=== PATIENT | female | born 1980 | race Caucasian/White ===

== ENCOUNTER 2017-11-19 09:32 | Emergency (ER) | payer OTHER ==
[2017-11-19] MEDS ORDERED: SODIUM CHLORIDE 0.9% 1,000 ML IV STA (09:43)
[2017-11-19] MEDS ORDERED: SODIUM CHLORIDE 0.9% 500 ML IV STA (09:43)
[2017-11-19 10:45] LABS: Basophils % (A) 1 %; Eosinophils # (A) 0.1 k/uL (0-0.7); Eosinophils % (A) 2 %; HCT 31.8 % (34.0-46.0); Hypochromasia Marked; Lymphocytes # (A) 1.2 k/uL (1.0-4.8); Lymphocytes % (A) 24 %; MCH 23.4 pg (25.0-35.0); MCHC 31.5 g/dL (31.0-37.0); MCV 74.3 fL (80.0-100.0); Mean Platelet Volume 8.2; Microcytosis Slight; Monocytes # (A) 0.2 k/uL (0-1.0); Monocytes % (A) 4 %; Neutrophils # (A) 3.4 k/uL (1.3-7.7); Neutrophils % (A) 68 %; Platelet Count 334 k/uL (150-450); RBC 4.28 m/uL (3.80-5.40); RDW 14.9 % (11.5-15.5); WBC 5.1 k/uL (3.8-10.6)
--- NOTE | 2017-11-19 10:51 | ED ---
General Adult HPI - General Chief complaint: Chest Pain Stated complaint: CHEST PAIN, PALPATATIONS, L SHOULDER PAIN Time Seen by Provider: 11/19/17 09:42 Source: patient, RN notes reviewed, old records reviewed Mode of arrival: ambulatory Limitations: no limitations - History of Present Illness Initial comments: This is a 37-year-old female to the ER for evaluation of chest pain. Patient since with chest pain today. Patient has no history of heart disease normal cholesterol and high blood pressure or diabetes. Nonsmoker. No travel history. Patient has left shoulder pain pain down left back, sharp pain. Pain happened while driving earlier today, no modifying factors currently. Pain is mildly improved. Patient denies recent fevers cough or congestion patient does have asthma diabetes with extensive surgical history - Related Data Home Medications Medication Instructions Recorded Confirmed Multivitamin [Children's 2 tab PO DAILY 07/11/15 11/19/17 Multivitamins] Levothyroxine Sodium [Synthroid] 25 mcg PO DAILY 07/03/16 11/19/17 Loratadine [Claritin] 10 mg PO DAILY 11/19/17 11/19/17 Allergies Allergy/AdvReac Type Severity Reaction Status Date / Time adhesive Allergy Rash/Hives Verified 11/19/17 10:26 milk Allergy RETAINS Verified 11/19/17 10:26 FLUID Tetanus Vaccines and Toxoid Allergy Swelling Verified 11/19/17 10:26 [Tetanus Vaccines & Toxoid] skin ink Allergy Rash/Hives Uncoded 11/19/17 09:39 yellow squash Allergy Anaphylaxis Uncoded 11/19/17 09:39 dust AdvReac Mild Itching Uncoded 11/19/17 09:39 CIGARETTE SMOKE AdvReac Cough,SHORTNESS Uncoded 11/19/17 09:39 OF BREATH dust mites AdvReac Rash/Hives Uncoded 11/19/17 09:39 Review of Systems ROS Statement: Those systems with pertinent positive or pertinent negative responses have been documented in the HPI. ROS Other: All systems not noted in ROS Statement are negative. Past Medical History Past Medical History: Asthma, Diabetes Mellitus, Skin Disorder, Thyroid Disorder Additional Past Medical History / Comment(s): migraines, constipation, hashimotos, eczema, no current rx for diabetes- diet control, anemia History of Any Multi-Drug Resistant Organisms: None Reported Date of last positivie culture/infection: JUNE 2013 MDRO Source:: WOUND ON LEFT UPPER ABDOMEN Past Surgical History: Appendectomy, Bariatric Surgery, Section, Orthopedic Surgery, Tubal Ligation Additional Past Surgical History / Comment(s): LENA-EN-Y, left knee arthroscopy , I&D left upper abdomen; Panniculectomy Jul 2016 Past Anesthesia/Blood Transfusion Reactions: Family History of Problems w/ Anesthesia, Motion Sickness, Postoperative Nausea & Vomiting (PONV) Additional Past Anesthesia/Blood Transfusion Reaction / Comment(s): mother-" hard time waking up and trouble breathing" Past Psychological History: No Psychological Hx Reported Smoking Status: Never smoker Past Alcohol Use History: None Reported Past Drug Use History: None Reported - Past Family History Mother Family Medical History: No Reported History General Exam Limitations: no limitations General appearance: alert, in no apparent distress Head exam: Present: atraumatic, normocephalic, normal inspection Eye exam: Present: normal appearance, PERRL, EOMI. Absent: scleral icterus, conjunctival injection, periorbital swelling ENT exam: Present: normal exam, mucous membranes moist Neck exam: Present: normal inspection. Absent: tenderness, meningismus, lymphadenopathy Respiratory exam: Present: normal lung sounds bilaterally. Absent: respiratory distress, wheezes, rales, rhonchi, stridor Cardiovascular Exam: Present: regular rate, normal rhythm, normal heart sounds. Absent: systolic murmur, diastolic murmur, rubs, gallop, clicks GI/Abdominal exam: Present: soft, normal bowel sounds. Absent: distended, tenderness, guarding, rebound, rigid Extremities exam: Present: normal inspection, full ROM, normal capillary refill. Absent: tenderness, pedal edema, joint swelling, calf tenderness Back exam: Present: normal inspection Neurological exam: Present: alert, oriented X3, CN II-XII intact Psychiatric exam: Present: normal affect, normal mood Skin exam: Present: warm, dry, intact, normal color. Absent: rash Course Vital Signs 11/19/17 11/19/17 09:37 10:44 Temperature 98 F Pulse Rate 109 H 89 Respiratory 20 20 Rate Blood Pressure 130/77 121/70 O2 Sat by Pulse 98 98 Oximetry - Reevaluation(s) Reevaluation #1: 11/19/17 11:53 Pain is reduced with Toradol, was made worse with palpation of left shoulder Reevaluation #2: 11/19/17 11:53 Patient is in no distress, denies shortness of breath or pain EKG Findings - EKG Comments: EKG Findings:: EKG shows normal sinus rhythm rate of 95, rate of 95, [place] 1:30, QRS 68, QTc 439 Medical Decision Making - Medical Decision Making 37 female to ER chest pain left shoulder pain, pain is atypical, patient has no risk factors, patient has no recent travel history or sick contacts. - Lab Data Result diagrams: 11/19/17 10:00 11/19/17 10:00 Lab Results 11/19/17 11/19/17 11/19/17 Range/Units 10:00 10:00 10:00 WBC 5.1 (3.8-10.6) k/uL RBC 4.28 (3.80-5.40) m/uL Hgb 10.0 L (11.4-16.0) gm/dL Hct 31.8 L (34.0-46.0) % MCV 74.3 L (80.0-100.0) fL MCH 23.4 L (25.0-35.0) pg MCHC 31.5 (31.0-37.0) g/dL RDW 14.9 (11.5-15.5) % Plt Count 334 (150-450) k/uL Neutrophils % 68 % Lymphocytes % 24 % Monocytes % 4 % Eosinophils % 2 % Basophils % 1 % Neutrophils # 3.4 (1.3-7.7) k/uL Lymphocytes # 1.2 (1.0-4.8) k/uL Monocytes # 0.2 (0-1.0) k/uL Eosinophils # 0.1 (0-0.7) k/uL Basophils # 0.0 (0-0.2) k/uL Hypochromasia Marked Microcytosis Slight PT (9.0-12.0) sec INR (<1.2) APTT (22.0-30.0) sec D-Dimer (<0.60) mg/L FEU Sodium 145 (137-145) mmol/L Potassium 4.4 (3.5-5.1) mmol/L Chloride 109 H (98-107) mmol/L Carbon Dioxide 25 (22-30) mmol/L Anion Gap 11 mmol/L BUN 12 (7-17) mg/dL Creatinine 0.77 (0.52-1.04) mg/dL Est GFR (MDRD) Af Amer >60 (>60 ml/min/1.73 sqM) Est GFR (MDRD) Non-Af >60 (>60 ml/min/1.73 sqM) Glucose 91 (74-99) mg/dL Calcium 9.5 (8.4-10.2) mg/dL Magnesium 2.0 (1.6-2.3) mg/dL Total Bilirubin 0.4 (0.2-1.3) mg/dL AST 19 (14-36) U/L ALT 22 (9-52) U/L Alkaline Phosphatase 54 (38-126) U/L Total Creatine Kinase 33 (30-135) U/L CK-MB (CK-2) <0.2 (0.0-2.4) ng/mL CK-MB (CK-2) Rel Index Troponin I <0.012 (0.000-0.034) ng/mL Total Protein 7.1 (6.3-8.2) g/dL Albumin 4.4 (3.5-5.0) g/dL Lipase 99 (23-300) U/L 11/19/17 Range/Units 10:00 WBC (3.8-10.6) k/uL RBC (3.80-5.40) m/uL Hgb (11.4-16.0) gm/dL Hct (34.0-46.0) % MCV (80.0-100.0) fL MCH (25.0-35.0) pg MCHC (31.0-37.0) g/dL RDW (11.5-15.5) % Plt Count (150-450) k/uL Neutrophils % % Lymphocytes % % Monocytes % % Eosinophils % % Basophils % % Neutrophils # (1.3-7.7) k/uL Lymphocytes # (1.0-4.8) k/uL Monocytes # (0-1.0) k/uL Eosinophils # (0-0.7) k/uL Basophils # (0-0.2) k/uL Hypochromasia Microcytosis PT 10.2 (9.0-12.0) sec INR 1.0 (<1.2) APTT 21.1 L (22.0-30.0) sec D-Dimer 0.22 (<0.60) mg/L FEU Sodium (137-145) mmol/L Potassium (3.5-5.1) mmol/L Chloride (98-107) mmol/L Carbon Dioxide (22-30) mmol/L Anion Gap mmol/L BUN (7-17) mg/dL Creatinine (0.52-1.04) mg/dL Est GFR (MDRD) Af Amer (>60 ml/min/1.73 sqM) Est GFR (MDRD) Non-Af (>60 ml/min/1.73 sqM) Glucose (74-99) mg/dL Calcium (8.4-10.2) mg/dL Magnesium (1.6-2.3) mg/dL Total Bilirubin (0.2-1.3) mg/dL AST (14-36) U/L ALT (9-52) U/L Alkaline Phosphatase (38-126) U/L Total Creatine Kinase (30-135) U/L CK-MB (CK-2) (0.0-2.4) ng/mL CK-MB (CK-2) Rel Index Troponin I (0.000-0.034) ng/mL Total Protein (6.3-8.2) g/dL Albumin (3.5-5.0) g/dL Lipase (23-300) U/L - Radiology Data Radiology results: report reviewed (Chest x-rays negative for acute disease), image reviewed Disposition Clinical Impression: Chest pain, Atypical chest pain Disposition: HOME SELF-CARE Condition: Good Instructions: Chest Pain (ED) Referrals: Cammy Lobato DO [Primary Care Provider] - 1-2 days
--- NOTE | 2017-11-19 10:58 | XR ---
EXAMINATION TYPE: XR chest 2V DATE OF EXAM: 11/19/2017 COMPARISON: NONE TECHNIQUE: PA and lateral views submitted. HISTORY: Chest pain FINDINGS: The lungs are clear and there is no pneumothorax, pleural effusion, or focal pneumonia. No overt fa ilure. IMPRESSION: 1. No acute process.
[2017-11-19 11:02] LABS: D-Dimer 0.22 mg/L FEU (<0.60); Prothrombin Time 10.2 sec (9.0-12.0)
[2017-11-19 11:09] LABS: Partial Thromboplastin Time 21.1 sec (22.0-30.0)
[2017-11-19 11:17] LABS: Creatine Kinase 33 U/L (30-135)
[2017-11-19 11:19] LABS: ALT 22 U/L (9-52); AST 19 U/L (14-36); Albumin 4.4 g/dL (3.5-5.0); Alkaline Phosphatase 54 U/L (38-126); Anion Gap 11 mmol/L; Blood Urea Nitrogen 12 mg/dL (7-17); Calcium 9.5 mg/dL (8.4-10.2); Carbon Dioxide 25 mmol/L (22-30); Chloride 109 mmol/L (98-107); Glucose 91 mg/dL (74-99); Lipase 99 U/L (23-300); Potassium 4.4 mmol/L (3.5-5.1); Sodium 145 mmol/L (137-145); Total Bilirubin 0.4 mg/dL (0.2-1.3); Total Protein 7.1 g/dL (6.3-8.2)
[2017-11-19 11:28] LABS: Creatine Kinase MB <0.2 ng/mL (0.0-2.4); Troponin I <0.012 ng/mL (0.000-0.034)
[2017-11-19] MEDS ORDERED: KETOROLAC 30 MG/ML 1 ML VIAL IVP STA (11:45)
[2017-11-19 12:12] VITALS: BP 129/79; PULSE 83; RESP 19
[2017-11-19 12:27] VITALS: TEMP 98.3
== END 2017-11-19 12:25 | disposition home or self-care (01) ==
LOC: EC 09:32
DX: R07.89 Other chest pain (principal); M25.512 Pain in left shoulder; E07.9 Disorder of thyroid, unspecified; Z86.2 Personal history of diseases of the blood and blood-forming organs and certain disorders involving the immune mechanism; Z91.011 Allergy to milk products; Z88.7 Allergy status to serum and vaccine; Z91.048 Other nonmedicinal substance allergy status; Z91.09 Other allergy status, other than to drugs and biological substances; Z79.899 Other long term (current) drug therapy
CPT/HCPCS: 36415; 93005; 85379; 80053; 82550; 82553; 83690; 83735; 84484; 85025; 85610; 85730; 71046; 99285; 96374; 96361 ×2; J1885

== ENCOUNTER 2017-11-25 08:11 | Emergency (ER) | payer OTHER ==
[2017-11-25] MEDS ORDERED: ONDANSETRON 4 MG/2 ML VIAL IVP STA (08:44)
[2017-11-25] MEDS ORDERED: SODIUM CHLORIDE 0.9% 1,000 ML IV STA (08:44)
--- NOTE | 2017-11-25 08:51 | ED ---
General Adult HPI - General Chief complaint: Syncope Stated complaint: SYNCOPE, NAUSEA Time Seen by Provider: 11/25/17 08:31 Source: patient, RN notes reviewed Mode of arrival: wheelchair Limitations: no limitations - History of Present Illness Initial comments: Patient 37-year-old female who presents emergency room today with a chief complaint feeling dizzy lightheaded and having a syncopal episode. Patient does admit that she took Zoloft for the first time yesterday in the afternoon. She states she woke up 4:00 in the morning feeling dizzy lightheaded and nauseous. States she was trying to make her way to the bathroom and had a syncopal episode of on the bathroom floor. She states that approximate hour later she was trying to make her way back to bed and fell again hitting her face into the wall. She has mid to pain in a headache left side and also some pain to the left side of her neck. Patient is currently in a cervical collar. Patient also admits some pain to the left shoulder. Patient does admit that the symptoms dizziness and nausea have somewhat improved. Patient denies any other complaints. Patient denies any recent fever, chills, shortness of breath, chest pain, back pain, dysuria or hematuria, constipation or diarrhea, headaches or visual changes, or any other complaints. - Related Data Home Medications Medication Instructions Recorded Confirmed Levothyroxine Sodium [Synthroid] 25 mcg PO DAILY 07/03/16 11/25/17 Sertraline [Zoloft] 25 mg PO ONCE 11/25/17 11/25/17 Allergies Allergy/AdvReac Type Severity Reaction Status Date / Time adhesive Allergy Rash/Hives Verified 11/25/17 08:39 milk Allergy RETAINS Verified 11/25/17 08:39 FLUID Tetanus Vaccines and Toxoid Allergy Swelling Verified 11/25/17 08:39 [Tetanus Vaccines & Toxoid] sertraline [From Zoloft] AdvReac DIZZY/Nausea Verified 11/25/17 08:39 & Vomiting skin ink Allergy Rash/Hives Uncoded 11/25/17 08:23 yellow squash Allergy Anaphylaxis Uncoded 11/25/17 08:23 dust AdvReac Mild Itching Uncoded 11/25/17 08:23 CIGARETTE SMOKE AdvReac Cough,SHORTNESS Uncoded 11/25/17 08:23 OF BREATH dust mites AdvReac Rash/Hives Uncoded 11/25/17 08:23 Review of Systems ROS Statement: Those systems with pertinent positive or pertinent negative responses have been documented in the HPI. ROS Other: All systems not noted in ROS Statement are negative. Past Medical History Past Medical History: Asthma, Diabetes Mellitus, Skin Disorder, Thyroid Disorder Additional Past Medical History / Comment(s): migraines, constipation, hashimotos, eczema, no current rx for diabetes- diet control, anemia History of Any Multi-Drug Resistant Organisms: None Reported Date of last positivie culture/infection: JUNE 2013 MDRO Source:: WOUND ON LEFT UPPER ABDOMEN Past Surgical History: Appendectomy, Bariatric Surgery, Section, Orthopedic Surgery, Tubal Ligation Additional Past Surgical History / Comment(s): LENA-EN-Y, left knee arthroscopy , I&D left upper abdomen; Panniculectomy Jul 2016 Past Anesthesia/Blood Transfusion Reactions: Family History of Problems w/ Anesthesia, Motion Sickness, Postoperative Nausea & Vomiting (PONV) Additional Past Anesthesia/Blood Transfusion Reaction / Comment(s): mother-" hard time waking up and trouble breathing" Past Psychological History: No Psychological Hx Reported Smoking Status: Never smoker Past Alcohol Use History: None Reported Past Drug Use History: None Reported - Past Family History Mother Family Medical History: No Reported History General Exam - General Exam Comments Initial Comments: General: The patient is awake and alert, in no distress, and does not appear acutely ill. Patient is in cervical collar. Eye: Pupils are equal, round and reactive to light, extra-ocular movements are intact. No nystagmus. There is normal conjunctiva bilaterally. No signs of icterus. Ears, nose, mouth and throat: There are moist mucous membranes and no oral lesions. Neck: The neck is supple, there is no tenderness or JVD. Cardiovascular: There is a regular rate and rhythm. No murmur, rub or gallop is appreciated. Respiratory: Lungs are clear to auscultation, respirations are non-labored, breath sounds are equal. No wheezes, stridor, rales, or rhonchi. Gastrointestinal: Soft, non-distended, non-tender abdomen without masses or organomegaly noted. There is no rebound or guarding present. No CVA tenderness. Bowel sounds are unremarkable. Musculoskeletal: Normal ROM. Normal appearance of the left shoulder no obvious deformities to the shoulder or neck or spine. Patient does have tenderness midline cervical at C3-C4. Does have tenderness over the shoulder both anteriorly and posteriorly. Strength 5/5. Sensation intact. Pulses equal bilaterally 2+. Neurological: A&O x 3. CN II-XII intact, There are no obvious motor or sensory deficits. Coordination appears grossly intact. Speech is normal. Skin: Skin is warm and dry and no rashes or lesions are noted. Psychiatric: Cooperative, appropriate mood & affect, normal judgment. Limitations: no limitations Course Vital Signs 11/25/17 11/25/17 08:16 10:15 Temperature 98.6 F Pulse Rate 100 82 Respiratory 18 18 Rate Blood Pressure 124/73 111/60 O2 Sat by Pulse 100 100 Oximetry Medical Decision Making - Medical Decision Making Case discussed in detail with attending physician Patient reexamined at this time shows no signs of distress resting comfortably. Patient feeling well at this time. No complaints currently. Patient's CT negative. X-rays negative. Labs unremarkable. Patient's symptoms could be consistent with possible side effect from Zoloft. Advised to discontinue his medication initially took 1 dose yesterday and follow-up the family doctor. Advised return if any symptoms increase or worsen. - Lab Data Result diagrams: 11/25/17 09:06 11/25/17 09:06 Lab Results 11/25/17 11/25/17 11/25/17 Range/Units 09:06 09:06 09:19 WBC 3.9 (3.8-10.6) k/uL RBC 4.25 (3.80-5.40) m/uL Hgb 9.8 L (11.4-16.0) gm/dL Hct 30.7 L (34.0-46.0) % MCV 72.3 L (80.0-100.0) fL MCH 23.1 L (25.0-35.0) pg MCHC 31.9 (31.0-37.0) g/dL RDW 14.5 (11.5-15.5) % Plt Count 272 (150-450) k/uL Neutrophils % 70 % Lymphocytes % 22 % Monocytes % 6 % Eosinophils % 1 % Basophils % 0 % Neutrophils # 2.7 (1.3-7.7) k/uL Lymphocytes # 0.9 L (1.0-4.8) k/uL Monocytes # 0.2 (0-1.0) k/uL Eosinophils # 0.0 (0-0.7) k/uL Basophils # 0.0 (0-0.2) k/uL Hypochromasia Marked Microcytosis Slight Sodium 145 (137-145) mmol/L Potassium 4.5 (3.5-5.1) mmol/L Chloride 105 (98-107) mmol/L Carbon Dioxide 29 (22-30) mmol/L Anion Gap 11 mmol/L BUN 14 (7-17) mg/dL Creatinine 0.70 (0.52-1.04) mg/dL Est GFR (MDRD) Af Amer >60 (>60 ml/min/1.73 sqM) Est GFR (MDRD) Non-Af >60 (>60 ml/min/1.73 sqM) Glucose 101 H (74-99) mg/dL Calcium 9.4 (8.4-10.2) mg/dL Total Bilirubin 0.2 (0.2-1.3) mg/dL AST 20 (14-36) U/L ALT 25 (9-52) U/L Alkaline Phosphatase 70 (38-126) U/L Total Protein 7.1 (6.3-8.2) g/dL Albumin 4.4 (3.5-5.0) g/dL Urine Color Urine Appearance (Clear) Urine pH (5.0-8.0) Ur Specific [place] (1.001-1.035) Urine Protein (Negative) Urine Glucose (UA) (Negative) Urine Ketones (Negative) Urine Blood (Negative) Urine Nitrite (Negative) Urine Bilirubin (Negative) Urine Urobilinogen (<2.0) mg/dL Ur Leukocyte Esterase (Negative) Urine HCG, Qual Not Detected (Not Detectd) 11/25/17 Range/Units 09:19 WBC (3.8-10.6) k/uL RBC (3.80-5.40) m/uL Hgb (11.4-16.0) gm/dL Hct (34.0-46.0) % MCV (80.0-100.0) fL MCH (25.0-35.0) pg MCHC (31.0-37.0) g/dL RDW (11.5-15.5) % Plt Count (150-450) k/uL Neutrophils % % Lymphocytes % % Monocytes % % Eosinophils % % Basophils % % Neutrophils # (1.3-7.7) k/uL Lymphocytes # (1.0-4.8) k/uL Monocytes # (0-1.0) k/uL Eosinophils # (0-0.7) k/uL Basophils # (0-0.2) k/uL Hypochromasia Microcytosis Sodium (137-145) mmol/L Potassium (3.5-5.1) mmol/L Chloride (98-107) mmol/L Carbon Dioxide (22-30) mmol/L Anion Gap mmol/L BUN (7-17) mg/dL Creatinine (0.52-1.04) mg/dL Est GFR (MDRD) Af Amer (>60 ml/min/1.73 sqM) Est GFR (MDRD) Non-Af (>60 ml/min/1.73 sqM) Glucose (74-99) mg/dL Calcium (8.4-10.2) mg/dL Total Bilirubin (0.2-1.3) mg/dL AST (14-36) U/L ALT (9-52) U/L Alkaline Phosphatase (38-126) U/L Total Protein (6.3-8.2) g/dL Albumin (3.5-5.0) g/dL Urine Color Light Yellow Urine Appearance Cloudy H (Clear) Urine pH 6.0 (5.0-8.0) Ur Specific [place] 1.010 (1.001-1.035) Urine Protein 2+ (Negative) Urine Glucose (UA) Negative (Negative) Urine Ketones Negative (Negative) Urine Blood Negative (Negative) Urine Nitrite Negative (Negative) Urine Bilirubin Negative (Negative) Urine Urobilinogen <2.0 (<2.0) mg/dL Ur Leukocyte Esterase Small (Negative) Urine HCG, Qual (Not Detectd) Disposition Clinical Impression: Adverse drug reaction, Lightheaded, Nausea Disposition: HOME SELF-CARE Condition: Good Instructions: Acute Nausea and Vomiting (ED) Additional Instructions: Please discontinue medication as discussed follow family doctor over the next 2 days. Please return to emergency room if any symptoms increase or worsen or for any other concerns. Referrals: Cammy Lobato DO [Primary Care Provider] - 1-2 days Time of Disposition: 11:17
[2017-11-25 09:26] LABS: Basophils % (A) 0 %; Eosinophils % (A) 1 %; HCT 30.7 % (34.0-46.0); HGB 9.8 gm/dL (11.4-16.0); Hypochromasia Marked; Lymphocytes # (A) 0.9 k/uL (1.0-4.8); Lymphocytes % (A) 22 %; MCH 23.1 pg (25.0-35.0); MCHC 31.9 g/dL (31.0-37.0); MCV 72.3 fL (80.0-100.0); Mean Platelet Volume 7.7; Microcytosis Slight; Monocytes # (A) 0.2 k/uL (0-1.0); Monocytes % (A) 6 %; Neutrophils # (A) 2.7 k/uL (1.3-7.7); Neutrophils % (A) 70 %; Platelet Count 272 k/uL (150-450); RBC 4.25 m/uL (3.80-5.40); RDW 14.5 % (11.5-15.5); WBC 3.9 k/uL (3.8-10.6)
[2017-11-25 09:36] LABS: ALT 25 U/L (9-52); AST 20 U/L (14-36); Albumin 4.4 g/dL (3.5-5.0); Alkaline Phosphatase 70 U/L (38-126); Anion Gap 11 mmol/L; Blood Urea Nitrogen 14 mg/dL (7-17); Calcium 9.4 mg/dL (8.4-10.2); Carbon Dioxide 29 mmol/L (22-30); Chloride 105 mmol/L (98-107); Glucose 101 mg/dL (74-99); Potassium 4.5 mmol/L (3.5-5.1); Sodium 145 mmol/L (137-145); Total Bilirubin 0.2 mg/dL (0.2-1.3); Total Protein 7.1 g/dL (6.3-8.2)
[2017-11-25 09:49] LABS: Appearance,Urine Cloudy (Clear); Protein,Urine 2+ (Negative)
[2017-11-25 09:50] LABS: Glucose,Urine (UA) Negative (Negative)
[2017-11-25 09:51] LABS: Bilirubin,Urine Negative (Negative); Blood,Urine Negative (Negative); Ketones,Urine Negative (Negative)
[2017-11-25 09:52] LABS: Color,Urine Light Yellow; Leukocyte Esterase,Urine Small (Negative); Nitrite,Urine Negative (Negative); Urobilinogen,Urine <2.0 mg/dL (<2.0)
--- NOTE | 2017-11-25 10:15 | CT ---
EXAMINATION TYPE: CT brain scout [place] DATE OF EXAM: 11/25/2017 COMPARISON: NONE HISTORY: Patient complains of left side head, neck, and shoulder pain post syncopeal fall last night. CT DLP: 1063.[address] Brain: Unenhanced CT of the brain was performed. The ventricles, basal cisterns and sulci overlying the cerebral convexities demonstrate a normal appe arance. There is no evidence for intracranial hemorrhage or sulcal effacement. No mass effects are seen. If symptoms persist consider MRI. Osseous calvarium is intact. Opacification left maxillary sinus. IMPRESSION: No acute intracranial process. Opacification left maxillary sinus. CT Cervical Spine: Unenhanced CT of the cervical spine was performed with bone and soft tissue window settings submitted . Coronal and sagittal reconstruction is obtained. There is normal alignment and prevertebral soft tissues. I do not see evidence for fracture or sublu xation. No significant degenerative changes are present. The lung apices are clear. IMPRESSION: No evidence for acute fracture or subluxation of the cervical spine.
--- NOTE | 2017-11-25 10:42 | XR ---
EXAMINATION TYPE: XR chest 2V DATE OF EXAM: 11/25/2017 COMPARISON: NONE HISTORY: Chest pain TECHNIQUE: Frontal and lateral views of the chest are obtained. FINDINGS: There is no focal air space opacity. No evidence for pneumothorax. No pleural effusion. The cardiac silhouette size is within normal limits. The osseous structures are grossly intact. IMPRESSION: 1. No acute cardiopulmonary process.
--- NOTE | 2017-11-25 10:45 | XR ---
Left shoulder HISTORY: Syncope, trauma and pain 3 views of the left shoulder correlated to prior exam 07/15/2016 Bone mineralization, joint spaces and alignment are maintained. Left lung apex as visualized is kiel l. IMPRESSION: No acute fracture or dislocation.
[2017-11-25 11:35] VITALS: BP 109/58; PULSE 79; RESP 19; TEMP 98.3
== END 2017-11-25 11:36 | disposition home or self-care (01) ==
LOC: EC 08:11
DX: R42 Dizziness and giddiness (principal); R11.0 Nausea; T43.225A Adverse effect of selective serotonin reuptake inhibitors, initial encounter; M54.2 Cervicalgia; M25.512 Pain in left shoulder; R51 Headache; E07.9 Disorder of thyroid, unspecified; Z86.2 Personal history of diseases of the blood and blood-forming organs and certain disorders involving the immune mechanism; Z91.048 Other nonmedicinal substance allergy status; Z88.7 Allergy status to serum and vaccine; Z91.011 Allergy to milk products; Z88.8 Allergy status to other drugs, medicaments and biological substances; Z91.09 Other allergy status, other than to drugs and biological substances; Z79.899 Other long term (current) drug therapy; W01.198A Fall on same level from slipping, tripping and stumbling with subsequent striking against other object, initial encounter
CPT/HCPCS: 36415; 93005; 80053; 85025; 81003; 81025; 73030; 71046; 72125; 70450; 99284; 96374; 96361; J2405

== ENCOUNTER 2017-12-24 10:01 | Emergency (ER) | payer OTHER ==
[2017-12-24 10:39] VITALS: RESP 18
[2017-12-24] MEDS ORDERED: SODIUM CHLORIDE 0.9% 1,000 ML IV STA (11:19)
--- NOTE | 2017-12-24 11:23 | ED ---
General Adult HPI - General Chief complaint: Recheck/Abnormal Lab/Rx Stated complaint: poss alcohol ricardo juarez Time Seen by Provider: 12/24/17 11:06 Source: patient, RN notes reviewed Mode of arrival: ambulatory Limitations: no limitations - History of Present Illness Initial comments: 37-year-old female presents to the emergency department with a chief complaint of concern for alcohol poisoning. She states that she drank alcohol last night and she states she woke up this morning and she is feeling very off. She states when she is about to fall asleep she feels that she has to gasp for air. She states that she hasn't had any nausea vomiting. She just feels very tired and very sick she was concerned about falling asleep because of this gasping episode. She states there is been no high fevers. Patient has had no other symptoms. They were concerned due to the continued feeling fatigued so she thought that she should be seen.Patient denies any recent fever, chills, shortness of breath, chest pain, back pain, abdominal pain, nausea vomiting, numbness or tingling, dysuria or hematuria, constipation or diarrhea, headaches or visual changes, or any other current symptoms. - Related Data Home Medications Medication Instructions Recorded Confirmed Levothyroxine Sodium [Synthroid] 25 mcg PO DAILY 07/03/16 12/24/17 Sertraline [Zoloft] 12.5 mg PO HS 11/25/17 12/24/17 Alive Chewable Multivitamin 1 tab PO DAILY 12/24/17 12/24/17 Allergies Allergy/AdvReac Type Severity Reaction Status Date / Time adhesive Allergy Rash/Hives Verified 12/24/17 10:54 milk Allergy RETAINS Verified 12/24/17 10:54 FLUID Tetanus Vaccines and Toxoid Allergy Swelling Verified 12/24/17 10:54 [Tetanus Vaccines & Toxoid] sertraline [From Zoloft] AdvReac DIZZY/Nausea Verified 12/24/17 10:54 & Vomiting skin ink Allergy Rash/Hives Uncoded 12/24/17 10:39 yellow squash Allergy Anaphylaxis Uncoded 12/24/17 10:39 dust AdvReac Mild Itching Uncoded 12/24/17 10:39 CIGARETTE SMOKE AdvReac Cough,SHORTNESS Uncoded 12/24/17 10:39 OF BREATH dust mites AdvReac Rash/Hives Uncoded 12/24/17 10:39 Review of Systems ROS Statement: Those systems with pertinent positive or pertinent negative responses have been documented in the HPI. ROS Other: All systems not noted in ROS Statement are negative. Past Medical History Past Medical History: Asthma, Diabetes Mellitus, Skin Disorder, Thyroid Disorder Additional Past Medical History / Comment(s): migraines, constipation, hashimotos, eczema, no current rx for diabetes- diet control, anemia History of Any Multi-Drug Resistant Organisms: None Reported Date of last positivie culture/infection: JUNE 2013 MDRO Source:: WOUND ON LEFT UPPER ABDOMEN Past Surgical History: Appendectomy, Bariatric Surgery, Section, Orthopedic Surgery, Tubal Ligation Additional Past Surgical History / Comment(s): LENA-EN-Y, left knee arthroscopy , I&D left upper abdomen; Panniculectomy Jul 2016 Past Anesthesia/Blood Transfusion Reactions: Family History of Problems w/ Anesthesia, Motion Sickness, Postoperative Nausea & Vomiting (PONV) Additional Past Anesthesia/Blood Transfusion Reaction / Comment(s): mother-" hard time waking up and trouble breathing" Past Psychological History: No Psychological Hx Reported Smoking Status: Never smoker Past Alcohol Use History: None Reported Past Drug Use History: None Reported - Past Family History Mother Family Medical History: No Reported History General Exam Limitations: no limitations General appearance: alert, in no apparent distress Eye exam: Present: normal appearance, PERRL, EOMI. Absent: scleral icterus, conjunctival injection, periorbital swelling ENT exam: Present: normal exam, mucous membranes moist Neck exam: Present: normal inspection. Absent: tenderness, meningismus, lymphadenopathy Respiratory exam: Present: normal lung sounds bilaterally. Absent: respiratory distress, wheezes, rales, rhonchi, stridor Cardiovascular Exam: Present: regular rate, normal rhythm, normal heart sounds. Absent: systolic murmur, diastolic murmur, rubs, gallop, clicks GI/Abdominal exam: Present: soft, normal bowel sounds. Absent: distended, tenderness, guarding, rebound, rigid Neurological exam: Present: alert, oriented X3 Psychiatric exam: Present: normal affect, normal mood Skin exam: Present: warm, dry, intact, normal color. Absent: rash Course Vital Signs 12/24/17 12/24/17 12/24/17 10:36 11:44 12:55 Temperature 99.1 F Pulse Rate 107 H 86 Respiratory 18 18 18 Rate Blood Pressure 124/76 108/61 O2 Sat by Pulse 100 100 Oximetry Medical Decision Making - Medical Decision Making 37-year-old female presents to the emergency Department chief complaint of recent alcohol use and feeling fatigued today. At this time patient is found to have a hemoglobin of 8. She does chronically suffer from anemia and states she cannot and taking her iron pills. We discussed her fatigued. Could be from this. Her stool occult is negative. At this time we discussed continued follow-up with her doctor for her anemia. We discussed the importance of her iron. We did discuss return parameters and all her questions. She stated that she understood and she is agreement this plan. All questions have been answered. She will be discharged. - Lab Data Result diagrams: 12/24/17 11:30 12/24/17 11:30 Lab Results 12/24/17 12/24/17 12/24/17 Range/Units 11:30 11:30 11:43 WBC 5.0 (3.8-10.6) k/uL RBC 3.64 L (3.80-5.40) m/uL Hgb 8.0 L D (11.4-16.0) gm/dL Hct 27.0 L (34.0-46.0) % MCV 74.1 L (80.0-100.0) fL MCH 22.0 L (25.0-35.0) pg MCHC 29.6 L (31.0-37.0) g/dL RDW 14.6 (11.5-15.5) % Plt Count 280 (150-450) k/uL Neutrophils % 69 % Lymphocytes % 22 % Monocytes % 6 % Eosinophils % 2 % Basophils % 0 % Neutrophils # 3.5 (1.3-7.7) k/uL Lymphocytes # 1.1 (1.0-4.8) k/uL Monocytes # 0.3 (0-1.0) k/uL Eosinophils # 0.1 (0-0.7) k/uL Basophils # 0.0 (0-0.2) k/uL Hypochromasia Marked Microcytosis Slight Sodium 145 (137-145) mmol/L Potassium 4.2 (3.5-5.1) mmol/L Chloride 110 H (98-107) mmol/L Carbon Dioxide 27 (22-30) mmol/L Anion Gap 8 mmol/L BUN 13 (7-17) mg/dL Creatinine 0.63 (0.52-1.04) mg/dL Est GFR (MDRD) Af Amer >60 (>60 ml/min/1.73 sqM) Est GFR (MDRD) Non-Af >60 (>60 ml/min/1.73 sqM) Glucose 88 (74-99) mg/dL Calcium 8.8 (8.4-10.2) mg/dL Phosphorus 3.3 (2.5-4.5) mg/dL Magnesium 1.9 (1.6-2.3) mg/dL Total Bilirubin 0.3 (0.2-1.3) mg/dL AST 22 (14-36) U/L ALT 22 (9-52) U/L Alkaline Phosphatase 78 (38-126) U/L Total Protein 6.5 (6.3-8.2) g/dL Albumin 3.9 (3.5-5.0) g/dL Amylase 49 (30-110) U/L Lipase 121 (23-300) U/L Urine Color Yellow Urine Appearance Cloudy H (Clear) Urine pH 6.0 (5.0-8.0) Ur Specific [place] 1.019 (1.001-1.035) Urine Protein Trace H (Negative) Urine Glucose (UA) Negative (Negative) Urine Ketones Negative (Negative) Urine Blood Negative (Negative) Urine Nitrite Negative (Negative) Urine Bilirubin Negative (Negative) Urine Urobilinogen 2.0 (<2.0) mg/dL Ur Leukocyte Esterase Trace H (Negative) Urine RBC <1 (0-5) /hpf Urine WBC 5 (0-5) /hpf Ur Squamous Epith Cells 1 (0-4) /hpf Urine Bacteria Occasional H (None) /hpf Urine Mucus Occasional H (None) /hpf Urine HCG, Qual (Not Detectd) Stool Occult Blood (Negative) Urine Opiates Screen Detected H (NotDetected) Ur Oxycodone Screen Not Detected (NotDetected) Urine Methadone Screen Not Detected (NotDetected) Ur Propoxyphene Screen Not Detected (NotDetected) Ur Barbiturates Screen Not Detected (NotDetected) U Tricyclic Antidepress Not Detected (NotDetected) Ur Phencyclidine Scrn Not Detected (NotDetected) Ur Amphetamines Screen Not Detected (NotDetected) U Methamphetamines Scrn Not Detected (NotDetected) U Benzodiazepines Scrn Not Detected (NotDetected) Urine Cocaine Screen Not Detected (NotDetected) U Marijuana (THC) Screen Not Detected (NotDetected) Serum Alcohol <10 mg/dL 12/24/17 12/24/17 Range/Units 11:43 13:24 WBC (3.8-10.6) k/uL RBC (3.80-5.40) m/uL Hgb (11.4-16.0) gm/dL Hct (34.0-46.0) % MCV (80.0-100.0) fL MCH (25.0-35.0) pg MCHC (31.0-37.0) g/dL RDW (11.5-15.5) % Plt Count (150-450) k/uL Neutrophils % % Lymphocytes % % Monocytes % % Eosinophils % % Basophils % % Neutrophils # (1.3-7.7) k/uL Lymphocytes # (1.0-4.8) k/uL Monocytes # (0-1.0) k/uL Eosinophils # (0-0.7) k/uL Basophils # (0-0.2) k/uL Hypochromasia Microcytosis Sodium (137-145) mmol/L Potassium (3.5-5.1) mmol/L Chloride (98-107) mmol/L Carbon Dioxide (22-30) mmol/L Anion Gap mmol/L BUN (7-17) mg/dL Creatinine (0.52-1.04) mg/dL Est GFR (MDRD) Af Amer (>60 ml/min/1.73 sqM) Est GFR (MDRD) Non-Af (>60 ml/min/1.73 sqM) Glucose (74-99) mg/dL Calcium (8.4-10.2) mg/dL Phosphorus (2.5-4.5) mg/dL Magnesium (1.6-2.3) mg/dL Total Bilirubin (0.2-1.3) mg/dL AST (14-36) U/L ALT (9-52) U/L Alkaline Phosphatase (38-126) U/L Total Protein (6.3-8.2) g/dL Albumin (3.5-5.0) g/dL Amylase (30-110) U/L Lipase (23-300) U/L Urine Color Urine Appearance (Clear) Urine pH (5.0-8.0) Ur Specific [place] (1.001-1.035) Urine Protein (Negative) Urine Glucose (UA) (Negative) Urine Ketones (Negative) Urine Blood (Negative) Urine Nitrite (Negative) Urine Bilirubin (Negative) Urine Urobilinogen (<2.0) mg/dL Ur Leukocyte Esterase (Negative) Urine RBC (0-5) /hpf Urine WBC (0-5) /hpf Ur Squamous Epith Cells (0-4) /hpf Urine Bacteria (None) /hpf Urine Mucus (None) /hpf Urine HCG, Qual Not Detected (Not Detectd) Stool Occult Blood Negative (Negative) Urine Opiates Screen (NotDetected) Ur Oxycodone Screen (NotDetected) Urine Methadone Screen (NotDetected) Ur Propoxyphene Screen (NotDetected) Ur Barbiturates Screen (NotDetected) U Tricyclic Antidepress (NotDetected) Ur Phencyclidine Scrn (NotDetected) Ur Amphetamines Screen (NotDetected) U Methamphetamines Scrn (NotDetected) U Benzodiazepines Scrn (NotDetected) Urine Cocaine Screen (NotDetected) U Marijuana (THC) Screen (NotDetected) Serum Alcohol mg/dL Disposition Clinical Impression: Alcohol use, Chronic anemia, Fatigue Disposition: HOME SELF-CARE Condition: Stable Instructions: Iron Rich Diet (ED), Anemia (ED) Additional Instructions: Please use medication as discussed. Please follow up with family doctor if symptoms have not improved over the next two days. Please return to the emergency room if your symptoms increase or worsen or for any other concerns. Referrals: Cammy Lobato DO [Primary Care Provider] - 1-2 days Time of Disposition: 13:44
[2017-12-24 12:30] LABS: Basophils % (A) 0 %; Eosinophils # (A) 0.1 k/uL (0-0.7); Eosinophils % (A) 2 %; Hypochromasia Marked; Lymphocytes # (A) 1.1 k/uL (1.0-4.8); Lymphocytes % (A) 22 %; MCHC 29.6 g/dL (31.0-37.0); MCV 74.1 fL (80.0-100.0); Mean Platelet Volume 6.6; Microcytosis Slight; Monocytes # (A) 0.3 k/uL (0-1.0); Monocytes % (A) 6 %; Neutrophils # (A) 3.5 k/uL (1.3-7.7); Neutrophils % (A) 69 %; Platelet Count 280 k/uL (150-450); RBC 3.64 m/uL (3.80-5.40); RDW 14.6 % (11.5-15.5)
[2017-12-24 12:31] LABS: ALT 22 U/L (9-52); AST 22 U/L (14-36); Albumin 3.9 g/dL (3.5-5.0); Alcohol <10 mg/dL; Alkaline Phosphatase 78 U/L (38-126); Amylase 49 U/L (30-110); Anion Gap 8 mmol/L; Blood Urea Nitrogen 13 mg/dL (7-17); Calcium 8.8 mg/dL (8.4-10.2); Carbon Dioxide 27 mmol/L (22-30); Chloride 110 mmol/L (98-107); Glucose 88 mg/dL (74-99); Lipase 121 U/L (23-300); Magnesium 1.9 mg/dL (1.6-2.3); Phosphorus 3.3 mg/dL (2.5-4.5); Potassium 4.2 mmol/L (3.5-5.1); Sodium 145 mmol/L (137-145); Total Bilirubin 0.3 mg/dL (0.2-1.3); Total Protein 6.5 g/dL (6.3-8.2)
[2017-12-24 12:32] LABS: Appearance,Urine Cloudy (Clear); Bacteria,Urine Occasional /hpf; Bilirubin,Urine Negative (Negative); Blood,Urine Negative (Negative); Cocaine Screen,Urine Not Detected (NotDetected); Color,Urine Yellow; Glucose,Urine (UA) Negative (Negative); Ketones,Urine Negative (Negative); Leukocyte Esterase,Urine Trace (Negative); Mucus,Urine Occasional /hpf; Nitrite,Urine Negative (Negative); Phencyclidine Screen,Urine Not Detected (NotDetected); Protein,Urine Trace (Negative); RBC,Urine <1 /hpf (0-5); Specific Gravity,Urine 1.019 (1.001-1.035); Squamous Epithelial Cell,Urine 1 /hpf (0-4); Urn Cannabinoid Scrn Not Detected (NotDetected); WBC,Urine 5 /hpf (0-5)
[2017-12-24 12:33] LABS: Amphetamine Screen,Urine Not Detected (NotDetected); Barbiturate Screen,Urine Not Detected (NotDetected); Benzodiazepines Screen,Urine Not Detected (NotDetected); Methadone Screen, Urine Not Detected (NotDetected); Opiate Screen,Urine Detected (NotDetected); Oxycodone Screen, Urine Not Detected (NotDetected); Tricyclic Antidepressant,Urine Not Detected (NotDetected)
[2017-12-24 14:29] VITALS: BP 110/87; PULSE 87; TEMP 97.4
== END 2017-12-24 14:28 | disposition home or self-care (01) ==
LOC: EC 10:01
DX: D64.9 Anemia, unspecified (principal); Z72.89 Other problems related to lifestyle; R06.89 Other abnormalities of breathing; E06.3 Autoimmune thyroiditis; Z79.899 Other long term (current) drug therapy; Z88.7 Allergy status to serum and vaccine; Z88.8 Allergy status to other drugs, medicaments and biological substances; Z91.011 Allergy to milk products; Z91.018 Allergy to other foods; Z91.09 Other allergy status, other than to drugs and biological substances
CPT/HCPCS: 36415; 80053; 80306; 80320; 81001; 81025; 82150; 82272; 83690; 83735; 84100; 85025; 96360; 96361; 99284

== ENCOUNTER → 2018-01-14 | Outpatient (CLI) | payer OTHER ==
[2018-01-14 17:19] LABS: Basophils % (A) 1 %; Eosinophils # (A) 0.2 k/uL (0-0.7); Eosinophils % (A) 4 %; HCT 29.4 % (34.0-46.0); HGB 8.5 gm/dL (11.4-16.0); Hypochromasia Marked; Lymphocytes # (A) 1.7 k/uL (1.0-4.8); Lymphocytes % (A) 31 %; MCH 20.8 pg (25.0-35.0); MCHC 29.1 g/dL (31.0-37.0); MCV 71.6 fL (80.0-100.0); Mean Platelet Volume 7.1; Microcytosis Slight; Monocytes # (A) 0.4 k/uL (0-1.0); Monocytes % (A) 6 %; Neutrophils # (A) 3.2 k/uL (1.3-7.7); Neutrophils % (A) 57 %; Platelet Count 380 k/uL (150-450); RBC 4.11 m/uL (3.80-5.40); RDW 14.6 % (11.5-15.5); WBC 5.6 k/uL (3.8-10.6)
[2018-01-15 02:02] LABS: Iron Saturation 2.89 (12.00-45.00)
== END | disposition home or self-care (01) ==
LOC: LABWHC1 16:34
PROVIDERS: ATTEND Family Medicine
DX: D50.9 Iron deficiency anemia, unspecified (principal)
CPT/HCPCS: 36415; 82728; 83540; 83550; 85025

== ENCOUNTER 2018-01-28 17:52 | Emergency (ER) | payer OTHER ==
[2018-01-28 18:07] VITALS: RESP 16; TEMP 98.1
[2018-01-28 18:23] LABS: Amorphous Sediment,Urine Rare /hpf; Appearance,Urine Cloudy (Clear); Bacteria,Urine Occasional /hpf; Bilirubin,Urine Negative (Negative); Blood,Urine Small (Negative); Color,Urine Yellow; Glucose,Urine (UA) Negative (Negative); Ketones,Urine Negative (Negative); Leukocyte Esterase,Urine Large (Negative); Mucus,Urine Rare /hpf; Nitrite,Urine Negative (Negative); PH, Urine 6.5 (5.0-8.0); Protein,Urine Negative (Negative); RBC,Urine 2 /hpf (0-5); Specific Gravity,Urine 1.016 (1.001-1.035); Squamous Epithelial Cell,Urine 13 /hpf (0-4); Urobilinogen,Urine <2.0 mg/dL (<2.0); WBC,Urine 93 /hpf (0-5)
[2018-01-28 19:04] LABS: Basophils % (A) 1 %; Eosinophils # (A) 0.1 k/uL (0-0.7); Eosinophils % (A) 2 %; Hypochromasia Marked; Lymphocytes # (A) 1.3 k/uL (1.0-4.8); Lymphocytes % (A) 25 %; MCH 21.2 pg (25.0-35.0); MCHC 30.1 g/dL (31.0-37.0); MCV 70.2 fL (80.0-100.0); Mean Platelet Volume 6.6; Microcytosis Moderate; Monocytes # (A) 0.3 k/uL (0-1.0); Monocytes % (A) 5 %; Neutrophils # (A) 3.5 k/uL (1.3-7.7); Neutrophils % (A) 66 %; Platelet Count 339 k/uL (150-450); RBC 4.27 m/uL (3.80-5.40); RDW 14.1 % (11.5-15.5); WBC 5.3 k/uL (3.8-10.6)
[2018-01-28 19:11] LABS: ALT 22 U/L (9-52); AST 21 U/L (14-36); Albumin 4.4 g/dL (3.5-5.0); Alkaline Phosphatase 79 U/L (38-126); Anion Gap 14 mmol/L; Blood Urea Nitrogen 18 mg/dL (7-17); Calcium 9.4 mg/dL (8.4-10.2); Carbon Dioxide 27 mmol/L (22-30); Chloride 104 mmol/L (98-107); Glucose 67 mg/dL (74-99); Potassium 4.4 mmol/L (3.5-5.1); Sodium 145 mmol/L (137-145); Total Bilirubin 0.2 mg/dL (0.2-1.3); Total Protein 7.4 g/dL (6.3-8.2)
--- NOTE | 2018-01-28 19:26 | ED ---
General Adult HPI - General Chief complaint: Recheck/Abnormal Lab/Rx Stated complaint: LOW IRON Time Seen by Provider: 01/28/18 18:34 Source: patient, RN notes reviewed Mode of arrival: wheelchair Limitations: no limitations - History of Present Illness Initial comments: This is a 37-year-old female who presents to the emergency department with a chief complaint of low iron. Patient states that she has had low iron for a long period of time and has a family history of it. She states that approximately one month ago she began having worsening of her symptoms such as increased fatigue, shakiness, headaches and dizziness. She was seen by her primary care provider and had labs drawn on January 16. She states that her hemoglobin was low and she had an iron count of 5 at the time. She states that she does take daily [id number] iron supplements as well as eats plenty fluid that is high in iron. She states her last menstrual period ended yesterday. She states that she was referred to a doctor to receive iron transfusions but was unable to get in to see them until February 17. Patient presents to the emergency department with request for an iron transfusion. Denies fevers or chills, shortness breath or chest pain, abdominal pain, nausea or vomiting, diarrhea or constipation. Patient also complains of dysuria and increased frequency of urination. She is concerned that she may have a urinary tract infection. - Related Data Home Medications Medication Instructions Recorded Confirmed Levothyroxine Sodium [Synthroid] 25 mcg PO DAILY 07/03/16 01/28/18 Alive Chewable Multivitamin 1 tab PO DAILY 12/24/17 01/28/18 Ferrous Sulfate [Feosol] 325 mg PO DAILY 01/28/18 01/28/18 Previous Rx's Medication Instructions Recorded Sulfamethox-Tmp 800-160Mg [Bactrim 1 tab PO Q12HR #20 tab 01/28/18 DS 800-160 mg] Allergies Allergy/AdvReac Type Severity Reaction Status Date / Time adhesive Allergy Rash/Hives Verified 01/28/18 18:50 milk Allergy RETAINS Verified 01/28/18 18:50 FLUID Tetanus Vaccines and Toxoid Allergy Swelling Verified 01/28/18 18:50 [Tetanus Vaccines & Toxoid] sertraline [From Zoloft] AdvReac DIZZY/Nausea Verified 01/28/18 18:50 & Vomiting skin ink Allergy Rash/Hives Uncoded 01/28/18 18:07 yellow squash Allergy Anaphylaxis Uncoded 01/28/18 18:07 dust AdvReac Mild Itching Uncoded 01/28/18 18:07 CIGARETTE SMOKE AdvReac Cough,SHORTNESS Uncoded 01/28/18 18:07 OF BREATH dust mites AdvReac Rash/Hives Uncoded 01/28/18 18:07 Review of Systems ROS Statement: Those systems with pertinent positive or pertinent negative responses have been documented in the HPI. ROS Other: All systems not noted in ROS Statement are negative. Past Medical History Past Medical History: Asthma, Diabetes Mellitus, Skin Disorder, Thyroid Disorder Additional Past Medical History / Comment(s): migraines, constipation, hashimotos, eczema, no current rx for diabetes- diet control, anemia History of Any Multi-Drug Resistant Organisms: None Reported Date of last positivie culture/infection: JUNE 2013 MDRO Source:: WOUND ON LEFT UPPER ABDOMEN Past Surgical History: Appendectomy, Bariatric Surgery, Section, Orthopedic Surgery, Tubal Ligation Additional Past Surgical History / Comment(s): LENA-EN-Y, left knee arthroscopy , I&D left upper abdomen; Panniculectomy Jul 2016 Past Anesthesia/Blood Transfusion Reactions: Family History of Problems w/ Anesthesia, Motion Sickness, Postoperative Nausea & Vomiting (PONV) Additional Past Anesthesia/Blood Transfusion Reaction / Comment(s): mother-" hard time waking up and trouble breathing" Past Psychological History: No Psychological Hx Reported Smoking Status: Never smoker Past Alcohol Use History: None Reported Past Drug Use History: None Reported - Past Family History Mother Family Medical History: No Reported History General Exam - General Exam Comments Initial Comments: General: Awake and alert, well-developed; in no apparent distress. HEENT: Head atraumatic, normocephalic. Pupils are equal, round and reactive to light. Extraocular movements intact. Oropharynx moist without erythema or exudate. Neck: Supple. Normal ROM. Cardiovascular: Regular rate and rhythm. No murmurs, rubs or gallops. Chest symmetrical. Respiratory: Lungs clear to auscultation bilaterally. No wheezes, rales or rhonchi. Normal respiratory effort with no use of accessory muscles. Abdomen: Soft, non-tender, non-distended. No rigidity, rebound or guarding. Normal bowel sounds in all 4 quadrants. Musculoskeletal: Normal ROM, no tenderness bilateral upper and lower extremities. Ambulating normally. Skin: [place], warm and dry without rashes or lesions. Neurological: Alert and oriented x3. CN II-XII grossly intact. Speech is fluent and answers are appropriate. No focal neuro deficits. Psychiatric: Normal mood and affect. No overt signs of depression or anxiety noted. Limitations: no limitations Course Vital Signs 01/28/18 18:03 Temperature 98.1 F Pulse Rate 111 H Respiratory 16 Rate Blood Pressure 115/69 O2 Sat by Pulse 100 Oximetry Medical Decision Making - Medical Decision Making This is a 37-year-old female who presents to the emergency department with request for an iron transfusion. Patient states that labs drawn on January 16 revealed iron of 5. She does state she was referred to a doctor to receive an iron transfusion and has an appointment scheduled for February 17. CBC revealed a hemoglobin of 9.0, which is up from previous hemoglobin of 8.5. On review of patient's past labs, patient does appear to have chronic anemia. She does admit to having heavy periods and states that she was recommended to have a D&C or hysterectomy because of this. This case was discussed with attending physician, Dr. Andrews. Patient is recommended to follow-up with her primary care provider and with Dr. Underwood for iron transfusion as scheduled. UA did reveal evidence for urinary tract infection with positive leukocyte esterase, white blood cells and bacteria. Patient will be treated with Bactrim. Vital signs are stable and she is in no acute distress. Patient will be discharged home at this time. She is in agreement with plan and voices understanding. All questions were answered. - Lab Data Result diagrams: 01/28/18 18:54 01/28/18 18:54 Lab Results 01/28/18 01/28/18 01/28/18 Range/Units 18:09 18:09 18:54 WBC 5.3 (3.8-10.6) k/uL RBC 4.27 (3.80-5.40) m/uL Hgb 9.0 L (11.4-16.0) gm/dL Hct 30.0 L (34.0-46.0) % MCV 70.2 L (80.0-100.0) fL MCH 21.2 L (25.0-35.0) pg MCHC 30.1 L (31.0-37.0) g/dL RDW 14.1 (11.5-15.5) % Plt Count 339 (150-450) k/uL Neutrophils % 66 % Lymphocytes % 25 % Monocytes % 5 % Eosinophils % 2 % Basophils % 1 % Neutrophils # 3.5 (1.3-7.7) k/uL Lymphocytes # 1.3 (1.0-4.8) k/uL Monocytes # 0.3 (0-1.0) k/uL Eosinophils # 0.1 (0-0.7) k/uL Basophils # 0.0 (0-0.2) k/uL Hypochromasia Marked Microcytosis Moderate Sodium (137-145) mmol/L Potassium (3.5-5.1) mmol/L Chloride (98-107) mmol/L Carbon Dioxide (22-30) mmol/L Anion Gap mmol/L BUN (7-17) mg/dL Creatinine (0.52-1.04) mg/dL Est GFR (CKD-EPI)AfAm (>60 ml/min/1.73 sqM) Est GFR (CKD-EPI)NonAf (>60 ml/min/1.73 sqM) Glucose (74-99) mg/dL Calcium (8.4-10.2) mg/dL Total Bilirubin (0.2-1.3) mg/dL AST (14-36) U/L ALT (9-52) U/L Alkaline Phosphatase (38-126) U/L Total Protein (6.3-8.2) g/dL Albumin (3.5-5.0) g/dL Urine Color Yellow Urine Appearance Cloudy H (Clear) Urine pH 6.5 (5.0-8.0) Ur Specific [place] 1.016 (1.001-1.035) Urine Protein Negative (Negative) Urine Glucose (UA) Negative (Negative) Urine Ketones Negative (Negative) Urine Blood Small H (Negative) Urine Nitrite Negative (Negative) Urine Bilirubin Negative (Negative) Urine Urobilinogen <2.0 (<2.0) mg/dL Ur Leukocyte Esterase Large H (Negative) Urine RBC 2 (0-5) /hpf Urine WBC 93 H (0-5) /hpf Ur Squamous Epith Cells 13 H (0-4) /hpf Amorphous Sediment Rare H (None) /hpf Urine Bacteria Occasional H (None) /hpf Urine Mucus Rare H (None) /hpf Urine HCG, Qual Not Detected (Not Detectd) 01/28/18 Range/Units 18:54 WBC (3.8-10.6) k/uL RBC (3.80-5.40) m/uL Hgb (11.4-16.0) gm/dL Hct (34.0-46.0) % MCV (80.0-100.0) fL MCH (25.0-35.0) pg MCHC (31.0-37.0) g/dL RDW (11.5-15.5) % Plt Count (150-450) k/uL Neutrophils % % Lymphocytes % % Monocytes % % Eosinophils % % Basophils % % Neutrophils # (1.3-7.7) k/uL Lymphocytes # (1.0-4.8) k/uL Monocytes # (0-1.0) k/uL Eosinophils # (0-0.7) k/uL Basophils # (0-0.2) k/uL Hypochromasia Microcytosis Sodium 145 (137-145) mmol/L Potassium 4.4 (3.5-5.1) mmol/L Chloride 104 (98-107) mmol/L Carbon Dioxide 27 (22-30) mmol/L Anion Gap 14 mmol/L BUN 18 H (7-17) mg/dL Creatinine 0.83 (0.52-1.04) mg/dL Est GFR (CKD-EPI)AfAm >90 (>60 ml/min/1.73 sqM) Est GFR (CKD-EPI)NonAf >90 (>60 ml/min/1.73 sqM) Glucose 67 L (74-99) mg/dL Calcium 9.4 (8.4-10.2) mg/dL Total Bilirubin 0.2 (0.2-1.3) mg/dL AST 21 (14-36) U/L ALT 22 (9-52) U/L Alkaline Phosphatase 79 (38-126) U/L Total Protein 7.4 (6.3-8.2) g/dL Albumin 4.4 (3.5-5.0) g/dL Urine Color Urine Appearance (Clear) Urine pH (5.0-8.0) Ur Specific [place] (1.001-1.035) Urine Protein (Negative) Urine Glucose (UA) (Negative) Urine Ketones (Negative) Urine Blood (Negative) Urine Nitrite (Negative) Urine Bilirubin (Negative) Urine Urobilinogen (<2.0) mg/dL Ur Leukocyte Esterase (Negative) Urine RBC (0-5) /hpf Urine WBC (0-5) /hpf Ur Squamous Epith Cells (0-4) /hpf Amorphous Sediment (None) /hpf Urine Bacteria (None) /hpf Urine Mucus (None) /hpf Urine HCG, Qual (Not Detectd) Disposition Clinical Impression: Chronic anemia, Urinary tract infection Disposition: HOME SELF-CARE Condition: Good Instructions: Iron Rich Diet (ED), Iron Deficiency Anemia (ED), Urinary Tract Infection in Women (ED) Additional Instructions: Please take medications as prescribed. Please follow up for your iron transfusion as previously scheduled. Please follow up with primary care provider within 1-2 days. Return to emergency department if symptoms should worsen or any concerns arise. Prescriptions: Sulfamethox-Tmp 800-160Mg [Bactrim DS 800-160 mg] 1 tab PO Q12HR #20 tab Referrals: Cammy Lobato DO [Primary Care Provider] - 1-2 days Time of Disposition: 19:30
[2018-01-28 19:48] VITALS: BP 121/72; PULSE 98
== END 2018-01-28 19:49 | disposition home or self-care (01) ==
LOC: EC 17:52
DX: D64.9 Anemia, unspecified (principal); N39.0 Urinary tract infection, site not specified; E07.9 Disorder of thyroid, unspecified; Z79.899 Other long term (current) drug therapy; Z88.7 Allergy status to serum and vaccine; Z88.8 Allergy status to other drugs, medicaments and biological substances; Z91.011 Allergy to milk products; Z91.048 Other nonmedicinal substance allergy status; Z91.09 Other allergy status, other than to drugs and biological substances
CPT/HCPCS: 36415; 80053; 81001; 81025; 85025; 87077; 87086; 87186; 99283

== ENCOUNTER 2018-02-25 15:59 | Emergency (ER) | payer OTHER ==
[2018-02-25 16:04] VITALS: BP 121/62; PULSE 85; RESP 18; TEMP 99.5
--- NOTE | 2018-02-25 16:39 | XR ---
History pain. Big toe Comparison none. Technique 3 views. FINDINGS: I see no fracture nor dislocation. Joint spaces are fairly normal. CONCLUSION: No fracture.
--- NOTE | 2018-02-25 16:48 | ED ---
General Adult HPI - General Chief complaint: Skin/Abscess/Foreign Body Stated complaint: rt foot injury Time Seen by Provider: 02/25/18 16:05 Source: patient, RN notes reviewed, old records reviewed Mode of arrival: ambulatory Limitations: no limitations - History of Present Illness Initial comments: 37-year-old female presents emergency Department chief complaint of right toe injury. She reports this happened on December 19. She reports that since that she is having some pain to the toe. She reports that if yesterday that he started to swell and pressure. She pushed down on her nail and pus came out. He reports that her toenail was lifted up above the surrounding skin. She cut the nail back. She reports that she has diminished sensation over the toe. She initially thought that her toe was broken last week. She did not seek treatment. Patient states that she is no history of diabetes. She had a history of MRSA many years ago on her abdomen. Patient denies any recent fever , chills, shortness of breath, chest pain, back pain, abdominal pain, nausea vomiting, numbness or tingling, dysuria or hematuria, constipation or diarrhea, headaches or visual changes, or any other current symptoms - Related Data Home Medications Medication Instructions Recorded Confirmed Levothyroxine Sodium [Synthroid] 25 mcg PO DAILY 07/03/16 02/25/18 Alive Chewable Multivitamin 2 tab PO DAILY 12/24/17 02/25/18 Ferrous Sulfate [Feosol] 325 mg PO DAILY 01/28/18 02/25/18 Previous Rx's Medication Instructions Recorded Sulfamethox-Tmp 800-160Mg [Bactrim 1 tab PO DAILY #20 tab 02/25/18 DS 800-160 mg] Allergies Allergy/AdvReac Type Severity Reaction Status Date / Time adhesive Allergy Rash/Hives Verified 02/25/18 16:27 milk Allergy RETAINS Verified 02/25/18 16:27 FLUID Tetanus Vaccines and Toxoid Allergy Swelling Verified 02/25/18 16:27 [Tetanus Vaccines & Toxoid] cigarette smoke AdvReac Cough, Verified 02/25/18 16:27 Shortness of Breath sertraline [From Zoloft] AdvReac DIZZY/Nausea Verified 02/25/18 16:27 & Vomiting skin ink Allergy Rash/Hives Uncoded 02/25/18 09:02 yellow squash Allergy Anaphylaxis Uncoded 02/25/18 09:02 dust AdvReac Mild Itching Uncoded 02/25/18 09:02 dust mites AdvReac Rash/Hives Uncoded 02/25/18 09:02 Review of Systems ROS Statement: Those systems with pertinent positive or pertinent negative responses have been documented in the HPI. ROS Other: All systems not noted in ROS Statement are negative. Past Medical History Past Medical History: Asthma, Blood Disorder, Skin Disorder, Thyroid Disorder Additional Past Medical History / Comment(s): migraines, constipation, hashimotos, eczema, no current rx for diabetes- diet control, anemia History of Any Multi-Drug Resistant Organisms: None Reported Date of last positivie culture/infection: JUNE 2013 MDRO Source:: WOUND ON LEFT UPPER ABDOMEN Past Surgical History: Appendectomy, Bariatric Surgery, Section, Orthopedic Surgery, Tubal Ligation Additional Past Surgical History / Comment(s): LENA-EN-Y, left knee arthroscopy , I&D left upper abdomen; Panniculectomy Jul 2016 Past Anesthesia/Blood Transfusion Reactions: Family History of Problems w/ Anesthesia, Motion Sickness, Postoperative Nausea & Vomiting (PONV) Additional Past Anesthesia/Blood Transfusion Reaction / Comment(s): mother-" hard time waking up and trouble breathing" Past Psychological History: No Psychological Hx Reported Smoking Status: Never smoker Past Alcohol Use History: None Reported Past Drug Use History: None Reported - Past Family History Mother Family Medical History: No Reported History General Exam - General Exam Comments Initial Comments: 37-year-old female. Alert. No distress. Limitations: no limitations General appearance: alert, in no apparent distress Head exam: Present: atraumatic, normocephalic, normal inspection Eye exam: Present: normal appearance, PERRL, EOMI. Absent: scleral icterus, conjunctival injection, periorbital swelling ENT exam: Present: normal exam, mucous membranes moist Neck exam: Present: normal inspection. Absent: tenderness, meningismus, lymphadenopathy Respiratory exam: Present: normal lung sounds bilaterally. Absent: respiratory distress, wheezes, rales, rhonchi, stridor Cardiovascular Exam: Present: regular rate, normal rhythm, normal heart sounds. Absent: systolic murmur, diastolic murmur, rubs, gallop, clicks Right Lower Leg exam: Present: normal inspection, full ROM Ankle exam: Present: normal inspection, full ROM Foot/Toe exam: Absent: normal inspection (Patient has erythematous red toe. The toenail has been pulled back. There isbetween the nailbed and the short toenail. No extending erythema up the toe.), full ROM (Patient is unable to flex the distal joint of the great toe.), tenderness, swelling, abrasion, laceration Neurovascular tendon exam: Present: no vascular compromise Gait: observed and normal Back exam: Present: normal inspection Neurological exam: Present: alert, oriented X3, CN II-XII intact Psychiatric exam: Present: normal affect, normal mood Skin exam: Present: warm, dry, intact, normal color. Absent: rash Course Vital Signs 02/25/18 16:02 Temperature 99.5 F Pulse Rate 85 Respiratory 18 Rate Blood Pressure 121/62 O2 Sat by Pulse 98 Oximetry Medical Decision Making - Medical Decision Making 37-year-old female presents emergency Department with right toe infection after she hit it at approximately 10 days ago. Patient reports that she started have pus and drainage yesterday. She trimmed the toenail back. There is a gap between the nailbed and the skin underneath the nail. Patient cannot flex or extend the toe at the distal joint. Patient from likely a tear or injury to the extensor tendon where it attaches to the distal nail. Discussed putting the patient on antibiotics to cover for a toenail infection. We'll have her follow-up with podiatry and orthopedic. - Radiology Data Radiology results: report reviewed Interpreted by me: Toe x-rays reviewed and show no evidence of any fracture. Disposition Clinical Impression: Nail avulsion, toe, Extensor tendon disruption Disposition: HOME SELF-CARE Condition: Good Instructions: Nail Avulsion (ED) Additional Instructions: Patient advised to do frequent soaks of the toe. Follow up with orthopedic and podiatry. Take antibiotics as prescribed. Return to emergency department if any alarming signs or symptoms occur. Prescriptions: Sulfamethox-Tmp 800-160Mg [Bactrim DS 800-160 mg] 1 tab PO DAILY #20 tab Is patient prescribed a controlled substance at d/c from ED?: No If prescribed controlled substance>3 days was MAPS reviewed?: No When asked, does pt state using other controlled substances?: No Referrals: Cammy Lobato DO [Primary Care Provider] - 1-2 days Time of Disposition: 16:47
--- NOTE | 2018-02-25 17:00 | ED ---
Disposition Clinical Impression: Nail avulsion, toe, Extensor tendon disruption Disposition: HOME SELF-CARE Condition: Good Instructions: Nail Avulsion (ED) Additional Instructions: Patient advised to do frequent soaks of the toe. Follow up with orthopedic and podiatry. Take antibiotics as prescribed. Return to emergency department if any alarming signs or symptoms occur. Prescriptions: Sulfamethox-Tmp 800-160Mg [Bactrim DS 800-160 mg] 1 tab PO DAILY #20 tab Is patient prescribed a controlled substance at d/c from ED?: No If prescribed controlled substance>3 days was MAPS reviewed?: No When asked, does pt state using other controlled substances?: No Referrals: Cammy Lobato DO [Primary Care Provider] - 1-2 days Goldy Dominguez DPM [STAFF PHYSICIAN] - 1-2 days Baljeet Betts MD [Medical Doctor] - 1-2 days
== END 2018-02-25 17:15 | disposition home or self-care (01) ==
LOC: EC 15:59
DX: S91.201A Unspecified open wound of right great toe with damage to nail, initial encounter (principal); E07.9 Disorder of thyroid, unspecified; D64.9 Anemia, unspecified; Z86.14 Personal history of Methicillin resistant Staphylococcus aureus infection; Z79.899 Other long term (current) drug therapy; Z91.048 Other nonmedicinal substance allergy status; Z91.011 Allergy to milk products; Z88.7 Allergy status to serum and vaccine; Z88.8 Allergy status to other drugs, medicaments and biological substances; W22.8XXA Striking against or struck by other objects, initial encounter
CPT/HCPCS: 99284

== ENCOUNTER → 2018-03-09 | Outpatient (CLI) | payer OTHER ==
[2018-03-09 16:09] VITALS: BP 120/73; PULSE 78; TEMP 97.8; BMI 32.3
--- NOTE | 2018-03-09 16:47 | P.PN ---
Subjective Progress Note Date: 03/09/18 DATE OF SERVICE: 03/09/2018 CHIEF COMPLAINT: Status post gastric bypass. HISTORY OF PRESENT ILLNESS: Yolanda Ravi is a 36-year-old female who is status post Harshad-en-Y gastric bypass March 11, 2015. At that time she had weighed 316 pounds. Her ideal body weight for a 5-foot 4 frame is 144 pounds. Today she comes in weighing 187 pounds. She has lost a total of 129 pounds. Her body mass index has been reduced from 54.8 down of 31.4. Total BMI point reduction is 23.4. Her percent excess weight loss is 75%. She has lost another 8 pounds in 2 to 3 months. Now she presents for further evaluation and management. Separately, despite over a year and a half of a local wound care as well as nystatin powder, she still has recurrent panniculitis and complains of chronic skin infections. She was last seen 09/03/2016 when she weighed 177 pounds. Today she comes in 192 pounds. She reports her lowest weight was 168 pounds. She is very concerned for her weight gain secondary to severe iron deficiency anemia. She is eating 4 protein shakes a day. Her fatigue has improved after her infusion. She denies any dumping syndrome despite having a Red Bull. She has gone through a divorce. PAST MEDICAL HISTORY: 1. Obstructive sleep apnea, now resolved. 2. Diabetes type 2, insulin-dependent, now resolved. 3. Morbid obesity, now improved. 4. Dyslipidemia and hyperlipidemia, now improved. 5. Osteoarthritis of the bilateral hips, now improved. 6. Hypertensive heart disease, now improved. 7. Panniculitis. PAST SURGICAL HISTORY: 1. x4. 2. Repair of left knee for torn meniscus. 3. Appendectomy 2001. 4. Status post Harshad-en-Y gastric bypass. MEDICATIONS: 1. Thiamine. 2. Children's vitamin. 3. Vitamin D. 4. Vitamin A. 5. Nystatin powder. 6. Calcium citrate. ALLERGIES: 1. ADHESIVE TAPE. 2. MILK. 3. TETANUS. 4. CIGARETTE SMOKE. 5. SKIN INK. 6. YELLOW SQUASH. 7. DUST. 8. DUST MITES. SOCIAL HISTORY: Denies any active tobacco use. FAMILY HISTORY: Pertinent for diabetes including morbid obesity. REVIEW OF SYSTEMS: CONSTITUTIONAL: Total present weight loss of 129 pounds. Henderson body weight of 144 pounds. Body mass index reduced from 54.8 down to 31.4. Total BMI point reduction of 23.4. Percent excess weight loss of 75%. ENDOCRINE: No reports of dumping syndrome; however, now has hypoglycemia. Complete resolution of insulin-dependent type 2 diabetes. No reports of thyroid disorder. RESPIRATORY: Resolution of obstructive sleep apnea. She is no longer on her CPAP machine. MUSCULOSKELETAL: Resolved lower back pain including bilateral hip and knee pain. CARDIOVASCULAR: She is off all antihypertensive medications. She is also off all medications relating to cholesterol. GASTROINTESTINAL: No reports of dumping syndrome or blood in stools or dysphagia. HEMATOLOGIC: No reports of DVTs of the extremities. HEENT: Denies any troubles with vision or hearing. NEURO: Denies any stroke or seizure disorders. PSYCH: Denies depression or suicidal ideation. PHYSICAL EXAM: VITAL SIGNS: 99.2, 81, 16, 126/83; 5 feet 4-3/4 inches, weight of 187 pounds. Body mass index 31.4. ABDOMEN: No palpable incisional hernias. Hyperemia along the pannus consistent with panniculitis. Weight of pannus between 5 to 10 pounds. Pannus extends over pubis by 6+ cm. GENERAL: Well-developed female in no acute distress. MUSCULOSKELETAL: No clubbing, cyanosis or edema. CHEST: Nonlabored respirations. Equal bilateral excursions. CARDIOVASCULAR: Regular rate and rhythm. HEENT: No scleral icterus. Extraocular muscles grossly intact. Moist buccal mucosa. NECK: Supple without lymphadenopathy. NEURO: No focal or lateralizing signs. PSYCH: Appropriate affect. Alert and oriented to person, place and time. LABS: Hemoglobin was low at 10.4. Phosphorus elevated 4.6. Total iron-binding capacity was 504. Percent iron saturation was low at 12.8. LDL was elevated at 114. Hemoglobin A1c was corrected and decreased from 7.3 down to 5.5. Glucose was 93. The rest of bariatric metabolic panel was within normal limits. ASSESSMENT: 1. Morbid obesity due to excess calories. 2. Body mass index reduced from 56.1 down to 31.4. 3. Status post Harshad-en-Y gastric bypass. 4. Hypoglycemia. 5. History of vitamin A deficiency. 6. History of vitamin D deficiency. 7. Morbid obesity due to exogenous caloric intake. 8. Body mass index reduced from lifetime of 56.1 down to 34.8. 9. Resolution of diabetes, type 2, insulin-dependent. 10. Obstructive sleep apnea, resolved. 11. Hyperlipidemia, resolved. 12. Thiamine deficiency. 13. Hypertensive heart disease, resolved. 14. Dietary counseling. 15. Panniculitis of the abdomen. 16. Iron deficiency anemia secondary to inadequate oral intake. 17. Iatrogenic malnutrition. 18. Status post massive weight loss of 129 pounds. 19. Iron deficiency anemia, symptomatic. PLAN: 1. Get bariatric labs today. 2. Recommend 2 week protien diet. 3. Recommend diet journal. 4. Mental release and relaxation was reviewed. 5. Follow up in 1 month. 6. Recommend carbohydrate restriction of 50 grams. Objective - Vital Signs Vital signs: Vital Signs Temp 97.8 F 03/09/18 16:06 Pulse 78 03/09/18 16:06 Resp BP 120/73 03/09/18 16:06 Pulse Ox Intake & Output 03/08/18 03/09/18 03/09/18 18:59 06:59 18:59 Weight 87.317 kg
[2018-03-09 17:43] LABS: Anisocytosis Moderate; HGB 10.3 gm/dL (11.4-16.0); Hypochromasia Marked; MCH 23.8 pg (25.0-35.0); MCHC 31.2 g/dL (31.0-37.0); Mean Platelet Volume 7.7; Microcytosis Moderate; Platelet Count 250 k/uL (150-450); Poikilocytosis Slight; RBC 4.33 m/uL (3.80-5.40); RDW 20.9 % (11.5-15.5); WBC 4.6 k/uL (3.8-10.6)
[2018-03-09 17:46] LABS: MCV 76.3 fL (80.0-100.0)
[2018-03-09 17:59] LABS: Prothrombin Time 9.7 sec (9.0-12.0)
[2018-03-09 18:01] LABS: ALT 20 U/L (9-52); AST 21 U/L (14-36); Albumin 4.6 g/dL (3.5-5.0); Alkaline Phosphatase 63 U/L (38-126); Anion Gap 14 mmol/L; Blood Urea Nitrogen 20 mg/dL (7-17); Calcium 9.5 mg/dL (8.4-10.2); Carbon Dioxide 26 mmol/L (22-30); Chloride 104 mmol/L (98-107); Cholesterol 236 mg/dL (<200); Glucose 89 mg/dL (74-99); HDL Cholesterol 70 mg/dL (40-60); LDL Cholesterol,Calculated 138 mg/dL (0-99); Magnesium 2.3 mg/dL (1.6-2.3); Phosphorus 3.2 mg/dL (2.5-4.5); Potassium 4.4 mmol/L (3.5-5.1); Sodium 144 mmol/L (137-145); Total Bilirubin 0.3 mg/dL (0.2-1.3); Total Protein 7.3 g/dL (6.3-8.2); Triglycerides 141 mg/dL (<150)
[2018-03-09 18:16] LABS: Partial Thromboplastin Time 21.8 sec (22.0-30.0)
[2018-03-10 01:25] LABS: Iron Saturation 7.68 (12.00-45.00); Vitamin D 25 Hydroxy 12.6 ng/mL (30.0-100.0)
[2018-03-10 01:34] LABS: Parathyroid Hormone Intact 63.9 pg/mL (14.0-72.0)
[2018-03-10 03:11] LABS: Hemoglobin A1C 4.2 % (4.0-6.0)
== END | disposition home or self-care (01) ==
LOC: BARWHC3 14:52
PROVIDERS: ATTEND Surgery Plastic and Reconstructive Surgery
DX: Z09 Encounter for follow-up examination after completed treatment for conditions other than malignant neoplasm (principal); E21.1 Secondary hyperparathyroidism, not elsewhere classified; E89.1 Postprocedural hypoinsulinemia; D50.8 Other iron deficiency anemias; K90.89 Other intestinal malabsorption; E55.9 Vitamin D deficiency, unspecified; K74.1 Hepatic sclerosis; N19 Unspecified kidney failure; K50.90 Crohn's disease, unspecified, without complications; E16.2 Hypoglycemia, unspecified; Z86.39 Personal history of other endocrine, nutritional and metabolic disease; E51.9 Thiamine deficiency, unspecified; M79.3 Panniculitis, unspecified; D50.9 Iron deficiency anemia, unspecified; E46 Unspecified protein-calorie malnutrition; Z98.84 Bariatric surgery status; Z68.31 Body mass index [BMI] 31.0-31.9, adult; Z91.09 Other allergy status, other than to drugs and biological substances; Z91.011 Allergy to milk products; Z88.7 Allergy status to serum and vaccine; Z79.899 Other long term (current) drug therapy
CPT/HCPCS: 84255; 84134; 84425; 80061; 80053; 82607; 82728; 82525; 82746; 83540; 83550; 83735; 84100; 84443; 84590; 84630; 85027; 85610; 85730; 82306; 83970; 83036; 36415; G0463; 99211

== ENCOUNTER 2018-09-05 08:52 | Emergency (ER) | payer OTHER ==
[2018-09-05 08:59] VITALS: BP 140/84; PULSE 90; RESP 16; TEMP 98.2
--- NOTE | 2018-09-05 09:15 | ED ---
Abdominal Pain HPI - General Chief Complaint: Abdominal Pain Stated Complaint: Poss hernia Time Seen by Provider: 09/05/18 09:03 Source: patient, RN notes reviewed, old records reviewed Mode of arrival: ambulatory Limitations: no limitations - History of Present Illness Initial Comments: 38 female presenting for evaluation of left upper quadrant abdominal pain patient's symptoms have been present for approximately one week. Initial pain began while moving heavy boxes. She states she had a pulling sharp pain in her left upper abdomen which has been present for the past one week. Patient does have remote history of gastric bypass. Patient was evaluated by her physician at work and was instructed to present to the emergency department for evaluation. Patient reports pain is worse with movement, worse with coughing, worse with laughing. - Related Data Home Medications Medication Instructions Recorded Confirmed Levothyroxine Sodium [Synthroid] 25 mcg PO DAILY 07/03/16 02/25/18 Alive Chewable Multivitamin 2 tab PO DAILY 12/24/17 02/25/18 Ferrous Sulfate [Feosol] 325 mg PO DAILY 01/28/18 02/25/18 Iron 18 mg PO DAILY 03/09/18 03/09/18 Allergies Allergy/AdvReac Type Severity Reaction Status Date / Time adhesive Allergy Rash/Hives Verified 09/05/18 08:59 milk Allergy RETAINS Verified 09/05/18 08:59 FLUID Tetanus Vaccines and Toxoid Allergy Swelling Verified 09/05/18 08:59 [Tetanus Vaccines & Toxoid] cigarette smoke AdvReac Cough, Verified 09/05/18 08:59 Shortness of Breath sertraline [From Zoloft] AdvReac DIZZY/Nausea Verified 09/05/18 08:59 & Vomiting skin ink Allergy Rash/Hives Uncoded 09/05/18 08:59 yellow squash Allergy Anaphylaxis Uncoded 09/05/18 08:59 dust AdvReac Mild Itching Uncoded 09/05/18 08:59 dust mites AdvReac Rash/Hives Uncoded 09/05/18 08:59 Review of Systems ROS Statement: Those systems with pertinent positive or pertinent negative responses have been documented in the HPI. ROS Other: All systems not noted in ROS Statement are negative. Past Medical History Past Medical History: Asthma, Blood Disorder, Skin Disorder, Thyroid Disorder Additional Past Medical History / Comment(s): migraines, constipation, hashimotos, eczema, no current rx for diabetes- diet control, anemia History of Any Multi-Drug Resistant Organisms: None Reported Date of last positivie culture/infection: JUNE 2013 MDRO Source:: WOUND ON LEFT UPPER ABDOMEN Past Surgical History: Appendectomy, Bariatric Surgery, Section, Orthopedic Surgery, Tubal Ligation Additional Past Surgical History / Comment(s): LENA-EN-Y, left knee arthroscopy , I&D left upper abdomen; Panniculectomy Jul 2016 Past Anesthesia/Blood Transfusion Reactions: Family History of Problems w/ Anesthesia, Motion Sickness, Postoperative Nausea & Vomiting (PONV) Additional Past Anesthesia/Blood Transfusion Reaction / Comment(s): mother-" hard time waking up and trouble breathing" Past Psychological History: No Psychological Hx Reported Smoking Status: Never smoker Past Alcohol Use History: None Reported Past Drug Use History: None Reported - Past Family History Mother Family Medical History: No Reported History General Exam Limitations: no limitations General appearance: alert, in no apparent distress Head exam: Present: atraumatic, normocephalic Eye exam: Present: normal appearance, PERRL, EOMI Neck exam: Present: normal inspection. Absent: tenderness, meningismus Respiratory exam: Present: normal lung sounds bilaterally. Absent: respiratory distress, wheezes Cardiovascular Exam: Present: regular rate, normal rhythm GI/Abdominal exam: Present: soft, tenderness (Mild left upper quadrant tenderness), other (Pain worse with abdominal flexion). Absent: distended, hernia Extremities exam: Present: normal inspection, normal capillary refill. Absent: pedal edema Course Vital Signs 09/05/18 08:55 Temperature 98.2 F Pulse Rate 90 Respiratory 16 Rate Blood Pressure 140/84 O2 Sat by Pulse 99 Oximetry Medical Decision Making - Medical Decision Making 32 sexual female presenting with abdominal pain after moving heavy boxes. History consistent with abdominal wall strain. No hernia present on exam. Remainder of abdomen is soft nontender. Patient is afebrile, well-appearing. She will monitor symptoms, continue symptomatic treatment. Follow up with her primary care physician as well as her bariatric surgeon who she sees on a regular basis. Disposition Clinical Impression: Abdominal wall strain Disposition: HOME SELF-CARE Condition: Good Instructions: Abdominal Pain (ED), Muscle Strain (ED) Is patient prescribed a controlled substance at d/c from ED?: No Referrals: Cammy Lobato DO [Primary Care Provider] - 1-2 days Fani Austin, MD [STAFF PHYSICIAN] - 1-2 days Time of Disposition: 09:14
== END 2018-09-05 10:07 ==
LOC: EC 08:52
DX: S39.011A Strain of muscle, fascia and tendon of abdomen, initial encounter (principal); E11.9 Type 2 diabetes mellitus without complications; Z79.899 Other long term (current) drug therapy; Z91.011 Allergy to milk products; Z88.7 Allergy status to serum and vaccine; Z91.09 Other allergy status, other than to drugs and biological substances; Z88.8 Allergy status to other drugs, medicaments and biological substances; Z91.018 Allergy to other foods; Z98.84 Bariatric surgery status; Z98.51 Tubal ligation status; X50.1XXA Overexertion from prolonged static or awkward postures, initial encounter; Y92.69 Other specified industrial and construction area as the place of occurrence of the external cause; Y99.0 Civilian activity done for income or pay
CPT/HCPCS: 99284

== ENCOUNTER → 2018-09-05 | Outpatient (CLI) | payer OTHER ==
--- NOTE | 2018-09-05 13:17 | US ---
EXAMINATION TYPE: US abdomen complete DATE OF EXAM: 09/05/2018 COMPARISON: CT 03/24/2015 CLINICAL HISTORY: R10.9 Abdominal pain. EXAM MEASUREMENTS: Liver Length: 18.5 cm Gallbladder Wall: 0.1 cm CBD: 0.4 cm Spleen: 11.0 cm Right Kidney: 10.1 x 4.2 x 5.3 cm Left Kidney: 10.3 x 5.2 x 4.1 cm Pancreas: Obscured by bowel gas Liver: Measuring upper limits of normal, heterogeneous Gallbladder: Measuring upper limits of normal, no stones or sludge visualized. Wall is measuring wnl Evidence for sonographic Springer's sign: No CBD: wnl Spleen: wnl Right Kidney: No hydronephrosis or masses seen Left Kidney: No hydronephrosis or masses seen Upper IVC: wnl Abd Aorta: Proximal portion obscured by bowel gas The liver is heterogeneous. The intrahepatic portion of the IVC and proximal abdominal aorta are wit hin normal limits. There is no evidence of cholelithiasis. Common bile duct is unremarkable. The v isualized portions of the pancreas are homogenous. The spleen is unremarkable. Kidneys are symmetri c and free of hydronephrosis. No renal lesions are seen. IMPRESSION: 1. Fatty hepatic infiltration noted.
== END | disposition home or self-care (01) ==
LOC: RADUSWWP 12:20
PROVIDERS: ATTEND Emergency Medicine
DX: K76.0 Fatty (change of) liver, not elsewhere classified (principal)
CPT/HCPCS: 76700

== ENCOUNTER 2018-11-04 22:41 | Inpatient (IN) | payer OTHER ==
[2018-11-04] MEDS ORDERED: ONDANSETRON 4 MG/2 ML VIAL IVP STA (23:41)
[2018-11-04] MEDS ORDERED: SODIUM CHLORIDE 0.9% 1,000 ML IV STA (23:41)
[2018-11-04] MEDS ORDERED: ACETAMINOPHEN IV (For NPO) 1,000 MG in EMPTY BAG 1 BAG IVPB STA (23:41)
[2018-11-05 00:01] LABS: Anisocytosis Slight; Basophils % (A) 1 %; Eosinophils # (A) 0.1 k/uL (0-0.7); Eosinophils % (A) 2 %; HCT 31.6 % (34.0-46.0); HGB 9.7 gm/dL (11.4-16.0); Hypochromasia Marked; Lymphocytes # (A) 0.9 k/uL (1.0-4.8); Lymphocytes % (A) 20 %; MCH 24.9 pg (25.0-35.0); MCHC 30.5 g/dL (31.0-37.0); MCV 81.5 fL (80.0-100.0); Mean Platelet Volume 7.3; Microcytosis Slight; Monocytes # (A) 0.2 k/uL (0-1.0); Monocytes % (A) 4 %; Neutrophils # (A) 3.2 k/uL (1.3-7.7); Neutrophils % (A) 71 %; Platelet Count 225 k/uL (150-450); RBC 3.88 m/uL (3.80-5.40); RDW 17.5 % (11.5-15.5); WBC 4.5 k/uL (3.8-10.6)
[2018-11-05 00:04] LABS: Appearance,Urine Cloudy (Clear); Bacteria,Urine Rare /hpf; Bilirubin,Urine 1+ (Negative); Blood,Urine Negative (Negative); Color,Urine Dark Yellow; Glucose,Urine (UA) Negative (Negative); Ketones,Urine Negative (Negative); Leukocyte Esterase,Urine Large (Negative); Mucus,Urine Few /hpf; Nitrite,Urine Negative (Negative); Protein,Urine Trace (Negative); RBC,Urine 2 /hpf (0-5); Specific Gravity,Urine 1.023 (1.001-1.035); Squamous Epithelial Cell,Urine 3 /hpf (0-4); WBC,Urine 62 /hpf (0-5)
[2018-11-05 00:13] LABS: ALT 494 U/L (9-52); Albumin 3.3 g/dL (3.5-5.0); Alkaline Phosphatase 433 U/L (38-126); Amylase 60 U/L (30-110); Anion Gap 5 mmol/L; Blood Urea Nitrogen 11 mg/dL (7-17); Calcium 8.5 mg/dL (8.4-10.2); Carbon Dioxide 24 mmol/L (22-30); Chloride 110 mmol/L (98-107); Glucose 111 mg/dL (74-99); Lipase 199 U/L (23-300); Potassium 4.5 mmol/L (3.5-5.1); Sodium 139 mmol/L (137-145); Total Bilirubin 1.6 mg/dL (0.2-1.3); Total Protein 6.1 g/dL (6.3-8.2)
[2018-11-05 00:23] LABS: AST 732 U/L (14-36)
--- NOTE | 2018-11-05 00:37 | XR ---
EXAMINATION TYPE: XR KUB DATE OF EXAM: 11/05/2018 COMPARISON: NONE HISTORY: Abdominal pain TECHNIQUE: 2 views FINDINGS: There is no sign of intestinal obstruction or pneumoperitoneum. Fecal pattern is normal. Th ere are clips over the left upper quadrant. Lung bases are clear. There are no pathologic calcificati ons over the kidneys. IMPRESSION: Nonacute abdomen.
--- NOTE | 2018-11-05 01:26 | US ---
EXAMINATION TYPE: US abdomen limited DATE OF EXAM: 11/05/2018 COMPARISON: US 2018 CLINICAL HISTORY: Pain. Abdomen pain, bloating, and N/V x 1 week, gets worse after eating EXAM MEASUREMENTS: Liver Length: 19.5 cm Gallbladder Wall: 0.6 cm CBD: 0.4 cm Right Kidney: 10.9 x 4.5 x 4.8 cm Pancreas: obscured by overlying midline bowel gas Liver: enlarged, heterogeneous Gallbladder: mildly hydropic, thickened wall, 1.7cm hyperechoic area along posterior fundal wall Evidence for sonographic Springer's sign: yes CBD: wnl Right Kidney: wnl IMPRESSION: No dilated ducts. Mild gallbladder wall thickening and edema suggestive of gallbladder dy sfunction. acalculous cholecystitis is possible.
[2018-11-05] MEDS ORDERED: PIPERACILLIN-TAZOBACTAM 3.375 GM in SODIUM CHLORIDE 0.9% 100 ML IVPB SCH (02:30)
[2018-11-05] MEDS ORDERED: NALOXONE 0.4 MG/ML 1 ML VIAL IV PRN (02:45)
[2018-11-05 02:49] LABS: Hepatitis A AB IgM Index 0.02; Hepatitis A Antibody IgM NEGATIVE
--- NOTE | 2018-11-05 02:52 | ED ---
Abdominal Pain HPI - General Source: patient Mode of arrival: ambulatory Limitations: no limitations <Heather Cheng - Last Filed: 11/05/18 02:47> <Edwige Singer - Last Filed: 11/08/18 08:57> - General Chief Complaint: Abdominal Pain Stated Complaint: Blood in stool, Abd pain Time Seen by Provider: 11/04/18 23:18 - History of Present Illness Initial Comments: 38-year-old female patient presents to the emergency department today for evaluation of upper abdominal pain and bloating. Patient states that for the last couple of days she has been having increased pain to her upper abdomen after eating. Patient states it feels like an intense pressure type pain like her abdomen is going to explode. Patient states she has become nauseated with this plan has vomited. She does have history of room and Y gastric bypass surgery with Dr. Austin. States that she has also had an appendectomy. Patient denies any fevers or chills with this. Denies any radiation of the pain to her back. States that she has also noticed some red streaking in her stool and is concerned maybe blood. She denies any dizziness or weakness. Patient denies any recent rash, shortness breath, chest pain, diarrhea, constipation, back pain, numbness, tingling, dizziness, weakness, hematuria, dysuria, urinary urgency, urinary frequency, headache, visual changes, or any other complaints. (Heather Cheng) - Related Data Home Medications Medication Instructions Recorded Confirmed Levothyroxine Sodium [Synthroid] 25 mcg PO DAILY 07/03/16 11/04/18 Sertraline HCl [Zoloft] 25 mg PO DAILY 11/04/18 11/04/18 Allergies Allergy/AdvReac Type Severity Reaction Status Date / Time adhesive Allergy Rash/Hives Verified 11/04/18 23:17 Tetanus Vaccines and Toxoid Allergy Swelling Verified 11/04/18 23:17 [Tetanus Vaccines & Toxoid] cigarette smoke AdvReac Cough, Verified 11/04/18 23:17 Shortness of Breath morphine AdvReac Nausea Verified 11/06/18 20:05 sertraline [From Zoloft] AdvReac DIZZY/Nausea Verified 11/04/18 23:17 & Vomiting skin ink Allergy Rash/Hives Uncoded 11/04/18 23:07 yellow squash Allergy Anaphylaxis Uncoded 11/04/18 23:07 dust AdvReac Mild Itching Uncoded 11/04/18 23:07 dust mites AdvReac Rash/Hives Uncoded 11/04/18 23:07 Review of Systems ROS Other: All systems not noted in ROS Statement are negative. <Heather Cheng - Last Filed: 11/05/18 02:47> ROS Other: All systems not noted in ROS Statement are negative. <Edwige Singer - Last Filed: 11/08/18 08:57> ROS Statement: Those systems with pertinent positive or pertinent negative responses have been documented in the HPI. Past Medical History Past Medical History: Asthma, Blood Disorder, Skin Disorder, Thyroid Disorder Additional Past Medical History / Comment(s): migraines, constipation, hashimotos, eczema, no current rx for diabetes- diet control, anemia History of Any Multi-Drug Resistant Organisms: None Reported Date of last positivie culture/infection: JUNE 2013 MDRO Source:: WOUND ON LEFT UPPER ABDOMEN Past Surgical History: Appendectomy, Bariatric Surgery, Section, Orthopedic Surgery, Tubal Ligation Additional Past Surgical History / Comment(s): LENA-EN-Y, left knee arthroscopy , I&D left upper abdomen; Panniculectomy Jul 2016 Past Anesthesia/Blood Transfusion Reactions: Family History of Problems w/ Anesthesia, Motion Sickness, Postoperative Nausea & Vomiting (PONV) Additional Past Anesthesia/Blood Transfusion Reaction / Comment(s): mother-" hard time waking up and trouble breathing" Past Psychological History: No Psychological Hx Reported Smoking Status: Never smoker Past Alcohol Use History: None Reported Past Drug Use History: None Reported - Past Family History Mother Family Medical History: No Reported History <Heather Cheng - Last Filed: 11/05/18 02:47> General Exam Limitations: no limitations General appearance: alert, in no apparent distress, other (Physical well- developed, well-nourished adult female patient in no acute distress. Vital signs upon presentation are temperature 98.9F, pulse 94, respirations 20, blood pressure 119/74, pulse ox 100% on room air.) Eye exam: Present: normal appearance, PERRL, EOMI. Absent: scleral icterus, conjunctival injection, periorbital swelling ENT exam: Present: normal exam, normal oropharynx, mucous membranes moist Respiratory exam: Present: normal lung sounds bilaterally. Absent: respiratory distress, wheezes, rales, rhonchi, stridor Cardiovascular Exam: Present: regular rate, normal rhythm, normal heart sounds. Absent: systolic murmur, diastolic murmur, rubs, gallop, clicks GI/Abdominal exam: Present: soft, tenderness (Midepigastric and right upper quadrant tenderness), normal bowel sounds. Absent: distended, guarding, rebound , rigid Neurological exam: Present: alert, oriented X3, CN II-XII intact Psychiatric exam: Present: normal affect, normal mood Skin exam: Present: warm, dry, intact, normal color. Absent: rash <Heather Cheng - Last Filed: 11/05/18 02:47> Vital Signs 11/04/18 11/05/18 11/05/18 23:04 01:53 04:24 Temperature 98.9 F 98.2 F Pulse Rate 94 79 73 Respiratory 20 19 19 Rate Blood Pressure 119/74 114/74 123/77 O2 Sat by Pulse 100 100 100 Oximetry Medical Decision Making - Lab Data Result diagrams: 11/04/18 23:45 11/04/18 23:45 - Radiology Data Radiology results: report reviewed <Heather Cheng - Last Filed: 11/05/18 02:47> - Lab Data Result diagrams: 11/07/18 07:18 11/08/18 08:25 <Edwige Singer - Last Filed: 11/08/18 08:57> - Medical Decision Making 38 year-old female patient presents to the emergency department today for complaints of upper abdominal pain and nausea especially after eating. Physical examination reveals midepigastric and right upper quadrant abdominal tenderness. Labs reviewed and did reveal elevated liver enzymes and alk phos. Patient's bilirubin 1.6. White blood cell count was within normal range. Ultrasound shows evidence of gallbladder wall thickening and edema which could be possibly gallbladder dysfunction however acalculus cholecystitis cannot be ruled out. Did discuss findings and results with the patient. Did discuss the case with Dr. Castrejon the surgeon on-call who will admit. Patient will remain nothing by mouth for possible cholecystectomy tomorrow. We will start Zosyn. (Heather Cheng) I personally saw and examined the patient. I reviewed and agree with the mid- level provider findings including all diagnostic interpretations and treatment plans as written unless otherwise stated. Admission orders were placed. (Edwige Singer) - Lab Data Lab Results 11/04/18 11/04/18 11/04/18 Range/Units 23:45 23:45 23:45 WBC 4.5 (3.8-10.6) k/uL RBC 3.88 (3.80-5.40) m/uL Hgb 9.7 L (11.4-16.0) gm/dL Hct 31.6 L (34.0-46.0) % MCV 81.5 (80.0-100.0) fL MCH 24.9 L (25.0-35.0) pg MCHC 30.5 L (31.0-37.0) g/dL RDW 17.5 H (11.5-15.5) % Plt Count 225 (150-450) k/uL Neutrophils % 71 % Lymphocytes % 20 % Monocytes % 4 % Eosinophils % 2 % Basophils % 1 % Neutrophils # 3.2 (1.3-7.7) k/uL Lymphocytes # 0.9 L (1.0-4.8) k/uL Monocytes # 0.2 (0-1.0) k/uL Eosinophils # 0.1 (0-0.7) k/uL Basophils # 0.0 (0-0.2) k/uL Hypochromasia Marked Anisocytosis Slight Microcytosis Slight Sodium 139 (137-145) mmol/L Potassium 4.5 (3.5-5.1) mmol/L Chloride 110 H (98-107) mmol/L Carbon Dioxide 24 (22-30) mmol/L Anion Gap 5 mmol/L BUN 11 (7-17) mg/dL Creatinine 0.70 (0.52-1.04) mg/dL Est GFR (CKD-EPI)AfAm >90 (>60 ml/min/1.73 sqM) Est GFR (CKD-EPI)NonAf >90 (>60 ml/min/1.73 sqM) Glucose 111 H (74-99) mg/dL Calcium 8.5 (8.4-10.2) mg/dL Total Bilirubin 1.6 H (0.2-1.3) mg/dL AST 732 H (14-36) U/L ALT 494 H (9-52) U/L Alkaline Phosphatase 433 H (38-126) U/L Total Protein 6.1 L (6.3-8.2) g/dL Albumin 3.3 L (3.5-5.0) g/dL Amylase 60 (30-110) U/L Lipase 199 (23-300) U/L Urine Color Urine Appearance (Clear) Urine pH (5.0-8.0) Ur Specific [place] (1.001-1.035) Urine Protein (Negative) Urine Glucose (UA) (Negative) Urine Ketones (Negative) Urine Blood (Negative) Urine Nitrite (Negative) Urine Bilirubin (Negative) Urine Urobilinogen (<2.0) mg/dL Ur Leukocyte Esterase (Negative) Urine RBC (0-5) /hpf Urine WBC (0-5) /hpf Ur Squamous Epith Cells (0-4) /hpf Urine Bacteria (None) /hpf Urine Mucus (None) /hpf Stool Occult Blood Negative (Negative) Hepatitis A IgM Ab Hep Bs Antigen (Non-Reactive) Hep B Core IgM Ab (Non-Reactive) Hep C IgG Ab (Non-Reactive) 11/04/18 11/04/18 11/05/18 Range/Units 23:45 23:45 02:03 WBC (3.8-10.6) k/uL RBC (3.80-5.40) m/uL Hgb (11.4-16.0) gm/dL Hct (34.0-46.0) % MCV (80.0-100.0) fL MCH (25.0-35.0) pg MCHC (31.0-37.0) g/dL RDW (11.5-15.5) % Plt Count (150-450) k/uL Neutrophils % % Lymphocytes % % Monocytes % % Eosinophils % % Basophils % % Neutrophils # (1.3-7.7) k/uL Lymphocytes # (1.0-4.8) k/uL Monocytes # (0-1.0) k/uL Eosinophils # (0-0.7) k/uL Basophils # (0-0.2) k/uL Hypochromasia Anisocytosis Microcytosis Sodium (137-145) mmol/L Potassium (3.5-5.1) mmol/L Chloride (98-107) mmol/L Carbon Dioxide (22-30) mmol/L Anion Gap mmol/L BUN (7-17) mg/dL Creatinine (0.52-1.04) mg/dL Est GFR (CKD-EPI)AfAm (>60 ml/min/1.73 sqM) Est GFR (CKD-EPI)NonAf (>60 ml/min/1.73 sqM) Glucose (74-99) mg/dL Calcium (8.4-10.2) mg/dL Total Bilirubin (0.2-1.3) mg/dL AST (14-36) U/L ALT (9-52) U/L Alkaline Phosphatase (38-126) U/L Total Protein (6.3-8.2) g/dL Albumin (3.5-5.0) g/dL Amylase (30-110) U/L Lipase (23-300) U/L Urine Color Dark Yellow Urine Appearance Cloudy H (Clear) Urine pH 6.0 (5.0-8.0) Ur Specific [place] 1.023 (1.001-1.035) Urine Protein Trace H (Negative) Urine Glucose (UA) Negative (Negative) Urine Ketones Negative (Negative) Urine Blood Negative (Negative) Urine Nitrite Negative (Negative) Urine Bilirubin 1+ H (Negative) Urine Urobilinogen 4.0 (<2.0) mg/dL Ur Leukocyte Esterase Large H (Negative) Urine RBC 2 (0-5) /hpf Urine WBC 62 H (0-5) /hpf Ur Squamous Epith Cells 3 (0-4) /hpf Urine Bacteria Rare H (None) /hpf Urine Mucus Few H (None) /hpf Stool Occult Blood (Negative) Hepatitis A IgM Ab NEGATIVE Hep Bs Antigen Non-Reactive (Non-Reactive) Hep B Core IgM Ab Non-Reactive (Non-Reactive) Hep C IgG Ab Non-Reactive (Non-Reactive) - Radiology Data Two-view x-ray of the abdomen is obtained. Report was reviewed in its entirety. Impression by Dr. Olson shows nonacute abdomen Ultrasound of the right upper quadrant abdomen was obtained. Report was reviewed in its entirety. Impression by Dr. Olson shows no dilated ducts. Mild gallbladder wall thickening and edema suggestive call bladder dysfunction. Acalculus cholecystitis is possible. (Heather Cheng) Disposition Decision to Admit Reason: Admit from EC Decision Date: 11/05/18 Decision Time: 02:52 <Heather Cheng - Last Filed: 11/05/18 02:47> <Edwige Singer - Last Filed: 11/08/18 08:57> Clinical Impression: Cholecystitis, Transaminitis Disposition: ADMITTED IP TO THIS [facility] Condition: Serious
[2018-11-05] MEDS: SODIUM CHLORIDE 0.9% 1,000 ML IV SCH ×3 (02:53→20:53)
[2018-11-05 05:18] VITALS: BMI 34.4
[2018-11-05] MEDS: ACETAMINOPHEN TAB 325 MG TAB PO PRN ×3 (07:43→23:48)
[2018-11-05] MEDS: PIPERACILLIN-TAZOBACTAM 3.375 GM in SODIUM CHLORIDE 0.9% 100 ML IVPB SCH ×2 (10:38→17:37)
--- NOTE | 2018-11-05 12:38 | P.GSHP ---
History of Present Illness H&P Date: 11/05/18 Chief Complaint: Right upper quadrant pain This is a 38 she'll female who was admitted through the hospital complaints of right quadrant pain. Patient states he had pain in her quadrant pain for the last 2 weeks. She is workup found evidence cholecystitis. Past Medical History Past Medical History: Asthma, Blood Disorder, Skin Disorder, Thyroid Disorder Additional Past Medical History / Comment(s): migraines, constipation, hashimotos, eczema, no current rx for diabetes- diet control, anemia History of Any Multi-Drug Resistant Organisms: None Reported Date of last positivie culture/infection: JUNE 2013 MDRO Source:: WOUND ON LEFT UPPER ABDOMEN Past Surgical History: Appendectomy, Bariatric Surgery, Section, Orthopedic Surgery, Tubal Ligation Additional Past Surgical History / Comment(s): LENA-EN-Y, left knee arthroscopy , I&D left upper abdomen; Panniculectomy Jul 2016 Past Anesthesia/Blood Transfusion Reactions: Family History of Problems w/ Anesthesia, Motion Sickness, Postoperative Nausea & Vomiting (PONV) Additional Past Anesthesia/Blood Transfusion Reaction / Comment(s): mother-" hard time waking up and trouble breathing" Past Psychological History: No Psychological Hx Reported Smoking Status: Current every day smoker Past Alcohol Use History: None Reported Past Drug Use History: None Reported - Past Family History Mother Family Medical History: No Reported History Medications and Allergies Home Medications Medication Instructions Recorded Confirmed Type Levothyroxine Sodium [Synthroid] 25 mcg PO DAILY 07/03/16 11/04/18 History Sertraline HCl [Zoloft] 25 mg PO DAILY 11/04/18 11/04/18 History Allergies Allergy/AdvReac Type Severity Reaction Status Date / Time adhesive Allergy Rash/Hives Verified 11/04/18 23:17 milk Allergy RETAINS Verified 11/04/18 23:17 FLUID Tetanus Vaccines and Toxoid Allergy Swelling Verified 11/04/18 23:17 [Tetanus Vaccines & Toxoid] cigarette smoke AdvReac Cough, Verified 11/04/18 23:17 Shortness of Breath sertraline [From Zoloft] AdvReac DIZZY/Nausea Verified 11/04/18 23:17 & Vomiting skin ink Allergy Rash/Hives Uncoded 11/04/18 23:07 yellow squash Allergy Anaphylaxis Uncoded 11/04/18 23:07 dust AdvReac Mild Itching Uncoded 11/04/18 23:07 dust mites AdvReac Rash/Hives Uncoded 11/04/18 23:07 Surgical - Exam Vital Signs Temp Pulse Resp BP Pulse Ox 98.9 F 94 20 119/74 100 11/04/18 23:04 11/04/18 23:04 11/04/18 23:04 11/04/18 23:04 11/04/18 23:04 - General well developed, no distress - Eyes PERRL - ENT normal pinna - Neck no masses - Respiratory normal expansion - Cardiovascular Rhythm: regular - Abdomen Abdomen: soft, non tender Results - Labs 11/04/18 23:45 11/04/18 23:45 Abnormal Lab Results - Last 24 Hours (Table) 11/04/18 11/04/18 11/04/18 Range/Units 23:45 23:45 23:45 Hgb 9.7 L (11.4-16.0) gm/dL Hct 31.6 L (34.0-46.0) % MCH 24.9 L (25.0-35.0) pg MCHC 30.5 L (31.0-37.0) g/dL RDW 17.5 H (11.5-15.5) % Lymphocytes # 0.9 L (1.0-4.8) k/uL Chloride 110 H (98-107) mmol/L Glucose 111 H (74-99) mg/dL Total Bilirubin 1.6 H (0.2-1.3) mg/dL AST 732 H (14-36) U/L ALT 494 H (9-52) U/L Alkaline Phosphatase 433 H (38-126) U/L Total Protein 6.1 L (6.3-8.2) g/dL Albumin 3.3 L (3.5-5.0) g/dL Urine Appearance Cloudy H (Clear) Urine Protein Trace H (Negative) Urine Bilirubin 1+ H (Negative) Ur Leukocyte Esterase Large H (Negative) Urine WBC 62 H (0-5) /hpf Urine Bacteria Rare H (None) /hpf Urine Mucus Few H (None) /hpf Diabetes panel 11/04/18 Range/Units 23:45 Sodium 139 (137-145) mmol/L Potassium 4.5 (3.5-5.1) mmol/L Chloride 110 H (98-107) mmol/L Carbon Dioxide 24 (22-30) mmol/L BUN 11 (7-17) mg/dL Creatinine 0.70 (0.52-1.04) mg/dL Glucose 111 H (74-99) mg/dL Calcium 8.5 (8.4-10.2) mg/dL AST 732 H (14-36) U/L ALT 494 H (9-52) U/L Alkaline Phosphatase 433 H (38-126) U/L Total Protein 6.1 L (6.3-8.2) g/dL Albumin 3.3 L (3.5-5.0) g/dL Calcium panel 11/04/18 Range/Units 23:45 Calcium 8.5 (8.4-10.2) mg/dL Albumin 3.3 L (3.5-5.0) g/dL Pituitary panel 11/04/18 Range/Units 23:45 Sodium 139 (137-145) mmol/L Potassium 4.5 (3.5-5.1) mmol/L Chloride 110 H (98-107) mmol/L Carbon Dioxide 24 (22-30) mmol/L BUN 11 (7-17) mg/dL Creatinine 0.70 (0.52-1.04) mg/dL Glucose 111 H (74-99) mg/dL Calcium 8.5 (8.4-10.2) mg/dL Adrenal panel 11/04/18 Range/Units 23:45 Sodium 139 (137-145) mmol/L Potassium 4.5 (3.5-5.1) mmol/L Chloride 110 H (98-107) mmol/L Carbon Dioxide 24 (22-30) mmol/L BUN 11 (7-17) mg/dL Creatinine 0.70 (0.52-1.04) mg/dL Glucose 111 H (74-99) mg/dL Calcium 8.5 (8.4-10.2) mg/dL Total Bilirubin 1.6 H (0.2-1.3) mg/dL AST 732 H (14-36) U/L ALT 494 H (9-52) U/L Alkaline Phosphatase 433 H (38-126) U/L Total Protein 6.1 L (6.3-8.2) g/dL Albumin 3.3 L (3.5-5.0) g/dL Assessment and Plan Assessment: Thickened gallbladder wall with edema. Cholecystitis Patient will have her liver function tests test repeated. Once her transaminases improved we will schedule her for laparoscopic cholecystectomy.
[2018-11-05] MEDS: SERTRALINE 25 MG TAB PO SCH (13:16)
[2018-11-05] MEDS: LEVOTHYROXINE 25 MCG TAB PO SCH (13:16)
[2018-11-05 13:37] LABS: ALT 429 U/L (9-52); AST 662 U/L (14-36); Albumin 3.1 g/dL (3.5-5.0); Alkaline Phosphatase 383 U/L (38-126); Anion Gap 8 mmol/L; Blood Urea Nitrogen 11 mg/dL (7-17); Calcium 7.8 mg/dL (8.4-10.2); Carbon Dioxide 21 mmol/L (22-30); Chloride 111 mmol/L (98-107); Glucose 224 mg/dL (74-99); Potassium 3.9 mmol/L (3.5-5.1); Sodium 140 mmol/L (137-145); Total Bilirubin 2.7 mg/dL (0.2-1.3); Total Protein 5.7 g/dL (6.3-8.2)
[2018-11-05 14:18] LABS: Hepatitis B Core IgM Non-Reactive (Non-Reactive)
[2018-11-05] MEDS ORDERED: TEMAZEPAM 15 MG CAP PO PRN (14:22)
[2018-11-05] MEDS ORDERED: ALPRAZolam 0.25 MG TAB PO PRN (14:22)
[2018-11-05] MEDS: NICOTINE 14MG/24HR PATCH TRANSDERM SCH (15:00)
[2018-11-05] MEDS: HEPARIN SODIUM,PORCINE 5,000 UNIT/ML 1 ML VIAL SQ SCH ×2 (15:01→20:11)
[2018-11-05 16:33] LABS: Glucose,Whole Blood 131 mg/dL (75-99)
--- NOTE | 2018-11-05 21:30 | CONS ---
CONSULTATION DATE OF SERVICE: 11/05/2018 REASON FOR CONSULTATION: Advice regarding hypothyroidism and multiple medical issues requested by Dr. Castrejon. HISTORY OF PRESENT ILLNESS: This 38-year-old woman with a past medical history of multiple medical problems including asthma, history of hypothyroidism, migraine, constipation, being followed by Dr. Franklin in the outpatient setting is complaining of right upper quadrant abdominal pain. The patient came to [facility] and LFTs elevated. Abdominal ultrasound showed evidence of mild gallbladder wall thickness suggestive of gallbladder dysfunction and possible acalculous cholecystitis, but however the total bilirubin is 1.6 and AST was 732 and ALT was 494 and alkaline phosphatase 433. The patient admitted for further evaluation and treatment. There is no history of fever, rigors or chills. No history of headache, loss of consciousness, seizures at this time. PAST MEDICAL HISTORY: History of asthma, history of hypothyroidism, history of migraines, constipation, history of diabetes, diet controlled, appendectomy, bariatric surgery. MEDICATIONS: Prior to admission include: 1. Zoloft 25 mg. 2. Synthroid 25 mcg. ALLERGIES: ADHESIVES, MILK, TETANUS VACCINATION, ZOLOFT, SKIN, INK, YELLOW SQUASH, DUST AND DUST MITES. FAMILY HISTORY: No history of any heart disease or strokes in the family. SOCIAL HISTORY: History of current smoking. Social alcohol intake. REVIEW OF SYSTEMS: ENT: No diminished vision. No diminished hearing. CARDIOVASCULAR: No angina or palpitations. RESPIRATION: No cough or hemoptysis. GI: As mentioned earlier. no dysuria. CENTRAL NERVOUS SYSTEM: No numbness or weakness. ALLERGY/IMMUNOLOGY: No asthma or hayfever. MUSCULOSKELETAL as mentioned earlier. HEMATOLOGY/ONCOLOGY: No history of anemia. ENDOCRINE: Hypothyroidism. CONSTITUTIONAL: As mentioned earlier. Dermatology: Negative. Rheumatology: Negative. Psychiatry: As mentioned earlier. PHYSICAL EXAMINATION: GENERAL: The patient is alert, oriented x3. VITAL SIGNS: Pulse 103, blood pressure 119/74, respiration 16, temperature 97.6 , pulse ox 100 percent on room air. HEENT: Conjunctivae normal. Oral mucosa moist. NECK: No jugular venous distention. No carotid bruit. No lymph node enlargement. CARDIOVASCULAR: S1, S2 muffled. RESPIRATORY: Breath sounds diminished in the bases. No rhonchi. No crackles. ABDOMEN: Soft. Mild diffuse tenderness in the right upper quadrant. No guarding. No rigidity. No mass palpable. LEGS: No edema. No swelling. CENTRAL NERVOUS SYSTEM: Higher functions as mentioned. Moves all 4 limbs. No focal motor or sensory deficits. Lymphatics: No lymph nodes palpable in the neck, axillae or groin. SKIN: No ulcer, no rash. No bleeding. LAB STUDIES: WBC 4.2, hemoglobin is 9.7, sodium 130, potassium 4.5. Bilirubin is 1.6, AST 732, ALT is 494, alkaline phosphatase 433. ASSESSMENT: 1. Right upper quadrant abdominal pain possible acute cholecystitis. 2. Elevated bilirubin, AST, ALT, alkaline phosphatase, possibly choledocholithiasis. 3. Possibly urinary tract infection. 4. Asthma. 5. History of hypothyroidism. 6. History of migraines. 7. History of constipation. 8. History of Aury's. 9. History of diet controlled diabetes mellitus. 10.History of bariatric surgery. 11.History of Harshad-en-Y. 12.History of nicotine dependence. RECOMMENDATIONS AND DISCUSSION: In this 38-year-old woman who presented with multiple complex medical issues, we will monitor the patient closely, continue the current medications, management and symptomatic treatment. At this time, I recommend repeat labs. Broad-spectrum IV antibiotics initiated. Closely follow with surgery. DVT prophylaxis. We will follow the patient closely. The patient may be asked to follow with Dr. Franklin closely after discharge. Thank you, Dr. Castrejon, for letting us participate in the care of this patient. MMODL / IJN: [id number] / MTDD
[2018-11-06] MEDS: PIPERACILLIN-TAZOBACTAM 3.375 GM in SODIUM CHLORIDE 0.9% 100 ML IVPB SCH ×3 (02:30→18:03)
[2018-11-06] MEDS: LEVOTHYROXINE 25 MCG TAB PO SCH (05:23)
[2018-11-06] MEDS: ACETAMINOPHEN TAB 325 MG TAB PO PRN ×3 (05:26→20:03)
[2018-11-06 07:33] LABS: Anisocytosis Slight; Basophils % (A) 1 %; Eosinophils # (A) 0.1 k/uL (0-0.7); Eosinophils % (A) 2 %; HCT 28.3 % (34.0-46.0); HGB 8.5 gm/dL (11.4-16.0); Hypochromasia Marked; Lymphocytes # (A) 0.9 k/uL (1.0-4.8); Lymphocytes % (A) 32 %; MCH 24.7 pg (25.0-35.0); MCV 82.4 fL (80.0-100.0); Mean Platelet Volume 8.8; Monocytes # (A) 0.1 k/uL (0-1.0); Monocytes % (A) 4 %; Neutrophils # (A) 1.7 k/uL (1.3-7.7); Neutrophils % (A) 59 %; Platelet Count 172 k/uL (150-450); RBC 3.43 m/uL (3.80-5.40); RDW 17.8 % (11.5-15.5); WBC 2.9 k/uL (3.8-10.6)
[2018-11-06 07:56] LABS: ALT 380 U/L (9-52); AST 533 U/L (14-36); Albumin 2.9 g/dL (3.5-5.0); Alkaline Phosphatase 368 U/L (38-126); Anion Gap 7 mmol/L; Blood Urea Nitrogen 8 mg/dL (7-17); Calcium 7.7 mg/dL (8.4-10.2); Carbon Dioxide 21 mmol/L (22-30); Chloride 111 mmol/L (98-107); Glucose 96 mg/dL (74-99); Potassium 3.8 mmol/L (3.5-5.1); Sodium 139 mmol/L (137-145); Total Bilirubin 2.6 mg/dL (0.2-1.3); Total Protein 5.2 g/dL (6.3-8.2)
[2018-11-06] MEDS: HEPARIN SODIUM,PORCINE 5,000 UNIT/ML 1 ML VIAL SQ SCH ×2 (08:20→20:05)
[2018-11-06] MEDS: SERTRALINE 25 MG TAB PO SCH (08:20)
[2018-11-06] MEDS: PANTOPRAZOLE 40 MG/10 ML VIAL IVP SCH (08:21)
[2018-11-06] MEDS: SODIUM CHLORIDE 0.9% 1,000 ML IV SCH ×2 (10:24→23:22)
--- NOTE | 2018-11-06 12:35 | P.PN ---
Subjective Progress Note Date: 11/06/18 Principal diagnosis: Cholecystitis The patient's right quadrant pain is slightly improved. Her liver flush test of slightly improved as well. Objective - Vital Signs Vital signs: Vital Signs Temp 98.2 F 11/06/18 11:51 Pulse 78 11/06/18 11:51 Resp 17 11/06/18 11:51 BP 124/68 11/06/18 11:51 Pulse Ox 98 11/06/18 11:51 Intake & Output 11/05/18 11/06/18 11/06/18 18:59 06:59 18:59 Intake Total 700 Balance 700 Intake: IV 700 Piperacillin-Tazobactam 3 100 .375 gm In Sodium Chloride 0.9% 100 ml @ 25 mls/hr IVPB Q8H KYRA Rx#: [id number] Sodium Chloride 0.9% 1, 600 000 ml @ 75 mls/hr IV . [id number] KYRA Rx#:[id number] Other: Voiding Method Toilet Toilet Toilet # Voids 3 2 # Bowel Movements 1 - Constitutional General appearance: Present: average body habitus, no acute distress - Gastrointestinal Gastrointestinal Comment(s): Abdomen soft. There is some minimal right upper quadrant tenderness. There is no rebound or guarding. - Labs CBC & Chem 7: 11/06/18 07:15 11/06/18 07:15 Labs: Abnormal Lab Results - Last 24 Hours (Table) 11/05/18 11/05/18 11/06/18 Range/Units 13:14 16:32 07:15 WBC 2.9 L (3.8-10.6) k/uL RBC 3.43 L (3.80-5.40) m/uL Hgb 8.5 L (11.4-16.0) gm/dL Hct 28.3 L (34.0-46.0) % MCH 24.7 L (25.0-35.0) pg MCHC 30.0 L (31.0-37.0) g/dL RDW 17.8 H (11.5-15.5) % Lymphocytes # 0.9 L (1.0-4.8) k/uL Chloride 111 H (98-107) mmol/L Carbon Dioxide 21 L (22-30) mmol/L Glucose 224 H (74-99) mg/dL POC Glucose (mg/dL) 131 H (75-99) mg/dL Calcium 7.8 L (8.4-10.2) mg/dL Total Bilirubin 2.7 H (0.2-1.3) mg/dL AST 662 H (14-36) U/L ALT 429 H (9-52) U/L Alkaline Phosphatase 383 H (38-126) U/L Total Protein 5.7 L (6.3-8.2) g/dL Albumin 3.1 L (3.5-5.0) g/dL 11/06/18 Range/Units 07:15 WBC (3.8-10.6) k/uL RBC (3.80-5.40) m/uL Hgb (11.4-16.0) gm/dL Hct (34.0-46.0) % MCH (25.0-35.0) pg MCHC (31.0-37.0) g/dL RDW (11.5-15.5) % Lymphocytes # (1.0-4.8) k/uL Chloride 111 H (98-107) mmol/L Carbon Dioxide 21 L (22-30) mmol/L Glucose (74-99) mg/dL POC Glucose (mg/dL) (75-99) mg/dL Calcium 7.7 L (8.4-10.2) mg/dL Total Bilirubin 2.6 H (0.2-1.3) mg/dL AST 533 H (14-36) U/L ALT 380 H (9-52) U/L Alkaline Phosphatase 368 H (38-126) U/L Total Protein 5.2 L (6.3-8.2) g/dL Albumin 2.9 L (3.5-5.0) g/dL Assessment and Plan Assessment: Cholecystitis. Patient's liver for intensive slightly improved. She'll be scheduled for laparoscopic cholecystectomy in a.m. Patient is aware of the risk of possible retained common bile duct stone which would then require further testing. We'll tentatively schedule her for tomorrow if her labs continue to improve.
[2018-11-06] MEDS: NICOTINE 14MG/24HR PATCH TRANSDERM SCH (15:12)
--- NOTE | 2018-11-06 22:19 | PN ---
PROGRESS NOTE DATE OF SERVICE: 11/06/2018 This 38-year-old woman who was admitted with features of abdominal pain with cholecystitis, also had elevated LFTs. LFTs is being trended at this time. Total bilirubin is still elevated at 2.6 and AST/ALT are showing diminishing trends. Alkaline phosphatase also elevated. Dr. Castrejon is planning surgery at this time. No chest pain. No palpitations. No fever. EXAM: Alert and oriented x3. The pulse is 87, blood pressure 116/62, respiration 18, temperature 97.1, pulse ox 98% on room air. HEENT: Conjunctivae normal. NECK: No jugular venous distention. CARDIOVASCULAR: S1, S2. RESPIRATORY: Breath sounds diminished in the bases. Scattered rhonchi and crackles. ABDOMEN is soft, nontender. LEGS are no edema, no swelling. NERVOUS SYSTEM: No focal deficits. LAB STUDIES: At this time shows labs are reviewed as mentioned earlier. Labs are bilirubin is 2.6 and AST 533 and ALT is 380 and alkaline phosphatase is 368 and albumin is 2.9. ASSESSMENT: 1. Right upper quadrant abdominal pain with possible acute cholecystitis. 2. Elevated bilirubin, AST/ALT possibly choledocholithiasis. 3. Possible urinary tract infection. 4. Asthma. 5. History of hypothyroidism. 6. History of migraine. 7. History of constipation. 8. History of Aury's. 9. Diet controlled diabetes mellitus. 10.History of Bariatric surgery. 11.History of Harshad-En-Y. 12.History of nicotine dependence. RECOMMENDATIONS AND DISCUSSION: Recommend to continue current medications, management. Continue monitoring, symptomatic treatment. Prognosis guarded. We will follow the patient closely. Dr. Castrejon will repeat enzymes tomorrow and closely monitor. Guarded prognosis. Further recommendations to follow. MMODL / IJN: [id number] /
[2018-11-07] MEDS: PIPERACILLIN-TAZOBACTAM 3.375 GM in SODIUM CHLORIDE 0.9% 100 ML IVPB SCH ×3 (02:13→21:52)
[2018-11-07] MEDS: ACETAMINOPHEN TAB 325 MG TAB PO PRN (02:13)
[2018-11-07] MEDS: LEVOTHYROXINE 25 MCG TAB PO SCH (06:15)
--- NOTE | 2018-11-07 07:34 | P.PN ---
Subjective Progress Note Date: 11/07/18 CHIEF COMPLAINT: Cholecystitis with history of gastric bypass HISTORY OF PRESENT ILLNESS: The patient is a 38 year old female who presented with elevated liver enzymes including cholecystitis and has a history of gastric bypass. Since admission, liver enzymes slowly improving. No reports of fevers or chills PHYSICAL EXAM: VITAL SIGNS: Reviewed GENERAL: Well-developed in no acute distress. HEENT: No sclera icterus. Extraocular movements grossly intact. Moist buccal mucosa. Head is atraumatic, normocephalic. Hears conversational speech. No nasal drainage. NECK: Supple without lymphadenopathy. CHEST: Non-labored respirations and equal bilateral excursions. CARDIOVASCULAR: Regular rate with regular rhythm. ABDOMEN: Soft, mild tenderness right upper quadrant MUSCULOSKELETAL: No clubbing, cyanosis or edema. NEUROLOGIC: No focal or lateralizing signs. Cranial nerves II through XII grossly intact. PSYCH: Alert and oriented to person, place and time. SKIN: Well perfused. Good skin turgor. LABS: Reviewed ASSESSMENT: 1. Cholecystitis PLAN: 1. Previous studies reviewed demonstrating hydrops of the gallbladder. 2. Pending chemistries this morning, patient tentatively scheduled for robotic cholecystectomy. 3. She is aware that any persistent elevation of liver enzymes would warrant MRCP and possible transfer for ERCP should stones be identified in the common bile duct Objective - Vital Signs Vital signs: Vital Signs Temp 98.2 F 11/07/18 05:00 Pulse 68 11/07/18 05:00 Resp 16 11/07/18 05:00 BP 110/76 11/07/18 05:00 Pulse Ox 100 11/07/18 05:00 Intake & Output 11/06/18 11/07/18 11/07/18 18:59 06:59 18:59 Intake Total 1200 Balance 1200 Intake: IV 750 Piperacillin-Tazobactam 3 100 .375 gm In Sodium Chloride 0.9% 100 ml @ 25 mls/hr IVPB Q8H [facility] Rx#: [id number] Sodium Chloride 0.9% 1, 650 000 ml @ 75 mls/hr IV . [id number] [facility] Rx#:[id number] Oral 450 Other: Voiding Method Toilet Toilet # Voids 3 1 - Labs CBC & Chem 7: 11/06/18 07:15 11/06/18 07:15 Labs: Abnormal Lab Results - Last 24 Hours (Table) 11/06/18 11/06/18 Range/Units 07:15 07:15 WBC 2.9 L (3.8-10.6) k/uL RBC 3.43 L (3.80-5.40) m/uL Hgb 8.5 L (11.4-16.0) gm/dL Hct 28.3 L (34.0-46.0) % MCH 24.7 L (25.0-35.0) pg MCHC 30.0 L (31.0-37.0) g/dL RDW 17.8 H (11.5-15.5) % Lymphocytes # 0.9 L (1.0-4.8) k/uL Chloride 111 H (98-107) mmol/L Carbon Dioxide 21 L (22-30) mmol/L Calcium 7.7 L (8.4-10.2) mg/dL Total Bilirubin 2.6 H (0.2-1.3) mg/dL AST 533 H (14-36) U/L ALT 380 H (9-52) U/L Alkaline Phosphatase 368 H (38-126) U/L Total Protein 5.2 L (6.3-8.2) g/dL Albumin 2.9 L (3.5-5.0) g/dL - Imaging and Cardiology US - abdomen: report reviewed, image reviewed (Both studies including from September 2018 also reviewed at that time demonstrating no gallstones, hydrops of the gallbladder is present on the current study) Assessment and Plan (1) Gastric bypass status for obesity Current Visit: Yes Status: Acute Code(s): Z98.84 - BARIATRIC SURGERY STATUS SNOMED Code(s): 516669402 (2) Cholecystitis Current Visit: Yes Status: Acute Code(s): K81.9 - CHOLECYSTITIS, UNSPECIFIED SNOMED Code(s): 01744016 (3) Transaminitis Current Visit: Yes Status: Acute Code(s): R74.0 - NONSPEC ELEV OF LEVELS OF TRANSAMNS & LACTIC ACID DEHYDRGNSE SNOMED Code(s): 703836775
[2018-11-07] MEDS: HEPARIN SODIUM,PORCINE 5,000 UNIT/ML 1 ML VIAL SQ SCH ×2 (07:56→22:00)
[2018-11-07] MEDS: PANTOPRAZOLE 40 MG/10 ML VIAL IVP SCH (08:01)
[2018-11-07 08:05] LABS: Anisocytosis Slight; Basophils % (A) 0 %; Eosinophils % (A) 1 %; HCT 26.9 % (34.0-46.0); HGB 8.1 gm/dL (11.4-16.0); Hypochromasia Marked; Lymphocytes % (A) 34 %; MCH 24.9 pg (25.0-35.0); MCV 83.1 fL (80.0-100.0); Mean Platelet Volume 7.1; Monocytes # (A) 0.2 k/uL (0-1.0); Monocytes % (A) 5 %; Neutrophils # (A) 1.6 k/uL (1.3-7.7); Neutrophils % (A) 55 %; Platelet Count 168 k/uL (150-450); RBC 3.24 m/uL (3.80-5.40); RDW 17.9 % (11.5-15.5); WBC 2.9 k/uL (3.8-10.6)
[2018-11-07 08:18] LABS: ALT 339 U/L (9-52); AST 528 U/L (14-36); Albumin 2.8 g/dL (3.5-5.0); Alkaline Phosphatase 317 U/L (38-126); Anion Gap 6 mmol/L; Blood Urea Nitrogen 7 mg/dL (7-17); Carbon Dioxide 22 mmol/L (22-30); Chloride 113 mmol/L (98-107); Glucose 94 mg/dL (74-99); Potassium 4.2 mmol/L (3.5-5.1); Sodium 141 mmol/L (137-145); Total Bilirubin 2.6 mg/dL (0.2-1.3); Total Protein 5.3 g/dL (6.3-8.2)
[2018-11-07] MEDS: ONDANSETRON 4 MG/2 ML VIAL IVP PRN ×2 (09:17→14:34)
[2018-11-07] MEDS: MORPHINE SULFATE 4 MG/ML SYRINGE IV PRN ×3 (09:17→19:10)
[2018-11-07] MEDS: SERTRALINE 25 MG TAB PO SCH (11:33)
[2018-11-07] MEDS: SODIUM CHLORIDE 0.9% 1,000 ML IV SCH ×2 (12:26→21:55)
[2018-11-07] MEDS: NICOTINE 14MG/24HR PATCH TRANSDERM SCH (13:40)
[2018-11-07] MEDS ORDERED: IV FLUID CONTINUATION 900 ML IV ONE (14:33)
[2018-11-07] MEDS ORDERED: DEXAMETHASONE SOD PHOS (MDV) 100 MG/10 ML VIAL IV ONE (15:01)
[2018-11-07] MEDS ORDERED: MIDAZOLAM 2 MG/2 ML VIAL IV ONE (15:01)
[2018-11-07] MEDS ORDERED: SCOPOLAMINE 1.5MG/72HR PATCH TRANSDERM ONE (15:02)
[2018-11-07] MEDS ORDERED: LIDOCAINE 1% 20 ML VIAL (10MG/ML) FOR IV START INTRADERMA ONE (15:03)
[2018-11-07] MEDS ORDERED: LACTATED RINGERS 1,000 ML IV ONE ×2 (16:10→18:17)
[2018-11-07] MEDS ORDERED: INDOCYANINE GREEN 25 MG VIAL IV STA (16:11)
[2018-11-07] MEDS ORDERED: ceFAZolin IN SWFI 2 GM/20 ML SYRINGE IVP ONE (16:11)
[2018-11-07] MEDS ORDERED: fentaNYL (PF) 50 MCG/ML 2 ML AMP ONE (16:30)
[2018-11-07] MEDS ORDERED: MIDAZOLAM 2 MG/2 ML VIAL ONE (16:30)
[2018-11-07] MEDS ORDERED: LIDOCAINE 1% INJ 10MG/ML (20 ML MDV) ONE (16:30)
[2018-11-07] MEDS ORDERED: PROPOFOL 10 MG/ML 20 ML VIAL IV ONE (16:30)
[2018-11-07] MEDS ORDERED: SUCCINYLCHOLINE CHLORIDE 100 MG/5 ML SYR IV ONE (16:30)
[2018-11-07] MEDS ORDERED: ROCURONIUM BROMIDE 10 MG/ML 10 ML VIAL IV ONE (16:30)
[2018-11-07] MEDS ORDERED: INDOCYANINE GREEN 25 MG VIAL IV ONE (16:30)
[2018-11-07] MEDS ORDERED: GLYCOPYRROLATE 0.2 MG/ML 2 ML VIAL ONE (16:30)
[2018-11-07] MEDS ORDERED: NEOSTIGMINE 1 MG/ML 10 ML VIAL ONE (16:30)
--- NOTE | 2018-11-07 18:41 | P.OP ---
Date of Procedure: 11/07/18 Preoperative Diagnosis: Cholecystitis, transaminitis, morbid obesity due to excess calories, BMI 34.4 Postoperative Diagnosis: Same, cirrhosis of the liver micronodular, abdominal ascites, confirmed EtOH abuse Procedure(s) Performed: Robotic cholecystectomy with firefly Anesthesia: AYDIN, local Surgeon: Fani Austin Estimated Blood Loss (ml): 75 Pathology: other (Gallbladder) Condition: stable Disposition: floor Operative Findings: 1. Micronodular severe liver disease 2. Acute cholecystitis with adhesion of gallbladder infundibulum to annamaria hepatis 3. Firefly used to identify cystic duct prior to division 4. Moderate intra-abdominal ascites over 200 mL drained from the abdomen with specimen sent 5. Family confirms heavy alcohol abuse consistent with intraoperative findings 6. Contaminated case with irrigation over 500 mL normal saline
--- NOTE | 2018-11-07 19:55 | PN ---
PROGRESS NOTE DATE OF SERVICE: 11/07/2018 This 38-year-old woman was admitted with cholecystitis with history of gastric bypass is being closely monitored. Dr. Austin has seen the patient. The patient underwent a robotic cholecystectomy with firefly. No chest pain. No palpitations. No fever. disease was noted. PHYSICAL EXAM: Alert and oriented times three. VITAL SIGNS: Pulse 104, blood pressure 111/43, respiration 16, temperature 98 degrees. Pulse ox 100% on room air. HEENT: Conjunctivae normal. Oral mucosa moist. NECK is no jugular venous distention. No carotid bruit. No lymph node enlargement. CARDIOVASCULAR: S1, S2. RESPIRATIONS: Breath sounds diminished in the bases. A few scattered rhonchi. No crackles. ABDOMEN: Soft, nontender. LEGS are no edema. No swelling. CENTRAL NERVOUS SYSTEM: No focal deficits. LABS: WBC 2.9, hemoglobin is 8.1, platelets 168 and bilirubin is 8. Total bilirubin is 2.6 and AST is 528, ALT is 319. ASSESSMENT: 1. Right upper quadrant abdominal pain with possible acute cholecystitis status post cholecystectomy robotic assisted. 2. Elevated bilirubin, AST, ALT, possibly choledocholithiasis. 3. liver disease with moderate intraabdominal ascites. 4. Possible urinary tract infection. 5. Asthma. 6. History hypothyroidism. 7. History of migraines. 8. History of constipation. 9. History of Aury's. 10.Diet-controlled diabetes type 2. 11.History of bariatric surgery. 13.History of nicotine dependence. RECOMMENDATIONS AND DISCUSSION: Recommend to continue current medications, management and symptomatic treatment. Continue with current medications. Continue with broad-spectrum IV antibiotics. Otherwise, Gastroenterology consultation has been sought. We will closely monitor. Further recommendations to follow. MMODL / IJN: [id number] / MTDD
--- NOTE | 2018-11-07 21:15 | P.CONS ---
History of Present Illness - Reason for Consult Consult date: 11/07/18 Cholecystitis rule out choledocholithiasis Requesting physician: Fani Austin - Chief Complaint Abdominal pain - History of Present Illness 38-year-old female with a medical history significant for migraines, asthma, Aury's thyroiditis, eczema, morbid obesity with prior surgical intervention with Lena-en-Y gastric bypass, and alcohol abuse who presents to the hospital with complaints of abdominal pain. The patient reports symptoms occurring over the past few days prior to presentation predominantly of upper abdominal pain. This pain was described as intense and progressive with associated bloating, nausea and vomiting. On presentation the patient was found to have elevation in her liver enzymes with a total bilirubin 1.6, alkaline phosphatase 433, AST 732, and ALT 494. These liver enzymes remained elevated with a repeat lab draw showing a total bilirubin 2.6, blood phosphatase 317, AST 528, and ALT 339. Acute viral hepatitis panel was negative. Ultrasound showed no dilated bile ducts with gallbladder wall thickening. The patient was taken for laparoscopic cholecystectomy today which was also significant for ascites and a nodular appearing liver consistent with alcohol use. Review of Systems REVIEW OF SYSTEMS: CARDIO: Denies any chest pain or palpitations. PULMONARY: Denies any shortness of breath or wheezing. GENITOURINARY: No dysuria or hematuria. MUSCULOSKELETAL: No weakness reported. SKIN: Denies any new rashes or lesions, jaundice or pallor. PSYCHIATRIC: Denies any depression or anxiety. NEUROLOGY: Denies headache, denies any new focal deficits. EARS: No tinnitus, discharge or new hearing loss. NOSE: No discharge or congestion. EYES: No pain in eyes or change in vision. CONSTITUTIONAL: No recent weight loss. No fever, chills, night sweats. Past Medical History Past Medical History: Asthma, Blood Disorder, Skin Disorder, Thyroid Disorder Additional Past Medical History / Comment(s): migraines, constipation, hashimotos, eczema, no current rx for diabetes- diet control, anemia History of Any Multi-Drug Resistant Organisms: None Reported Year Discovered:: JUNE 2013 MDRO Source:: WOUND ON LEFT UPPER ABDOMEN Past Surgical History: Appendectomy, Bariatric Surgery, Section, Orthopedic Surgery, Tubal Ligation Additional Past Surgical History / Comment(s): LENA-EN-Y, left knee arthroscopy , I&D left upper abdomen; Panniculectomy Jul 2016 Past Anesthesia/Blood Transfusion Reactions: Family History of Problems w/ Anesthesia, Motion Sickness, Postoperative Nausea & Vomiting (PONV) Additional Past Anesthesia/Blood Transfusion Reaction / Comm: mother-"hard time waking up and trouble breathing" Past Psychological History: No Psychological Hx Reported Smoking Status: Current every day smoker Past Alcohol Use History: None Reported Past Drug Use History: None Reported Additional History: Family history: Reviewed with the patient and noncontributory to current medical presentation. - Past Family History Mother Family Medical History: No Reported History Medications and Allergies Home Medications Medication Instructions Recorded Confirmed Type Levothyroxine Sodium [Synthroid] 25 mcg PO DAILY 07/03/16 11/04/18 History Sertraline HCl [Zoloft] 25 mg PO DAILY 11/04/18 11/04/18 History Allergies Allergy/AdvReac Type Severity Reaction Status Date / Time adhesive Allergy Rash/Hives Verified 11/04/18 23:17 Tetanus Vaccines and Toxoid Allergy Swelling Verified 11/04/18 23:17 [Tetanus Vaccines & Toxoid] cigarette smoke AdvReac Cough, Verified 11/04/18 23:17 Shortness of Breath morphine AdvReac Nausea Verified 11/06/18 20:05 sertraline [From Zoloft] AdvReac DIZZY/Nausea Verified 11/04/18 23:17 & Vomiting skin ink Allergy Rash/Hives Uncoded 11/04/18 23:07 yellow squash Allergy Anaphylaxis Uncoded 11/04/18 23:07 dust AdvReac Mild Itching Uncoded 11/04/18 23:07 dust mites AdvReac Rash/Hives Uncoded 11/04/18 23:07 Physical Exam Vitals: Vital Signs Temp Pulse Pulse Pulse Resp BP BP 11/07/18 20:00 97.6 F 95 17 114/67 11/07/18 19:20 85 16 122/56 11/07/18 19:05 91 16 105/52 11/07/18 18:50 104 H 16 111/43 11/07/18 18:34 98 F 117 H 18 113/55 11/07/18 14:34 98 F 64 123/63 11/07/18 12:37 97.9 F 75 18 121/59 11/07/18 05:00 98.2 F 68 16 110/76 Pulse Ox 11/07/18 20:00 100 11/07/18 19:20 100 11/07/18 19:05 100 11/07/18 18:50 100 11/07/18 18:34 100 11/07/18 14:34 99 11/07/18 12:37 95 11/07/18 05:00 100 Intake and Output 11/07/18 11/07/18 11/07/18 06:59 14:59 22:59 Intake Total 445 639 5974 Output Total 75 Balance 595 877 8544 Intake: IV 650 729 1282 Piperacillin-Tazobactam 3 100 100 .375 gm In Sodium Chloride 0.9% 100 ml @ 25 mls/hr IVPB Q8H [facility] Rx#: [id number] Sodium Chloride 0.9% 1, 650 600 000 ml @ 75 mls/hr IV . [id number] [facility] Rx#:[id number] Output: Estimated Blood Loss 75 Other: Voiding Method Toilet Toilet # Voids 1 4 On physical examination, patient appears comfortable in no apparent distress. HEAD: Normocephalic, atraumatic. EYES: No scleral icterus. No conjunctival injection. MOUTH: No lesions, tongue midline. NECK: Trachea midline, no gross abnormalities. CHEST: Clear to auscultation with no wheezing or rhonchi appreciated. HEART: Regular rate and rhythm. ABDOMEN: Soft, obese, tender to palpation right greater than left. Bowel sounds are positive. No organomegaly. No guarding or rigidity. EXTREMITIES: No pedal edema. SKIN: No rashes, no jaundice. NEUROLOGIC: Alert and oriented x3. No focal deficits. Results CBC & Chem 7: 11/07/18 07:18 11/07/18 07:18 Labs: Abnormal Lab Results - Last 24 Hours (Table) 11/07/18 11/07/18 Range/Units 07:18 07:18 WBC 2.9 L (3.8-10.6) k/uL RBC 3.24 L (3.80-5.40) m/uL Hgb 8.1 L (11.4-16.0) gm/dL Hct 26.9 L (34.0-46.0) % MCH 24.9 L (25.0-35.0) pg MCHC 30.0 L (31.0-37.0) g/dL RDW 17.9 H (11.5-15.5) % Chloride 113 H (98-107) mmol/L Calcium 8.0 L (8.4-10.2) mg/dL Total Bilirubin 2.6 H (0.2-1.3) mg/dL AST 528 H (14-36) U/L ALT 339 H (9-52) U/L Alkaline Phosphatase 317 H (38-126) U/L Total Protein 5.3 L (6.3-8.2) g/dL Albumin 2.8 L (3.5-5.0) g/dL Microbiology - Last 24 Hours (Table) 11/06/18 07:15 Blood Culture - Preliminary Blood No Growth after 24 hours US - abdomen: report reviewed (Ultrasound showed no dilated bile ducts with gallbladder wall thickening.) Assessment and Plan (1) Transaminitis Narrative/Plan: Patient presenting with complaints of abdominal pain and findings suggestive of cholecystitis on ultrasound imaging. Patient had associated elevation in liver enzymes in both a cholestatic and hepatocellular pattern. Unclear if the etiology is secondary to a gallstone which has passed, choledocholithiasis although no dilated ducts were seen on ultrasound, other etiology. Acute viral hepatitis panel has been negative. Patient taken for cholecystectomy with nodular appearing liver noted. Current Visit: Yes Status: Acute Code(s): R74.0 - NONSPEC ELEV OF LEVELS OF TRANSAMNS & LACTIC ACID DEHYDRGNSE SNOMED Code(s): 872127993 (2) Cholecystitis Current Visit: Yes Status: Acute Code(s): K81.9 - CHOLECYSTITIS, UNSPECIFIED SNOMED Code(s): 64581665 (3) Gastric bypass status for obesity Current Visit: Yes Status: Acute Code(s): Z98.84 - BARIATRIC SURGERY STATUS SNOMED Code(s): 804361875 Plan: Supportive care Appreciate surgical recommendations Acute viral panel reviewed and negative Continue to monitor liver enzymes If patient continues to remain symptomatic and concern for choledocholithiasis remains, patient would benefit from transfer to tertiary referral center for attempted ERCP given complicated nature of the patient's anatomy status post Lena-en-Y Recommend abstinence from alcohol With pathology from surgery Thank you for allowing us to the care of this patient we will follow
[2018-11-08] MEDS: HYDROcodone/APAP 5-325MG 1 EACH TAB PO PRN ×4 (00:25→17:33)
[2018-11-08] MEDS: PIPERACILLIN-TAZOBACTAM 3.375 GM in SODIUM CHLORIDE 0.9% 100 ML IVPB SCH ×3 (03:52→17:33)
[2018-11-08] MEDS: SERTRALINE 25 MG TAB PO SCH (07:41)
[2018-11-08] MEDS: HEPARIN SODIUM,PORCINE 5,000 UNIT/ML 1 ML VIAL SQ SCH ×2 (07:41→21:25)
[2018-11-08] MEDS: LEVOTHYROXINE 25 MCG TAB PO SCH (07:41)
[2018-11-08] MEDS: PANTOPRAZOLE 40 MG/10 ML VIAL IVP SCH (07:42)
[2018-11-08 08:52] LABS: ALT 301 U/L (9-52); AST 412 U/L (14-36); Albumin 2.9 g/dL (3.5-5.0); Alkaline Phosphatase 310 U/L (38-126); Anion Gap 6 mmol/L; Blood Urea Nitrogen 9 mg/dL (7-17); Calcium 8.3 mg/dL (8.4-10.2); Carbon Dioxide 22 mmol/L (22-30); Chloride 110 mmol/L (98-107); Glucose 147 mg/dL (74-99); Potassium 4.4 mmol/L (3.5-5.1); Sodium 138 mmol/L (137-145); Total Bilirubin 1.8 mg/dL (0.2-1.3); Total Protein 5.4 g/dL (6.3-8.2)
[2018-11-08 09:10] LABS: Anisocytosis Slight; Basophils % (A) 0 %; Eosinophils # (A) 0.1 k/uL (0-0.7); Eosinophils % (A) 1 %; HCT 28.4 % (34.0-46.0); HGB 8.5 gm/dL (11.4-16.0); Hypochromasia Marked; Lymphocytes # (A) 0.9 k/uL (1.0-4.8); Lymphocytes % (A) 16 %; MCH 24.9 pg (25.0-35.0); MCV 83.1 fL (80.0-100.0); Mean Platelet Volume 8.4; Microcytosis Slight; Monocytes # (A) 0.2 k/uL (0-1.0); Monocytes % (A) 4 %; Neutrophils # (A) 4.2 k/uL (1.3-7.7); Neutrophils % (A) 78 %; Platelet Count 173 k/uL (150-450); RBC 3.41 m/uL (3.80-5.40); RDW 18.4 % (11.5-15.5); WBC 5.4 k/uL (3.8-10.6)
--- NOTE | 2018-11-08 09:22 | P.PN ---
Progress Note - Text Progress Note Date: 11/08/18 Patient seen and evaluated and is tolerating diet. Chemistries are improved since surgery. She has been seen by GI. ETOH abstinence described. Recommend final recommendation from GI with discharge today on low fat diet and alcohol abstinence. Repeat labs in 1 week. Follow up with GI as outpatient
[2018-11-08 11:35] LABS: Target Cells Present
[2018-11-08] MEDS: SODIUM CHLORIDE 0.9% 1,000 ML IV SCH (11:48)
--- NOTE | 2018-11-08 12:15 | P.PN ---
Subjective Progress Note Date: 11/08/18 Principal diagnosis: abdominal pain elevated liver enzymes S/P lap marlena. Transaminases slightly improved but total bilirubin decreased to 1.8. AST 412. ALT 301. AP 210. Afebrile. Reports incisional tenderness. Objective - Vital Signs Vital signs: Vital Signs Temp 97.7 F 11/08/18 05:06 Pulse 74 11/08/18 05:06 Resp 17 11/08/18 05:06 BP 120/74 11/08/18 05:06 Pulse Ox 99 11/08/18 05:06 Intake & Output 11/07/18 11/08/18 11/08/18 18:59 06:59 18:59 Intake Total 3100 250 Output Total 75 Balance 3025 250 Intake: IV 3100 250 Piperacillin-Tazobactam 3 100 .375 gm In Sodium Chloride 0.9% 100 ml @ 25 mls/hr IVPB Q8H [facility] Rx#: [id number] Sodium Chloride 0.9% 1, 600 150 000 ml @ 75 mls/hr IV . [id number] [facility] Rx#:[id number] Output: Estimated Blood Loss 75 Other: Voiding Method Toilet Toilet Toilet # Voids 4 3 - Constitutional General appearance: Present: no acute distress - EENT Eyes: Present: normal appearance Ears: bilateral: normal - Neck Neck: Present: normal ROM - Respiratory Respiratory: bilateral: CTA - Cardiovascular Rhythm: regular Heart sounds: normal: S1, S2 - Gastrointestinal Gastrointestinal Comment(s): incisions clean no drainage. General gastrointestinal: Present: soft - Neurologic Neurologic: Present: CNII-XII intact - Psychiatric Psychiatric: Present: A&O x's 3 - Labs CBC & Chem 7: 11/08/18 08:25 11/08/18 08:25 Labs: Abnormal Lab Results - Last 24 Hours (Table) 11/08/18 11/08/18 Range/Units 08:25 08:25 RBC 3.41 L (3.80-5.40) m/uL Hgb 8.5 L (11.4-16.0) gm/dL Hct 28.4 L (34.0-46.0) % MCH 24.9 L (25.0-35.0) pg MCHC 30.0 L (31.0-37.0) g/dL RDW 18.4 H (11.5-15.5) % Lymphocytes # 0.9 L (1.0-4.8) k/uL Chloride 110 H (98-107) mmol/L Glucose 147 H (74-99) mg/dL Calcium 8.3 L (8.4-10.2) mg/dL Total Bilirubin 1.8 H (0.2-1.3) mg/dL AST 412 H (14-36) U/L ALT 301 H (9-52) U/L Alkaline Phosphatase 310 H (38-126) U/L Total Protein 5.4 L (6.3-8.2) g/dL Albumin 2.9 L (3.5-5.0) g/dL Microbiology - Last 24 Hours (Table) 11/06/18 07:15 Blood Culture - Preliminary Blood No Growth after 48 hours Assessment and Plan (1) Elevated liver enzymes Narrative/Plan: S/P lap cholecytectomy for cholecystitis with intraoperative findings of micronodular cirrhoisis. LFTs slowly improving. Underlying choledocholithiasis cannot be entirely excluded. Current Visit: Yes Status: Acute Code(s): R74.8 - ABNORMAL LEVELS OF OTHER SERUM ENZYMES SNOMED Code(s): 501507203 (2) History of Harshad-en-Y gastric bypass Current Visit: Yes Status: Acute Code(s): Z98.84 - BARIATRIC SURGERY STATUS SNOMED Code(s): 048468287 (3) Micronodular cirrhosis of liver Current Visit: Yes Status: Acute Code(s): K74.69 - OTHER CIRRHOSIS OF LIVER SNOMED Code(s): 31159394 (4) ETOH abuse Current Visit: Yes Status: Acute Code(s): F10.10 - ALCOHOL ABUSE, UNCOMPLICATED SNOMED Code(s): 64519587 Plan: 1. ETOH abstinence strongly advised. 2. Observe for another night would like to see more of an improvement in LFTs before discharge. If LFTs increase will need tertiary evaluation for ERCP. 3. CMP in am. Will continue to follow. RTO 2-3 week; CMP 1 week. Assessment and plan of care discussed with Dr. Talavera
--- NOTE | 2018-11-08 12:21 | P.DS ---
Providers Date of admission: 11/05/18 02:52 Expected date of discharge: 11/08/18 Attending physician: Fani Austin Consults: 11/05/18 12:39 Consult Physician Routine Consulting Provider: Daisha Parker Consult Reason/Comments: Medical management Do you want consulting provider notified?: Yes 11/07/18 10:28 Consult Physician Routine Consulting Provider: Josue Bailey Consult Reason/Comments: Choledocholithiasis Do you want consulting provider notified?: Yes Primary care physician: Cammy Lobato - Discharge Diagnosis(es) (1) Alcohol abuse Current Visit: Yes Status: Acute (2) Liver cirrhosis Current Visit: Yes Status: Acute (3) Cholecystitis Current Visit: Yes Status: Acute (4) Gastric bypass status for obesity Current Visit: Yes Status: Acute (5) Transaminitis Current Visit: Yes Status: Acute (6) Abdominal pain Current Visit: No Status: Acute (7) Morbid obesity Current Visit: No Status: Acute Hospital Course: 40-year-old female who was admitted to the hospital with complaints of right quadrant pain. The patient was found to have cholecystitis as well as elevated LFTs. She was evaluated by GI during hospitalization as well. Patient underwent robotic cholecystectomy by Dr. Austin on 11/07/2018. LFTs are trending downward. Pain has been tolerable. She is ambulating. Tolerating oral diet. She is stable and without complications postoperatively. She was deemed stable for discharge home today. She is to remain on low fat diet. Alcohol abstinence encouraged. Discharge diagnosis: 1. Cholecystitis, status post robotic cholecystectomy 2. Transaminitis 3. Abdominal ascites 4. Liver cirrhosis 5. EtOH abuse 6. Previous history of Harshad-en-Y gastric bypass Nurse practitioner note has been reviewed by physician. Signing provider agrees with the documented findings, assessment, and plan of care. Patient Condition at Discharge: Stable Plan - Discharge Summary Discharge Rx Participant: Yes New Discharge Prescriptions: New HYDROcodone/APAP 5-325MG [[place] 5-325] 1 each PO Q4HR PRN #18 tab PRN Reason: Mild Pain Continue Levothyroxine Sodium [Synthroid] 25 mcg PO DAILY Sertraline HCl [Zoloft] 25 mg PO DAILY Discharge Medication List Levothyroxine Sodium [Synthroid] 25 mcg PO DAILY 07/03/16 [History] Sertraline HCl [Zoloft] 25 mg PO DAILY 11/04/18 [History] HYDROcodone/APAP 5-325MG [[place] 5-325] 1 each PO Q4HR PRN #18 tab 11/08/18 [Rx] Follow up Appointment(s)/Referral(s): Fani Austin MD [STAFF PHYSICIAN] - 11/15/18 Cammy Lobato DO [Primary Care Provider] - 1-2 days Patient Instructions/Handouts: Cholecystitis (GEN), Cirrhosis (DC), Low Fat Diet (DC), Laparoscopic Cholecystectomy (DC), At-Risk Alcohol Use (DC), Ascites (DC) Activity/Diet/Wound Care/Special Instructions: No lifting over 4 pounds in 2 weeks. May shower. No bathtub soaks. Avoid alcohol Discharge Disposition: HOME SELF-CARE
[2018-11-08] MEDS: NICOTINE 14MG/24HR PATCH TRANSDERM SCH (13:00)
[2018-11-08] MEDS: MORPHINE SULFATE 4 MG/ML SYRINGE IV PRN (21:25)
[2018-11-08] MEDS ORDERED: diphenhydrAMINE 50 MG/ML 1 ML VIAL IVP ONE (23:30)
[2018-11-09] MEDS: SODIUM CHLORIDE 0.9% 1,000 ML IV SCH ×2 (04:59→13:35)
[2018-11-09] MEDS: HYDROcodone/APAP 5-325MG 1 EACH TAB PO PRN ×2 (05:16→10:12)
[2018-11-09 05:19] VITALS: RESP 16; TEMP 97.5
[2018-11-09] MEDS: PIPERACILLIN-TAZOBACTAM 3.375 GM in SODIUM CHLORIDE 0.9% 100 ML IVPB SCH ×2 (05:25→10:15)
[2018-11-09] MEDS ORDERED: diphenhydrAMINE 50 MG/ML 1 ML VIAL IVP STA (05:56)
[2018-11-09 06:31] VITALS: BP 106/61
[2018-11-09] MEDS: LEVOTHYROXINE 25 MCG TAB PO SCH (06:31)
[2018-11-09 06:32] VITALS: PULSE 69
[2018-11-09] MEDS: MORPHINE SULFATE 4 MG/ML SYRINGE IV PRN (06:36)
[2018-11-09 07:10] LABS: Anisocytosis Slight; Basophils % (A) 0 %; Eosinophils # (A) 0.1 k/uL (0-0.7); Eosinophils % (A) 1 %; HCT 27.2 % (34.0-46.0); Hypochromasia Marked; Lymphocytes # (A) 1.2 k/uL (1.0-4.8); Lymphocytes % (A) 27 %; MCH 24.6 pg (25.0-35.0); MCHC 29.4 g/dL (31.0-37.0); MCV 83.5 fL (80.0-100.0); Mean Platelet Volume 8.4; Microcytosis Slight; Monocytes # (A) 0.2 k/uL (0-1.0); Monocytes % (A) 5 %; Neutrophils # (A) 2.9 k/uL (1.3-7.7); Neutrophils % (A) 65 %; Platelet Count 178 k/uL (150-450); RBC 3.25 m/uL (3.80-5.40); RDW 18.8 % (11.5-15.5); WBC 4.4 k/uL (3.8-10.6)
[2018-11-09 07:28] LABS: ALT 248 U/L (9-52); AST 317 U/L (14-36); Albumin 2.7 g/dL (3.5-5.0); Alkaline Phosphatase 286 U/L (38-126); Anion Gap 5 mmol/L; Blood Urea Nitrogen 10 mg/dL (7-17); Carbon Dioxide 24 mmol/L (22-30); Chloride 110 mmol/L (98-107); Glucose 106 mg/dL (74-99); Potassium 4.1 mmol/L (3.5-5.1); Sodium 139 mmol/L (137-145); Total Bilirubin 1.7 mg/dL (0.2-1.3); Total Protein 5.1 g/dL (6.3-8.2)
[2018-11-09] MEDS ORDERED: PANTOPRAZOLE 40 MG TABLET PO SCH (07:30)
[2018-11-09] MEDS: SERTRALINE 25 MG TAB PO SCH (08:13)
[2018-11-09] MEDS: HEPARIN SODIUM,PORCINE 5,000 UNIT/ML 1 ML VIAL SQ SCH (08:14)
--- NOTE | 2018-11-09 11:14 | P.PN ---
Subjective Progress Note Date: 11/09/18 Principal diagnosis: abdominal pain elevated liver enzymes S/P lap marlena. Transaminases improved total bilirubin decreased to 1.7. Afebrile. Denies abdominal pain. Objective - Vital Signs Vital signs: Vital Signs Temp 97.5 F L 11/09/18 05:00 Pulse 69 11/09/18 06:31 Resp 16 11/09/18 05:00 BP 106/61 11/09/18 06:31 Pulse Ox 99 11/09/18 05:00 Intake & Output 11/08/18 11/09/18 11/09/18 18:59 06:59 18:59 Intake Total 1680 Balance 1680 Intake: IV 750 Piperacillin-Tazobactam 3 100 .375 gm In Sodium Chloride 0.9% 100 ml @ 25 mls/hr IVPB Q8H [facility] Rx#: [id number] Sodium Chloride 0.9% 1, 650 000 ml @ 75 mls/hr IV . [id number] [facility] Rx#:[id number] Oral 930 Other: Voiding Method Toilet Toilet Toilet # Voids 3 2 - Constitutional General appearance: Present: average body habitus - EENT Eyes: Present: normal appearance ENT: Present: normal oropharynx Ears: bilateral: normal - Neck Neck: Present: normal ROM - Respiratory Respiratory: bilateral: CTA - Cardiovascular Rhythm: regular Heart sounds: normal: S1, S2 - Gastrointestinal Gastrointestinal Comment(s): steristrips clean without drainage. Minimal incisional tenderness. General gastrointestinal: Present: soft - Neurologic Neurologic: Present: CNII-XII intact - Psychiatric Psychiatric: Present: A&O x's 3 - Labs CBC & Chem 7: 11/09/18 06:49 11/09/18 06:49 Labs: Abnormal Lab Results - Last 24 Hours (Table) 11/08/18 11/09/18 11/09/18 Range/Units 08:25 06:49 06:49 RBC 3.41 L 3.25 L (3.80-5.40) m/uL Hgb 8.5 L 8.0 L (11.4-16.0) gm/dL Hct 28.4 L 27.2 L (34.0-46.0) % MCH 24.9 L 24.6 L (25.0-35.0) pg MCHC 30.0 L 29.4 L (31.0-37.0) g/dL RDW 18.4 H 18.8 H (11.5-15.5) % Lymphocytes # 0.9 L (1.0-4.8) k/uL Chloride 110 H (98-107) mmol/L Glucose 106 H (74-99) mg/dL Calcium 8.0 L (8.4-10.2) mg/dL Total Bilirubin 1.7 H (0.2-1.3) mg/dL AST 317 H (14-36) U/L ALT 248 H (9-52) U/L Alkaline Phosphatase 286 H (38-126) U/L Total Protein 5.1 L (6.3-8.2) g/dL Albumin 2.7 L (3.5-5.0) g/dL Microbiology - Last 24 Hours (Table) 11/06/18 07:15 Blood Culture - Preliminary Blood No Growth after 72 hours Assessment and Plan (1) Elevated liver enzymes Narrative/Plan: S/P lap cholecytectomy for cholecystitis with intraoperative findings of micronodular cirrhoisis. LFTs slowly improving. Underlying choledocholithiasis cannot be entirely excluded. Current Visit: Yes Status: Acute Code(s): R74.8 - ABNORMAL LEVELS OF OTHER SERUM ENZYMES SNOMED Code(s): 588062980 (2) History of Harshad-en-Y gastric bypass Current Visit: Yes Status: Acute Code(s): Z98.84 - BARIATRIC SURGERY STATUS SNOMED Code(s): 889398297 (3) Micronodular cirrhosis of liver Current Visit: Yes Status: Acute Code(s): K74.69 - OTHER CIRRHOSIS OF LIVER SNOMED Code(s): 82705732 (4) ETOH abuse Current Visit: Yes Status: Acute Code(s): F10.10 - ALCOHOL ABUSE, UNCOMPLICATED SNOMED Code(s): 67294732 Plan: 1. Agreeable for DC.. 3. CMP in 1 week. RTO 2-3 weeks. Assessment and plan of care discussed with Dr. Talavera
[2018-11-09] MEDS ORDERED: SODIUM CHLORIDE 0.9% 1,000 ML IV ONE (13:12)
[2018-11-09] MEDS ORDERED: DEXAMETHASONE SOD PHOSPHATE 10 MG/ML 1 ML VIAL IV STA (13:13)
[2018-11-09] MEDS ORDERED: KETOROLAC 30 MG/ML 1 ML VIAL IVP STA (13:15)
[2018-11-09] MEDS ORDERED: PANTOPRAZOLE 40 MG/10 ML VIAL IVP ONE (13:17)
[2018-11-09] MEDS: ONDANSETRON 4 MG/2 ML VIAL IVP PRN (13:26)
--- NOTE | 2018-11-09 14:00 | P.PN ---
Progress Note - Text Progress Note Date: 11/09/18 Discharge held yesterday as GI service wanted to repeat labs this morning. LFTs remain elevated but continue to trend downward. AST 317. ALT 248. Patient examined at the bedside. Patient believes the [place] is causing her to itch. Patient will be prescribed Tramadol at discharge per Dr. Austin. Patient will meet with bariatric dietitian today for diet education prior to discharge. She is stable for discharge home this afternoon. Please see discharge summary dictated yesterday 11-08-18.
[2018-11-09] MEDS: NICOTINE 14MG/24HR PATCH TRANSDERM SCH (15:02)
== END 2018-11-09 17:00 | disposition home or self-care (01) | DRG 418 ==
LOC: EC 22:41 → 3NMEDONC 11-05 02:52
PROVIDERS: ADMIT Surgery Plastic and Reconstructive Surgery; ATTEND Surgery Plastic and Reconstructive Surgery
PROC: 8E0W4CZ Robotic Assisted Procedure of Trunk Region, Percutaneous Endoscopic Approach (ICD-10-PCS; 2018-11-07)
PROC: 0FT44ZZ Resection of Gallbladder, Percutaneous Endoscopic Approach (ICD-10-PCS; principal; 2018-11-07 07:30)
DX: K81.0 Acute cholecystitis (principal); R18.8 Other ascites; N39.0 Urinary tract infection, site not specified; K82.8 Other specified diseases of gallbladder; E06.3 Autoimmune thyroiditis; E11.9 Type 2 diabetes mellitus without complications; E66.01 Morbid (severe) obesity due to excess calories; F10.10 Alcohol abuse, uncomplicated; F17.210 Nicotine dependence, cigarettes, uncomplicated; J45.909 Unspecified asthma, uncomplicated; K74.69 Other cirrhosis of liver; Z68.34 Body mass index [BMI] 34.0-34.9, adult; Z79.890 Hormone replacement therapy; Z79.899 Other long term (current) drug therapy; Z98.84 Bariatric surgery status; Z88.5 Allergy status to narcotic agent; Z88.7 Allergy status to serum and vaccine
CPT/HCPCS: 36415; 74018; 76705; 80053; 80074; 81001; 81025; 82150; 82272; 83690; 85025; 87040; 88108; 88304; 88305; 96365; 96366; 96375; 99285

== ENCOUNTER 2018-12-23 18:40 | Emergency (ER) | payer OTHER ==
[2018-12-23] MEDS ORDERED: MORPHINE SULFATE 4 MG/ML SYRINGE IV STA (20:40)
--- NOTE | 2018-12-23 20:44 | ED ---
Abdominal Pain HPI - General Chief Complaint: Abdominal Pain Stated Complaint: Abd pain, throat issue Time Seen by Provider: 12/23/18 20:21 Source: patient Mode of arrival: ambulatory Limitations: no limitations - History of Present Illness Initial Comments: is a 38-year-old female presenting for sore throat and abdominal pain. The patient states that this morning, she started having a sore throat but denies any fever or chills. She states that she was gargling with salt water and that didn't help. She also states that about 5 weeks ago, she had her gallbladder removed and has been complaining about significant weight gain in that she has gained 32 pounds in the last 10 days of fluid. She was febrile water pills and that is helped. She also admits to some bruising diffusely and abdominal discomfort that is diffuse. However, it is worse in the right upper quadrant and wraps around her sides. The pain is been constant as well but not associated with any nausea/vomiting/diarrhea. She also admits to some vaginal itching and dysuria. - Related Data Home Medications Medication Instructions Recorded Confirmed Levothyroxine Sodium [Synthroid] 25 mcg PO DAILY 07/03/16 12/23/18 Sertraline HCl [Zoloft] 25 mg PO DAILY 11/04/18 12/23/18 Furosemide [Lasix] 20 mg PO DAILY 12/23/18 12/23/18 Multivitamin [Multivitamins Adult 1 tab PO DAILY 12/23/18 12/23/18 Gummies] Omeprazole 40 mg PO DAILY PRN 12/23/18 12/23/18 Previous Rx's Medication Instructions Recorded Fluconazole [Diflucan] 150 mg PO ONCE #2 tab 12/24/18 Sulfamethox-Tmp 800-160Mg [Bactrim 1 tab PO Q12HR 3 Days #6 tab 12/24/18 DS 800-160 mg] Allergies Allergy/AdvReac Type Severity Reaction Status Date / Time adhesive Allergy Rash/Hives Verified 12/23/18 20:18 morphine Allergy Rash/Hives Verified 12/23/18 22:02 Tetanus Vaccines and Toxoid Allergy Swelling Verified 12/23/18 20:18 [Tetanus Vaccines & Toxoid] cigarette smoke AdvReac Cough, Verified 12/23/18 20:18 Shortness of Breath sertraline [From Zoloft] AdvReac DIZZY/Nausea Verified 12/23/18 20:18 & Vomiting skin ink Allergy Rash/Hives Uncoded 12/23/18 18:47 yellow squash Allergy Anaphylaxis Uncoded 12/23/18 18:47 dust AdvReac Mild Itching Uncoded 12/23/18 18:47 dust mites AdvReac Rash/Hives Uncoded 12/23/18 18:47 Review of Systems ROS Statement: Those systems with pertinent positive or pertinent negative responses have been documented in the HPI. Constitutional: Negative for chills, fatigue and fever. HENT: Negative for congestion. Respiratory: Negative for chest tightness, shortness of breath and wheezing. Negative for cough Cardiovascular: Negative for chest pain and palpitations. Positive for lower show any swelling Gastrointestinal: Positive for abdominal pain. Positive for abdominal distention, negative for diarrhea, nausea and vomiting. Genitourinary: Negative for dysuria. Positive for vaginal itching Musculoskeletal: Negative for back pain, neck pain and neck stiffness. Skin: Negative for color change. Positive for bruising Neurological: Negative for dizziness, speech difficulty, weakness and light- headedness. Psychiatric/Behavioral: Negative for agitation and confusion. Negative for anxiety ROS Other: All systems not noted in ROS Statement are negative. Past Medical History Past Medical History: Asthma, Diabetes Mellitus, Skin Disorder, Thyroid Disorder Additional Past Medical History / Comment(s): migraines, constipation, hashimotos, eczema, no current rx for diabetes- diet control, anemia, elevated liver enzymes & retaining fluid since recent surgery-has gained 40 lbs. of fluid recently per pt. History of Any Multi-Drug Resistant Organisms: None Reported Date of last positivie culture/infection: JUNE 2013 MDRO Source:: WOUND ON LEFT UPPER ABDOMEN Past Surgical History: Appendectomy, Bariatric Surgery, Section, Cholecystectomy, Orthopedic Surgery, Tubal Ligation Additional Past Surgical History / Comment(s): LENA-EN-Y, left knee arthroscopy , I&D left upper abdomen; Panniculectomy Jul 2016, robotic lap. marlena 11-07-18 Past Anesthesia/Blood Transfusion Reactions: Family History of Problems w/ Anesthesia, Motion Sickness, Postoperative Nausea & Vomiting (PONV) Additional Past Anesthesia/Blood Transfusion Reaction / Comment(s): mother-" hard time waking up and trouble breathing" Past Psychological History: No Psychological Hx Reported Smoking Status: Current every day smoker Past Alcohol Use History: None Reported Past Drug Use History: None Reported - Past Family History Mother Family Medical History: No Reported History General Exam - General Exam Comments Initial Comments: Constitutional: Pt appears well-developed and well-nourished. No distress. Head: Normocephalic and atraumatic. Eyes: EOM are normal. Neck: Normal range of motion. Neck supple. Cardiovascular: Tachycardia present, regular rhythm, S1 normal, S2 normal and normal heart sounds. Exam reveals no gallop and no friction rub. No murmur heard. Pulmonary/Chest: Effort normal and breath sounds normal. No tachypnea and no bradypnea. No respiratory distress. No wheezes or rales noted. Abdominal: Soft. Bowel sounds are normal. Pt exhibits no shifting dullness, no distension, no pulsatile liver, no fluid wave, no abdominal bruit and no ascites. There is no rigidity, no rebound, no guarding, no tenderness at McBurney's point and negative Springer's sign. There is no tenderness. Musculoskeletal: Normal range of motion. Neurological: Pt is alert and oriented to person, place, and time. No cranial nerve deficit. Skin: Skin is warm and dry. No rash noted. Pt is not diaphoretic. No erythema. No pallor. Ecchymosis on the medial aspect of the left calf Psychiatric: Pt has a normal mood and affect. Pt behavior is normal. Thought content normal. Limitations: no limitations Course Vital Signs 12/23/18 12/23/18 12/24/18 18:44 22:54 00:00 Temperature 98.4 F 98.7 F Pulse Rate 115 H 93 96 Respiratory 20 16 18 Rate Blood Pressure 146/81 130/83 140/85 O2 Sat by Pulse 100 100 100 Oximetry Medical Decision Making - Medical Decision Making Laboratory studies showed that hemoglobin, WBCs were at baseline. INR was also noted to be 1.3 and there was no significant electrolyte derangements. There was evidence of transaminitis with AST measuring 573, ALT 368 alk phos 502 but this appears to be actually improved from the patient's baseline. Urinalysis was also positive for urinary tract infection. CT of abdomen was performed and showed small anterior pericardial effusion measuring up to 7 mm as well as splenomegaly. There is right renal scarring as well as perinephric edema pain been secondary to urinary tract infection. Nonetheless, this appears to be chronic and because the patient does already have an appointment with GI schedule, and a soft that she could be safely discharged and treated as outpatient basis. Patient was agreeable plan and noted to be resting in bed comfortably and very jovial talking on her phone at the time of disposition. Explained all labs and diagnostic test results and that we will discharge the patient home and patient is to follow up with PCP in 1-2 days and return to the ED if symptoms worsen. Pt is agreeable to plan. - Lab Data Result diagrams: 12/23/18 22:00 12/23/18 22:00 Lab Results 12/23/18 12/23/18 12/23/18 Range/Units 22:00 22:00 22:00 WBC 5.0 (3.8-10.6) k/uL RBC 3.66 L (3.80-5.40) m/uL Hgb 8.7 L (11.4-16.0) gm/dL Hct 29.0 L (34.0-46.0) % MCV 79.2 L (80.0-100.0) fL MCH 23.7 L (25.0-35.0) pg MCHC 29.9 L (31.0-37.0) g/dL RDW 20.0 H (11.5-15.5) % Plt Count 141 L (150-450) k/uL Neutrophils % 65 % Lymphocytes % 21 % Monocytes % 8 % Eosinophils % 4 % Basophils % 1 % Neutrophils # 3.3 (1.3-7.7) k/uL Lymphocytes # 1.0 (1.0-4.8) k/uL Monocytes # 0.4 (0-1.0) k/uL Eosinophils # 0.2 (0-0.7) k/uL Basophils # 0.0 (0-0.2) k/uL Hypochromasia Marked Anisocytosis Moderate Microcytosis Slight PT 13.3 H (9.0-12.0) sec INR 1.3 H (<1.2) APTT 24.7 (22.0-30.0) sec Sodium 140 (137-145) mmol/L Potassium 3.4 L (3.5-5.1) mmol/L Chloride 112 H (98-107) mmol/L Carbon Dioxide 22 (22-30) mmol/L Anion Gap 6 mmol/L BUN 10 (7-17) mg/dL Creatinine 0.70 (0.52-1.04) mg/dL Est GFR (CKD-EPI)AfAm >90 (>60 ml/min/1.73 sqM) Est GFR (CKD-EPI)NonAf >90 (>60 ml/min/1.73 sqM) Glucose 118 H (74-99) mg/dL Calcium 8.4 (8.4-10.2) mg/dL Total Bilirubin 4.6 H (0.2-1.3) mg/dL AST 573 H (14-36) U/L ALT 368 H (9-52) U/L Alkaline Phosphatase 502 H (38-126) U/L NT-Pro-B Natriuret Pep pg/mL Total Protein 6.2 L (6.3-8.2) g/dL Albumin 3.2 L (3.5-5.0) g/dL Lipase 179 (23-300) U/L Urine Color Urine Appearance (Clear) Urine pH (5.0-8.0) Ur Specific [place] (1.001-1.035) Urine Protein (Negative) Urine Glucose (UA) (Negative) Urine Ketones (Negative) Urine Blood (Negative) Urine Nitrite (Negative) Urine Bilirubin (Negative) Urine Urobilinogen (<2.0) mg/dL Ur Leukocyte Esterase (Negative) Urine RBC (0-5) /hpf Urine WBC (0-5) /hpf Ur Squamous Epith Cells (0-4) /hpf Urine Bacteria (None) /hpf Urine Mucus (None) /hpf Urine HCG, Qual (Not Detectd) Group A Strep Rapid (Negative) 12/23/18 12/23/18 12/23/18 Range/Units 22:00 22:50 22:50 WBC (3.8-10.6) k/uL RBC (3.80-5.40) m/uL Hgb (11.4-16.0) gm/dL Hct (34.0-46.0) % MCV (80.0-100.0) fL MCH (25.0-35.0) pg MCHC (31.0-37.0) g/dL RDW (11.5-15.5) % Plt Count (150-450) k/uL Neutrophils % % Lymphocytes % % Monocytes % % Eosinophils % % Basophils % % Neutrophils # (1.3-7.7) k/uL Lymphocytes # (1.0-4.8) k/uL Monocytes # (0-1.0) k/uL Eosinophils # (0-0.7) k/uL Basophils # (0-0.2) k/uL Hypochromasia Anisocytosis Microcytosis PT (9.0-12.0) sec INR (<1.2) APTT (22.0-30.0) sec Sodium (137-145) mmol/L Potassium (3.5-5.1) mmol/L Chloride (98-107) mmol/L Carbon Dioxide (22-30) mmol/L Anion Gap mmol/L BUN (7-17) mg/dL Creatinine (0.52-1.04) mg/dL Est GFR (CKD-EPI)AfAm (>60 ml/min/1.73 sqM) Est GFR (CKD-EPI)NonAf (>60 ml/min/1.73 sqM) Glucose (74-99) mg/dL Calcium (8.4-10.2) mg/dL Total Bilirubin (0.2-1.3) mg/dL AST (14-36) U/L ALT (9-52) U/L Alkaline Phosphatase (38-126) U/L NT-Pro-B Natriuret Pep 33 pg/mL Total Protein (6.3-8.2) g/dL Albumin (3.5-5.0) g/dL Lipase (23-300) U/L Urine Color Urine Appearance (Clear) Urine pH (5.0-8.0) Ur Specific [place] (1.001-1.035) Urine Protein (Negative) Urine Glucose (UA) (Negative) Urine Ketones (Negative) Urine Blood (Negative) Urine Nitrite (Negative) Urine Bilirubin (Negative) Urine Urobilinogen (<2.0) mg/dL Ur Leukocyte Esterase (Negative) Urine RBC (0-5) /hpf Urine WBC (0-5) /hpf Ur Squamous Epith Cells (0-4) /hpf Urine Bacteria (None) /hpf Urine Mucus (None) /hpf Urine HCG, Qual Not Detected (Not Detectd) Group A Strep Rapid Negative (Negative) 12/23/18 Range/Units 22:50 WBC (3.8-10.6) k/uL RBC (3.80-5.40) m/uL Hgb (11.4-16.0) gm/dL Hct (34.0-46.0) % MCV (80.0-100.0) fL MCH (25.0-35.0) pg MCHC (31.0-37.0) g/dL RDW (11.5-15.5) % Plt Count (150-450) k/uL Neutrophils % % Lymphocytes % % Monocytes % % Eosinophils % % Basophils % % Neutrophils # (1.3-7.7) k/uL Lymphocytes # (1.0-4.8) k/uL Monocytes # (0-1.0) k/uL Eosinophils # (0-0.7) k/uL Basophils # (0-0.2) k/uL Hypochromasia Anisocytosis Microcytosis PT (9.0-12.0) sec INR (<1.2) APTT (22.0-30.0) sec Sodium (137-145) mmol/L Potassium (3.5-5.1) mmol/L Chloride (98-107) mmol/L Carbon Dioxide (22-30) mmol/L Anion Gap mmol/L BUN (7-17) mg/dL Creatinine (0.52-1.04) mg/dL Est GFR (CKD-EPI)AfAm (>60 ml/min/1.73 sqM) Est GFR (CKD-EPI)NonAf (>60 ml/min/1.73 sqM) Glucose (74-99) mg/dL Calcium (8.4-10.2) mg/dL Total Bilirubin (0.2-1.3) mg/dL AST (14-36) U/L ALT (9-52) U/L Alkaline Phosphatase (38-126) U/L NT-Pro-B Natriuret Pep pg/mL Total Protein (6.3-8.2) g/dL Albumin (3.5-5.0) g/dL Lipase (23-300) U/L Urine Color [place] Urine Appearance Cloudy H (Clear) Urine pH 6.0 (5.0-8.0) Ur Specific [place] 1.024 (1.001-1.035) Urine Protein 1+ H (Negative) Urine Glucose (UA) Negative (Negative) Urine Ketones Negative (Negative) Urine Blood Negative (Negative) Urine Nitrite Positive H (Negative) Urine Bilirubin 1+ H (Negative) Urine Urobilinogen >12.0 (<2.0) mg/dL Ur Leukocyte Esterase Large H (Negative) Urine RBC 8 H (0-5) /hpf Urine WBC 17 H (0-5) /hpf Ur Squamous Epith Cells 30 H (0-4) /hpf Urine Bacteria Many H (None) /hpf Urine Mucus Many H (None) /hpf Urine HCG, Qual (Not Detectd) Group A Strep Rapid (Negative) 12/23/18 22:52 EKG shows normal sinus rhythm with rate of 95 bpm, PA interval 106, QRS 80, QTC 480. There are no significant ST depressions or elevations. Disposition Clinical Impression: Ascites, Transaminitis, Urinary tract infection, Vaginal candidiasis, Splenomegaly, Pericardial effusion Disposition: HOME SELF-CARE Condition: Good Instructions (If sedation given, give patient instructions): Urinary Tract Infection in Women (ED), Ascites (ED) Prescriptions: Fluconazole [Diflucan] 150 mg PO ONCE #2 tab Sulfamethox-Tmp 800-160Mg [Bactrim DS 800-160 mg] 1 tab PO Q12HR 3 Days #6 tab Is patient prescribed a controlled substance at d/c from ED?: No Referrals: Cammy Lobato DO [Primary Care Provider] - 1-2 days Valdez Talavera MD [STAFF PHYSICIAN] - 1-2 days Time of Disposition: 00:54
[2018-12-23] MEDS ORDERED: HYDROmorphone 0.5 MG/0.5 ML SYRINGE IVP STA (22:09)
[2018-12-23 22:17] LABS: Anisocytosis Moderate; Basophils % (A) 1 %; Eosinophils # (A) 0.2 k/uL (0-0.7); Eosinophils % (A) 4 %; HGB 8.7 gm/dL (11.4-16.0); Hypochromasia Marked; Lymphocytes % (A) 21 %; MCH 23.7 pg (25.0-35.0); MCHC 29.9 g/dL (31.0-37.0); MCV 79.2 fL (80.0-100.0); Microcytosis Slight; Monocytes # (A) 0.4 k/uL (0-1.0); Monocytes % (A) 8 %; Neutrophils # (A) 3.3 k/uL (1.3-7.7); Neutrophils % (A) 65 %; Platelet Count 141 k/uL (150-450); RBC 3.66 m/uL (3.80-5.40)
[2018-12-23 22:26] LABS: Anion Gap 6 mmol/L; Blood Urea Nitrogen 10 mg/dL (7-17); Carbon Dioxide 22 mmol/L (22-30); Chloride 112 mmol/L (98-107); Glucose 118 mg/dL (74-99); Potassium 3.4 mmol/L (3.5-5.1); Sodium 140 mmol/L (137-145)
[2018-12-23 22:27] LABS: ALT 368 U/L (9-52); AST 573 U/L (14-36); Albumin 3.2 g/dL (3.5-5.0); Alkaline Phosphatase 502 U/L (38-126); Calcium 8.4 mg/dL (8.4-10.2); INR 1.3 (<1.2); Lipase 179 U/L (23-300); Partial Thromboplastin Time 24.7 sec (22.0-30.0); Prothrombin Time 13.3 sec (9.0-12.0); Total Bilirubin 4.6 mg/dL (0.2-1.3); Total Protein 6.2 g/dL (6.3-8.2)
[2018-12-23 23:18] LABS: Appearance,Urine Cloudy (Clear); Bacteria,Urine Many /hpf; Bilirubin,Urine 1+ (Negative); Blood,Urine Negative (Negative); Color,Urine Orange; Glucose,Urine (UA) Negative (Negative); Ketones,Urine Negative (Negative); Leukocyte Esterase,Urine Large (Negative); Mucus,Urine Many /hpf; Nitrite,Urine Positive (Negative); Protein,Urine 1+ (Negative); RBC,Urine 8 /hpf (0-5); Specific Gravity,Urine 1.024 (1.001-1.035); Squamous Epithelial Cell,Urine 30 /hpf (0-4); Urobilinogen,Urine >12.0 mg/dL (<2.0); WBC,Urine 17 /hpf (0-5)
--- NOTE | 2018-12-24 00:11 | CT ---
History: ITS.REASON CT Reason: Pain Exam: CT ABDOMEN + PELVIS With Contrast Technique more: CTDI is 17.3 mGy and DLP is 1579.2 mGy-cm. Technique more: This CT exam was performed using one or more of the following dose reduction techniques: automated exposure control, adjustment of the mA and/or kV according to patient size, and/or use of iterative reconstruction technique. Comparison: 03/24/2015 FINDINGS: Left base atelectasis. There is now a small anterior pericardial effusion measuring up to 7 mm axial 14. The liver is now small and cirrhotic with a heterogeneous appearance and difficult to exclude underlying lesions. There is now splenomegaly 15 cm. Moderate to large amount of abdominal pelvic free fluid now seen. Anasarca. Status post cholecystectomy and gastric bypass surgery again noted. No bowel dilation or free air. Right renal scarring again noted. Symmetric nephrograms without hydronephrosis. There is now a right perinephric edema extending along the retroperitoneum. The other solid organs and abdominal aorta appear within limits. Ovaries and uterus appear within limits. The bladder is mostly collapsed. IMPRESSION: Left base atelectasis. There is now a small anterior pericardial effusion measuring up to 7 mm axial 14. The liver is now small and cirrhotic with a heterogeneous appearance and difficult to exclude underlying lesions. There is now splenomegaly 15 cm. Correlate with history. Moderate to large amount of abdominal pelvic free fluid now seen. Anasarca. Status post cholecystectomy and gastric bypass surgery again noted. No bowel dilation or free air. Right renal scarring again noted. Symmetric nephrograms without hydronephrosis. There is now a right perinephric edema extending along the retroperitoneum.
[2018-12-24 01:17] VITALS: BP 129/76; PULSE 85; RESP 16; TEMP 98.5
[2018-12-24] MEDS: HYDROmorphone 0.5 MG/0.5 ML SYRINGE IVP STA ×2 (01:29→02:20)
== END 2018-12-24 02:26 | disposition home or self-care (01) ==
LOC: EC 18:40
DX: N39.0 Urinary tract infection, site not specified (principal); B37.3 Candidiasis of vulva and vagina; I31.3 Pericardial effusion (noninflammatory); R18.8 Other ascites; R74.0 Nonspecific elevation of levels of transaminase and lactic acid dehydrogenase [LDH]; R16.1 Splenomegaly, not elsewhere classified; E11.9 Type 2 diabetes mellitus without complications; E06.3 Autoimmune thyroiditis; F17.200 Nicotine dependence, unspecified, uncomplicated; Z79.890 Hormone replacement therapy; Z79.899 Other long term (current) drug therapy; Z91.048 Other nonmedicinal substance allergy status; Z88.5 Allergy status to narcotic agent; Z88.7 Allergy status to serum and vaccine; Z91.09 Other allergy status, other than to drugs and biological substances; Z91.018 Allergy to other foods; Z90.49 Acquired absence of other specified parts of digestive tract; Z98.84 Bariatric surgery status
CPT/HCPCS: 36415; 93005; 83880; 80053; 83690; 85025; 85610; 85730; 81001; 81025; 87086; 87081; 87430; 74177; 99284; 96374; J1170; Q9967; 87077; 87186

== ENCOUNTER 2019-01-05 01:31 | Inpatient (IN) | payer OTHER ==
[2019-01-05 02:12] LABS: Glucose,Whole Blood 208 mg/dL (75-99)
[2019-01-05 02:24] LABS: Anisocytosis Moderate; Basophils % (A) 0 %; Eosinophils # (A) 0.1 k/uL (0-0.7); Eosinophils % (A) 1 %; HCT 28.5 % (34.0-46.0); HGB 8.3 gm/dL (11.4-16.0); Hypochromasia Marked; Lymphocytes # (A) 2.2 k/uL (1.0-4.8); Lymphocytes % (A) 23 %; MCH 22.5 pg (25.0-35.0); MCHC 29.3 g/dL (31.0-37.0); MCV 76.8 fL (80.0-100.0); Mean Platelet Volume 7.2; Microcytosis Moderate; Monocytes # (A) 0.5 k/uL (0-1.0); Monocytes % (A) 5 %; Neutrophils # (A) 6.5 k/uL (1.3-7.7); Neutrophils % (A) 68 %; Platelet Count 202 k/uL (150-450); RBC 3.71 m/uL (3.80-5.40); RDW 23.1 % (11.5-15.5); WBC 9.5 k/uL (3.8-10.6)
[2019-01-05 02:33] LABS: INR 2.4 (<1.2); Partial Thromboplastin Time 30.6 sec (22.0-30.0); Prothrombin Time 23.1 sec (9.0-12.0)
[2019-01-05 02:35] LABS: ALT 374 U/L (9-52); AST 644 U/L (14-36); Albumin 3.1 g/dL (3.5-5.0); Alkaline Phosphatase 514 U/L (38-126); Anion Gap 12 mmol/L; Blood Urea Nitrogen 10 mg/dL (7-17); Calcium 8.8 mg/dL (8.4-10.2); Carbon Dioxide 20 mmol/L (22-30); Chloride 104 mmol/L (98-107); Glucose 193 mg/dL (74-99); Magnesium 1.8 mg/dL (1.6-2.3); Potassium 4.3 mmol/L (3.5-5.1); Sodium 136 mmol/L (137-145); Total Protein 6.3 g/dL (6.3-8.2)
[2019-01-05 02:46] LABS: Total Bilirubin 16.3 mg/dL (0.2-1.3)
--- NOTE | 2019-01-05 02:46 | ED ---
General Adult HPI - General Source: patient, RN notes reviewed, old records reviewed Mode of arrival: ambulatory Limitations: no limitations <Doron Lucio - Last Filed: 01/05/19 02:45> <Fran Mccain - Last Filed: 01/05/19 06:17> - General Chief complaint: Altered Mental Status Stated complaint: Memory Issues Time Seen by Provider: 01/05/19 01:46 - History of Present Illness Initial comments: 38 old female patient past medical history of alcohol liver cirrhosis, asthma, type 2 diabetes presents to ED if primary complaint of jaundice and altered mental status. Patient reports that for approximately 3 days she has been experiencing, had altered mental status. Patient additionally reports that since November she has had progressive jaundice as well as abdominal ascites. Patient current denies any pain. No chest pain, shortness breath, abdominal pain. Patient denies all other complaints. Systemic: Pt denies fatigue, myalgia, fever/chills, rash. Pt denies weakness, night sweats, weight loss. Neuro: Pt denies headache, visual disturbances, syncope or pre-syncope. HEENT: Pt denies ocular discharge or irritation, otalgia, rhinorrhea, pharyngitis or notable lymphadenopathy. Cardiopulmonary: Pt denies chest pain, SOB, heart palpitations, dyspnea on exertion. Abdominal/GI: Pt denies abdominal pain, n/v/d. : Pt denies dysuria, burning w/ urination, frequency/urgency. Denies new onset urinary or bowel incontinence. MSK: Pt denies myalgia, loss of strength or function in extremities. Neuro: Pt denies new onset weakness, paresthesias. (Doron Lucio) - Related Data Home Medications Medication Instructions Recorded Confirmed Levothyroxine Sodium [Synthroid] 25 mcg PO DAILY 07/03/16 12/23/18 Sertraline HCl [Zoloft] 25 mg PO DAILY 11/04/18 12/23/18 Furosemide [Lasix] 20 mg PO DAILY 12/23/18 12/23/18 Multivitamin [Multivitamins Adult 1 tab PO DAILY 12/23/18 12/23/18 Gummies] Omeprazole 40 mg PO DAILY PRN 12/23/18 12/23/18 Previous Rx's Medication Instructions Recorded Fluconazole [Diflucan] 150 mg PO ONCE #2 tab 12/24/18 Sulfamethox-Tmp 800-160Mg [Bactrim 1 tab PO Q12HR 3 Days #6 tab 12/24/18 DS 800-160 mg] Allergies Allergy/AdvReac Type Severity Reaction Status Date / Time adhesive Allergy Rash/Hives Verified 12/23/18 20:18 morphine Allergy Rash/Hives Verified 12/23/18 22:02 Tetanus Vaccines and Toxoid Allergy Swelling Verified 12/23/18 20:18 [Tetanus Vaccines & Toxoid] cigarette smoke AdvReac Cough, Verified 12/23/18 20:18 Shortness of Breath sertraline [From Zoloft] AdvReac DIZZY/Nausea Verified 12/23/18 20:18 & Vomiting skin ink Allergy Rash/Hives Uncoded 12/23/18 18:47 yellow squash Allergy Anaphylaxis Uncoded 12/23/18 18:47 dust AdvReac Mild Itching Uncoded 12/23/18 18:47 dust mites AdvReac Rash/Hives Uncoded 12/23/18 18:47 Review of Systems ROS Other: All systems not noted in ROS Statement are negative. <Doron Lucio - Last Filed: 01/05/19 02:45> ROS Other: All systems not noted in ROS Statement are negative. <Fran Mccain - Last Filed: 01/05/19 06:17> ROS Statement: Those systems with pertinent positive or pertinent negative responses have been documented in the HPI. Past Medical History Past Medical History: Asthma, Diabetes Mellitus, Skin Disorder, Thyroid Disorder Additional Past Medical History / Comment(s): migraines, constipation, hashimotos, eczema, no current rx for diabetes- diet control, anemia, elevated liver enzymes & retaining fluid since recent surgery-has gained 40 lbs. of fluid recently per pt. History of Any Multi-Drug Resistant Organisms: None Reported Date of last positivie culture/infection: JUNE 2013 MDRO Source:: WOUND ON LEFT UPPER ABDOMEN Past Surgical History: Appendectomy, Bariatric Surgery, Section, Cholecystectomy, Orthopedic Surgery, Tubal Ligation Additional Past Surgical History / Comment(s): LENA-EN-Y, left knee arthroscopy, I&D left upper abdomen; Panniculectomy Jul 2016, robotic lap. marlena 11-07-18 Past Anesthesia/Blood Transfusion Reactions: Family History of Problems w/ Anesthesia, Motion Sickness, Postoperative Nausea & Vomiting (PONV) Additional Past Anesthesia/Blood Transfusion Reaction / Comment(s): mother-"hard time waking up and trouble breathing" Past Psychological History: No Psychological Hx Reported Smoking Status: Current every day smoker Past Alcohol Use History: None Reported Past Drug Use History: None Reported - Past Family History Mother Family Medical History: No Reported History <Doron Lucio - Last Filed: 01/05/19 02:45> General Exam Limitations: no limitations <Doron Lucio - Last Filed: 01/05/19 02:45> - General Exam Comments Initial Comments: Constitutional: NAD, AOX3, Pt has pleasant affect. HEENT: NC/AT, trachea midline, neck supple, no lymphadenopathy. Posterior pharynx non erythematous, without exudates. External ears appear normal, without discharge. Mucous membranes moist. Eyes PERRLA, EOM intact. There is no scleral icterus. No pallor noted. Cardiopulmonary: RRR, no murmurs, rubs or gallops, no JVD noted. Lungs CTAB in anterior and posterior guillen. No peripheral edema. Abdominal exam: Abdomen distended, shifting dullness positive, consistent with ascites. Abdomen non-tender to palpation in all 4 quadrants. Bowel sounds active in LLQ. No ecchymosis Neuro: CN II-XII intact. No nuchal rigidity. MSK: No posterior calf tenderness bilaterally, homans sign negative bilaterally. Posterior tibialis and radial pulse +2 bilaterally. Sensation intact in upper and lower extremities. Full active ROM in upper and lower extremities, 5/5 stregnth. (Doron Lucio) Course Vital Signs 01/05/19 01/05/19 01:33 02:20 Temperature 97.8 F Pulse Rate 120 H 117 H Respiratory 16 17 Rate Blood Pressure 124/73 117/72 O2 Sat by Pulse 100 100 Oximetry Medical Decision Making - Lab Data Result diagrams: 01/05/19 02:00 <Doron Lucio - Last Filed: 01/05/19 02:45> - Lab Data Result diagrams: 01/05/19 02:00 01/05/19 02:00 <Fran Mccain - Last Filed: 01/05/19 06:17> - Lab Data Lab Results 01/05/19 01/05/19 01/05/19 Range/Units 02:00 02:00 02:00 WBC 9.5 (3.8-10.6) k/uL RBC 3.71 L (3.80-5.40) m/uL Hgb 8.3 L (11.4-16.0) gm/dL Hct 28.5 L (34.0-46.0) % MCV 76.8 L (80.0-100.0) fL MCH 22.5 L (25.0-35.0) pg MCHC 29.3 L (31.0-37.0) g/dL RDW 23.1 H (11.5-15.5) % Plt Count 202 (150-450) k/uL Neutrophils % 68 % Lymphocytes % 23 % Monocytes % 5 % Eosinophils % 1 % Basophils % 0 % Neutrophils # 6.5 (1.3-7.7) k/uL Lymphocytes # 2.2 (1.0-4.8) k/uL Monocytes # 0.5 (0-1.0) k/uL Eosinophils # 0.1 (0-0.7) k/uL Basophils # 0.0 (0-0.2) k/uL Hypochromasia Marked Anisocytosis Moderate Microcytosis Moderate PT (9.0-12.0) sec INR (<1.2) APTT (22.0-30.0) sec Sodium 136 L (137-145) mmol/L Potassium 4.3 (3.5-5.1) mmol/L Chloride 104 (98-107) mmol/L Carbon Dioxide 20 L (22-30) mmol/L Anion Gap 12 mmol/L BUN 10 (7-17) mg/dL Creatinine 0.87 (0.52-1.04) mg/dL Est GFR (CKD-EPI)AfAm >90 (>60 ml/min/1.73 sqM) Est GFR (CKD-EPI)NonAf 86 (>60 ml/min/1.73 sqM) Glucose 193 H (74-99) mg/dL POC Glucose (mg/dL) (75-99) mg/dL POC Glu Staff Midwife/Apprenticeship Director ID Calcium 8.8 (8.4-10.2) mg/dL Magnesium 1.8 (1.6-2.3) mg/dL Total Bilirubin 16.3 H* (0.2-1.3) mg/dL AST 644 H (14-36) U/L ALT 374 H (9-52) U/L Alkaline Phosphatase 514 H (38-126) U/L Ammonia 63 H (<30) umol/L Troponin I (0.000-0.034) ng/mL Total Protein 6.3 (6.3-8.2) g/dL Albumin 3.1 L (3.5-5.0) g/dL 01/05/19 01/05/19 01/05/19 Range/Units 02:00 02:00 02:10 WBC (3.8-10.6) k/uL RBC (3.80-5.40) m/uL Hgb (11.4-16.0) gm/dL Hct (34.0-46.0) % MCV (80.0-100.0) fL MCH (25.0-35.0) pg MCHC (31.0-37.0) g/dL RDW (11.5-15.5) % Plt Count (150-450) k/uL Neutrophils % % Lymphocytes % % Monocytes % % Eosinophils % % Basophils % % Neutrophils # (1.3-7.7) k/uL Lymphocytes # (1.0-4.8) k/uL Monocytes # (0-1.0) k/uL Eosinophils # (0-0.7) k/uL Basophils # (0-0.2) k/uL Hypochromasia Anisocytosis Microcytosis PT 23.1 H (9.0-12.0) sec INR 2.4 H (<1.2) APTT 30.6 H (22.0-30.0) sec Sodium (137-145) mmol/L Potassium (3.5-5.1) mmol/L Chloride (98-107) mmol/L Carbon Dioxide (22-30) mmol/L Anion Gap mmol/L BUN (7-17) mg/dL Creatinine (0.52-1.04) mg/dL Est GFR (CKD-EPI)AfAm (>60 ml/min/1.73 sqM) Est GFR (CKD-EPI)NonAf (>60 ml/min/1.73 sqM) Glucose (74-99) mg/dL POC Glucose (mg/dL) 208 H (75-99) mg/dL POC Glu Staff Midwife/Apprenticeship Director ID Isabella Heath Calcium (8.4-10.2) mg/dL Magnesium (1.6-2.3) mg/dL Total Bilirubin (0.2-1.3) mg/dL AST (14-36) U/L ALT (9-52) U/L Alkaline Phosphatase (38-126) U/L Ammonia (<30) umol/L Troponin I <0.012 (0.000-0.034) ng/mL Total Protein (6.3-8.2) g/dL Albumin (3.5-5.0) g/dL Disposition <Doron Lucio - Last Filed: 01/05/19 02:45> <Fran Mccain - Last Filed: 01/05/19 06:17> Clinical Impression: Liver cirrhosis, Transaminitis, Jaundice, Hepatic encephalopathy Disposition: ADMITTED IP TO THIS HOSP Condition: Fair Referrals: Cammy Lobato DO [Primary Care Provider] - 1-2 days
[2019-01-05] MEDS ORDERED: LACTULOSE 20 GM/30 ML CUP PO ONE (03:00)
--- NOTE | 2019-01-05 06:07 | CT ---
EXAM: CT Head Without Intravenous Contrast CLINICAL HISTORY: ITS.REASON CT Reason: altered mental status TECHNIQUE: Axial computed tomography images of the head/brain without intravenous contrast. DLP is 1083 mGy-cm. This CT exam was performed using one or more of the following dose reduction techniques: automated exposure control, adjustment of the mA and/or kV according to patient size, and/or use of iterative reconstruction technique. COMPARISON: 11/25/17 FINDINGS: Brain: No hemorrhage. No mass effect. Barber white junction preserved. Ventricles: Age appropriate Sinuses: Similar opacification of the imaged left maxillary sinus possibly mucosal retention cyst. Mastoid air cells: Well aerated as visualized. IMPRESSION: No acute intracranial findings
--- NOTE | 2019-01-05 06:07 | XR ---
EXAM: XR Chest, 2 Views CLINICAL HISTORY: ITS.REASON XR Reason: altered mental status TECHNIQUE: Frontal and lateral views of the chest. COMPARISON: 11/25/17 FINDINGS: Cardiomediastinal silhouette unremarkable. Poor inspiratory depth. No consolidation, edema or other acute cardiopulmonary process. IMPRESSION: No acute cardiopulmonary findings.
[2019-01-05] MEDS ORDERED: NALOXONE 0.4 MG/ML 1 ML VIAL IV PRN (06:13)
[2019-01-05 06:58] LABS: Appearance,Urine Cloudy (Clear); Bacteria,Urine Moderate /hpf; Bilirubin,Urine 2+ (Negative); Blood,Urine Negative (Negative); Color,Urine Brown; Glucose,Urine (UA) Negative (Negative); Hyaline Casts,Urine 3 /lpf (0-2); Ketones,Urine Trace (Negative); Leukocyte Esterase,Urine Small (Negative); Mucus,Urine Few /hpf; Nitrite,Urine Positive (Negative); PH, Urine 5.5 (5.0-8.0); Protein,Urine 1+ (Negative); RBC,Urine 1 /hpf (0-5); Specific Gravity,Urine 1.024 (1.001-1.035); Squamous Epithelial Cell,Urine 11 /hpf (0-4); WBC,Urine 1 /hpf (0-5)
[2019-01-05] MEDS: LEVOTHYROXINE 25 MCG TAB PO SCH (09:06)
[2019-01-05] MEDS: FAMOTIDINE 20 MG TAB PO SCH ×2 (09:06→21:50)
[2019-01-05] MEDS ORDERED: PANTOPRAZOLE 40 MG TABLET PO PRN (09:29)
--- NOTE | 2019-01-05 09:32 | P.CONS ---
History of Present Illness - Reason for Consult Consult date: 01/05/19 Liver failure Requesting physician: Daisha Parker - Chief Complaint Altered mental status jaundice - History of Present Illness 38-year-old female with a history of EtOH abuse, cirrhosis, portal hypertension, ascites previous diagnostic paracentesis November 2018 negative cytology, iron deficiency anemia, morbid obesity, laparoscopic cholecystectomy November 2018 for chronic acalculous cholecystitis, diabetes, Harshad-en-Y gastric bypass presents with worsening jaundice and mental status changes. Patient has been receiving prolonged doses of Bactrim for at least 2-3 weeks duration for UTI in the outpatient setting. Denies fever chills hematemesis hematochezia melena. Denies active ETOH consumption. Denies taking excessive tylenol or ASA products. Admission white count 9.5. Hemoglobin 8.3. Platelet 202. INR 2.4. Total bilirubin 16.3. AST 644. ALT 374. AP 514. Ammonia 63. BUN 10. Creatinine 0.8. Urinalysis positive nitrite small leukocyte esterase and moderate bacteria. Intermittent bilateral lower abdominal pain discomfort. CT brain reported no ac [place] intracranial findings. INR on 12/23/2018 was 1.3. Total bilirubin 4.6. AST 573. ALT 360. AP 502. Hepatitis screen November 2018 negative. She was evaluated in the GI office 6 weeks ago was advised to have additional serology completed to exclude underlying chronic liver disease not sure if that was completed. CT abdomen to 20 12/21/2018 left base atelectasis small cirrhotic heterogeneous appearing liver. No free air. Right perinephric edema extending along the retroperitoneum. Review of Systems Constitutional: Denies fever, chills, sweats, weight gain, or loss. Mental status changes. HEENT: Negative for migraines, blurred vision or loss, earaches, drainage, tinnitus, oral mucosal lesions, dysphagia, or odynophagia. CARDIAC: Negative for chest pain, arrhythmias, or palpitation. RESPIRATORY: Negative for shortness of breath, hemoptysis, cough, or sputum production. GI: See HPI for pertinent findings. : Negative for hematuria, urgency, frequency, polyuria, or dysuria. GYNc: Denies possibility of . Negative vaginal discharge. MUSCULOSKELETAL: Negative for muscle aches, swelling, arthritis, and arthralgias. NEUROLOGIC: Negative for stroke or TIA. ENDOCRINE: Negative for thyroid problems. SKIN: Negative for rash or itching. PSYCHIATRIC: Negative history for depression and anxiety Past Medical History Past Medical History: Asthma, Diabetes Mellitus, Skin Disorder, Thyroid Disorder Additional Past Medical History / Comment(s): migraines, constipation, hashimotos, eczema, no current rx for diabetes- diet control, anemia, elevated liver enzymes & retaining fluid since recent surgery-has gained 40 lbs. of fluid recently per pt. History of Any Multi-Drug Resistant Organisms: None Reported Year Discovered:: JUNE 2013 MDRO Source:: WOUND ON LEFT UPPER ABDOMEN Past Surgical History: Appendectomy, Bariatric Surgery, Section, Chol ecystectomy, Orthopedic Surgery, Tubal Ligation Additional Past Surgical History / Comment(s): HARSHAD-EN-Y, left knee arthroscopy, I&D left upper abdomen; Panniculectomy Jul 2016, robotic lap. marlena 11-07-18 Past Anesthesia/Blood Transfusion Reactions: Family History of Problems w/ Anesthesia, Motion Sickness, Postoperative Nausea & Vomiting (PONV) Additional Past Anesthesia/Blood Transfusion Reaction / Comm: mother-"hard time waking up and trouble breathing" Past Psychological History: No Psychological Hx Reported Smoking Status: Current every day smoker Past Alcohol Use History: None Reported Past Drug Use History: None Reported - Past Family History Mother Family Medical History: No Reported History Medications and Allergies Home Medications Medication Instructions Recorded Confirmed Type Levothyroxine Sodium [Synthroid] 25 mcg PO DAILY 07/03/16 01/05/19 History Sertraline HCl [Zoloft] 25 mg PO DAILY 11/04/18 01/05/19 History Furosemide [Lasix] 20 mg PO DAILY 12/23/18 01/05/19 History Multivitamin [Multivitamins Adult 1 tab PO DAILY 12/23/18 01/05/19 History Gummies] Omeprazole 40 mg PO DAILY PRN 12/23/18 01/05/19 History Allergies Allergy/AdvReac Type Severity Reaction Status Date / Time adhesive Allergy Rash/Hives Verified 01/05/19 08:08 morphine Allergy Rash/Hives Verified 01/05/19 08:08 sulfamethoxazole Allergy Unknown Verified 01/05/19 09:12 [From Bactrim] Tetanus Vaccines and Toxoid Allergy Swelling Verified 01/05/19 08:08 [Tetanus Vaccines & Toxoid] trimethoprim [From Bactrim] Allergy Unknown Verified 01/05/19 09:12 cigarette smoke AdvReac Cough, Verified 01/05/19 08:08 Shortness of Breath sertraline [From Zoloft] AdvReac DIZZY/Nausea Verified 01/05/19 08:08 & Vomiting skin ink Allergy Rash/Hives Uncoded 12/23/18 18:47 yellow squash Allergy Anaphylaxis Uncoded 12/23/18 18:47 dust AdvReac Mild Itching Uncoded 12/23/18 18:47 dust mites AdvReac Rash/Hives Uncoded 12/23/18 18:47 Physical Exam Vitals: Vital Signs Temp Pulse Resp BP Pulse Ox 01/05/19 07:30 98.0 F 114 H 18 128/74 98 01/05/19 02:20 117 H 17 117/72 100 01/05/19 01:33 97.8 F 120 H 16 124/73 100 Intake and Output 01/04/19 01/05/19 01/05/19 22:59 06:59 14:59 Other: Weight 112.037 kg General appearance: The patient is alert, oriented 2 slightly forgetful on dates and times, in no acute distress. Visibly jaundice. HET: Head is normocephalic and atraumatic. Pupils are equal and reactive. Oropharynx is clear without lesions. Sclerae icterus. Neck: Supple without lymphadenopathy. Trachea midline. Heart: S1 S2. Regular rate and rhythm. Lungs: No crackles or wheezes are heard. Abdomen: Soft, very mild tenderness bilateral lower abdomen, nondistended with bowel sounds. No appreciable ascites. No peritoneal signs. No palpable organomegaly or masses. Extremities: +2 bilateral lower extremity edema. Radial and pedal pulses are 2/4 bilaterally. Neurological: No focal deficits. Strength and sensation are grossly intact. Results CBC & Chem 7: 01/05/19 02:00 01/05/19 02:00 Labs: Abnormal Lab Results - Last 24 Hours (Table) 01/05/19 01/05/19 01/05/19 Range/Units 02:00 02:00 02:00 RBC 3.71 L (3.80-5.40) m/uL Hgb 8.3 L (11.4-16.0) gm/dL Hct 28.5 L (34.0-46.0) % MCV 76.8 L (80.0-100.0) fL MCH 22.5 L (25.0-35.0) pg MCHC 29.3 L (31.0-37.0) g/dL RDW 23.1 H (11.5-15.5) % PT (9.0-12.0) sec INR (<1.2) APTT (22.0-30.0) sec Sodium 136 L (137-145) mmol/L Carbon Dioxide 20 L (22-30) mmol/L Glucose 193 H (74-99) mg/dL POC Glucose (mg/dL) (75-99) mg/dL Total Bilirubin 16.3 H* (0.2-1.3) mg/dL AST 644 H (14-36) U/L ALT 374 H (9-52) U/L Alkaline Phosphatase 514 H (38-126) U/L Ammonia 63 H (<30) umol/L Albumin 3.1 L (3.5-5.0) g/dL Urine Appearance (Clear) Urine Protein (Negative) Urine Ketones (Negative) Urine Nitrite (Negative) Urine Bilirubin (Negative) Ur Leukocyte Esterase (Negative) Ur Squamous Epith Cells (0-4) /hpf Urine Bacteria (None) /hpf Hyaline Casts (0-2) /lpf Urine Mucus (None) /hpf 01/05/19 01/05/19 01/05/19 Range/Units 02:00 02:10 04:35 RBC (3.80-5.40) m/uL Hgb (11.4-16.0) gm/dL Hct (34.0-46.0) % MCV (80.0-100.0) fL MCH (25.0-35.0) pg MCHC (31.0-37.0) g/dL RDW (11.5-15.5) % PT 23.1 H (9.0-12.0) sec INR 2.4 H (<1.2) APTT 30.6 H (22.0-30.0) sec Sodium (137-145) mmol/L Carbon Dioxide (22-30) mmol/L Glucose (74-99) mg/dL POC Glucose (mg/dL) 208 H (75-99) mg/dL Total Bilirubin (0.2-1.3) mg/dL AST (14-36) U/L ALT (9-52) U/L Alkaline Phosphatase (38-126) U/L Ammonia (<30) umol/L Albumin (3.5-5.0) g/dL Urine Appearance Cloudy H (Clear) Urine Protein 1+ H (Negative) Urine Ketones Trace H (Negative) Urine Nitrite Positive H (Negative) Urine Bilirubin 2+ H (Negative) Ur Leukocyte Esterase Small H (Negative) Ur Squamous Epith Cells 11 H (0-4) /hpf Urine Bacteria Moderate H (None) /hpf Hyaline Casts 3 H (0-2) /lpf Urine Mucus Few H (None) /hpf CT scan - abdomen: report reviewed (12/23/[address] Talavera) CT Scan - head: report reviewed (Dr. Talavera) Assessment and Plan Assessment: Impression: 1. Acute liver failure hepatic encephalopathy with underlying cirrhosis possibly alcohol related however underlying chronic liver disease cannot be excluded. Worsening liver enzymes over the last month suspect drug-induced liver injury secondary to prolonged usage of Bactrim at least 2-3 weeks duration for reported UTI. 2. UTI. Urinalysis positive nitrate leukocyte esterase and bacteria. 3. History of EtOH abuse patient reports no active EtOH consumption. 4. History of Harshad-en-Y gastric bypass. 5. History of cholecystectomy November 2018. 6. Coagulopathy acute on chronic. 7. Chronic iron deficiency anemia. 8. Morbid obesity BMI 41. 9. Diabetes mellitus. Plan: 1. Low-salt diet. Check acetaminophen salicylate level. Avoid hepatotoxic medications. Lactulose 20 g 3 times a day titrated 3-4 bowel movements daily. Will obtain PT/INR CMP at noon. Daily CBC CMP ammonia and PT/INR. If LFTs PT/INR worsens consideration for transfer to tertiary care center for further e valuation and management. 2. Full serologic workup for chronic liver disease requested. Thank you for this kind referral and the opportunity to participate in the care of your patient. This consultation was discussed with Dr. Talavera. The impression and plan of care have been directed as dictated.
--- NOTE | 2019-01-05 09:35 | P.HPIM ---
History of Present Illness This is a pleasant 38 years old female with past medical history of alcoholic liver disease, recurrent UTI, diabetes mellitus, asthma, hypothyroidism, history of migraine, constipation, eczema. Presents because of confusion and a little discoloration philosophy disease. Patient Dr. Yesica Hutchison the patient"mom, he don't make sense", for example when asking her about her own stuff. Patient is having a little discoloration in her eyes and skin. She was taking Bactrim for the last 20 days days for her UTI, she stopped taking last few days., Patient drinks socially and the last time was in , last binge drinking was in December of this year.: Patient towards and diet well. She has regular bowel movements., She denies abdominal pain or tenderness. She is alert oriented to time partially, and to person and place. However despite her confusion she makes sense for most of our conversation. Patient is a bit tachycardic 114-120, rest of vitals are stable. CBC is unremarkable. Hemoglobin 8.3. INR is elevated to 2.4, old INR 1.3 in 12/23/2018. Sodium 136. Creatinine 0.8. Total bilirubin is 16.3, was 4.6 in 12/23/2018. Elevated liver enzymes. UA suggestive of infection. We'll send urine culture Review of Systems CONSTITUTIONAL: No fever, no malaise, no fatigue. HEENT: No recent visual problems or hearing problems. Denied any sore throat. CARDIOVASCULAR: No orthopnea, PND, no palpitations, no syncope. PULMONARY: No shortness of breath, no cough, no hemoptysis. GASTROINTESTINAL: No diarrhea, no nausea, no vomiting, no abdominal pain. Normoactive bowel sounds. NEUROLOGICAL: No headaches, no weakness, no numbness. HEMATOLOGICAL: Denies any bleeding or petechiae. GENITOURINARY: Denies any burning micturition, frequency, or urgency. MUSCULOSKELETAL/RHEUMATOLOGICAL: Denies any joint pain, swelling, or any muscle pain. ENDOCRINE: Denies any polyuria or polydipsia. Past Medical History Past Medical History: Asthma, Diabetes Mellitus, Skin Disorder, Thyroid Disorder Additional Past Medical History / Comment(s): migraines, constipation, hashimotos, eczema, no current rx for diabetes- diet control, anemia, elevated liver enzymes & retaining fluid since recent surgery-has gained 40 lbs. of fluid recently per pt. History of Any Multi-Drug Resistant Organisms: None Reported Date of last positivie culture/infection: JUNE 2013 MDRO Source:: WOUND ON LEFT UPPER ABDOMEN Past Surgical History: Appendectomy, Bariatric Surgery, Section, Cholecystectomy, Orthopedic Surgery, Tubal Ligation Additional Past Surgical History / Comment(s): LENA-EN-Y, left knee arthroscopy, I&D left upper abdomen; Panniculectomy Jul 2016, robotic lap. marlena 11-07-18 Past Anesthesia/Blood Transfusion Reactions: Family History of Problems w/ Anesthesia, Motion Sickness, Postoperative Nausea & Vomiting (PONV) Additional Past Anesthesia/Blood Transfusion Reaction / Comment(s): mother-"hard time waking up and trouble breathing" Past Psychological History: No Psychological Hx Reported Smoking Status: Current every day smoker Past Alcohol Use History: None Reported Past Drug Use History: None Reported - Past Family History Mother Family Medical History: No Reported History Medications and Allergies Home Medications Medication Instructions Recorded Confirmed Type Levothyroxine Sodium [Synthroid] 25 mcg PO DAILY 07/03/16 01/05/19 History Sertraline HCl [Zoloft] 25 mg PO DAILY 11/04/18 01/05/19 History Furosemide [Lasix] 20 mg PO DAILY 12/23/18 01/05/19 History Multivitamin [Multivitamins Adult 1 tab PO DAILY 12/23/18 01/05/19 History Gummies] Omeprazole 40 mg PO DAILY PRN 12/23/18 01/05/19 History Allergies Allergy/AdvReac Type Severity Reaction Status Date / Time adhesive Allergy Rash/Hives Verified 01/05/19 08:08 morphine Allergy Rash/Hives Verified 01/05/19 08:08 sulfamethoxazole Allergy Unknown Verified 01/05/19 09:12 [From Bactrim] Tetanus Vaccines and Toxoid Allergy Swelling Verified 01/05/19 08:08 [Tetanus Vaccines & Toxoid] trimethoprim [From Bactrim] Allergy Unknown Verified 01/05/19 09:12 cigarette smoke AdvReac Cough, Verified 01/05/19 08:08 Shortness of Breath sertraline [From Zoloft] AdvReac DIZZY/Nausea Verified 01/05/19 08:08 & Vomiting skin ink Allergy Rash/Hives Uncoded 12/23/18 18:47 yellow squash Allergy Anaphylaxis Uncoded 12/23/18 18:47 dust AdvReac Mild Itching Uncoded 12/23/18 18:47 dust mites AdvReac Rash/Hives Uncoded 12/23/18 18:47 Physical Exam Vitals: Vital Signs Temp Pulse Resp BP Pulse Ox 01/05/19 07:30 98.0 F 114 H 18 128/74 98 01/05/19 02:20 117 H 17 117/72 100 01/05/19 01:33 97.8 F 120 H 16 124/73 100 Intake and Output 01/04/19 01/05/19 01/05/19 22:59 06:59 14:59 Other: Weight 112.037 kg -GENERAL: The patient is alert and oriented x2-3, not in any acute distress. Well developed, well nourished. -HEENT: Pupils are round and equally reacting to light. EOMI. positive scleral icterus. No conjunctival pallor. Normocephalic, atraumatic. No pharyngeal erythema. No thyromegaly. CARDIOVASCULAR: S1 and S2 present. No murmurs, rubs, or gallops. PULMONARY: Chest is clear to auscultation, no wheezing or crackles. ABDOMEN: Soft, nontender, nondistended, normoactive bowel sounds. No palpable organomegaly. MUSCULOSKELETAL: No joint swelling or deformity. -EXTREMITIES: No cyanosis, clubbing, bilateral leg edema. NEUROLOGICAL: Gross neurological examination did not reveal any focal deficits. SKIN: No rashes. Results CBC & Chem 7: 01/05/19 02:00 01/05/19 02:00 Labs: Abnormal Lab Results - Last 24 Hours (Table) 01/05/19 01/05/19 01/05/19 Range/Units 02:00 02:00 02:00 RBC 3.71 L (3.80-5.40) m/uL Hgb 8.3 L (11.4-16.0) gm/dL Hct 28.5 L (34.0-46.0) % MCV 76.8 L (80.0-100.0) fL MCH 22.5 L (25.0-35.0) pg MCHC 29.3 L (31.0-37.0) g/dL RDW 23.1 H (11.5-15.5) % PT (9.0-12.0) sec INR (<1.2) APTT (22.0-30.0) sec Sodium 136 L (137-145) mmol/L Carbon Dioxide 20 L (22-30) mmol/L Glucose 193 H (74-99) mg/dL POC Glucose (mg/dL) (75-99) mg/dL Total Bilirubin 16.3 H* (0.2-1.3) mg/dL AST 644 H (14-36) U/L ALT 374 H (9-52) U/L Alkaline Phosphatase 514 H (38-126) U/L Ammonia 63 H (<30) umol/L Albumin 3.1 L (3.5-5.0) g/dL Urine Appearance (Clear) Urine Protein (Negative) Urine Ketones (Negative) Urine Nitrite (Negative) Urine Bilirubin (Negative) Ur Leukocyte Esterase (Negative) Ur Squamous Epith Cells (0-4) /hpf Urine Bacteria (None) /hpf Hyaline Casts (0-2) /lpf Urine Mucus (None) /hpf 01/05/19 01/05/19 01/05/19 Range/Units 02:00 02:10 04:35 RBC (3.80-5.40) m/uL Hgb (11.4-16.0) gm/dL Hct (34.0-46.0) % MCV (80.0-100.0) fL MCH (25.0-35.0) pg MCHC (31.0-37.0) g/dL RDW (11.5-15.5) % PT 23.1 H (9.0-12.0) sec INR 2.4 H (<1.2) APTT 30.6 H (22.0-30.0) sec Sodium (137-145) mmol/L Carbon Dioxide (22-30) mmol/L Glucose (74-99) mg/dL POC Glucose (mg/dL) 208 H (75-99) mg/dL Total Bilirubin (0.2-1.3) mg/dL AST (14-36) U/L ALT (9-52) U/L Alkaline Phosphatase (38-126) U/L Ammonia (<30) umol/L Albumin (3.5-5.0) g/dL Urine Appearance Cloudy H (Clear) Urine Protein 1+ H (Negative) Urine Ketones Trace H (Negative) Urine Nitrite Positive H (Negative) Urine Bilirubin 2+ H (Negative) Ur Leukocyte Esterase Small H (Negative) Ur Squamous Epith Cells 11 H (0-4) /hpf Urine Bacteria Moderate H (None) /hpf Hyaline Casts 3 H (0-2) /lpf Urine Mucus Few H (None) /hpf Assessment and Plan Assessment: Hepatic encephalopathy Elevated liver enzymes with jaundice secondary to above Coagulopathy with high INR, secondary to above History of alcoholic liver disease History of migraine Diabetes mellitus Hypothyroidism History of asthma Plan: This is a pleasant 38 years old female who presents with hepatic encephalopathy, mostly drug-induced secondary to Bactrim.. Monitor liver function tests and INR. GI consult is appreciated. Labs and medication were reviewed.. Continue same treatment. Continue with symptomatic treatment. Resume home medication. Monitor lytes and vitals. DVT and GI prophylaxis. Further recommendations of the clinical course of the patient DVT prophylaxis: Supratherapeutic GI Prophylaxis: Pepcid PT/OT: Hold now Prognosis is guarded
[2019-01-05 09:52] VITALS: BMI 41.1
[2019-01-05] MEDS: FUROSEMIDE 20 MG TAB PO SCH (10:23)
[2019-01-05] MEDS: LACTULOSE 20 GM/30 ML CUP PO SCH ×3 (10:24→21:51)
[2019-01-05 11:59] LABS: Acetaminophen <10.0 ug/mL; Salicylate <1.0 mg/dL
[2019-01-05 14:02] LABS: HCG,Qualitative Serum Not Detected
[2019-01-05 14:07] LABS: ALT 318 U/L (9-52); AST 548 U/L (14-36); Albumin 2.6 g/dL (3.5-5.0); Alkaline Phosphatase 386 U/L (38-126); Anion Gap 8 mmol/L; Blood Urea Nitrogen 9 mg/dL (7-17); Calcium 8.3 mg/dL (8.4-10.2); Carbon Dioxide 23 mmol/L (22-30); Chloride 106 mmol/L (98-107); Glucose 151 mg/dL (74-99); Sodium 137 mmol/L (137-145); Total Bilirubin 14.3 mg/dL (0.2-1.3); Total Protein 5.4 g/dL (6.3-8.2)
[2019-01-05 15:04] LABS: INR 2.3 (<1.2); Prothrombin Time 22.6 sec (9.0-12.0)
[2019-01-05 15:56] LABS: Amphetamine Screen,Urine Not Detected (NotDetected); Cocaine Screen,Urine Not Detected (NotDetected); Opiate Screen,Urine Not Detected (NotDetected); Phencyclidine Screen,Urine Not Detected (NotDetected); Urn Cannabinoid Scrn Not Detected (NotDetected)
[2019-01-05 15:57] LABS: Barbiturate Screen,Urine Not Detected (NotDetected); Benzodiazepines Screen,Urine Not Detected (NotDetected); Methadone Screen, Urine Not Detected (NotDetected); Oxycodone Screen, Urine Not Detected (NotDetected); Tricyclic Antidepressant,Urine Not Detected (NotDetected)
--- NOTE | 2019-01-05 16:46 | ED ---
Medical Decision Making - Medical Decision Making 38 old female patient past medical history of alcohol liver cirrhosis, asthma, type 2 diabetes presents to ED if primary complaint of jaundice and altered mental status. Patient reports that for approximately 3 days she has been experiencing, had altered mental status. Patient additionally reports that since November she has had progressive jaundice as well as abdominal ascites. Patient current denies any pain. No chest pain, shortness breath, abdominal pain. Patient denies all other complaints. Patient vital signs displayed mild tachycardia, afebrile, respiratory rate, blood pressure within normal limits. Physical exam displayed jaundice, cranial nerves II through XII intact, neurologic exam within normal limits. Laboratory investigations were conducted.CBC revealed Mild anemia of 8.3. CMP revealed mild hyponatremia, mild hyperglycemia, bilirubin of 16.3, AST, ALT, alk phos elevated. Ammonia elevated at 63. Troponin negative. Albumin 3.1. Coagulation studies guillen supratherapeutic INR of 2.4. UA contaminated will be cultured. Tox screen was negative. Chest x-ray and CT brain without contrast and is acute pathology. Patient was administered by mouth lactulose. Patient was signed out to attending physician Dr. Mendez for admission. - Lab Data Result diagrams: 01/05/19 02:00 01/05/19 13:40 Lab Results 01/05/19 01/05/19 01/05/19 Range/Units 02:00 02:00 02:00 WBC 9.5 (3.8-10.6) k/uL RBC 3.71 L (3.80-5.40) m/uL Hgb 8.3 L (11.4-16.0) gm/dL Hct 28.5 L (34.0-46.0) % MCV 76.8 L (80.0-100.0) fL MCH 22.5 L (25.0-35.0) pg MCHC 29.3 L (31.0-37.0) g/dL RDW 23.1 H (11.5-15.5) % Plt Count 202 (150-450) k/uL Neutrophils % 68 % Lymphocytes % 23 % Monocytes % 5 % Eosinophils % 1 % Basophils % 0 % Neutrophils # 6.5 (1.3-7.7) k/uL Lymphocytes # 2.2 (1.0-4.8) k/uL Monocytes # 0.5 (0-1.0) k/uL Eosinophils # 0.1 (0-0.7) k/uL Basophils # 0.0 (0-0.2) k/uL Hypochromasia Marked Anisocytosis Moderate Microcytosis Moderate PT (9.0-12.0) sec INR (<1.2) APTT (22.0-30.0) sec Sodium 136 L (137-145) mmol/L Potassium 4.3 (3.5-5.1) mmol/L Chloride 104 (98-107) mmol/L Carbon Dioxide 20 L (22-30) mmol/L Anion Gap 12 mmol/L BUN 10 (7-17) mg/dL Creatinine 0.87 (0.52-1.04) mg/dL Est GFR (CKD-EPI)AfAm >90 (>60 ml/min/1.73 sqM) Est GFR (CKD-EPI)NonAf 86 (>60 ml/min/1.73 sqM) Glucose 193 H (74-99) mg/dL POC Glucose (mg/dL) (75-99) mg/dL POC Glu Can Piler ID Calcium 8.8 (8.4-10.2) mg/dL Magnesium 1.8 (1.6-2.3) mg/dL Total Bilirubin 16.3 H* (0.2-1.3) mg/dL AST 644 H (14-36) U/L ALT 374 H (9-52) U/L Alkaline Phosphatase 514 H (38-126) U/L Ammonia 63 H (<30) umol/L Troponin I (0.000-0.034) ng/mL Total Protein 6.3 (6.3-8.2) g/dL Albumin 3.1 L (3.5-5.0) g/dL Urine Color Urine Appearance (Clear) Urine pH (5.0-8.0) Ur Specific [place] (1.001-1.035) Urine Protein (Negative) Urine Glucose (UA) (Negative) Urine Ketones (Negative) Urine Blood (Negative) Urine Nitrite (Negative) Urine Bilirubin (Negative) Urine Urobilinogen (<2.0) mg/dL Ur Leukocyte Esterase (Negative) Urine RBC (0-5) /hpf Urine WBC (0-5) /hpf Ur Squamous Epith Cells (0-4) /hpf Urine Bacteria (None) /hpf Hyaline Casts (0-2) /lpf Urine Mucus (None) /hpf Salicylates mg/dL Acetaminophen ug/mL 01/05/19 01/05/19 01/05/19 Range/Units 02:00 02:00 02:00 WBC (3.8-10.6) k/uL RBC (3.80-5.40) m/uL Hgb (11.4-16.0) gm/dL Hct (34.0-46.0) % MCV (80.0-100.0) fL MCH (25.0-35.0) pg MCHC (31.0-37.0) g/dL RDW (11.5-15.5) % Plt Count (150-450) k/uL Neutrophils % % Lymphocytes % % Monocytes % % Eosinophils % % Basophils % % Neutrophils # (1.3-7.7) k/uL Lymphocytes # (1.0-4.8) k/uL Monocytes # (0-1.0) k/uL Eosinophils # (0-0.7) k/uL Basophils # (0-0.2) k/uL Hypochromasia Anisocytosis Microcytosis PT 23.1 H (9.0-12.0) sec INR 2.4 H (<1.2) APTT 30.6 H (22.0-30.0) sec Sodium (137-145) mmol/L Potassium (3.5-5.1) mmol/L Chloride (98-107) mmol/L Carbon Dioxide (22-30) mmol/L Anion Gap mmol/L BUN (7-17) mg/dL Creatinine (0.52-1.04) mg/dL Est GFR (CKD-EPI)AfAm (>60 ml/min/1.73 sqM) Est GFR (CKD-EPI)NonAf (>60 ml/min/1.73 sqM) Glucose (74-99) mg/dL POC Glucose (mg/dL) (75-99) mg/dL POC Glu Can Piler ID Calcium (8.4-10.2) mg/dL Magnesium (1.6-2.3) mg/dL Total Bilirubin (0.2-1.3) mg/dL AST (14-36) U/L ALT (9-52) U/L Alkaline Phosphatase (38-126) U/L Ammonia (<30) umol/L Troponin I <0.012 (0.000-0.034) ng/mL Total Protein (6.3-8.2) g/dL Albumin (3.5-5.0) g/dL Urine Color Urine Appearance (Clear) Urine pH (5.0-8.0) Ur Specific [place] (1.001-1.035) Urine Protein (Negative) Urine Glucose (UA) (Negative) Urine Ketones (Negative) Urine Blood (Negative) Urine Nitrite (Negative) Urine Bilirubin (Negative) Urine Urobilinogen (<2.0) mg/dL Ur Leukocyte Esterase (Negative) Urine RBC (0-5) /hpf Urine WBC (0-5) /hpf Ur Squamous Epith Cells (0-4) /hpf Urine Bacteria (None) /hpf Hyaline Casts (0-2) /lpf Urine Mucus (None) /hpf Salicylates <1.0 mg/dL Acetaminophen <10.0 ug/mL 01/05/19 01/05/19 Range/Units 02:10 04:35 WBC (3.8-10.6) k/uL RBC (3.80-5.40) m/uL Hgb (11.4-16.0) gm/dL Hct (34.0-46.0) % MCV (80.0-100.0) fL MCH (25.0-35.0) pg MCHC (31.0-37.0) g/dL RDW (11.5-15.5) % Plt Count (150-450) k/uL Neutrophils % % Lymphocytes % % Monocytes % % Eosinophils % % Basophils % % Neutrophils # (1.3-7.7) k/uL Lymphocytes # (1.0-4.8) k/uL Monocytes # (0-1.0) k/uL Eosinophils # (0-0.7) k/uL Basophils # (0-0.2) k/uL Hypochromasia Anisocytosis Microcytosis PT (9.0-12.0) sec INR (<1.2) APTT (22.0-30.0) sec Sodium (137-145) mmol/L Potassium (3.5-5.1) mmol/L Chloride (98-107) mmol/L Carbon Dioxide (22-30) mmol/L Anion Gap mmol/L BUN (7-17) mg/dL Creatinine (0.52-1.04) mg/dL Est GFR (CKD-EPI)AfAm (>60 ml/min/1.73 sqM) Est GFR (CKD-EPI)NonAf (>60 ml/min/1.73 sqM) Glucose (74-99) mg/dL POC Glucose (mg/dL) 208 H (75-99) mg/dL POC Glu Can Piler ID Isabella Heath Calcium (8.4-10.2) mg/dL Magnesium (1.6-2.3) mg/dL Total Bilirubin (0.2-1.3) mg/dL AST (14-36) U/L ALT (9-52) U/L Alkaline Phosphatase (38-126) U/L Ammonia (<30) umol/L Troponin I (0.000-0.034) ng/mL Total Protein (6.3-8.2) g/dL Albumin (3.5-5.0) g/dL Urine Color Brown Urine Appearance Cloudy H (Clear) Urine pH 5.5 (5.0-8.0) Ur Specific [place] 1.024 (1.001-1.035) Urine Protein 1+ H (Negative) Urine Glucose (UA) Negative (Negative) Urine Ketones Trace H (Negative) Urine Blood Negative (Negative) Urine Nitrite Positive H (Negative) Urine Bilirubin 2+ H (Negative) Urine Urobilinogen 4.0 (<2.0) mg/dL Ur Leukocyte Esterase Small H (Negative) Urine RBC 1 (0-5) /hpf Urine WBC 1 (0-5) /hpf Ur Squamous Epith Cells 11 H (0-4) /hpf Urine Bacteria Moderate H (None) /hpf Hyaline Casts 3 H (0-2) /lpf Urine Mucus Few H (None) /hpf Salicylates mg/dL Acetaminophen ug/mL Disposition Clinical Impression: Liver cirrhosis, Transaminitis, Jaundice, Hepatic encephalopathy Disposition: ADMITTED IP TO THIS HOSP Condition: Fair Is patient prescribed a controlled substance at d/c from ED?: No
[2019-01-05 20:23] LABS: Iron Saturation 4.34 (12.00-45.00); Protein, Total 4.8 g/dL (6.2-8.2)
[2019-01-05] MEDS: traMADol 50 MG TAB PO PRN (21:51)
[2019-01-06] MEDS: LEVOTHYROXINE 25 MCG TAB PO SCH (05:55)
[2019-01-06] MEDS: traMADol 50 MG TAB PO PRN (05:55)
[2019-01-06 07:44] LABS: Glucose,Whole Blood 143 mg/dL (75-99)
[2019-01-06] MEDS: SERTRALINE 25 MG TAB PO SCH (07:45)
[2019-01-06] MEDS: LACTULOSE 20 GM/30 ML CUP PO SCH ×3 (07:45→22:16)
[2019-01-06] MEDS: FAMOTIDINE 20 MG TAB PO SCH ×2 (07:45→22:16)
[2019-01-06] MEDS: FUROSEMIDE 20 MG TAB PO SCH (07:45)
[2019-01-06 07:52] LABS: ALT 332 U/L (9-52); AST 590 U/L (14-36); Albumin 2.8 g/dL (3.5-5.0); Alkaline Phosphatase 442 U/L (38-126); Anion Gap 8 mmol/L; Blood Urea Nitrogen 8 mg/dL (7-17); Calcium 8.4 mg/dL (8.4-10.2); Carbon Dioxide 25 mmol/L (22-30); Chloride 105 mmol/L (98-107); Glucose 109 mg/dL (74-99); Potassium 3.9 mmol/L (3.5-5.1); Sodium 138 mmol/L (137-145); Total Protein 5.8 g/dL (6.3-8.2)
[2019-01-06 07:57] LABS: INR 2.1 (<1.2); Prothrombin Time 20.9 sec (9.0-12.0)
[2019-01-06] MEDS: ONDANSETRON 4 MG/2 ML VIAL IVP PRN ×2 (09:19→17:23)
[2019-01-06 11:35] LABS: Glucose,Whole Blood 154 mg/dL (75-99)
--- NOTE | 2019-01-06 11:35 | P.PN ---
Subjective Progress Note Date: 01/06/19 Principal diagnosis: Liver failure INR improved 2.1. LFTs improved from admission total bilirubin 15. AST 590. ALT 332. AP 442. Afebrile. Passing BMs. Reports chest pain midsternal without radiation. Objective - Vital Signs Vital signs: Vital Signs Temp 98 F 01/06/19 05:59 Pulse 94 01/06/19 08:00 Resp 16 01/06/19 08:00 BP 120/76 01/06/19 05:59 Pulse Ox 100 01/06/19 05:59 Intake & Output 01/05/19 01/06/19 01/06/19 18:59 06:59 18:59 Intake Total 1300 Balance 1300 Weight 112.037 kg Intake: Oral 1300 Other: # Voids 1 2 2 # Bowel Movements 2 - Exam General appearance: The patient is alert, oriented, in no acute distress. Jaundice. HET: Head is normocephalic and atraumatic. Pupils are equal and reactive. Sclerae icterus. Oropharynx is clear without lesions. Neck: Supple without lymphadenopathy. Trachea midline. Heart: S1 S2. Regular rate and rhythm.Reports chest pain midsternal. Lungs: No crackles or wheezes are heard. Abdomen: Soft, nontender, nondistended with bowel sounds. No peritoneal signs. No palpable organomegaly or masses. Extremities: Normal skin color and turgor. No cyanosis, rash, ulceration, clubbing, or edema. Radial and pedal pulses are 2/4 bilaterally. Neurological: No focal deficits. Strength and sensation are grossly intact. - Labs CBC & Chem 7: 01/05/19 02:00 01/06/19 07:15 Labs: Abnormal Lab Results - Last 24 Hours (Table) 01/05/19 01/05/19 01/05/19 Range/Units 13:40 13:40 13:40 PT (9.0-12.0) sec INR (<1.2) Glucose 151 H (74-99) mg/dL POC Glucose (mg/dL) (75-99) mg/dL Calcium 8.3 L (8.4-10.2) mg/dL Iron 15 L (50-170) ug/dL Iron Saturation 4.34 L (12.00-45.00) Total Bilirubin 14.3 H (0.2-1.3) mg/dL AST 548 H (14-36) U/L ALT 318 H (9-52) U/L Alkaline Phosphatase 386 H (38-126) U/L Ammonia 63 H (<30) umol/L Total Protein 5.4 L (6.3-8.2) g/dL Total Protein (PEP) 4.8 L (6.2-8.2) g/dL Albumin 2.6 L (3.5-5.0) g/dL 01/05/19 01/06/19 01/06/19 Range/Units 14:46 07:15 07:15 PT 22.6 H 20.9 H (9.0-12.0) sec INR 2.3 H 2.1 H (<1.2) Glucose 109 H (74-99) mg/dL POC Glucose (mg/dL) (75-99) mg/dL Calcium (8.4-10.2) mg/dL Iron (50-170) ug/dL Iron Saturation (12.00-45.00) Total Bilirubin 15.0 H (0.2-1.3) mg/dL AST 590 H (14-36) U/L ALT 332 H (9-52) U/L Alkaline Phosphatase 442 H (38-126) U/L Ammonia (<30) umol/L Total Protein 5.8 L (6.3-8.2) g/dL Total Protein (PEP) (6.2-8.2) g/dL Albumin 2.8 L (3.5-5.0) g/dL 01/06/19 Range/Units 07:42 PT (9.0-12.0) sec INR (<1.2) Glucose (74-99) mg/dL POC Glucose (mg/dL) 143 H (75-99) mg/dL Calcium (8.4-10.2) mg/dL Iron (50-170) ug/dL Iron Saturation (12.00-45.00) Total Bilirubin (0.2-1.3) mg/dL AST (14-36) U/L ALT (9-52) U/L Alkaline Phosphatase (38-126) U/L Ammonia (<30) umol/L Total Protein (6.3-8.2) g/dL Total Protein (PEP) (6.2-8.2) g/dL Albumin (3.5-5.0) g/dL Microbiology - Last 24 Hours (Table) 01/05/19 02:00 Blood Culture - Preliminary Blood No Growth after 24 hours 01/05/19 15:30 Urine Culture - Preliminary Urine,Voided Assessment and Plan Assessment: Impression: 1. Acute liver failure hepatic encephalopathy with underlying cirrhosis possibly alcohol related however underlying chronic liver disease cannot be excluded. Worsening liver enzymes over the last month suspect drug-induced liver injury secondary to prolonged usage of Bactrim at least 2-3 weeks duration for reported UTI. Liver enzymes slowly improving INR stable. 2. UTI. Urinalysis positive nitrate leukocyte esterase and bacteria. 3. History of EtOH abuse patient reports no active EtOH consumption. 4. History of Harshad-en-Y gastric bypass. 5. History of cholecystectomy November 2018. 6. Coagulopathy acute on chronic. 7. Chronic iron deficiency anemia. 8. Morbid obesity BMI 41. 9. Diabetes mellitus. 10. Chest pain. Plan: 1. Troponin/CK. EKG. RENA Gutierrez instructed to notify attending of CP now. Low- salt diet. Aetaminophen salicylate level unremarkable. Avoid hepatotoxic medications. Lactulose 20 g 3 times a day titrated 3-4 bowel movements daily. Daily CBC CMP ammonia and PT/INR. If LFTs PT/INR worsens consideration for transfer to tertiary care center for further evaluation and management. 2. Full serologic workup for chronic liver disease requested an processing. Assessment and plan a care discussed with Dr. Talavera
[2019-01-06 12:32] LABS: Creatine Kinase MB 0.5 ng/mL (0.0-2.4); Troponin I <0.012 ng/mL (0.000-0.034)
[2019-01-06 14:26] LABS: Liver/Kidney Microsome Antibod 1.6 UNITS (<=20)
--- NOTE | 2019-01-06 15:57 | P.PN ---
Subjective Progress Note Date: 01/06/19 Principal diagnosis: Acute asthmatic failure/encephalopathy/alcoholic cirrhosis 38-year-old female with a history of EtOH abuse, cirrhosis, portal hypertension, ascites previous diagnostic paracentesis November 2018 negative cytology, iron deficiency anemia, morbid obesity, laparoscopic cholecystectomy November 2018 for chronic acalculous cholecystitis, diabetes, Harshad-en-Y gastric bypass presents with worsening jaundice and mental status changes. Patient has been receiving prolonged doses of Bactrim for at least 2-3 weeks duration for UTI in the outpatient setting. Denies fever chills hematemesis hematochezia melena. Denies active ETOH consumption. Denies taking excessive tylenol or ASA products. 01/06/2019; Patient is seen and evaluated in the room with family members at bedside; patient is very confused this morning; did complain of some chest pain earlier today which was investigated by an EKG and cardiac enzymes which are unremarkable Patient's vital signs remained stable with a temperature of 97.1 pulse 94 respirations 16 and blood pressure 11/20/2011 at 85; SpO2 97 200% on room air Lab work is reviewed and is significant for an INR of 2.1, total bilirubin of 15 AST 590 ALT 332; slightly worse from yesterday GI is following and recommending complete serologic workup for chronic liver disease Objective - Vital Signs Vital signs: Vital Signs Temp 98 F 01/06/19 05:59 Pulse 94 01/06/19 08:00 Resp 16 01/06/19 08:00 BP 120/76 01/06/19 05:59 Pulse Ox 100 01/06/19 05:59 Intake & Output 01/05/19 01/06/19 01/06/19 18:59 06:59 18:59 Intake Total 1300 Balance 1300 Weight 112.037 kg Intake: Oral 1300 Other: # Voids 1 2 2 # Bowel Movements 2 - Exam General appearance: The patient is alert, oriented 2 slightly forgetful on dates and times, in no acute distress. Visibly jaundice. HET: Head is normocephalic and atraumatic. Pupils are equal and reactive. Oropharynx is clear without lesions. Sclerae icterus. Neck: Supple without lymphadenopathy. Trachea midline. Heart: S1 S2. Regular rate and rhythm. Lungs: No crackles or wheezes are heard. Abdomen: Soft, very mild tenderness bilateral lower abdomen, nondistended with bowel sounds. No appreciable ascites. No peritoneal signs. No palpable organomegaly or masses. Extremities: +2 bilateral lower extremity edema. Radial and pedal pulses are 2/4 bilaterally. Neurological: No focal deficits. Strength and sensation are grossly intact. - Labs CBC & Chem 7: 01/05/19 02:00 01/06/19 07:15 Labs: Abnormal Lab Results - Last 24 Hours (Table) 01/05/19 01/05/19 01/05/19 Range/Units 13:40 13:40 13:40 PT (9.0-12.0) sec INR (<1.2) Glucose 151 H (74-99) mg/dL POC Glucose (mg/dL) (75-99) mg/dL Calcium 8.3 L (8.4-10.2) mg/dL Iron 15 L (50-170) ug/dL Iron Saturation 4.34 L (12.00-45.00) Total Bilirubin 14.3 H (0.2-1.3) mg/dL AST 548 H (14-36) U/L ALT 318 H (9-52) U/L Alkaline Phosphatase 386 H (38-126) U/L Ammonia 63 H (<30) umol/L Total Protein 5.4 L (6.3-8.2) g/dL Total Protein (PEP) 4.8 L (6.2-8.2) g/dL Albumin 2.6 L (3.5-5.0) g/dL 01/05/19 01/06/19 01/06/19 Range/Units 14:46 07:15 07:15 PT 22.6 H 20.9 H (9.0-12.0) sec INR 2.3 H 2.1 H (<1.2) Glucose 109 H (74-99) mg/dL POC Glucose (mg/dL) (75-99) mg/dL Calcium (8.4-10.2) mg/dL Iron (50-170) ug/dL Iron Saturation (12.00-45.00) Total Bilirubin 15.0 H (0.2-1.3) mg/dL AST 590 H (14-36) U/L ALT 332 H (9-52) U/L Alkaline Phosphatase 442 H (38-126) U/L Ammonia (<30) umol/L Total Protein 5.8 L (6.3-8.2) g/dL Total Protein (PEP) (6.2-8.2) g/dL Albumin 2.8 L (3.5-5.0) g/dL 01/06/19 Range/Units 07:42 PT (9.0-12.0) sec INR (<1.2) Glucose (74-99) mg/dL POC Glucose (mg/dL) 143 H (75-99) mg/dL Calcium (8.4-10.2) mg/dL Iron (50-170) ug/dL Iron Saturation (12.00-45.00) Total Bilirubin (0.2-1.3) mg/dL AST (14-36) U/L ALT (9-52) U/L Alkaline Phosphatase (38-126) U/L Ammonia (<30) umol/L Total Protein (6.3-8.2) g/dL Total Protein (PEP) (6.2-8.2) g/dL Albumin (3.5-5.0) g/dL Microbiology - Last 24 Hours (Table) 01/05/19 02:00 Blood Culture - Preliminary Blood No Growth after 24 hours 01/05/19 15:30 Urine Culture - Preliminary Urine,Voided Assessment and Plan Assessment: 1. Acute liver failure hepatic encephalopathy with underlying cirrhosis possibly alcohol related however underlying chronic liver disease cannot be excluded. Worsening liver enzymes over the last month suspect drug-induced liver injury secondary to prolonged usage of Bactrim at least 2-3 weeks duration for reported UTI. 2. UTI. Urinalysis positive nitrate leukocyte esterase and bacteria. 3. History of EtOH abuse patient reports no active EtOH consumption. 4. History of Harshad-en-Y gastric bypass. 5. History of cholecystectomy November 2018. 6. Coagulopathy acute on chronic. 7. Chronic iron deficiency anemia. 8. Morbid obesity BMI 41. 9. Diabetes mellitus. Plan: 1. Low-salt diet. Check acetaminophen salicylate level. Avoid hepatotoxic medications. Lactulose 20 g 3 times a day titrated 3-4 bowel movements daily. Will obtain PT/INR CMP at noon. Daily CBC CMP ammonia and PT/INR. If LFTs PT/INR worsens consideration for transfer to tertiary care center for further evaluation and management. 2. Full serologic workup for chronic liver disease requested.
[2019-01-06] MEDS ORDERED: LACTULOSE 20 GM/30 ML CUP PO ONE (16:29)
[2019-01-06] MEDS: PHYTONADIONE ORAL 5 MG/5 ML ORAL.SYRG PO SCH (17:16)
[2019-01-06 17:21] LABS: Glucose,Whole Blood 181 mg/dL (75-99)
[2019-01-06] MEDS: INSULIN ASPART (NovoLOG) 100 UNIT/ML VIAL SQ SCH ×2 (17:21→22:14)
[2019-01-06 19:50] LABS: Glucose,Whole Blood 100 mg/dL (75-99)
[2019-01-07] MEDS: LEVOTHYROXINE 25 MCG TAB PO SCH (06:23)
[2019-01-07 06:58] LABS: Glucose,Whole Blood 123 mg/dL (75-99)
[2019-01-07] MEDS: INSULIN ASPART (NovoLOG) 100 UNIT/ML VIAL SQ SCH ×4 (07:26→20:22)
[2019-01-07] MEDS: FUROSEMIDE 20 MG TAB PO SCH (09:06)
[2019-01-07] MEDS: LACTULOSE 20 GM/30 ML CUP PO SCH ×3 (09:06→21:08)
[2019-01-07] MEDS: FAMOTIDINE 20 MG TAB PO SCH ×2 (09:06→20:22)
[2019-01-07] MEDS: SERTRALINE 25 MG TAB PO SCH (09:06)
[2019-01-07 09:33] LABS: ALT 311 U/L (9-52); AST 585 U/L (14-36); Albumin 2.6 g/dL (3.5-5.0); Alkaline Phosphatase 369 U/L (38-126); Anion Gap 7 mmol/L; Blood Urea Nitrogen 7 mg/dL (7-17); Calcium 8.3 mg/dL (8.4-10.2); Carbon Dioxide 24 mmol/L (22-30); Chloride 107 mmol/L (98-107); Glucose 161 mg/dL (74-99); Potassium 3.8 mmol/L (3.5-5.1); Sodium 138 mmol/L (137-145); Total Bilirubin 14.8 mg/dL (0.2-1.3); Total Protein 5.5 g/dL (6.3-8.2)
[2019-01-07 09:46] LABS: INR 2.1 (<1.2); Prothrombin Time 20.4 sec (9.0-12.0)
[2019-01-07] MEDS: ONDANSETRON 4 MG/2 ML VIAL IVP PRN (10:04)
[2019-01-07 10:50] LABS: Anisocytosis Moderate; Basophils % (A) 1 %; Eosinophils # (A) 0.1 k/uL (0-0.7); Eosinophils % (A) 3 %; HCT 27.5 % (34.0-46.0); Hypochromasia Marked; Lymphocytes # (A) 1.2 k/uL (1.0-4.8); Lymphocytes % (A) 27 %; MCH 23.5 pg (25.0-35.0); MCHC 29.1 g/dL (31.0-37.0); MCV 80.8 fL (80.0-100.0); Microcytosis Moderate; Monocytes # (A) 0.3 k/uL (0-1.0); Monocytes % (A) 6 %; Neutrophils # (A) 2.7 k/uL (1.3-7.7); Neutrophils % (A) 61 %; Platelet Count 129 k/uL (150-450); RDW 23.4 % (11.5-15.5); WBC 4.5 k/uL (3.8-10.6)
[2019-01-07 11:20] LABS: Glucose,Whole Blood 151 mg/dL (75-99)
[2019-01-07 11:42] LABS: Polychromasia Present; Target Cells Present
[2019-01-07 11:43] LABS: Poikilocytosis (M) Present
--- NOTE | 2019-01-07 12:13 | CT ---
EXAMINATION TYPE: CT abdomen w con DATE OF EXAM: 01/07/2019 HISTORY: LUQ pain, nausea, vomiting, jaundice. CT DLP: 1655.2mGycm Automated Exposure Control for Dose Reduction was Utilized. CONTRAST: CT scan of the abdomen and pelvis is performed with IV Contrast, patient injected with 100 mL of Isov ue 300. COMPARISON: 12/23/2018 FINDINGS: LUNG BASES: There is slight left hemidiaphragm elevation. LIVER/GB: There is a cirrhotic morphology of the liver with diffuse hepatic heterogeneity concerning for underlying hepatocellular neoplasm. There is enlargement of the main portal vein, few splenic franny ices, and few varices within the gastric hepatic ligament. The hepatic veins are poorly delineated gi woody the phase of contrast and invasion of the hepatic veins remains a possibility. The intrahepatic a nd suprahepatic inferior vena cava is diminutive in caliber. Moderate to large degree of abdominal as cites and diffuse mesenteric edema as well as anasarca is noted. Gallbladder is contracted or surgica lly absent. PANCREAS: No significant abnormality is seen. SPLEEN: Splenomegaly persists. ADRENALS: No significant abnormality is seen. KIDNEYS: Kidneys enhance and excrete symmetrically. BOWEL: Partial gastrectomy has been performed. Diffuse rugal fold prominence may relate to gastritis or be reactive from the adjacent ascites and possible hypoproteinemia. Congestive colopathy is seen w ith hyperemia of the right hemicolon from the adjacent hepatocellular disease. UTERUS/ADNEXA: No gross abnormality seen. LYMPH NODES: Prominent lymph nodes are seen within the gastrohepatic ligament such as on image 26 lacie suring 1.0 cm in short axis and portacaval lymph node measures 1.4 cm in short axis on image 29. OSSEOUS STRUCTURES: No significant abnormality is seen. IMPRESSION: 1. Cirrhotic morphology of the liver with diffuse heterogeneity concerning for underlying infiltrativ e multifocal hepatocellular carcinoma. Findings could be further evaluated with enhanced liver MRI. M oderate to large degree of abdominal ascites and sequela portal venous hypertension are also noted. D iminutive caliber of the intrahepatic and suprahepatic inferior vena cava filter is noted and tumor i nvasion remains a possibility. Congestive colopathy due to the adjacent hepatocellular disease and th ickened rugal folds may also be related to the hepatocellular disease and ascites. 2. Anasarca.
[2019-01-07] MEDS: PHYTONADIONE ORAL 5 MG/5 ML ORAL.SYRG PO SCH (12:59)
[2019-01-07] MEDS: traMADol 50 MG TAB PO PRN ×2 (13:01→21:54)
[2019-01-07 16:59] LABS: Glucose,Whole Blood 158 mg/dL (75-99)
[2019-01-07 20:14] LABS: Glucose,Whole Blood 196 mg/dL (75-99)
[2019-01-08] MEDS: LEVOTHYROXINE 25 MCG TAB PO SCH (06:17)
[2019-01-08 06:49] LABS: Glucose,Whole Blood 128 mg/dL (75-99)
[2019-01-08] MEDS: INSULIN ASPART (NovoLOG) 100 UNIT/ML VIAL SQ SCH ×4 (07:31→19:59)
[2019-01-08 07:33] LABS: ALT 302 U/L (9-52); AST 550 U/L (14-36); Albumin 2.5 g/dL (3.5-5.0); Alkaline Phosphatase 364 U/L (38-126); Anion Gap 6 mmol/L; Blood Urea Nitrogen 7 mg/dL (7-17); Calcium 8.3 mg/dL (8.4-10.2); Carbon Dioxide 26 mmol/L (22-30); Chloride 106 mmol/L (98-107); Glucose 112 mg/dL (74-99); Potassium 3.7 mmol/L (3.5-5.1); Sodium 138 mmol/L (137-145); Total Protein 5.4 g/dL (6.3-8.2)
[2019-01-08 07:37] LABS: INR 2.1 (<1.2); Prothrombin Time 20.5 sec (9.0-12.0)
[2019-01-08] MEDS: LACTULOSE 20 GM/30 ML CUP PO SCH ×3 (08:26→21:15)
[2019-01-08] MEDS: traMADol 50 MG TAB PO PRN (08:26)
[2019-01-08] MEDS: SERTRALINE 25 MG TAB PO SCH (08:26)
[2019-01-08] MEDS: FAMOTIDINE 20 MG TAB PO SCH ×2 (08:26→19:59)
[2019-01-08] MEDS: FUROSEMIDE 20 MG TAB PO SCH (08:26)
[2019-01-08] MEDS: ONDANSETRON 4 MG/2 ML VIAL IVP PRN (08:48)
[2019-01-08] MEDS: PHYTONADIONE ORAL 5 MG/5 ML ORAL.SYRG PO SCH (10:25)
--- NOTE | 2019-01-08 10:50 | P.PN ---
Subjective Progress Note Date: 01/07/19 Principal diagnosis: Acute asthmatic failure/encephalopathy/alcoholic cirrhosis 38-year-old female with a history of EtOH abuse, cirrhosis, portal hypertension, ascites previous diagnostic paracentesis November 2018 negative cytology, iron deficiency anemia, morbid obesity, laparoscopic cholecystectomy November 2018 for chronic acalculous cholecystitis, diabetes, Harshad-en-Y gastric bypass presents with worsening jaundice and mental status changes. Patient has been receiving prolonged doses of Bactrim for at least 2-3 weeks duration for UTI in the outpatient setting. Denies fever chills hematemesis hematochezia melena. Denies active ETOH consumption. Denies taking excessive tylenol or ASA products. 01/06/2019; Patient is seen and evaluated in the room with family members at bedside; patient is very confused this morning; did complain of some chest pain earlier today which was investigated by an EKG and cardiac enzymes which are unremarkable Patient's vital signs remained stable with a temperature of 97.1 pulse 94 respirations 16 and blood pressure 11/20/2011 at 85; SpO2 97 200% on room air Lab work is reviewed and is significant for an INR of 2.1, total bilirubin of 15 AST 590 ALT 332; slightly worse from yesterday GI is following and recommending complete serologic workup for chronic liver disease 01/07/2019; Patient is seen and evaluated with family members at bedside; according to patient she had intense abdominal pain this morning; this was evaluated with a stat CT of abdomen Vital signs remained stable with temperature of 97.7, pulse 94, respirations 16 and blood pressure of 118/77; SpO2 of 100% on room air Labs are stable with a white blood count of 4.5, hemoglobin 8.0, platelet count of 129; INR of 2.1 Sodium 138, potassium 3.8, BUN/creatinine at 7/0.8; LFTs; total bilirubin of 14.8, AST 585, ALT 311 and ammonia level of 98 CT of abdomen pelvis done showing diffuse heterogeneity concerning for underlying infiltrative multifocal hepatocellular carcinoma; MRI is recommended We will order an alpha-fetoprotein level; await further recommendations from GI service Repeat an extra dose of lactulose and monitor ammonia levels closely This was discussed with patient and family at bedside; all questions were answered to their satisfaction Objective - Vital Signs Vital signs: Vital Signs Temp 97.4 F L 01/07/19 09:12 Pulse 110 H 01/07/19 09:12 Resp 16 01/07/19 09:12 BP 127/78 01/07/19 09:12 Pulse Ox 100 01/07/19 09:12 Intake & Output 01/06/19 01/07/19 01/07/19 18:59 06:59 18:59 Intake Total 200 250 Output Total 450 Balance 200 -200 Intake: Oral 200 250 Output: Urine 450 Other: Voiding Method Toilet Toilet # Voids 2 4 - Exam General appearance: The patient is alert, oriented 2 slightly forgetful on dates and times, in no acute distress. Visibly jaundice. HET: Head is normocephalic and atraumatic. Pupils are equal and reactive. Oropharynx is clear without lesions. Sclerae icterus. Neck: Supple without lymphadenopathy. Trachea midline. Heart: S1 S2. Regular rate and rhythm. Lungs: No crackles or wheezes are heard. Abdomen: Soft, very mild tenderness bilateral lower abdomen, nondistended with bowel sounds. No appreciable ascites. No peritoneal signs. No palpable org anomegaly or masses. Extremities: +2 bilateral lower extremity edema. Radial and pedal pulses are 2 /4 bilaterally. Neurological: No focal deficits. Strength and sensation are grossly intact. - Labs CBC & Chem 7: 01/07/19 08:23 01/08/19 06:48 Labs: Abnormal Lab Results - Last 24 Hours (Table) 01/06/19 01/06/19 01/07/19 Range/Units 17:18 19:49 06:53 RBC (3.80-5.40) m/uL Hgb (11.4-16.0) gm/dL Hct (34.0-46.0) % MCH (25.0-35.0) pg MCHC (31.0-37.0) g/dL RDW (11.5-15.5) % Plt Count (150-450) k/uL PT (9.0-12.0) sec INR (<1.2) Glucose (74-99) mg/dL POC Glucose (mg/dL) 181 H 100 H 123 H (75-99) mg/dL Calcium (8.4-10.2) mg/dL Total Bilirubin (0.2-1.3) mg/dL AST (14-36) U/L ALT (9-52) U/L Alkaline Phosphatase (38-126) U/L Ammonia (<30) umol/L Total Protein (6.3-8.2) g/dL Albumin (3.5-5.0) g/dL 01/07/19 01/07/19 01/07/19 Range/Units 08:23 08:23 08:23 RBC (3.80-5.40) m/uL Hgb (11.4-16.0) gm/dL Hct (34.0-46.0) % MCH (25.0-35.0) pg MCHC (31.0-37.0) g/dL RDW (11.5-15.5) % Plt Count (150-450) k/uL PT 20.4 H (9.0-12.0) sec INR 2.1 H (<1.2) Glucose 161 H (74-99) mg/dL POC Glucose (mg/dL) (75-99) mg/dL Calcium 8.3 L (8.4-10.2) mg/dL Total Bilirubin 14.8 H (0.2-1.3) mg/dL AST 585 H (14-36) U/L ALT 311 H (9-52) U/L Alkaline Phosphatase 369 H (38-126) U/L Ammonia 98 H (<30) umol/L Total Protein 5.5 L (6.3-8.2) g/dL Albumin 2.6 L (3.5-5.0) g/dL 01/07/19 01/07/19 Range/Units 08:23 11:18 RBC 3.40 L (3.80-5.40) m/uL Hgb 8.0 L (11.4-16.0) gm/dL Hct 27.5 L (34.0-46.0) % MCH 23.5 L (25.0-35.0) pg MCHC 29.1 L (31.0-37.0) g/dL RDW 23.4 H (11.5-15.5) % Plt Count 129 L (150-450) k/uL PT (9.0-12.0) sec INR (<1.2) Glucose (74-99) mg/dL POC Glucose (mg/dL) 151 H (75-99) mg/dL Calcium (8.4-10.2) mg/dL Total Bilirubin (0.2-1.3) mg/dL AST (14-36) U/L ALT (9-52) U/L Alkaline Phosphatase (38-126) U/L Ammonia (<30) umol/L Total Protein (6.3-8.2) g/dL Albumin (3.5-5.0) g/dL Microbiology - Last 24 Hours (Table) 01/05/19 02:00 Blood Culture - Preliminary Blood No Growth after 48 hours 01/05/19 15:30 Urine Culture - Preliminary Urine,Voided Gram Neg Bacilli Assessment and Plan Assessment: 1. Acute liver failure hepatic encephalopathy with underlying cirrhosis possibly alcohol related however underlying chronic liver disease cannot be excluded. Worsening liver enzymes over the last month suspect drug-induced liver injury secondary to prolonged usage of Bactrim at least 2-3 weeks duration for reported UTI. 2. UTI. Urinalysis positive nitrate leukocyte esterase and bacteria. 3. History of EtOH abuse patient reports no active EtOH consumption. 4. History of Harshad-en-Y gastric bypass. 5. History of cholecystectomy November 2018. 6. Coagulopathy acute on chronic. 7. Chronic iron deficiency anemia. 8. Morbid obesity BMI 41. 9. Diabetes mellitus. Plan: 1. Low-salt diet. Check acetaminophen salicylate level. Avoid hepatotoxic medications. Lactulose 20 g 3 times a day titrated 3-4 bowel movements daily. Will obtain PT/INR CMP at noon. Daily CBC CMP ammonia and PT/INR. If LFTs PT/INR worsens consideration for transfer to tertiary care center for further evaluation and management. 2. Full serologic workup for chronic liver disease requested. Time with Patient: Greater than 30
[2019-01-08 11:10] LABS: Glucose,Whole Blood 208 mg/dL (75-99)
[2019-01-08 13:58] LABS: Glucose,Whole Blood 132 mg/dL (75-99)
[2019-01-08 16:48] LABS: Glucose,Whole Blood 159 mg/dL (75-99)
[2019-01-08 19:53] LABS: Glucose,Whole Blood 196 mg/dL (75-99)
[2019-01-09] MEDS: LEVOTHYROXINE 25 MCG TAB PO SCH (06:19)
[2019-01-09 07:14] LABS: Glucose,Whole Blood 219 mg/dL (75-99)
[2019-01-09] MEDS: FAMOTIDINE 20 MG TAB PO SCH (08:25)
[2019-01-09] MEDS: FUROSEMIDE 20 MG TAB PO SCH (08:25)
[2019-01-09] MEDS: INSULIN ASPART (NovoLOG) 100 UNIT/ML VIAL SQ SCH ×4 (08:25→20:47)
[2019-01-09] MEDS: SERTRALINE 25 MG TAB PO SCH (08:26)
[2019-01-09] MEDS: LACTULOSE 20 GM/30 ML CUP PO SCH ×3 (08:26→21:56)
--- NOTE | 2019-01-09 09:21 | P.PN ---
Subjective Progress Note Date: 01/08/19 Principal diagnosis: Acute asthmatic failure/encephalopathy/alcoholic cirrhosis 38-year-old female with a history of EtOH abuse, cirrhosis, portal hypertension, ascites previous diagnostic paracentesis November 2018 negative cytology, iron deficiency anemia, morbid obesity, laparoscopic cholecystectomy November 2018 for chronic acalculous cholecystitis, diabetes, Harshad-en-Y gastric bypass presents with worsening jaundice and mental status changes. Patient has been receiving prolonged doses of Bactrim for at least 2-3 weeks duration for UTI in the outpatient setting. Denies fever chills hematemesis hematochezia melena. Denies active ETOH consumption. Denies taking excessive tylenol or ASA products. 01/06/2019; Patient is seen and evaluated in the room with family members at bedside; patient is very confused this morning; did complain of some chest pain earlier today which was investigated by an EKG and cardiac enzymes which are unremarkable Patient's vital signs remained stable with a temperature of 97.1 pulse 94 respirations 16 and blood pressure 11/20/2011 at 85; SpO2 97 200% on room air Lab work is reviewed and is significant for an INR of 2.1, total bilirubin of 15 AST 590 ALT 332; slightly worse from yesterday GI is following and recommending complete serologic workup for chronic liver disease 01/07/2019; Patient is seen and evaluated with family members at bedside; according to patient she had intense abdominal pain this morning; this was evaluated with a stat CT of abdomen Vital signs remained stable with temperature of 97.7, pulse 94, respirations 16 and blood pressure of 118/77; SpO2 of 100% on room air Labs are stable with a white blood count of 4.5, hemoglobin 8.0, platelet count of 129; INR of 2.1 Sodium 138, potassium 3.8, BUN/creatinine at 7/0.8; LFTs; total bilirubin of 14.8, AST 585, ALT 311 and ammonia level of 98 CT of abdomen pelvis done showing diffuse heterogeneity concerning for underlying infiltrative multifocal hepatocellular carcinoma; MRI is recommended We will order an alpha-fetoprotein level; await further recommendations from GI service Repeat an extra dose of lactulose and monitor ammonia levels closely This was discussed with patient and family at bedside; all questions were answered to their satisfaction 01/08/2019; Patient continues to complain of abdominal pain; improves with pain medication Vital signs temperature 97.7, pulse 89, respirations 16 and blood pressure of 120/79; SpO2 of 100% on room air Labs reviewed show a continued downtrend of liver function; ammonia is down to 37; alpha-fetoprotein is less than 2.5 We will hold off on MRI of abdomen unless recommended by GI service; GI service recommending to continue to monitor LFTs closely and possible transfer to a tertiary center if no improvement Patient's urine culture is positive for greater than 100,000 Klebsiella and E. coli; both organisms are sensitive to ceftriaxone; we will start patient on IV ceftriaxone and continue to monitor liver enzymes closely Objective - Vital Signs Vital signs: Vital Signs Temp 97.7 F 01/08/19 07:08 Pulse 96 01/08/19 07:08 Resp 16 01/08/19 07:08 BP 120/78 01/08/19 07:08 Pulse Ox 99 01/08/19 07:08 Intake & Output 01/07/19 01/08/19 01/08/19 17:59 06:59 18:59 Intake Total Output Total Balance Intake: Oral Output: Other Other: Voiding Method Toilet # Voids # Bowel Movements - Exam General appearance: The patient is alert, oriented 2 slightly forgetful on dates and times, in no acute distress. Visibly jaundice. HET: Head is normocephalic and atraumatic. Pupils are equal and reactive. Oropharynx is clear without lesions. Sclerae icterus. Neck: Supple without lymphadenopathy. Trachea midline. Heart: S1 S2. Regular rate and rhythm. Lungs: No crackles or wheezes are heard. Abdomen: Soft, very mild tenderness bilateral lower abdomen, nondistended with bowel sounds. No appreciable ascites. No peritoneal signs. No palpable organomegaly or masses. Extremities: +2 bilateral lower extremity edema. Radial and pedal pulses are 2/4 bilaterally. Neurological: No focal deficits. Strength and sensation are grossly intact. - Labs CBC & Chem 7: 01/07/19 08:23 01/08/19 06:48 Labs: Abnormal Lab Results - Last 24 Hours (Table) 01/07/19 01/07/19 01/07/19 Range/Units 08:23 11:18 16:56 RBC 3.40 L (3.80-5.40) m/uL Hgb 8.0 L (11.4-16.0) gm/dL Hct 27.5 L (34.0-46.0) % MCH 23.5 L (25.0-35.0) pg MCHC 29.1 L (31.0-37.0) g/dL RDW 23.4 H (11.5-15.5) % Plt Count 129 L (150-450) k/uL PT (9.0-12.0) sec INR (<1.2) Glucose (74-99) mg/dL POC Glucose (mg/dL) 151 H 158 H (75-99) mg/dL Calcium (8.4-10.2) mg/dL Total Bilirubin (0.2-1.3) mg/dL AST (14-36) U/L ALT (9-52) U/L Alkaline Phosphatase (38-126) U/L Ammonia (<30) umol/L Total Protein (6.3-8.2) g/dL Albumin (3.5-5.0) g/dL 01/07/19 01/08/19 01/08/19 Range/Units 20:12 06:48 06:48 RBC (3.80-5.40) m/uL Hgb (11.4-16.0) gm/dL Hct (34.0-46.0) % MCH (25.0-35.0) pg MCHC (31.0-37.0) g/dL RDW (11.5-15.5) % Plt Count (150-450) k/uL PT 20.5 H (9.0-12.0) sec INR 2.1 H (<1.2) Glucose 112 H (74-99) mg/dL POC Glucose (mg/dL) 196 H (75-99) mg/dL Calcium 8.3 L (8.4-10.2) mg/dL Total Bilirubin 14.0 H (0.2-1.3) mg/dL AST 550 H (14-36) U/L ALT 302 H (9-52) U/L Alkaline Phosphatase 364 H (38-126) U/L Ammonia (<30) umol/L Total Protein 5.4 L (6.3-8.2) g/dL Albumin 2.5 L (3.5-5.0) g/dL 01/08/19 01/08/19 Range/Units 06:48 06:48 RBC (3.80-5.40) m/uL Hgb (11.4-16.0) gm/dL Hct (34.0-46.0) % MCH (25.0-35.0) pg MCHC (31.0-37.0) g/dL RDW (11.5-15.5) % Plt Count (150-450) k/uL PT (9.0-12.0) sec INR (<1.2) Glucose (74-99) mg/dL POC Glucose (mg/dL) 128 H (75-99) mg/dL Calcium (8.4-10.2) mg/dL Total Bilirubin (0.2-1.3) mg/dL AST (14-36) U/L ALT (9-52) U/L Alkaline Phosphatase (38-126) U/L Ammonia 37 H (<30) umol/L Total Protein (6.3-8.2) g/dL Albumin (3.5-5.0) g/dL Microbiology - Last 24 Hours (Table) 01/05/19 02:00 Blood Culture - Preliminary Blood No Growth after 72 hours 01/05/19 15:30 Urine Culture - Final Urine,Voided Klebsiella pneumoniae Escherichia coli Assessment and Plan Assessment: 1. Acute liver failure hepatic encephalopathy with underlying cirrhosis possibly alcohol related however underlying chronic liver disease cannot be excluded. Worsening liver enzymes over the last month suspect drug-induced liver injury secondary to prolonged usage of Bactrim at least 2-3 weeks duration for reported UTI. 2. UTI. Urinalysis positive nitrate leukocyte esterase and bacteria. 3. History of EtOH abuse patient reports no active EtOH consumption. 4. History of Harshad-en-Y gastric bypass. 5. History of cholecystectomy November 2018. 6. Coagulopathy acute on chronic. 7. Chronic iron deficiency anemia. 8. Morbid obesity BMI 41. 9. Diabetes mellitus. Plan: 1. Low-salt diet. Check acetaminophen salicylate level. Avoid hepatotoxic medications. Lactulose 20 g 3 times a day titrated 3-4 bowel movements daily. Will obtain PT/INR CMP at noon. Daily CBC CMP ammonia and PT/INR. If LFTs PT/INR worsens consideration for transfer to tertiary care center for further evaluation and management. 2. Full serologic workup for chronic liver disease requested. Time with Patient: Greater than 30
[2019-01-09] MEDS: PHYTONADIONE ORAL 5 MG/5 ML ORAL.SYRG PO SCH (09:32)
[2019-01-09 11:12] LABS: ALT 304 U/L (9-52); AST 574 U/L (14-36); Albumin 2.6 g/dL (3.5-5.0); Alkaline Phosphatase 356 U/L (38-126); Anion Gap 9 mmol/L; Bilirubin, Conjugated 4.8 mg/dL (0.0-0.3); Bilirubin,Unconjugated 3.9 mg/dL (0.0-1.1); Blood Urea Nitrogen 8 mg/dL (7-17); Calcium 8.3 mg/dL (8.4-10.2); Carbon Dioxide 22 mmol/L (22-30); Chloride 107 mmol/L (98-107); Glucose 211 mg/dL (74-99); Potassium 3.8 mmol/L (3.5-5.1); Sodium 138 mmol/L (137-145); Total Bilirubin 13.7 mg/dL (0.2-1.3); Total Protein 5.7 g/dL (6.3-8.2)
[2019-01-09 11:32] LABS: Anisocytosis Moderate; Basophils % (A) 1 %; Eosinophils # (A) 0.1 k/uL (0-0.7); Eosinophils % (A) 2 %; HCT 27.9 % (34.0-46.0); HGB 8.1 gm/dL (11.4-16.0); Hypochromasia Marked; Lymphocytes # (A) 1.1 k/uL (1.0-4.8); Lymphocytes % (A) 19 %; MCH 23.8 pg (25.0-35.0); MCHC 29.1 g/dL (31.0-37.0); MCV 81.7 fL (80.0-100.0); Mean Platelet Volume 9.7; Microcytosis Moderate; Monocytes # (A) 0.5 k/uL (0-1.0); Monocytes % (A) 8 %; Neutrophils # (A) 3.8 k/uL (1.3-7.7); Neutrophils % (A) 68 %; Platelet Count 127 k/uL (150-450); RBC 3.42 m/uL (3.80-5.40); RDW 23.5 % (11.5-15.5); WBC 5.6 k/uL (3.8-10.6)
[2019-01-09 11:33] LABS: Glucose,Whole Blood 118 mg/dL (75-99)
[2019-01-09 11:45] LABS: Poikilocytosis (M) Present; Target Cells Present
[2019-01-09 13:02] LABS: Albumin 2.85 g/dL (3.80-4.90); Gamma Globulin 0.98 g/dL (0.70-1.50)
--- NOTE | 2019-01-09 13:33 | P.GSCN ---
History of Present Illness Consult date: 01/09/19 Reason for Consult: Jaundice, liver cirrhosis, ascites Requesting physician: Dai Singleton History of present illness: CHIEF COMPLAINT: jaundice, liver cirrhosis, ascites HISTORY OF PRESENT ILLNESS: A 38-year-old female who was admitted to the hospital secondary to liver cirrhosis, jaundice, and ascites. General surgery was consulted for further evaluation. Patient reports generalized abdominal pain. She reports nausea, emesis, and diarrhea yesterday. GI is also following. PAST MEDICAL HISTORY: See list. PAST SURGICAL HISTORY: See list. MEDICATIONS: See list. ALLERGIES: See list. SOCIAL HISTORY: No illicit drug use. REVIEW OF SYSTEMS: CONSTITUTIONAL: Denies fever or chills. HEENT: Denies blurred vision, vision changes, or eye pain. Denies hemoptysis ENDOCRINE: Denies heat or cold intolerance. CARDIOVASCULAR: Denies chest pain or pressure. RESPIRATORY: No shortness of breath. GASTROINTESTINAL: Reports nausea. Reports vomiting yesterday. Reports his abdominal pain. Reports abdominal bloating. NEURO: Denies history of seizures. PSYCH: No depression or suicidal ideation HEMATOLOGIC: Denies bleeding disorders. LYMPHATIC: The patient denies any lumps and bumps around the neck. GENITOURINARY: Denies any blood in urine or increased urinary frequency. MUSCULOSKELETAL: Denies myalgias. Denies joint swelling. Denies decreased range of motion beyond patients baseline. SKIN: Reports jaundice. Denies pruitis. Denies rash. PHYSICAL EXAM: VITAL SIGNS: Currently stable. GENERAL: Well-developed in no acute distress. HEENT: Extraocular movements grossly intact. Moist buccal mucosa. Head is atraumatic, normocephalic. Hears conversational speech. No nasal drainage. CHEST: Non-labored respirations and equal bilateral excursions. CARDIOVASCULAR: Regular rate with regular rhythm. Palpable 2+ radial pulses. ABDOMEN: Soft. Ascites present. Tenderness upon palpation. MUSCULOSKELETAL: No clubbing, cyanosis or edema. PSYCH: Appropriate affect. Alert and oriented to person. SKIN: Jaundice. Well perfused. Good skin turgor. ASSESSMENT: 1. Acute liver failure 2. Hepatic encephalopathy 3. History of Harshad-en-Y gastric bypass 4. History of cholecystectomy, November 2018 PLAN: 1. No surgical intervention recommend 2. Recommend transfer to tertiary center. Will defer to primary service. 3. We will sign off. Please re-consult if needed Nurse practitioner note has been reviewed by physician. Signing provider agrees with the documented findings, assessment, and plan of care. Past Medical History Past Medical History: Asthma, Diabetes Mellitus, Skin Disorder, Thyroid Disorder Additional Past Medical History / Comment(s): migraines, constipation, hashimotos, eczema, no current rx for diabetes- diet control, anemia, elevated liver enzymes & retaining fluid since recent surgery-has gained 40 lbs. of fluid recently per pt. History of Any Multi-Drug Resistant Organisms: None Reported Year Discovered:: JUNE 2013 MDRO Source:: WOUND ON LEFT UPPER ABDOMEN Past Surgical History: Appendectomy, Bariatric Surgery, Section, Ch olecystectomy, Orthopedic Surgery, Tubal Ligation Additional Past Surgical History / Comment(s): HARSHAD-EN-Y, left knee arthroscopy, I&D left upper abdomen; Panniculectomy Jul 2016, robotic lap. marlena 11-07-18 Past Anesthesia/Blood Transfusion Reactions: Family History of Problems w/ Anesthesia, Motion Sickness, Postoperative Nausea & Vomiting (PONV) Additional Past Anesthesia/Blood Transfusion Reaction / Comm: mother-"hard time waking up and trouble breathing" Smoking Status: Never smoker - Past Family History Mother Family Medical History: No Reported History Additional Family Medical History / Comment(s): Mother had gastric bypass surgery and no longer has HTN or high cholesteral. Father Family Medical History: Diabetes Mellitus, Hyperlipidemia, Hypertension Medications and Allergies Home Medications Medication Instructions Recorded Confirmed Type Levothyroxine Sodium [Synthroid] 25 mcg PO DAILY 07/03/16 01/05/19 History Sertraline HCl [Zoloft] 25 mg PO DAILY 11/04/18 01/05/19 History Furosemide [Lasix] 20 mg PO DAILY 12/23/18 01/05/19 History Multivitamin [Multivitamins Adult 1 tab PO DAILY 12/23/18 01/05/19 History Gummies] Omeprazole 40 mg PO DAILY PRN 12/23/18 01/05/19 History Allergies Allergy/AdvReac Type Severity Reaction Status Date / Time adhesive Allergy Rash/Hives Verified 01/05/19 08:08 morphine Allergy Rash/Hives Verified 01/05/19 08:08 sulfamethoxazole Allergy Unknown Verified 01/05/19 09:12 [From Bactrim] Tetanus Vaccines and Toxoid Allergy Swelling Verified 01/05/19 08:08 [Tetanus Vaccines & Toxoid] trimethoprim [From Bactrim] Allergy Unknown Verified 01/05/19 09:12 cigarette smoke AdvReac Cough, Verified 01/05/19 08:08 Shortness of Breath sertraline [From Zoloft] AdvReac DIZZY/Nausea Verified 01/05/19 08:08 & Vomiting skin ink Allergy Rash/Hives Uncoded 12/23/18 18:47 yellow squash Allergy Anaphylaxis Uncoded 12/23/18 18:47 dust AdvReac Mild Itching Uncoded 12/23/18 18:47 dust mites AdvReac Rash/Hives Uncoded 12/23/18 18:47 Surgical - Exam Vital Signs Temp Pulse Resp BP Pulse Ox 97.8 F 120 H 16 124/73 100 01/05/19 01:33 01/05/19 01:33 01/05/19 01:33 01/05/19 01:33 01/05/19 01:33 Results - Labs 01/09/19 07:59 01/09/19 07:59 Abnormal Lab Results - Last 24 Hours (Table) 01/08/19 01/08/19 01/08/19 Range/Units 13:55 16:46 19:52 RBC (3.80-5.40) m/uL Hgb (11.4-16.0) gm/dL Hct (34.0-46.0) % MCH (25.0-35.0) pg MCHC (31.0-37.0) g/dL RDW (11.5-15.5) % Plt Count (150-450) k/uL Glucose (74-99) mg/dL POC Glucose (mg/dL) 132 H 159 H 196 H (75-99) mg/dL Calcium (8.4-10.2) mg/dL Total Bilirubin (0.2-1.3) mg/dL Conjugated Bilirubin (0.0-0.3) mg/dL Unconjugated Bilirubin (0.0-1.1) mg/dL Delta Bilirubin (0.0-0.2) mg/dL AST (14-36) U/L ALT (9-52) U/L Alkaline Phosphatase (38-126) U/L Ammonia (<30) umol/L Total Protein (6.3-8.2) g/dL Albumin (3.5-5.0) g/dL 01/09/19 01/09/19 01/09/19 Range/Units 07:13 07:59 07:59 RBC 3.42 L (3.80-5.40) m/uL Hgb 8.1 L (11.4-16.0) gm/dL Hct 27.9 L (34.0-46.0) % MCH 23.8 L (25.0-35.0) pg MCHC 29.1 L (31.0-37.0) g/dL RDW 23.5 H (11.5-15.5) % Plt Count 127 L (150-450) k/uL Glucose (74-99) mg/dL POC Glucose (mg/dL) 219 H (75-99) mg/dL Calcium (8.4-10.2) mg/dL Total Bilirubin (0.2-1.3) mg/dL Conjugated Bilirubin (0.0-0.3) mg/dL Unconjugated Bilirubin (0.0-1.1) mg/dL Delta Bilirubin (0.0-0.2) mg/dL AST (14-36) U/L ALT (9-52) U/L Alkaline Phosphatase (38-126) U/L Ammonia 68 H (<30) umol/L Total Protein (6.3-8.2) g/dL Albumin (3.5-5.0) g/dL 01/09/19 01/09/19 Range/Units 07:59 11:31 RBC (3.80-5.40) m/uL Hgb (11.4-16.0) gm/dL Hct (34.0-46.0) % MCH (25.0-35.0) pg MCHC (31.0-37.0) g/dL RDW (11.5-15.5) % Plt Count (150-450) k/uL Glucose 211 H (74-99) mg/dL POC Glucose (mg/dL) 118 H (75-99) mg/dL Calcium 8.3 L (8.4-10.2) mg/dL Total Bilirubin 13.7 H (0.2-1.3) mg/dL Conjugated Bilirubin 4.8 H (0.0-0.3) mg/dL Unconjugated Bilirubin 3.9 H (0.0-1.1) mg/dL Delta Bilirubin 5.0 H (0.0-0.2) mg/dL AST 574 H (14-36) U/L ALT 304 H (9-52) U/L Alkaline Phosphatase 356 H (38-126) U/L Ammonia (<30) umol/L Total Protein 5.7 L (6.3-8.2) g/dL Albumin 2.6 L (3.5-5.0) g/dL Microbiology - Last 24 Hours (Table) 01/05/19 02:00 Blood Culture - Preliminary Blood No Growth after 96 hours Diabetes panel 01/09/19 Range/Units 07:59 Sodium 138 (137-145) mmol/L Potassium 3.8 (3.5-5.1) mmol/L Chloride 107 (98-107) mmol/L Carbon Dioxide 22 (22-30) mmol/L BUN 8 (7-17) mg/dL Creatinine 0.70 (0.52-1.04) mg/dL Glucose 211 H (74-99) mg/dL Calcium 8.3 L (8.4-10.2) mg/dL AST 574 H (14-36) U/L ALT 304 H (9-52) U/L Alkaline Phosphatase 356 H (38-126) U/L Total Protein 5.7 L (6.3-8.2) g/dL Albumin 2.6 L (3.5-5.0) g/dL Calcium panel 01/09/19 Range/Units 07:59 Calcium 8.3 L (8.4-10.2) mg/dL Albumin 2.6 L (3.5-5.0) g/dL Pituitary panel 01/09/19 Range/Units 07:59 Sodium 138 (137-145) mmol/L Potassium 3.8 (3.5-5.1) mmol/L Chloride 107 (98-107) mmol/L Carbon Dioxide 22 (22-30) mmol/L BUN 8 (7-17) mg/dL Creatinine 0.70 (0.52-1.04) mg/dL Glucose 211 H (74-99) mg/dL Calcium 8.3 L (8.4-10.2) mg/dL Adrenal panel 03/11/19 Range/Units 07:59 Sodium 138 (137-145) mmol/L Potassium 3.8 (3.5-5.1) mmol/L Chloride 107 (98-107) mmol/L Carbon Dioxide 22 (22-30) mmol/L BUN 8 (7-17) mg/dL Creatinine 0.70 (0.52-1.04) mg/dL Glucose 211 H (74-99) mg/dL Calcium 8.3 L (8.4-10.2) mg/dL Total Bilirubin 13.7 H (0.2-1.3) mg/dL AST 574 H (14-36) U/L ALT 304 H (9-52) U/L Alkaline Phosphatase 356 H (38-126) U/L Total Protein 5.7 L (6.3-8.2) g/dL Albumin 2.6 L (3.5-5.0) g/dL
[2019-01-09] MEDS: traMADol 50 MG TAB PO PRN ×2 (16:37→21:56)
[2019-01-09 17:09] LABS: Glucose,Whole Blood 224 mg/dL (75-99)
[2019-01-09 20:43] LABS: Glucose,Whole Blood 94 mg/dL (75-99)
[2019-01-10] MEDS: traMADol 50 MG TAB PO PRN ×2 (03:43→14:55)
[2019-01-10] MEDS: LEVOTHYROXINE 25 MCG TAB PO SCH (06:08)
[2019-01-10 06:51] LABS: Glucose,Whole Blood 149 mg/dL (75-99)
[2019-01-10] MEDS: LACTULOSE 20 GM/30 ML CUP PO SCH ×3 (09:09→21:51)
[2019-01-10] MEDS: SERTRALINE 25 MG TAB PO SCH (09:09)
[2019-01-10] MEDS: FUROSEMIDE 20 MG TAB PO SCH (09:09)
[2019-01-10] MEDS: INSULIN ASPART (NovoLOG) 100 UNIT/ML VIAL SQ SCH ×4 (09:10→20:29)
[2019-01-10 11:39] LABS: Glucose,Whole Blood 193 mg/dL (75-99)
--- NOTE | 2019-01-10 12:02 | P.PN ---
Subjective Progress Note Date: 01/10/19 Principal diagnosis: Liver failure 38-year-old female with a history of alcohol-related liver cirrhosis admitted with hepatic encephalopathy new onset of jaundice recent Bactrim usage felt to be drug-induced liver injury. Feels well complaints. Afebrile. AFP less than 2.5. Denies abdominal pain. Hepatitis screen nonreactive. Total bilirubin yesterday 13.7. AST 574. ALT 304. AP 356. INR 2.[address] abdomen 01/07/2019 reported cirrhotic morphology of the liver with diffuse hepatic heterogeneity concerning for underlying hepatocellular neoplasm. Few splenic varices and a few varices within the gastric hepatic ligament. Large degree of abdominal ascites, anasarca. Objective - Vital Signs Vital signs: Vital Signs Temp 97.8 F 01/10/19 05:00 Pulse 98 01/10/19 05:00 Resp 17 01/10/19 05:00 BP 121/81 01/10/19 05:00 Pulse Ox 100 01/10/19 05:00 Intake & Output 01/09/19 01/10/19 01/10/19 18:59 06:59 18:59 Intake Total 1810 Balance 1810 Weight 112.037 kg Intake: Oral 1810 Other: Voiding Method Toilet Toilet Toilet # Voids 2 2 - Exam General appearance: The patient is alert, oriented, in no acute distress. Jaundice. HET: Head is normocephalic and atraumatic. Pupils are equal and reactive. Sclerae icterus. Oropharynx is clear without lesions. Neck: Supple without lymphadenopathy. Trachea midline. Heart: S1 S2. Regular rate and rhythm.Reports chest pain midsternal. Lungs: No crackles or wheezes are heard. Abdomen: Soft, nontender, mild ascites evident with bowel sounds. No peritoneal signs. No palpable organomegaly or masses. Extremities: Normal skin color and turgor. No cyanosis, rash, ulceration, clubbing, or edema. Radial and pedal pulses are 2/4 bilaterally. Neurological: No focal deficits. Strength and sensation are grossly intact. - Labs CBC & Chem 7: 01/10/19 11:54 01/10/19 11:54 Labs: Abnormal Lab Results - Last 24 Hours (Table) 01/05/19 01/09/19 01/10/19 Range/Units 13:40 17:06 06:49 POC Glucose (mg/dL) 224 H 149 H (75-99) mg/dL Albumin (PEP) 2.85 L (3.80-4.90) g/dL Rjsln-7-Jotjyvmfv 0.31 L (0.60-1.00) g/dL Beta Globulins 0.49 L (0.60-1.30) g/dL 01/10/19 Range/Units 11:38 POC Glucose (mg/dL) 193 H (75-99) mg/dL Albumin (PEP) (3.80-4.90) g/dL Fdvbr-2-Ytpjnocbd (0.60-1.00) g/dL Beta Globulins (0.60-1.30) g/dL Microbiology - Last 24 Hours (Table) 01/05/19 02:00 Blood Culture - Preliminary Blood No Growth after 120 hours Assessment and Plan Assessment: Impression: 1. Acute liver failure hepatic encephalopathy with underlying cirrhosis possibly alcohol related however underlying chronic liver disease cannot be excluded. Worsening liver enzymes over the last month suspect drug-induced liver injury secondary to prolonged usage of Bactrim at least 2-3 weeks duration for reported UTI. LFTs are minimally improved over the last week, an underlying decompensated liver disease cannot be excluded. Liver enzymes slowly improving INR stable. CT abdomen and pelvis 01/07/2019 cannot rule out underlying ne oplastic process. AFP less than 2.5. 2. UTI. Urinalysis positive nitrate leukocyte esterase and bacteria. 3. History of EtOH abuse patient reports no active EtOH consumption. 4. History of Harshad-en-Y gastric bypass. 5. History of cholecystectomy November 2018. 6. Coagulopathy acute on chronic. 7. Chronic iron deficiency anemia. 8. Morbid obesity BMI 41. 9. Diabetes mellitus. 10. Chest pain. Plan: 1. MRCP/MRI liver with and without contrast. Daily CBC CMP PT/INR. Dr. Bailey recommends consideration for transfer to tertiary center for further management after review of MRI/MRCP. We'll continue to follow with you. Assessment and plan a care discussed with Dr. Baliey
[2019-01-10 12:09] LABS: Anisocytosis Moderate; Basophils % (A) 0 %; Eosinophils # (A) 0.2 k/uL (0-0.7); Eosinophils % (A) 3 %; HCT 26.6 % (34.0-46.0); HGB 7.9 gm/dL (11.4-16.0); Hypochromasia Marked; Lymphocytes # (A) 1.1 k/uL (1.0-4.8); Lymphocytes % (A) 21 %; MCH 24.3 pg (25.0-35.0); MCHC 29.5 g/dL (31.0-37.0); MCV 82.3 fL (80.0-100.0); Mean Platelet Volume 7.9; Microcytosis Slight; Monocytes # (A) 0.5 k/uL (0-1.0); Monocytes % (A) 9 %; Neutrophils # (A) 3.3 k/uL (1.3-7.7); Neutrophils % (A) 64 %; Platelet Count 131 k/uL (150-450); RBC 3.23 m/uL (3.80-5.40); RDW 23.2 % (11.5-15.5); WBC 5.2 k/uL (3.8-10.6)
[2019-01-10 12:13] LABS: Prothrombin Time 19.3 sec (9.0-12.0)
[2019-01-10 12:17] LABS: ALT 283 U/L (9-52); AST 502 U/L (14-36); Albumin 2.5 g/dL (3.5-5.0); Alkaline Phosphatase 322 U/L (38-126); Anion Gap 6 mmol/L; Blood Urea Nitrogen 9 mg/dL (7-17); Calcium 8.2 mg/dL (8.4-10.2); Carbon Dioxide 26 mmol/L (22-30); Chloride 103 mmol/L (98-107); Glucose 168 mg/dL (74-99); Potassium 4.1 mmol/L (3.5-5.1); Sodium 135 mmol/L (137-145); Total Bilirubin 12.3 mg/dL (0.2-1.3); Total Protein 5.5 g/dL (6.3-8.2)
[2019-01-10 13:50] LABS: Hemoglobin A1C 4.5 % (4.0-6.0)
[2019-01-10 17:10] LABS: Glucose,Whole Blood 121 mg/dL (75-99)
[2019-01-10 20:40] LABS: Glucose,Whole Blood 133 mg/dL (75-99)
--- NOTE | 2019-01-10 23:43 | P.PN ---
Subjective Progress Note Date: 01/09/19 Principal diagnosis: Acute hepatic failure, liver cirrhosis and ascites, Acute hepatic encephalopathy 38-year-old female with a history of EtOH abuse, cirrhosis, portal hypertension, ascites previous diagnostic paracentesis November 2018 negative cytology, iron deficiency anemia, morbid obesity, laparoscopic cholecystectomy November 2018 for chronic acalculous cholecystitis, diabetes, Harshad-en-Y gastric bypass presents with worsening jaundice and mental status changes. Patient has been receiving prolonged doses of Bactrim for at least 2-3 weeks duration for UTI in the outpat ient setting. Denies fever chills hematemesis hematochezia melena. Denies active ETOH consumption. Denies taking excessive tylenol or ASA products. 01/06/2019; Patient is seen and evaluated in the room with family members at bedside; patient is very confused this morning; did complain of some chest pain earlier today which was investigated by an EKG and cardiac enzymes which are unremarkable Patient's vital signs remained stable with a temperature of 97.1 pulse 94 res pirations 16 and blood pressure 11/20/2011 at 85; SpO2 97 200% on room air Lab work is reviewed and is significant for an INR of 2.1, total bilirubin of 15 AST 590 ALT 332; slightly worse from yesterday GI is following and recommending complete serologic workup for chronic liver disease 01/07/2019; Patient is seen and evaluated with family members at bedside; according to patient she had intense abdominal pain this morning; this was evaluated with a stat CT of abdomen Vital signs remained stable with temperature of 97.7, pulse 94, respirations 16 and blood pressure of 118/77; SpO2 of 100% on room air Labs are stable with a white blood count of 4.5, hemoglobin 8.0, platelet count of 129; INR of 2.1 Sodium 138, potassium 3.8, BUN/creatinine at 7/0.8; LFTs; total bilirubin of 14.8, AST 585, ALT 311 and ammonia level of 98 CT of abdomen pelvis done showing diffuse heterogeneity concerning for underlying infiltrative multifocal hepatocellular carcinoma; MRI is recommended We will order an alpha-fetoprotein level; await further recommendations from GI service Repeat an extra dose of lactulose and monitor ammonia levels closely This was discussed with patient and family at bedside; all questions were answered to their satisfaction 01/08/2019; Patient continues to complain of abdominal pain; improves with pain medication Vital signs temperature 97.7, pulse 89, respirations 16 and blood pressure of 120/79; SpO2 of 100% on room air Labs reviewed show a continued downtrend of liver function; ammonia is down to 37; alpha-fetoprotein is less than 2.5 We will hold off on MRI of abdomen unless recommended by GI service; GI service recommending to continue to monitor LFTs closely and possible transfer to a tertiary center if no improvement Patient's urine culture is positive for greater than 100,000 Klebsiella and E. coli; both organisms are sensitive to ceftriaxone; we will start patient on IV ceftriaxone and continue to monitor liver enzymes closely 01/09/2019 Patient says that her abdominal pain is better today. Liver enzymes have been stable. Ammonia level is elevated today. Patient is being continued on lactulose. GI is following. Patient is being continued on ceftriaxone for E. c monica and Klebsiella pneumoniae UTI. Patient has been afebrile. Bilirubin level is 13.7. No complaints of chest pain or shortness of breath. Patient still having decreased appetite. Does have nausea. No episodes of vomiting. No headache or dizziness or lightheadedness. Current medications reviewed. Objective - Vital Signs Vital signs: Vital Signs Temp 97.8 F 01/09/19 12:37 Pulse 89 01/09/19 12:37 Resp 18 01/09/19 12:37 BP 108/69 01/09/19 12:37 Pulse Ox 100 01/09/19 12:37 Intake & Output 01/08/19 01/09/19 01/09/19 18:59 06:59 18:59 Intake Total 50 250 Balance 50 250 Intake: Intake, IV Titration 50 Amount cefTRIAXone 1 gm In 50 Sodium Chloride 0.9% 50 ml @ 100 mls/hr IVPB Q24HR [facility] Rx#:[id number] Oral 250 Other: Voiding Method Toilet Toilet Toilet # Voids 1 2 # Bowel Movements 2 - Exam General appearance: The patient is alert, oriented 2 slightly forgetful on dates and times, in no acute distress. Visibly jaundice. HET: Head is normocephalic and atraumatic. Pupils are equal and reactive. Oropharynx is clear without lesions. Sclerae icterus. Neck: Supple without lymphadenopathy. Trachea midline. Heart: S1 S2. Regular rate and rhythm. Lungs: No crackles or wheezes are heard. Abdomen: Soft, very mild tenderness bilateral lower abdomen, nondistended with bowel sounds. No appreciable ascites. No peritoneal signs. No palpable organomegaly or masses. Extremities: +2 bilateral lower extremity edema. Radial and pedal pulses are 2/4 bilaterally. Neurological: No focal deficits. Strength and sensation are grossly intact. - Labs CBC & Chem 7: 01/10/19 11:54 01/10/19 11:54 Labs: Abnormal Lab Results - Last 24 Hours (Table) 01/05/19 01/08/19 01/08/19 Range/Units 13:40 16:46 19:52 RBC (3.80-5.40) m/uL Hgb (11.4-16.0) gm/dL Hct (34.0-46.0) % MCH (25.0-35.0) pg MCHC (31.0-37.0) g/dL RDW (11.5-15.5) % Plt Count (150-450) k/uL Glucose (74-99) mg/dL POC Glucose (mg/dL) 159 H 196 H (75-99) mg/dL Calcium (8.4-10.2) mg/dL Total Bilirubin (0.2-1.3) mg/dL Conjugated Bilirubin (0.0-0.3) mg/dL Unconjugated Bilirubin (0.0-1.1) mg/dL Delta Bilirubin (0.0-0.2) mg/dL AST (14-36) U/L ALT (9-52) U/L Alkaline Phosphatase (38-126) U/L Ammonia (<30) umol/L Total Protein (6.3-8.2) g/dL Albumin (3.5-5.0) g/dL Albumin (PEP) 2.85 L (3.80-4.90) g/dL Imrhj-2-Zmauxmmwd 0.31 L (0.60-1.00) g/dL Beta Globulins 0.49 L (0.60-1.30) g/dL 01/09/19 01/09/19 01/09/19 Range/Units 07:13 07:59 07:59 RBC 3.42 L (3.80-5.40) m/uL Hgb 8.1 L (11.4-16.0) gm/dL Hct 27.9 L (34.0-46.0) % MCH 23.8 L (25.0-35.0) pg MCHC 29.1 L (31.0-37.0) g/dL RDW 23.5 H (11.5-15.5) % Plt Count 127 L (150-450) k/uL Glucose (74-99) mg/dL POC Glucose (mg/dL) 219 H (75-99) mg/dL Calcium (8.4-10.2) mg/dL Total Bilirubin (0.2-1.3) mg/dL Conjugated Bilirubin (0.0-0.3) mg/dL Unconjugated Bilirubin (0.0-1.1) mg/dL Delta Bilirubin (0.0-0.2) mg/dL AST (14-36) U/L ALT (9-52) U/L Alkaline Phosphatase (38-126) U/L Ammonia 68 H (<30) umol/L Total Protein (6.3-8.2) g/dL Albumin (3.5-5.0) g/dL Albumin (PEP) (3.80-4.90) g/dL Yokzj-9-Ermoxesnq (0.60-1.00) g/dL Beta Globulins (0.60-1.30) g/dL 01/09/19 01/09/19 Range/Units 07:59 11:31 RBC (3.80-5.40) m/uL Hgb (11.4-16.0) gm/dL Hct (34.0-46.0) % MCH (25.0-35.0) pg MCHC (31.0-37.0) g/dL RDW (11.5-15.5) % Plt Count (150-450) k/uL Glucose 211 H (74-99) mg/dL POC Glucose (mg/dL) 118 H (75-99) mg/dL Calcium 8.3 L (8.4-10.2) mg/dL Total Bilirubin 13.7 H (0.2-1.3) mg/dL Conjugated Bilirubin 4.8 H (0.0-0.3) mg/dL Unconjugated Bilirubin 3.9 H (0.0-1.1) mg/dL Delta Bilirubin 5.0 H (0.0-0.2) mg/dL AST 574 H (14-36) U/L ALT 304 H (9-52) U/L Alkaline Phosphatase 356 H (38-126) U/L Ammonia (<30) umol/L Total Protein 5.7 L (6.3-8.2) g/dL Albumin 2.6 L (3.5-5.0) g/dL Albumin (PEP) (3.80-4.90) g/dL Zmdyl-2-Vensigzgo (0.60-1.00) g/dL Beta Globulins (0.60-1.30) g/dL Microbiology - Last 24 Hours (Table) 01/05/19 02:00 Blood Culture - Preliminary Blood No Growth after 96 hours Assessment and Plan Assessment: 1. Acute liver failure hepatic encephalopathy with underlying cirrhosis possibly alcohol related however underlying chronic liver disease cannot be excluded. Worsening liver enzymes over the last month suspect drug-induced liver injury secondary to prolonged usage of Bactrim at least 2-3 weeks duration for reported UTI. 2. UTI. Urine culture showed E. coli and Klebsiella pneumonia. 3. History of EtOH abuse patient reports no recent EtOH consumption. 4. History of Harshad-en-Y gastric bypass. 5. History of cholecystectomy November 2018. 6. Coagulopathy acute on chronic. 7. Chronic iron deficiency anemia. 8. Morbid obesity BMI 41. 9. Diabetes mellitus. Plan: 1. Low-salt diet. acetaminophen and salicylate level not elevated.. Avoid hepatotoxic medications. Lactulose 20 g 3 times a day titrated 3-4 bowel movements daily. Will obtain PT/INR CMP daily.. If LFTs PT/INR worsens consideration for transfer to tertiary care center for further evaluation and management. 2. Full serologic workup for chronic liver disease requested. GI is following. Time with Patient: Greater than 30
--- NOTE | 2019-01-10 23:49 | P.PN ---
Subjective Progress Note Date: 01/10/19 Principal diagnosis: Acute hepatic failure, liver cirrhosis and ascites, Acute hepatic encephalopathy 38-year-old female with a history of EtOH abuse, cirrhosis, portal hypertension, ascites previous diagnostic paracentesis November 2018 negative cytology, iron deficiency anemia, morbid obesity, laparoscopic cholecystectomy November 2018 for chronic acalculous cholecystitis, diabetes, Harshad-en-Y gastric bypass presents with worsening jaundice and mental status changes. Patient has been receiving prolonged doses of Bactrim for at least 2-3 weeks duration for UTI in the outpat ient setting. Denies fever chills hematemesis hematochezia melena. Denies active ETOH consumption. Denies taking excessive tylenol or ASA products. 01/06/2019; Patient is seen and evaluated in the room with family members at bedside; patient is very confused this morning; did complain of some chest pain earlier today which was investigated by an EKG and cardiac enzymes which are unremarkable Patient's vital signs remained stable with a temperature of 97.1 pulse 94 res pirations 16 and blood pressure 11/20/2011 at 85; SpO2 97 200% on room air Lab work is reviewed and is significant for an INR of 2.1, total bilirubin of 15 AST 590 ALT 332; slightly worse from yesterday GI is following and recommending complete serologic workup for chronic liver disease 01/07/2019; Patient is seen and evaluated with family members at bedside; according to patient she had intense abdominal pain this morning; this was evaluated with a stat CT of abdomen Vital signs remained stable with temperature of 97.7, pulse 94, respirations 16 and blood pressure of 118/77; SpO2 of 100% on room air Labs are stable with a white blood count of 4.5, hemoglobin 8.0, platelet count of 129; INR of 2.1 Sodium 138, potassium 3.8, BUN/creatinine at 7/0.8; LFTs; total bilirubin of 14.8, AST 585, ALT 311 and ammonia level of 98 CT of abdomen pelvis done showing diffuse heterogeneity concerning for underlying infiltrative multifocal hepatocellular carcinoma; MRI is recommended We will order an alpha-fetoprotein level; await further recommendations from GI service Repeat an extra dose of lactulose and monitor ammonia levels closely This was discussed with patient and family at bedside; all questions were answered to their satisfaction 01/08/2019; Patient continues to complain of abdominal pain; improves with pain medication Vital signs temperature 97.7, pulse 89, respirations 16 and blood pressure of 120/79; SpO2 of 100% on room air Labs reviewed show a continued downtrend of liver function; ammonia is down to 37; alpha-fetoprotein is less than 2.5 We will hold off on MRI of abdomen unless recommended by GI service; GI service recommending to continue to monitor LFTs closely and possible transfer to a tertiary center if no improvement Patient's urine culture is positive for greater than 100,000 Klebsiella and E. coli; both organisms are sensitive to ceftriaxone; we will start patient on IV ceftriaxone and continue to monitor liver enzymes closely 01/09/2019 Patient says that her abdominal pain is better today. Liver enzymes have been stable. Ammonia level is elevated today. Patient is being continued on lactulose. GI is following. Patient is being continued on ceftriaxone for E. coli and Klebsiella pneumoniae UTI. Patient has been afebrile. Bilirubin level is 13.7. No complaints of chest pain or shortness of breath. Patient still having decreased appetite. Does have nausea. No episodes of vomiting. No headache or dizziness or lightheadedness. 01/10/2019 Patient is slightly confused today. Patient is getting lactulose due to her hepatic encephalopathy. Liver edges are still elevated with slight improvement in bilirubin 12.3 CT abdomen and pelvis on 01/07/2019 showed diffuse heterogenicity concerning for Underlying infiltrative/multifocal liver disease concerning for hepatocellular carcinoma. MRCP/MRI with liver protocol was ordered. GI is following. Patient has been afebrile. Tolerating oral diet. No complaints of chest pain or shortness breath. Current medications reviewed. Objective - Vital Signs Vital signs: Vital Signs Temp 97.9 F 01/10/19 21:00 Pulse 96 01/10/19 21:00 Resp 17 01/10/19 21:00 BP 119/80 01/10/19 21:00 Pulse Ox 100 01/10/19 21:00 Intake & Output 01/10/19 01/10/19 01/11/19 06:59 18:59 06:59 Intake Total 1810 100 720 Balance 1810 100 720 Weight 112.037 kg Intake: Intake, IV Titration 100 Amount cefTRIAXone 1 gm In 100 Sodium Chloride 0.9% 50 ml @ 100 mls/hr IVPB Q24HR [facility] Rx#:[id number] Oral 1810 720 Other: Voiding Method Toilet Toilet Toilet # Voids 2 2 - Exam General appearance: The patient is alert, oriented 2 slightly forgetful on dates and times, in no acute distress. Visibly jaundice. HET: Head is normocephalic and atraumatic. Pupils are equal and reactive. Oropharynx is clear without lesions. Sclerae icterus. Neck: Supple without lymphadenopathy. Trachea midline. Heart: S1 S2. Regular rate and rhythm. Lungs: No crackles or wheezes are heard. Abdomen: Soft, very mild tenderness bilateral lower abdomen, nondistended with bowel sounds. No appreciable ascites. No peritoneal signs. No palpable organomegaly or masses. Extremities: +2 bilateral lower extremity edema. Radial and pedal pulses are 2/4 bilaterally. Neurological: No focal deficits. Strength and sensation are grossly intact. - Labs CBC & Chem 7: 01/10/19 11:54 01/10/19 11:54 Labs: Abnormal Lab Results - Last 24 Hours (Table) 01/10/19 01/10/19 01/10/19 Range/Units 06:49 11:38 11:54 RBC 3.23 L (3.80-5.40) m/uL Hgb 7.9 L (11.4-16.0) gm/dL Hct 26.6 L (34.0-46.0) % MCH 24.3 L (25.0-35.0) pg MCHC 29.5 L (31.0-37.0) g/dL RDW 23.2 H (11.5-15.5) % Plt Count 131 L (150-450) k/uL PT (9.0-12.0) sec INR (<1.2) Sodium (137-145) mmol/L Glucose (74-99) mg/dL POC Glucose (mg/dL) 149 H 193 H (75-99) mg/dL Calcium (8.4-10.2) mg/dL Total Bilirubin (0.2-1.3) mg/dL AST (14-36) U/L ALT (9-52) U/L Alkaline Phosphatase (38-126) U/L Total Protein (6.3-8.2) g/dL Albumin (3.5-5.0) g/dL 01/10/19 01/10/19 01/10/19 Range/Units 11:54 11:58 17:09 RBC (3.80-5.40) m/uL Hgb (11.4-16.0) gm/dL Hct (34.0-46.0) % MCH (25.0-35.0) pg MCHC (31.0-37.0) g/dL RDW (11.5-15.5) % Plt Count (150-450) k/uL PT 19.3 H (9.0-12.0) sec INR 2.0 H (<1.2) Sodium 135 L (137-145) mmol/L Glucose 168 H (74-99) mg/dL POC Glucose (mg/dL) 121 H (75-99) mg/dL Calcium 8.2 L (8.4-10.2) mg/dL Total Bilirubin 12.3 H (0.2-1.3) mg/dL AST 502 H (14-36) U/L ALT 283 H (9-52) U/L Alkaline Phosphatase 322 H (38-126) U/L Total Protein 5.5 L (6.3-8.2) g/dL Albumin 2.5 L (3.5-5.0) g/dL 01/10/19 Range/Units 20:20 RBC (3.80-5.40) m/uL Hgb (11.4-16.0) gm/dL Hct (34.0-46.0) % MCH (25.0-35.0) pg MCHC (31.0-37.0) g/dL RDW (11.5-15.5) % Plt Count (150-450) k/uL PT (9.0-12.0) sec INR (<1.2) Sodium (137-145) mmol/L Glucose (74-99) mg/dL POC Glucose (mg/dL) 133 H (75-99) mg/dL Calcium (8.4-10.2) mg/dL Total Bilirubin (0.2-1.3) mg/dL AST (14-36) U/L ALT (9-52) U/L Alkaline Phosphatase (38-126) U/L Total Protein (6.3-8.2) g/dL Albumin (3.5-5.0) g/dL Microbiology - Last 24 Hours (Table) 01/05/19 02:00 Blood Culture - Preliminary Blood No Growth after 120 hours Assessment and Plan Assessment: 1. Acute liver failure hepatic encephalopathy with underlying cirrhosis possibly alcohol related however underlying chronic liver disease cannot be excluded. CT abdomen and showed cirrhotic morphology of the liver with diffuse hepatic heterogeneity concerning for underlying hepatocellular neoplasm. Few splenic varices and a few varices within the gastric hepatic ligament. Large degree of abdominal ascites, anasarca. Worsening liver enzymes over the last month suspect drug-induced liver injury secondary to prolonged usage of Bactrim at least 2-3 weeks duration for reported UTI. 2. UTI. Urine culture showed E. coli and Klebsiella pneumonia. 3. History of EtOH abuse patient reports no recent EtOH consumption. 4. History of Harshad-en-Y gastric bypass. 5. History of cholecystectomy November 2018. 6. Coagulopathy acute on chronic. 7. Chronic iron deficiency anemia. 8. Morbid obesity BMI 41. 9. Diabetes mellitus. Plan: Low-salt diet. acetaminophen and salicylate level not elevated.. Avoid hepatotoxic medications. Lactulose 20 g 3 times a day titrated 3-4 bowel movements daily. Will obtain PT/INR CMP daily.. MRCP/MRI of the liver with and without contrast was ordered. consideration for transfer to tertiary care center for further evaluation and management depending on MRI reports.. GI is following. Time with Patient: Greater than 30
[2019-01-11] MEDS: traMADol 50 MG TAB PO PRN ×3 (01:20→19:45)
[2019-01-11] MEDS: LEVOTHYROXINE 25 MCG TAB PO SCH (04:42)
[2019-01-11 06:55] LABS: Glucose,Whole Blood 133 mg/dL (75-99)
[2019-01-11 09:50] LABS: INR 1.8 (<1.2); Prothrombin Time 17.7 sec (9.0-12.0)
[2019-01-11] MEDS: INSULIN ASPART (NovoLOG) 100 UNIT/ML VIAL SQ SCH ×4 (10:03→20:46)
[2019-01-11] MEDS: FUROSEMIDE 20 MG TAB PO SCH (10:54)
[2019-01-11] MEDS: SERTRALINE 25 MG TAB PO SCH (11:00)
[2019-01-11] MEDS: LACTULOSE 20 GM/30 ML CUP PO SCH ×3 (11:00→20:46)
[2019-01-11 12:10] LABS: Glucose,Whole Blood 219 mg/dL (75-99)
--- NOTE | 2019-01-11 13:49 | P.PN ---
Subjective Progress Note Date: 01/11/19 Principal diagnosis: Liver failure 38-year-old female with a history of alcohol-related liver cirrhosis admitted with hepatic encephalopathy new onset of jaundice recent Bactrim usage felt to be drug-induced liver injury. Feels well complaints. Afebrile. AFP less than 2.5. Denies abdominal pain. Hepatitis screen nonreactive. Total bilirubin yesterday 12.3. INR stable 1.8. CT abdomen 01/07/2019 reported cirrhotic morphology of the liver with diffuse hepatic heterogeneity concerning for underlying hepatocellular neoplasm. Few splenic varices and a few varices within the gastric hepatic ligament. Abdominal ascites, anasarca. MRI liver/MRCP completed today preliminary results reviewed with radiologist reported cirrhotic features no evidence of obvious malignancy or obstruction. Objective - Vital Signs Vital signs: Vital Signs Temp 97.7 F 01/11/19 05:00 Pulse 92 01/11/19 08:45 Resp 16 01/11/19 08:45 BP 117/70 01/11/19 05:00 Pulse Ox 99 01/11/19 05:00 Intake & Output 01/10/19 01/11/19 01/11/19 18:59 06:59 18:59 Intake Total 100 960 240 Balance 100 960 240 Weight 112.037 kg Intake: Intake, IV Titration 100 Amount cefTRIAXone 1 gm In 100 Sodium Chloride 0.9% 50 ml @ 100 mls/hr IVPB Q24HR [facility] Rx#:[id number] Oral 960 240 Other: Voiding Method Toilet Toilet Toilet # Voids 1 3 - Exam General appearance: The patient is alert, oriented, in no acute distress. Jaundice. HET: Head is normocephalic and atraumatic. Pupils are equal and reactive. Sclerae icterus. Oropharynx is clear without lesions. Neck: Supple without lymphadenopathy. Trachea midline. Heart: S1 S2. Regular rate and rhythm.Reports chest pain midsternal. Lungs: No crackles or wheezes are heard. Abdomen: Soft, nontender, mild ascites evident with bowel sounds. No jean marie toneal signs. No palpable organomegaly or masses. Extremities: Normal skin color and turgor. No cyanosis, rash, ulceration, clubbing, or edema. Radial and pedal pulses are 2/4 bilaterally. Neurological: No focal deficits. Strength and sensation are grossly intact. - Labs CBC & Chem 7: 01/10/19 11:54 01/10/19 11:54 Labs: Abnormal Lab Results - Last 24 Hours (Table) 01/10/19 01/10/19 01/11/19 Range/Units 17:09 20:20 06:54 PT (9.0-12.0) sec INR (<1.2) POC Glucose (mg/dL) 121 H 133 H 133 H (75-99) mg/dL 01/11/19 01/11/19 Range/Units 09:07 12:08 PT 17.7 H (9.0-12.0) sec INR 1.8 H (<1.2) POC Glucose (mg/dL) 219 H (75-99) mg/dL Microbiology - Last 24 Hours (Table) 01/05/19 02:00 Blood Culture - Final Blood No Growth after 144 hours Assessment and Plan Assessment: Impression: 1. Acute liver failure hepatic encephalopathy with underlying cirrhosis possibly alcohol related however underlying chronic liver disease cannot be excluded. Worsening liver enzymes over the last month suspect drug-induced liver injury secondary to prolonged usage of Bactrim at least 2-3 weeks duration for reported UTI. LFTs are minimally improved over the last week, an underlying decompensated liver disease is suspected. Liver enzymes slowly improving but still elevated INR stable at 1.9. CT abdomen and pelvis 01/07/2019 cannot rule out underlying neoplastic process. AFP less than 2.5. MRI liver today supported cirrhotic features no evidence of obvious malignancy or obstruction. 2. UTI. Urinalysis positive nitrate leukocyte esterase and bacteria. 3. History of EtOH abuse patient reports no active EtOH consumption. 4. History of Harshad-en-Y gastric bypass. 5. History of cholecystectomy November 2018. 6. Coagulopathy acute on chronic. 7. Chronic iron deficiency anemia. 8. Morbid obesity BMI 41. 9. Diabetes mellitus. 10. Chest pain; resolved. Plan: 1. MRCP/MRI liver with and without contrast reviewed with radiologist Dr. Santos; no evidence of obvious malignancy or obstruction features consistent with known alcohol liver disease cirrhosis. Dr. Bailey recommends transfer to tertiary center for further management. We'll transferred to [facility] patient is agreeable. Assessment and plan a care discussed with Dr. Bailey
[2019-01-11 17:36] LABS: Glucose,Whole Blood 134 mg/dL (75-99)
[2019-01-11 20:18] LABS: Glucose,Whole Blood 138 mg/dL (75-99)
[2019-01-11 21:17] VITALS: BP 116/78; PULSE 98; RESP 18; TEMP 97.8
--- NOTE | 2019-01-12 08:14 | MR ---
MR liver with and without contrast, MRCP HISTORY: Jaundice, abdominal pain, nausea and vomiting Multiplanar multisequence and postcontrast images obtained through the liver and bile system followin g 11.5 cc Gadavist IV. Three-dimensional reconstructions were not performed through the biliary syste m due to technique. Correlation CT abdomen 01/07/2019 The liver is small and shows a nodular contour. There is heterogeneity to the liver signal intensity. Portal vein is patent. Hepatic veins are diminutive but patent in their visualized portions. There i s ascites present. Gallbladder is absent. There is anasarca present. Mesenteric edema, splenic varice s are noted. Technique the exam is limited. The spleen is enlarged. Postop changes are noted to the stomach and sm all bowel. No retroperitoneal adenopathy. Aorta shows normal caliber. Lung bases show minimal atelect atic change, no evident pleural effusion. IMPRESSION: End-stage liver disease with possible portal hypertension, splenomegaly. No enhancing mas s to suggest hepatocellular carcinoma. There is heterogeneity of liver enhancement.
== END 2019-01-11 23:57 | disposition short-term general hospital (02) | DRG 433 ==
LOC: EC 01:31 → 4SSUR 06:15 → 3SCARD 07:22 → 4MS4W 07:24 → 3NMEDONC 17:33
PROVIDERS: ADMIT Hospitalist; ATTEND Hospitalist
DX: K70.40 Alcoholic hepatic failure without coma (principal); K76.6 Portal hypertension; E87.1 Hypo-osmolality and hyponatremia; D68.9 Coagulation defect, unspecified; Z68.41 Body mass index [BMI] 40.0-44.9, adult; N39.0 Urinary tract infection, site not specified; J98.11 Atelectasis; K71.10 Toxic liver disease with hepatic necrosis, without coma; E11.65 Type 2 diabetes mellitus with hyperglycemia; E66.01 Morbid (severe) obesity due to excess calories; J45.909 Unspecified asthma, uncomplicated; K70.31 Alcoholic cirrhosis of liver with ascites; R00.0 Tachycardia, unspecified; D50.9 Iron deficiency anemia, unspecified; G43.909 Migraine, unspecified, not intractable, without status migrainosus; E06.3 Autoimmune thyroiditis; F10.10 Alcohol abuse, uncomplicated; F17.200 Nicotine dependence, unspecified, uncomplicated; I86.8 Varicose veins of other specified sites; R07.9 Chest pain, unspecified; B96.20 Unspecified Escherichia coli [E. coli] as the cause of diseases classified elsewhere; B96.1 Klebsiella pneumoniae [K. pneumoniae] as the cause of diseases classified elsewhere; T36.8X5A Adverse effect of other systemic antibiotics, initial encounter; Z79.890 Hormone replacement therapy; Z71.3 Dietary counseling and surveillance; Z79.899 Other long term (current) drug therapy; Z98.51 Tubal ligation status; Z90.49 Acquired absence of other specified parts of digestive tract; Z98.84 Bariatric surgery status; Z88.5 Allergy status to narcotic agent; Z88.7 Allergy status to serum and vaccine; Z88.8 Allergy status to other drugs, medicaments and biological substances; Z91.018 Allergy to other foods; Z91.048 Other nonmedicinal substance allergy status; Z83.3 Family history of diabetes mellitus; Z82.49 Family history of ischemic heart disease and other diseases of the circulatory system; Z83.438 Family history of other disorder of lipoprotein metabolism and other lipidemia
CPT/HCPCS: 36415; 70450; 71046; 74160; 74183; 80048; 80053; 80076; 80306; 81001; 82105; 82140; 82553; 82728; 83036; 83516; 83520; 83540; 83550; 83735; 84165; 84484; 84703; 85025; 85610; 85730; 86376; 87040; 87077; 87086; 87186; 93005; 94760; 99285

== ENCOUNTER 2019-01-21 22:01 | Inpatient (IN) | payer OTHER ==
[2019-01-21] MEDS ORDERED: SODIUM CHLORIDE 0.9% 1,000 ML IV STA (22:38)
--- NOTE | 2019-01-21 22:38 | ED ---
Abdominal Pain HPI - General Chief Complaint: Abdominal Pain Stated Complaint: Ascites Time Seen by Provider: 01/21/19 22:24 Source: patient, RN notes reviewed, old records reviewed Mode of arrival: wheelchair Limitations: no limitations - History of Present Illness Initial Comments: This is a 38-year-old female the ER for evaluation. No recent diagnosis of cirrhosis and liver failure, patient does have prior history of same. Patient is having abdominal pain with increasing ascites. She's been discharged from [facility] 2 days where she last had her ascitic fluid drainage. Patient denies any fever. No abdominal pain. Mild shortness of breath MD Complaint: abdominal pain -: days(s) Location: diffuse Radiation: none Migration to: no migration Severity: moderate Severity scale (1-10): 7 Quality: fullness Worsens With: nothing Associated Symptoms: nausea - Related Data Home Medications Medication Instructions Recorded Confirmed Levothyroxine Sodium [Synthroid] 25 mcg PO DAILY 07/03/16 01/21/19 Sertraline HCl [Zoloft] 25 mg PO DAILY 11/04/18 01/21/19 Furosemide [Lasix] 20 mg PO DAILY 12/23/18 01/21/19 Multivitamin [Multivitamins Adult 1 tab PO DAILY 12/23/18 01/21/19 Gummies] Omeprazole 40 mg PO DAILY PRN 12/23/18 01/21/19 Ferrous Sulfate [Feosol] 325 mg PO DAILY 01/21/19 01/21/19 Lactulose 10 gm PO DAILY 01/21/19 01/21/19 Lactulose [Constulose] 10 gm PO BID PRN 01/21/19 01/21/19 Spironolactone 50 mg PO DAILY 01/21/19 01/21/19 Allergies Allergy/AdvReac Type Severity Reaction Status Date / Time adhesive Allergy Rash/Hives Verified 01/21/19 22:57 morphine Allergy Rash/Hives Verified 01/21/19 22:57 sulfamethoxazole Allergy Unknown Verified 01/21/19 22:57 [From Bactrim] Tetanus Vaccines and Toxoid Allergy Swelling Verified 01/21/19 22:57 [Tetanus Vaccines & Toxoid] trimethoprim [From Bactrim] Allergy Unknown Verified 01/21/19 22:57 cigarette smoke AdvReac Cough, Verified 01/21/19 22:57 Shortness of Breath sertraline [From Zoloft] AdvReac DIZZY/Nausea Verified 01/21/19 22:57 & Vomiting skin ink Allergy Rash/Hives Uncoded 12/23/18 18:47 yellow squash Allergy Anaphylaxis Uncoded 12/23/18 18:47 dust AdvReac Mild Itching Uncoded 12/23/18 18:47 dust mites AdvReac Rash/Hives Uncoded 12/23/18 18:47 Review of Systems ROS Statement: Those systems with pertinent positive or pertinent negative responses have been documented in the HPI. ROS Other: All systems not noted in ROS Statement are negative. Past Medical History Past Medical History: Asthma, Diabetes Mellitus, Skin Disorder, Thyroid Disorder Additional Past Medical History / Comment(s): migraines, constipation, hashimotos, eczema, no current rx for diabetes- diet control, anemia, elevated liver enzymes & retaining fluid since recent surgery-has gained 40 lbs. of fluid recently per pt. History of Any Multi-Drug Resistant Organisms: None Reported Date of last positivie culture/infection: JUNE 2013 MDRO Source:: WOUND ON LEFT UPPER ABDOMEN Past Surgical History: Appendectomy, Bariatric Surgery, Section, Cholecystectomy, Orthopedic Surgery, Tubal Ligation Additional Past Surgical History / Comment(s): LENA-EN-Y, left knee arthroscopy, I&D left upper abdomen; Panniculectomy Jul 2016, robotic lap. marlena 11-07-18 Past Anesthesia/Blood Transfusion Reactions: Family History of Problems w/ Anesthesia, Motion Sickness, Postoperative Nausea & Vomiting (PONV) Additional Past Anesthesia/Blood Transfusion Reaction / Comment(s): mother-"hard time waking up and trouble breathing" Past Psychological History: No Psychological Hx Reported Smoking Status: Never smoker - Past Family History Mother Family Medical History: No Reported History Additional Family Medical History / Comment(s): Mother had gastric bypass s urgery and no longer has HTN or high cholesteral. Father Family Medical History: Diabetes Mellitus, Hyperlipidemia, Hypertension General Exam Limitations: no limitations General appearance: alert, in no apparent distress Head exam: Present: atraumatic, normocephalic, normal inspection Eye exam: Present: normal appearance, PERRL, EOMI. Absent: scleral icterus, conjunctival injection, periorbital swelling ENT exam: Present: normal exam, mucous membranes moist Neck exam: Present: normal inspection. Absent: tenderness, meningismus, lymphadenopathy Respiratory exam: Present: normal lung sounds bilaterally. Absent: respiratory distress, wheezes, rales, rhonchi, stridor Cardiovascular Exam: Present: regular rate, normal rhythm, normal heart sounds. Absent: systolic murmur, diastolic murmur, rubs, gallop, clicks GI/Abdominal exam: Present: soft, normal bowel sounds. Absent: distended, tenderness, guarding, rebound, rigid Extremities exam: Present: normal inspection, full ROM, normal capillary refill. Absent: tenderness, pedal edema, joint swelling, calf tenderness Back exam: Present: normal inspection Neurological exam: Present: alert, oriented X3, CN II-XII intact Psychiatric exam: Present: normal affect, normal mood Skin exam: Present: warm, dry, intact, normal color. Absent: rash Course Vital Signs 01/21/19 22:06 Temperature 97.8 F Pulse Rate 92 Respiratory 20 Rate Blood Pressure 118/70 O2 Sat by Pulse 100 Oximetry - Reevaluation(s) Reevaluation #1: 01/21/19 23:31 Medical record is reviewed Reevaluation #2: 01/21/19 23:32 Patient is without significant altered mental status currently. Just complaining of pain in her abdomen Medical Decision Making - Medical Decision Making 38 cemented ER for evaluation known cirrhosis hepatic encephalopathy with encephalitis will admit for paracentesis as well as medication to improve ammonia levels and hydration - Lab Data Result diagrams: 01/21/19 22:34 01/21/19 22:34 Lab Results 01/21/19 01/21/19 01/21/19 Range/Units 22:34 22:34 22:34 WBC 8.0 (3.8-10.6) k/uL RBC 3.81 (3.80-5.40) m/uL Hgb 9.2 L (11.4-16.0) gm/dL Hct 32.0 L (34.0-46.0) % MCV 83.8 (80.0-100.0) fL MCH 24.2 L (25.0-35.0) pg MCHC 28.9 L (31.0-37.0) g/dL RDW 22.0 H (11.5-15.5) % Plt Count 129 L (150-450) k/uL Neutrophils % 66 % Lymphocytes % 20 % Monocytes % 9 % Eosinophils % 3 % Basophils % 1 % Neutrophils # 5.3 (1.3-7.7) k/uL Lymphocytes # 1.6 (1.0-4.8) k/uL Monocytes # 0.7 (0-1.0) k/uL Eosinophils # 0.2 (0-0.7) k/uL Basophils # 0.1 (0-0.2) k/uL Hypochromasia Marked Anisocytosis Moderate Microcytosis Slight Sodium 136 L (137-145) mmol/L Potassium 3.3 L (3.5-5.1) mmol/L Chloride 109 H (98-107) mmol/L Carbon Dioxide 21 L (22-30) mmol/L Anion Gap 6 mmol/L BUN 26 H (7-17) mg/dL Creatinine 2.07 H (0.52-1.04) mg/dL Est GFR (CKD-EPI)AfAm 35 (>60 ml/min/1.73 sqM) Est GFR (CKD-EPI)NonAf 30 (>60 ml/min/1.73 sqM) Glucose 107 H (74-99) mg/dL Calcium 8.4 (8.4-10.2) mg/dL Total Bilirubin 6.9 H (0.2-1.3) mg/dL AST 292 H (14-36) U/L ALT 153 H (9-52) U/L Alkaline Phosphatase 313 H (38-126) U/L Ammonia 79 H (<30) umol/L Total Protein 5.7 L (6.3-8.2) g/dL Albumin 2.6 L (3.5-5.0) g/dL Amylase 56 (30-110) U/L Lipase 450 H (23-300) U/L Disposition Clinical Impression: Ascites, Cholecystitis, Transaminitis, Liver cirrhosis, Hepatic encephalopathy Disposition: ADMITTED IP TO THIS [facility] Condition: Undetermined Is patient prescribed a controlled substance at d/c from ED?: No
[2019-01-21 22:56] LABS: Anisocytosis Moderate; Basophils # (A) 0.1 k/uL (0-0.2); Basophils % (A) 1 %; Eosinophils # (A) 0.2 k/uL (0-0.7); Eosinophils % (A) 3 %; HGB 9.2 gm/dL (11.4-16.0); Hypochromasia Marked; Lymphocytes # (A) 1.6 k/uL (1.0-4.8); Lymphocytes % (A) 20 %; MCH 24.2 pg (25.0-35.0); MCHC 28.9 g/dL (31.0-37.0); MCV 83.8 fL (80.0-100.0); Mean Platelet Volume 8.9; Microcytosis Slight; Monocytes # (A) 0.7 k/uL (0-1.0); Monocytes % (A) 9 %; Neutrophils # (A) 5.3 k/uL (1.3-7.7); Neutrophils % (A) 66 %; Platelet Count 129 k/uL (150-450); RBC 3.81 m/uL (3.80-5.40)
[2019-01-21 23:06] LABS: Albumin 2.6 g/dL (3.5-5.0); Calcium 8.4 mg/dL (8.4-10.2); Potassium 3.3 mmol/L (3.5-5.1); Total Bilirubin 6.9 mg/dL (0.2-1.3); Total Protein 5.7 g/dL (6.3-8.2)
[2019-01-22] MEDS ORDERED: ENOXAPARIN 40 MG/0.4 ML SYRINGE SQ SCH (09:00)
[2019-01-22 13:05] LABS: Anisocytosis Moderate; Basophils # (A) 0.1 k/uL (0-0.2); Basophils % (A) 1 %; Eosinophils # (A) 0.2 k/uL (0-0.7); Eosinophils % (A) 2 %; HCT 33.7 % (34.0-46.0); HGB 9.6 gm/dL (11.4-16.0); Hypochromasia Marked; Lymphocytes # (A) 1.7 k/uL (1.0-4.8); Lymphocytes % (A) 17 %; MCH 24.2 pg (25.0-35.0); MCHC 28.5 g/dL (31.0-37.0); MCV 84.9 fL (80.0-100.0); Mean Platelet Volume 8.6; Microcytosis Slight; Monocytes # (A) 0.7 k/uL (0-1.0); Monocytes % (A) 7 %; Neutrophils % (A) 70 %; Platelet Count 151 k/uL (150-450); RBC 3.96 m/uL (3.80-5.40); RDW 22.1 % (11.5-15.5)
[2019-01-22 13:15] LABS: INR 1.7 (<1.2); Prothrombin Time 16.6 sec (9.0-12.0)
[2019-01-22 13:21] LABS: Albumin 2.6 g/dL (3.5-5.0); Calcium 8.5 mg/dL (8.4-10.2); Potassium 3.9 mmol/L (3.5-5.1); Total Bilirubin 7.8 mg/dL (0.2-1.3); Total Protein 5.8 g/dL (6.3-8.2)
--- NOTE | 2019-01-22 13:26 | P.HPIM ---
History of Present Illness This is a pleasant 38 years old female with past medical history of asthma, diabetes mellitus, migraine, Aury thyroiditis and eczema, alcoholic cirrhosis and history of hepatic encephalopathy. Patient was recently discharged from the hospital for hepatic encephalopathy. Patient follow-up with [facility], last week she had With colostomy bag on the right side to collect extra fluids from her ascites. Presents because of increasing abdominal distention and difficulty breathing, mostly related to her ascites. Patient denies abdominal pain no nausea vomiting, she eating drinking regularly. She has frequent bowel movements which were summoned lose about 6-7 times per day, regulated by lactulose 15 gm twice a day. Also at home she is on Lasix 20 mg and Aldactone 50 mg daily. On admission labs were reviewed, CBC was unremarkable, sodium 136, potassium 3.3, creatinine 2.0 which is elevated, total bilirubin is 6.9 and elevated liver enzymes, patient has history of elevated liver enzymes too Review of Systems CONSTITUTIONAL: No fever, no malaise, no fatigue. HEENT: No recent visual problems or hearing problems. Denied any sore throat. CARDIOVASCULAR: No orthopnea, PND, no palpitations, no syncope. PULMONARY: No shortness of breath, no cough, no hemoptysis. GASTROINTESTINAL: No diarrhea, no nausea, no vomiting, no abdominal pain. Normoactive bowel sounds. NEUROLOGICAL: No headaches, no weakness, no numbness. HEMATOLOGICAL: Denies any bleeding or petechiae. GENITOURINARY: Denies any burning micturition, frequency, or urgency. MUSCULOSKELETAL/RHEUMATOLOGICAL: Denies any joint pain, swelling, or any muscle pain. ENDOCRINE: Denies any polyuria or polydipsia. Past Medical History Past Medical History: Asthma, Diabetes Mellitus, Skin Disorder, Thyroid Disorder Additional Past Medical History / Comment(s): migraines, constipation, hashimotos, eczema, no current rx for diabetes- diet control, anemia, elevated liver enzymes & retaining fluid since recent surgery-has gained 40 lbs. of fluid recently per pt. History of Any Multi-Drug Resistant Organisms: None Reported Date of last positivie culture/infection: JUNE 2013 MDRO Source:: WOUND ON LEFT UPPER ABDOMEN Past Surgical History: Appendectomy, Bariatric Surgery, Section, Cholecystectomy, Orthopedic Surgery, Tubal Ligation Additional Past Surgical History / Comment(s): LENA-EN-Y, left knee arthroscopy, I&D left upper abdomen; Panniculectomy Jul 2016, robotic lap. marlena 11-07-18 Past Anesthesia/Blood Transfusion Reactions: Family History of Problems w/ Anesthesia, Motion Sickness, Postoperative Nausea & Vomiting (PONV) Additional Past Anesthesia/Blood Transfusion Reaction / Comment(s): mother-"hard time waking up and trouble breathing" Past Psychological History: No Psychological Hx Reported Smoking Status: Never smoker - Past Family History Mother Family Medical History: No Reported History Additional Family Medical History / Comment(s): Mother had gastric bypass surgery and no longer has HTN or high cholesteral. Father Family Medical History: Diabetes Mellitus, Hyperlipidemia, Hypertension Medications and Allergies Home Medications Medication Instructions Recorded Confirmed Type Levothyroxine Sodium [Synthroid] 25 mcg PO DAILY 07/03/16 01/21/19 History Sertraline HCl [Zoloft] 25 mg PO DAILY 11/04/18 01/21/19 History Furosemide [Lasix] 20 mg PO DAILY 12/23/18 01/21/19 History Multivitamin [Multivitamins Adult 1 tab PO DAILY 12/23/18 01/21/19 History Gummies] Omeprazole 40 mg PO DAILY PRN 12/23/18 01/21/19 History Ferrous Sulfate [Feosol] 325 mg PO DAILY 01/21/19 01/21/19 History Lactulose 10 gm PO DAILY 01/21/19 01/21/19 History Lactulose [Constulose] 10 gm PO BID PRN 01/21/19 01/21/19 History Spironolactone 50 mg PO DAILY 01/21/19 01/21/19 History Allergies Allergy/AdvReac Type Severity Reaction Status Date / Time adhesive Allergy Rash/Hives Verified 01/21/19 23:40 morphine Allergy Rash/Hives Verified 01/21/19 23:40 sulfamethoxazole Allergy Unknown Verified 01/21/19 23:40 [From Bactrim] Tetanus Vaccines and Toxoid Allergy Swelling Verified 01/21/19 23:40 [Tetanus Vaccines & Toxoid] trimethoprim [From Bactrim] Allergy Unknown Verified 01/21/19 23:40 cigarette smoke AdvReac Cough, Verified 01/21/19 23:40 Shortness of Breath sertraline [From Zoloft] AdvReac DIZZY/Nausea Verified 01/21/19 23:40 & Vomiting skin ink Allergy Rash/Hives Uncoded 01/21/19 23:40 yellow squash Allergy Anaphylaxis Uncoded 01/21/19 23:40 dust AdvReac Mild Itching Uncoded 01/21/19 23:40 dust mites AdvReac Rash/Hives Uncoded 01/21/19 23:40 Physical Exam Vitals: Vital Signs Temp Pulse Pulse Resp BP BP Pulse Ox 01/22/19 05:44 97.9 F 86 16 101/62 99 01/22/19 00:16 97.6 F 91 18 120/59 100 01/21/19 23:30 97.8 F 85 18 121/72 100 01/21/19 22:06 97.8 F 92 20 118/70 100 Intake and Output 01/21/19 01/22/19 01/22/19 22:59 06:59 14:59 Intake Total 1140 Balance 1140 Intake: Intake, IV Titration 600 Amount Sodium Chloride 0.9% 1, 600 000 ml @ 100 mls/hr IV . Q10H STA Rx#:[id number] Oral 540 Other: Voiding Method Toilet Toilet # Voids 2 Weight 120.656 kg GENERAL: The patient is alert and oriented x3, not in any acute distress. Well developed, well nourished. HEENT: Pupils are round and equally reacting to light. EOMI. No scleral icterus. No conjunctival pallor. Normocephalic, atraumatic. No pharyngeal erythema. No thyromegaly. CARDIOVASCULAR: S1 and S2 present. No murmurs, rubs, or gallops. PULMONARY: Chest is clear to auscultation, no wheezing or crackles. ABDOMEN: Soft, nontender, nondistended, normoactive bowel sounds. No palpable organomegaly. MUSCULOSKELETAL: No joint swelling or deformity. EXTREMITIES: No cyanosis, clubbing, or pedal edema. NEUROLOGICAL: Gross neurological examination did not reveal any focal deficits. SKIN: No rashes. Results CBC & Chem 7: 01/21/19 22:34 01/21/19 22:34 Labs: Abnormal Lab Results - Last 24 Hours (Table) 01/21/19 01/21/19 01/21/19 Range/Units 22:34 22:34 22:34 Hgb 9.2 L (11.4-16.0) gm/dL Hct 32.0 L (34.0-46.0) % MCH 24.2 L (25.0-35.0) pg MCHC 28.9 L (31.0-37.0) g/dL RDW 22.0 H (11.5-15.5) % Plt Count 129 L (150-450) k/uL Sodium 136 L (137-145) mmol/L Potassium 3.3 L (3.5-5.1) mmol/L Chloride 109 H (98-107) mmol/L Carbon Dioxide 21 L (22-30) mmol/L BUN 26 H (7-17) mg/dL Creatinine 2.07 H (0.52-1.04) mg/dL Glucose 107 H (74-99) mg/dL Total Bilirubin 6.9 H (0.2-1.3) mg/dL AST 292 H (14-36) U/L ALT 153 H (9-52) U/L Alkaline Phosphatase 313 H (38-126) U/L Ammonia 79 H (<30) umol/L Total Protein 5.7 L (6.3-8.2) g/dL Albumin 2.6 L (3.5-5.0) g/dL Lipase 450 H (23-300) U/L Thrombosis Risk Factor Assmnt - Choose All That Apply Each Factor Represents 1 point: Obesity (BMI >25), Swollen legs (current) Other Risk Factors: No Thrombosis Risk Factor Assessment Total Risk Factor Score: 2 Thrombosis Risk Factor Assessment Level: Low Risk Assessment and Plan Assessment: Alcoholic liver cirrhosis, with elevated liver enzymes Ascites, fluid overload Bilateral leg edema Acute renal failure, present on admission History of EtOH abuse patient reports no active EtOH consumption. History of Lena-en-Y gastric bypass. History of cholecystectomy November 2018. Coagulopathy secondary to liver disease Chronic iron deficiency anemia. Morbid obesity BMI 41. Diabetes mellitus Plan: this is a pleasant 38 yo F who presents with abd pain and ascitis, and acute renal failure. Patient is already on Lasix, we'll increase it to 40 daily. However withhold Aldactone in view of worsening kidney function. We'll call nephrology consult rate GI team has already been consulted by each team. Labs and medication were reviewed.. Continue same treatment. Continue with symptomatic treatment. Resume home medication. Monitor lytes and vitals. DVT and GI prophylaxis. Further recommendations of the clinical course of the patient DVT prophylaxis: Subcutaneous heparin GI Prophylaxis: Pepcid Prognosis is guarded
--- NOTE | 2019-01-22 16:32 | P.CONS ---
History of Present Illness - Reason for Consult Consult date: 01/22/19 Decompensated cirrhosis Requesting physician: Hosea E Sheet - Chief Complaint Abdominal distention - History of Present Illness 38-year-old female with a history of EtOH abuse, cirrhosis, portal hypertension, ascites, iron deficiency anemia, morbid obesity, laparoscopic cholecystectomy November 2018 for chronic acalculous cholecystitis, diabetes, Harshad-en-Y gastric bypass who presents due to increasing abdominal distention. The patient was recently hospitalized for jaundice and hepatic encephalopathy at which time she was transferred to [facility]. Per the patient at that time was believed that decompensation was worsened by recent antibiotic use and a po ssible drug-induced liver injury. The patient reports having a paracentesis twice while hospitalized the first on at which time 3 L were removed and the second the following Wednesday at which time 4.7 L were removed. The patient had been discharged on furosemide 20 mg daily and Aldactone 50 mg daily in addition to lactulose which she was told to titrate to 5-6 bowel movements daily. The patient reports increasing swelling of her abdomen and legs after discharge. She reports shortness of breath in association with the abdominal distention. She denies any signs or symptoms of GI bleeding. She denies any confusion currently. She states that she started the process of being placed on the liver transplant list. On presentation to the hospital total bilirubin 7.8, alkaline phosphatase 3-43, AST 290, and ALT 151, creatinine was 2.15, INR was 1.7 and sodium was 137. Her meld sodiums was found to be 28. Review of Systems REVIEW OF SYSTEMS: CONSTITUTIONAL: Denies any fevers, chills, or fatigue, but does report weight gain. CARDIOVASCULAR: Denies any chest pain, palpitations high or low blood pressures RESPIRATORY: Denies hemoptysis or cough, but she does have shortness of breath in association with her abdominal distention. 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 MUSCULOSKELETAL: No weakness reported. SKIN: Denies any new rashes or lesions, jaundice or pallor. PSYCHIATRIC: Denies any depression or anxiety. NEUROLOGY: Denies headache, denies any new focal deficits. EARS/NOSE/THROAT: No recent hearing change, congestion, nasal discharge or sore throat. EYES: No pain in eyes, discharge or change in vision. GASTROINTESTINAL: As per HPI. Past Medical History Past Medical History: Asthma, Diabetes Mellitus, Skin Disorder, Thyroid Disorder Additional Past Medical History / Comment(s): migraines, constipation, hashimotos, eczema, no current rx for diabetes- diet control, anemia, elevated liver enzymes & retaining fluid since recent surgery-has gained 40 lbs. of fluid recently per pt. History of Any Multi-Drug Resistant Organisms: None Reported Year Discovered:: JUNE 2013 MDRO Source:: WOUND ON LEFT UPPER ABDOMEN Past Surgical History: Appendectomy, Bariatric Surgery, Section, Cholecystectomy, Orthopedic Surgery, Tubal Ligation Additional Past Surgical History / Comment(s): HARSHAD-EN-Y, left knee arthroscopy, I&D left upper abdomen; Panniculectomy Jul 2016, robotic lap. marlena 11-07-18 Past Anesthesia/Blood Transfusion Reactions: Family History of Problems w/ Anesthesia, Motion Sickness, Postoperative Nausea & Vomiting (PONV) Additional Past Anesthesia/Blood Transfusion Reaction / Comm: mother-"hard time waking up and trouble breathing" Past Psychological History: No Psychological Hx Reported Smoking Status: Never smoker - Past Family History Mother Family Medical History: No Reported History Additional Family Medical History / Comment(s): Mother had gastric bypass surgery and no longer has HTN or high cholesteral. Father Family Medical History: Diabetes Mellitus, Hyperlipidemia, Hypertension Medications and Allergies Home Medications Medication Instructions Recorded Confirmed Type Levothyroxine Sodium [Synthroid] 25 mcg PO DAILY 07/03/16 01/21/19 History Sertraline HCl [Zoloft] 25 mg PO DAILY 11/04/18 01/21/19 History Furosemide [Lasix] 20 mg PO DAILY 12/23/18 01/21/19 History Multivitamin [Multivitamins Adult 1 tab PO DAILY 12/23/18 01/21/19 History Gummies] Omeprazole 40 mg PO DAILY PRN 12/23/18 01/21/19 History Ferrous Sulfate [Feosol] 325 mg PO DAILY 01/21/19 01/21/19 History Lactulose 10 gm PO DAILY 01/21/19 01/21/19 History Lactulose [Constulose] 10 gm PO BID PRN 01/21/19 01/21/19 History Spironolactone 50 mg PO DAILY 01/21/19 01/21/19 History Allergies Allergy/AdvReac Type Severity Reaction Status Date / Time adhesive Allergy Rash/Hives Verified 01/21/19 23:40 morphine Allergy Rash/Hives Verified 01/21/19 23:40 sulfamethoxazole Allergy Unknown Verified 01/21/19 23:40 [From Bactrim] Tetanus Vaccines and Toxoid Allergy Swelling Verified 01/21/19 23:40 [Tetanus Vaccines & Toxoid] trimethoprim [From Bactrim] Allergy Unknown Verified 01/21/19 23:40 cigarette smoke AdvReac Cough, Verified 01/21/19 23:40 Shortness of Breath sertraline [From Zoloft] AdvReac DIZZY/Nausea Verified 01/21/19 23:40 & Vomiting skin ink Allergy Rash/Hives Uncoded 01/21/19 23:40 yellow squash Allergy Anaphylaxis Uncoded 01/21/19 23:40 dust AdvReac Mild Itching Uncoded 01/21/19 23:40 dust mites AdvReac Rash/Hives Uncoded 01/21/19 23:40 Physical Exam Vitals: Vital Signs Temp Pulse Pulse Resp BP BP Pulse Ox 01/22/19 12:29 97.9 F 98 18 93/57 99 01/22/19 05:44 97.9 F 86 16 101/62 99 01/22/19 00:16 97.6 F 91 18 120/59 100 01/21/19 23:30 97.8 F 85 18 121/72 100 01/21/19 22:06 97.8 F 92 20 118/70 100 Intake and Output 01/22/19 01/22/19 01/22/19 06:59 14:59 22:59 Intake Total 1140 Balance 1140 Intake: Intake, IV Titration 600 Amount Sodium Chloride 0.9% 1, 600 000 ml @ 100 mls/hr IV . Q10H STA Rx#:[id number] Oral 540 Other: Voiding Method Toilet Toilet Toilet # Voids 2 2 On physical examination, patient appears comfortable in no apparent distress. HEAD: Normocephalic, atraumatic. EYES: Mild scleral icterus. No conjunctival injection. MOUTH: No lesions, tongue midline. NECK: Trachea midline, no gross abnormalities. CHEST: Clear to auscultation with no wheezing or rhonchi appreciated. HEART: Regular rate and rhythm. ABDOMEN: Soft, obese, distended with positive fluid wave. Bowel sounds are positive. No organomegaly. No guarding or rigidity. EXTREMITIES: No pedal edema. SKIN: No rashes, no jaundice. NEUROLOGIC: Alert and oriented x3. No focal deficits. Results CBC & Chem 7: 01/22/19 12:45 01/22/19 12:45 Labs: Abnormal Lab Results - Last 24 Hours (Table) 01/21/19 01/21/19 01/21/19 Range/Units 22:34 22:34 22:34 Hgb 9.2 L (11.4-16.0) gm/dL Hct 32.0 L (34.0-46.0) % MCH 24.2 L (25.0-35.0) pg MCHC 28.9 L (31.0-37.0) g/dL RDW 22.0 H (11.5-15.5) % Plt Count 129 L (150-450) k/uL PT (9.0-12.0) sec INR (<1.2) APTT (22.0-30.0) sec Sodium 136 L (137-145) mmol/L Potassium 3.3 L (3.5-5.1) mmol/L Chloride 109 H (98-107) mmol/L Carbon Dioxide 21 L (22-30) mmol/L BUN 26 H (7-17) mg/dL Creatinine 2.07 H (0.52-1.04) mg/dL Glucose 107 H (74-99) mg/dL Total Bilirubin 6.9 H (0.2-1.3) mg/dL AST 292 H (14-36) U/L ALT 153 H (9-52) U/L Alkaline Phosphatase 313 H (38-126) U/L Ammonia 79 H (<30) umol/L Total Protein 5.7 L (6.3-8.2) g/dL Albumin 2.6 L (3.5-5.0) g/dL Lipase 450 H (23-300) U/L 01/22/19 01/22/19 01/22/19 Range/Units 12:45 12:45 12:45 Hgb 9.6 L (11.4-16.0) gm/dL Hct 33.7 L (34.0-46.0) % MCH 24.2 L (25.0-35.0) pg MCHC 28.5 L (31.0-37.0) g/dL RDW 22.1 H (11.5-15.5) % Plt Count (150-450) k/uL PT 16.6 H (9.0-12.0) sec INR 1.7 H (<1.2) APTT 34.0 H (22.0-30.0) sec Sodium (137-145) mmol/L Potassium (3.5-5.1) mmol/L Chloride (98-107) mmol/L Carbon Dioxide 20 L (22-30) mmol/L BUN 28 H (7-17) mg/dL Creatinine 2.15 H (0.52-1.04) mg/dL Glucose 117 H (74-99) mg/dL Total Bilirubin 7.8 H (0.2-1.3) mg/dL AST 298 H (14-36) U/L ALT 151 H (9-52) U/L Alkaline Phosphatase 343 H (38-126) U/L Ammonia (<30) umol/L Total Protein 5.8 L (6.3-8.2) g/dL Albumin 2.6 L (3.5-5.0) g/dL Lipase (23-300) U/L Assessment and Plan (1) Ascites Narrative/Plan: Patient with known history of decompensated cirrhosis and ascites who required paracentesis recently with 3 L and 4.7 L removed respectively who presents with increasing abdominal distention and associated shortness of breath. The patient had been on outpatient therapy with Lasix 20 mg and Aldactone 50 mg daily. Current Visit: Yes Status: Acute Code(s): R18.8 - OTHER ASCITES SNOMED Code(s): 306576345 (2) Liver cirrhosis Narrative/Plan: 38-year-old with a known history of decompensated liver cirrhosis complicated by jaundice, hepatic encephalopathy and ascites. The patient recently had acute decompensation and there is concern over a possible drug-induced liver injury in the setting of recent Bactrim use. The patient was seen at [facility] and has initiated the process of being placed on the liver transplant list. Current Visit: Yes Status: Acute Code(s): K74.60 - UNSPECIFIED CIRRHOSIS OF LIVER SNOMED Code(s): 68039336 (3) Elevated bilirubin Current Visit: Yes Status: Acute Code(s): R17 - UNSPECIFIED JAUNDICE SNOMED Code(s): 708399611 (4) Hepatic encephalopathy Current Visit: Yes Status: Acute Code(s): K72.90 - HEPATIC FAILURE, UNSPECIFIED WITHOUT COMA SNOMED Code(s): 21983094 (5) History of Harshad-en-Y gastric bypass Current Visit: No Status: Acute Code(s): Z98.84 - BARIATRIC SURGERY STATUS SNOMED Code(s): 380055760 Plan: Supportive care Low-sodium diet Okay to hold her Lasix and Aldactone in the setting of acute kidney injury, patient scheduled to be seen by the nephrology service with differential inc luding acute kidney injury, hepatorenal syndrome or other etiology Paracentesis ordered, plan to give albumin if greater than 5 L removed Avoid hepatotoxins Patient will need follow up with [facility] upon discharge Thank you for allowing us to spit in the care of the patient we will continue to follow
[2019-01-22] MEDS: LACTULOSE 20 GM/30 ML CUP PO PRN (17:12)
[2019-01-22] MEDS ORDERED: FAMOTIDINE 20 MG/2 ML VIAL IV SCH (21:00)
[2019-01-22] MEDS ORDERED: HEPARIN SODIUM,PORCINE 5,000 UNIT/ML 1 ML VIAL SQ SCH (21:00)
[2019-01-23] MEDS: LEVOTHYROXINE 25 MCG TAB PO SCH (06:23)
[2019-01-23] MEDS: HEPARIN SODIUM,PORCINE 5,000 UNIT/ML 1 ML VIAL SQ SCH ×2 (07:25→20:42)
[2019-01-23 08:21] LABS: Anisocytosis Moderate; Basophils # (A) 0.1 k/uL (0-0.2); Basophils % (A) 1 %; Eosinophils # (A) 0.3 k/uL (0-0.7); Eosinophils % (A) 4 %; HCT 32.2 % (34.0-46.0); Hypochromasia Marked; Lymphocytes # (A) 1.5 k/uL (1.0-4.8); Lymphocytes % (A) 21 %; MCH 25.2 pg (25.0-35.0); MCV 89.7 fL (80.0-100.0); Mean Platelet Volume 8.9; Monocytes # (A) 0.6 k/uL (0-1.0); Monocytes % (A) 8 %; Neutrophils # (A) 4.5 k/uL (1.3-7.7); Neutrophils % (A) 64 %; Platelet Count 108 k/uL (150-450); RBC 3.59 m/uL (3.80-5.40); RDW 20.4 % (11.5-15.5); WBC 6.9 k/uL (3.8-10.6)
[2019-01-23 08:29] LABS: INR 1.6 (<1.2)
[2019-01-23 08:30] LABS: Partial Thromboplastin Time 32.7 sec (22.0-30.0); Prothrombin Time 16.4 sec (9.0-12.0)
[2019-01-23 08:36] LABS: Albumin 2.5 g/dL (3.5-5.0); Calcium 8.4 mg/dL (8.4-10.2); Potassium 4.2 mmol/L (3.5-5.1); Total Bilirubin 7.5 mg/dL (0.2-1.3); Total Protein 5.5 g/dL (6.3-8.2)
[2019-01-23] MEDS ORDERED: FAMOTIDINE 20 MG/2 ML VIAL IV SCH (09:00)
[2019-01-23] MEDS: FERROUS SULFATE 325 MG TAB PO SCH (09:03)
[2019-01-23] MEDS: SERTRALINE 25 MG TAB PO SCH (09:03)
[2019-01-23] MEDS: LACTULOSE 20 GM/30 ML CUP PO PRN ×2 (09:28→15:57)
--- NOTE | 2019-01-23 10:11 | P.NPCON ---
History of Present Illness - Reason for Consult acute renal failure - History of Present Illness Reason for consultation: Acute kidney injury History of present illness: Patient is a 38-year-old female seen in renal consultation for acute kidney injury. Her baseline creatinine from earlier this month is near 1. It did peak at 2.15 this admission and is down to 1.75 today. Patient has history of liver cirrhosis and underwent a kidney biopsy last week it [facility] which was suggestive of drug-induced injury possibly Bactrim. She also underwent paracentesis but most recent one being last Wednesday. Patient states she was discharged but noticed abdominal distention which was progressively worsening. She was taking Lasix and Aldactone at home. She has been voiding. No hematuria or dysuria. Denies use of nonsteroidals. No vomiting or diarrhea. No pain at this time. No family history of renal disease. Vital signs are stable. General: The patient appeared well nourished and normally developed. HEENT: Head exam is unremarkable. Neck is without jugular venous distension. LUNGS: Lungs are clear to auscultation and percussion. Breath sounds decreased. HEART: Rate and Rhythm are regular. First and second heart sounds normal. No murmurs, rubs or gallops. ABDOMEN: Distention noted. Bowel sounds present. EXTREMITITES: 2+ edema. Past Medical History Past Medical History: Asthma, Diabetes Mellitus, Skin Disorder, Thyroid Disorder Additional Past Medical History / Comment(s): migraines, constipation, hashimotos, eczema, no current rx for diabetes- diet control, anemia, elevated liver enzymes & retaining fluid since recent surgery-has gained 40 lbs. of fluid recently per pt. History of Any Multi-Drug Resistant Organisms: None Reported Date of last positivie culture/infection: JUNE 2013 MDRO Source:: WOUND ON LEFT UPPER ABDOMEN Past Surgical History: Appendectomy, Bariatric Surgery, Section, Ch olecystectomy, Orthopedic Surgery, Tubal Ligation Additional Past Surgical History / Comment(s): LENA-EN-Y, left knee arthroscopy, I&D left upper abdomen; Panniculectomy Jul 2016, robotic lap. marlena 11-07-18 Past Anesthesia/Blood Transfusion Reactions: Family History of Problems w/ Anesthesia, Motion Sickness, Postoperative Nausea & Vomiting (PONV) Additional Past Anesthesia/Blood Transfusion Reaction / Comment(s): mother-"hard time waking up and trouble breathing" Past Psychological History: No Psychological Hx Reported Smoking Status: Never smoker - Past Family History Mother Family Medical History: No Reported History Additional Family Medical History / Comment(s): Mother had gastric bypass surgery and no longer has HTN or high cholesteral. Father Family Medical History: Diabetes Mellitus, Hyperlipidemia, Hypertension Medications and Allergies Home Medications Medication Instructions Recorded Confirmed Type Levothyroxine Sodium [Synthroid] 25 mcg PO DAILY 07/03/16 01/21/19 History Sertraline HCl [Zoloft] 25 mg PO DAILY 11/04/18 01/21/19 History Furosemide [Lasix] 20 mg PO DAILY 12/23/18 01/21/19 History Multivitamin [Multivitamins Adult 1 tab PO DAILY 12/23/18 01/21/19 History Gummies] Omeprazole 40 mg PO DAILY PRN 12/23/18 01/21/19 History Ferrous Sulfate [Feosol] 325 mg PO DAILY 01/21/19 01/21/19 History Lactulose 10 gm PO DAILY 01/21/19 01/21/19 History Lactulose [Constulose] 10 gm PO BID PRN 01/21/19 01/21/19 History Spironolactone 50 mg PO DAILY 01/21/19 01/21/19 History Allergies Allergy/AdvReac Type Severity Reaction Status Date / Time adhesive Allergy Rash/Hives Verified 01/21/19 23:40 morphine Allergy Rash/Hives Verified 01/21/19 23:40 sulfamethoxazole Allergy Unknown Verified 01/21/19 23:40 [From Bactrim] Tetanus Vaccines and Toxoid Allergy Swelling Verified 01/21/19 23:40 [Tetanus Vaccines & Toxoid] trimethoprim [From Bactrim] Allergy Unknown Verified 01/21/19 23:40 cigarette smoke AdvReac Cough, Verified 01/21/19 23:40 Shortness of Breath sertraline [From Zoloft] AdvReac DIZZY/Nausea Verified 01/21/19 23:40 & Vomiting skin ink Allergy Rash/Hives Uncoded 01/21/19 23:40 yellow squash Allergy Anaphylaxis Uncoded 01/21/19 23:40 dust AdvReac Mild Itching Uncoded 01/21/19 23:40 dust mites AdvReac Rash/Hives Uncoded 01/21/19 23:40 Physical Exam Vitals: Vital Signs Temp Pulse Pulse Pulse Resp BP Pulse Ox 01/23/19 05:56 97.4 F L 86 16 101/62 100 01/22/19 21:07 98 F 104 H 16 107/61 96 01/22/19 12:29 97.9 F 98 18 93/57 99 Intake and Output 01/22/19 01/23/19 01/23/19 22:59 06:59 14:59 Intake Total 550 Balance 550 Intake: Oral 550 Other: Voiding Method Toilet Toilet Toilet # Voids 1 1 Results - Lab Results Most recent lab results Calcium 8.4 mg/dL (8.4-10.2) 01/23/19 07:31 01/23/19 07:31 01/23/19 07:31 Assessment and Plan Plan: Assessment: 1. Acute kidney injury mostly prerenal secondary to diuresis. However there is concern for hepatorenal syndrome. Creatinine peaked at 2.15 this admission and is 1.7 today. Baseline creatinine near 1. 2. Liver cirrhosis status post liver biopsy last week at [facility]. ? Drug-induced injury. 3. Ascites scheduled for paracentesis possibly today. 4. Generalized edema. 5. Metabolic acidosis secondary to acute kidney injury. Plan: Start Lasix 40 mg IV twice daily. 1500 mL fluid restriction. Follow-up abdominal ultrasound. 25 g of IV abdomen prior to paracentesis. An additional 25 g if more than 5 L removed. Continue to monitor renal function and urine output. Check urinalysis. Thank you for the consultation. I will continue to follow the patient with you during her hospital stay.
--- NOTE | 2019-01-23 11:01 | US ---
EXAMINATION TYPE: US abdomen limited DATE OF EXAM: 01/23/2019 COMPARISON: US CLINICAL HISTORY: evaluate for ascites. All four quadrants scanned, and there is fluid in all four quadrants. IMPRESSION: Small volume abdominopelvic ascites.
[2019-01-23] MEDS: FUROSEMIDE 10 MG/ML 4 ML VIAL IV SCH ×2 (11:03→20:42)
--- NOTE | 2019-01-23 16:31 | P.PN ---
Subjective Progress Note Date: 01/23/19 Interval history: This is a pleasant 38 years old female with past medical history of asthma, diabetes mellitus, migraine, Aury thyroiditis and eczema, alcoholic cirrhosis and history of hepatic encephalopathy. Patient was recently discharged from the hospital for hepatic encephalopathy. Patient follow-up with [facility], last week she had With colostomy bag on the right side to collect extra fluids from her ascites. Presents because of increasing abdominal distention and difficulty breathing, mostly related to her ascites. Patient denies abdominal pain no nausea vomiting, she eating drinking regularly. She has frequent bowel movements which were summoned lose about 6-7 times per day, regulated by lactulose 15 gm twice a day. Also at home she is on Lasix 20 mg and Aldactone 50 mg daily. On admission labs were reviewed, CBC was unremarkable, sodium 136, potassium 3.3, creatinine 2.0 which is elevated, total bilirubin is 6.9 and elevated liver enzymes, patient has history of elevated liver enzymes too 01/23/2019 creatinine improved, down to 1.75 today. Awaiting paracentesis- rescheduled for tomorrow. INR 1.6. Complains of mild abdominal discomfort. Maintaining O2 sats of 9090s on room air. Evaluated by nephrology with recommendations noted. Denies chest pain, palpitations or increasing shortness of breath. Objective - Vital Signs Vital signs: Vital Signs Temp 97.6 F 01/23/19 12:38 Pulse 105 H 01/23/19 12:38 Resp 16 01/23/19 12:38 BP 136/79 01/23/19 12:38 Pulse Ox 99 01/23/19 12:38 Intake & Output 01/22/19 01/23/19 01/23/19 18:59 06:59 18:59 Intake Total 550 Balance 550 Intake: Oral 550 Other: Voiding Method Toilet Toilet Toilet # Voids 2 1 1 - Exam GENERAL: The patient is alert and oriented x3, not in any acute distress. Well developed, well nourished. HEENT: Pupils are round and equally reacting to light. EOMI. No scleral icterus. No conjunctival pallor. Normocephalic, atraumatic. No pharyngeal erythema. No thyromegaly. CARDIOVASCULAR: S1 and S2 present. No murmurs, rubs, or gallops. PULMONARY: Chest is clear to auscultation, no wheezing or crackles. ABDOMEN: firm, distended, mild diffuse tenderness, positive ascites, normoactive bowel sounds. No palpable organomegaly. MUSCULOSKELETAL: No joint swelling or deformity. EXTREMITIES: No cyanosis, clubbing. positive pedal edema. NEUROLOGICAL: Gross neurological examination did not reveal any focal deficits. SKIN: No rashes. - Labs CBC & Chem 7: 01/23/19 07:31 01/23/19 07:31 Labs: Abnormal Lab Results - Last 24 Hours (Table) 01/23/19 01/23/19 01/23/19 Range/Units 07:31 07:31 07:31 RBC 3.59 L (3.80-5.40) m/uL Hgb 9.0 L (11.4-16.0) gm/dL Hct 32.2 L (34.0-46.0) % MCHC 28.0 L (31.0-37.0) g/dL RDW 20.4 H (11.5-15.5) % Plt Count 108 L (150-450) k/uL PT 16.4 H (9.0-12.0) sec INR 1.6 H (<1.2) APTT 32.7 H (22.0-30.0) sec Chloride 111 H (98-107) mmol/L Carbon Dioxide 19 L (22-30) mmol/L BUN 31 H (7-17) mg/dL Creatinine 1.75 H (0.52-1.04) mg/dL Glucose 123 H (74-99) mg/dL Total Bilirubin 7.5 H (0.2-1.3) mg/dL AST 273 H (14-36) U/L ALT 147 H (9-52) U/L Alkaline Phosphatase 308 H (38-126) U/L Total Protein 5.5 L (6.3-8.2) g/dL Albumin 2.5 L (3.5-5.0) g/dL Assessment and Plan Assessment: Alcoholic liver cirrhosis, with elevated liver enzymes Ascites, fluid overload Bilateral leg edema Acute renal failure, present on admission, mostly prerenal secondary to diuresis, possible hepatorenal syndrome. Baseline creatinine 1. History of EtOH abuse patient reports no active EtOH consumption. History of Harshad-en-Y gastric bypass. History of cholecystectomy November 2018. Coagulopathy secondary to liver disease Chronic iron deficiency anemia. Morbid obesity BMI 41. Diabetes mellitus Plan: Continue on current medication regime ,monitoring and symptomatic treatment. Maintain fluid restrictions. Diuretics as per nephrology. Abdominal ultrasound ordered Scheduled for paracentesis tomorrow. Close monitoring of renal function with repeat labs ordered for a.m. Discharge planning in progress for tomorrow after paracentesis completed. The impression and plan of care has been dictated as directed. : I performed a history and examination of this patient, discussed the same with the dictator. I agree with the dictator's note ,documented as a scribe. Any additional findings or plans will be noted.
--- NOTE | 2019-01-23 20:29 | P.PN ---
Subjective Progress Note Date: 01/23/19 Principal diagnosis: Decompensated cirrhosis with ascites The patient is seen lying in bed, so complaining of abdominal ascites and lower extremity swelling. No nausea or vomiting. No abdominal pain but still reporting distention. Reports good nonbloody bowel movements with lactulose. Objective - Vital Signs Vital signs: Vital Signs Temp 97.6 F 01/23/19 12:38 Pulse 105 H 01/23/19 12:38 Resp 16 01/23/19 12:38 BP 136/79 01/23/19 12:38 Pulse Ox 99 01/23/19 12:38 Intake & Output 01/23/19 01/23/19 01/24/19 06:59 18:59 06:59 Intake Total 550 Balance 550 Intake: Oral 550 Other: Voiding Method Toilet Toilet # Voids 1 1 - Exam On physical examination, patient appears comfortable in no apparent distress. HEAD: Normocephalic, atraumatic. EYES: No scleral icterus. No conjunctival injection. MOUTH: No lesions, tongue midline. NECK: Trachea midline, no gross abnormalities. CHEST: Clear to auscultation with no wheezing or rhonchi appreciated. HEART: Regular rate and rhythm. ABDOMEN: Soft, distended with positive fluid wave. Bowel sounds are positive. No organomegaly. No guarding or rigidity. EXTREMITIES: No pedal edema. SKIN: No rashes, no jaundice. NEUROLOGIC: Alert and oriented x3. No focal deficits. No asterixis noted. - Labs CBC & Chem 7: 01/23/19 07:31 01/23/19 07:31 Labs: Abnormal Lab Results - Last 24 Hours (Table) 01/23/19 01/23/19 01/23/19 Range/Units 07:31 07:31 07:31 RBC 3.59 L (3.80-5.40) m/uL Hgb 9.0 L (11.4-16.0) gm/dL Hct 32.2 L (34.0-46.0) % MCHC 28.0 L (31.0-37.0) g/dL RDW 20.4 H (11.5-15.5) % Plt Count 108 L (150-450) k/uL PT 16.4 H (9.0-12.0) sec INR 1.6 H (<1.2) APTT 32.7 H (22.0-30.0) sec Chloride 111 H (98-107) mmol/L Carbon Dioxide 19 L (22-30) mmol/L BUN 31 H (7-17) mg/dL Creatinine 1.75 H (0.52-1.04) mg/dL Glucose 123 H (74-99) mg/dL Total Bilirubin 7.5 H (0.2-1.3) mg/dL AST 273 H (14-36) U/L ALT 147 H (9-52) U/L Alkaline Phosphatase 308 H (38-126) U/L Total Protein 5.5 L (6.3-8.2) g/dL Albumin 2.5 L (3.5-5.0) g/dL Assessment and Plan (1) Ascites Narrative/Plan: Patient with known history of decompensated cirrhosis and ascites who required paracentesis recently with 3 L and 4.7 L removed respectively who presents with increasing abdominal distention and associated shortness of breath. The patient had been on outpatient therapy with Lasix 20 mg and Aldactone 50 mg daily. Current Visit: Yes Status: Acute Code(s): R18.8 - OTHER ASCITES SNOMED Code(s): 932770347 (2) Liver cirrhosis Narrative/Plan: 38-year-old with a known history of decompensated liver cirrhosis complicated by jaundice, hepatic encephalopathy and ascites. The patient recently had acute decompensation and there is concern over a possible drug-induced liver injury in the setting of recent Bactrim use. The patient was seen at [facility] and has initiated the process of being placed on the liver transplant list. Current Visit: Yes Status: Acute Code(s): K74.60 - UNSPECIFIED CIRRHOSIS OF LIVER SNOMED Code(s): 69196119 (3) Elevated bilirubin Current Visit: Yes Status: Acute Code(s): R17 - UNSPECIFIED JAUNDICE SNOMED Code(s): 909735223 (4) Hepatic encephalopathy Current Visit: Yes Status: Acute Code(s): K72.90 - HEPATIC FAILURE, UNSPECIFIED WITHOUT COMA SNOMED Code(s): 07276077 (5) History of Harshad-en-Y gastric bypass Current Visit: No Status: Acute Code(s): Z98.84 - BARIATRIC SURGERY STATUS SNOMED Code(s): 060655441 Plan: Supportive care Low-sodium diet Appreciate nephrology recommendations Lasix twice daily added today Paracentesis pending, plan to give albumin if greater than 5 L removed Avoid hepatotoxins Patient will need follow up with [facility] upon discharge Continue lactulose Thank you for allowing us to spit in the care of the patient we will continue to follow
[2019-01-23] MEDS: traMADol 50 MG TAB PO PRN (20:41)
[2019-01-24 01:39] LABS: Appearance,Urine Clear (Clear); Bilirubin,Urine Negative (Negative); Blood,Urine Negative (Negative); Color,Urine Yellow; Glucose,Urine (UA) Negative (Negative); Ketones,Urine Negative (Negative); Leukocyte Esterase,Urine Negative (Negative); Nitrite,Urine Negative (Negative); PH, Urine 5.5 (5.0-8.0); Protein,Urine Negative (Negative); Specific Gravity,Urine 1.013 (1.001-1.035); Urobilinogen,Urine <2.0 mg/dL (<2.0)
[2019-01-24] MEDS: traMADol 50 MG TAB PO PRN ×2 (03:11→20:37)
[2019-01-24] MEDS: MELATONIN 1 MG TAB PO PRN ×2 (03:57→23:06)
[2019-01-24] MEDS: HEPARIN SODIUM,PORCINE 5,000 UNIT/ML 1 ML VIAL SQ SCH ×2 (05:53→20:33)
[2019-01-24] MEDS: FUROSEMIDE 10 MG/ML 4 ML VIAL IV SCH ×3 (08:08→23:03)
[2019-01-24] MEDS: LEVOTHYROXINE 25 MCG TAB PO SCH (08:08)
[2019-01-24 08:52] LABS: INR 1.6 (<1.2); Partial Thromboplastin Time 31.7 sec (22.0-30.0); Prothrombin Time 15.8 sec (9.0-12.0)
[2019-01-24 08:58] LABS: Albumin 2.8 g/dL (3.5-5.0); Calcium 8.8 mg/dL (8.4-10.2); Magnesium 2.2 mg/dL (1.6-2.3); Potassium 4.1 mmol/L (3.5-5.1); Total Bilirubin 8.1 mg/dL (0.2-1.3); Total Protein 5.9 g/dL (6.3-8.2)
[2019-01-24] MEDS ORDERED: ALBUMIN HUMAN 25% 50 ML in EMPTY BAG 1 BAG IVPB ONE (09:00)
[2019-01-24 09:08] LABS: Anisocytosis Moderate; Basophils # (A) 0.1 k/uL (0-0.2); Basophils % (A) 1 %; Eosinophils # (A) 0.3 k/uL (0-0.7); Eosinophils % (A) 2 %; HGB 9.4 gm/dL (11.4-16.0); Hypochromasia Marked; Lymphocytes # (A) 1.5 k/uL (1.0-4.8); Lymphocytes % (A) 14 %; MCH 25.6 pg (25.0-35.0); MCHC 29.4 g/dL (31.0-37.0); Mean Platelet Volume 8.6; Microcytosis Slight; Monocytes # (A) 0.8 k/uL (0-1.0); Monocytes % (A) 7 %; Neutrophils # (A) 8.1 k/uL (1.3-7.7); Neutrophils % (A) 75 %; Platelet Count 158 k/uL (150-450); RBC 3.68 m/uL (3.80-5.40); RDW 20.5 % (11.5-15.5); WBC 10.9 k/uL (3.8-10.6)
--- NOTE | 2019-01-24 10:08 | P.PN ---
Subjective Patient is seen in follow-up for acute kidney injury. Renal function is improving. Creatinine is down to 1.55 today. She is maintained on Lasix 40 mg IV twice daily. She admits to good urine output. Still quite edematous. She is scheduled for paracentesis today. No vomiting or diarrhea. Vital signs are stable. General: The patient appeared well nourished and normally developed. HEENT: Head exam is unremarkable. Neck is without jugular venous distension. LUNGS: Lungs are clear to auscultation and percussion. Breath sounds decreased. HEART: Rate and Rhythm are regular. First and second heart sounds normal. No murmurs, rubs or gallops. ABDOMEN: Abdomen soft. EXTREMITITES: 2+ edema. Objective - Vital Signs Vital signs: Vital Signs Temp 97.6 F 01/24/19 09:41 Pulse 104 H 01/24/19 09:41 Resp 14 01/24/19 09:41 BP 119/52 01/24/19 09:41 Pulse Ox 100 01/24/19 09:41 Intake & Output 01/23/19 01/24/19 01/24/19 18:59 06:59 18:59 Intake Total 940 Balance 940 Intake: Oral 940 Other: Voiding Method Toilet Toilet Toilet # Voids 1 3 - Labs CBC & Chem 7: 01/24/19 07:53 01/24/19 07:53 Labs: Abnormal Lab Results - Last 24 Hours (Table) 01/24/19 01/24/19 01/24/19 Range/Units 07:53 07:53 07:53 WBC 10.9 H (3.8-10.6) k/uL RBC 3.68 L (3.80-5.40) m/uL Hgb 9.4 L (11.4-16.0) gm/dL Hct 32.0 L (34.0-46.0) % MCHC 29.4 L (31.0-37.0) g/dL RDW 20.5 H (11.5-15.5) % Neutrophils # 8.1 H (1.3-7.7) k/uL PT 15.8 H (9.0-12.0) sec INR 1.6 H (<1.2) APTT 31.7 H (22.0-30.0) sec Chloride 108 H (98-107) mmol/L BUN 30 H (7-17) mg/dL Creatinine 1.55 H (0.52-1.04) mg/dL Total Bilirubin 8.1 H (0.2-1.3) mg/dL AST 290 H (14-36) U/L ALT 157 H (9-52) U/L Alkaline Phosphatase 346 H (38-126) U/L Total Protein 5.9 L (6.3-8.2) g/dL Albumin 2.8 L (3.5-5.0) g/dL Assessment and Plan Plan: Assessment: 1. Acute kidney injury with concern for hepatorenal syndrome. Creatinine peaked at 2.15 this admission and is 1.55 today. Baseline creatinine near 1. Urinalysis is benign. 2. Liver cirrhosis status post liver biopsy last week at [facility]. ?Drug-induced injury. 3. Ascites scheduled for paracentesis today. 4. Generalized edema. 5. Metabolic acidosis secondary to acute kidney injury. Better. Plan: Increase Lasix to 40 mg IV 3 times daily. Maintain 1500 mL fluid restriction. Low-salt diet. Check renal ultrasound. 25 g of IV abdomen prior to paracentesis. An additional 25 g if more than 5 L removed. Continue to monitor renal function and urine output.
--- NOTE | 2019-01-24 11:01 | P.PN ---
Subjective Progress Note Date: 01/24/19 off floor for procedure/paracentesis Objective - Vital Signs Vital signs: Vital Signs Temp 97.6 F 01/24/19 09:41 Pulse 102 H 01/24/19 10:45 Resp 14 01/24/19 10:45 BP 108/50 01/24/19 10:45 Pulse Ox 100 01/24/19 10:45 Intake & Output 01/23/19 01/24/19 01/24/19 18:59 06:59 18:59 Intake Total 940 Balance 940 Intake: Oral 940 Other: Voiding Method Toilet Toilet Toilet # Voids 1 3 - Labs CBC & Chem 7: 01/24/19 07:53 01/24/19 07:53 Labs: Abnormal Lab Results - Last 24 Hours (Table) 01/24/19 01/24/19 01/24/19 Range/Units 07:53 07:53 07:53 WBC 10.9 H (3.8-10.6) k/uL RBC 3.68 L (3.80-5.40) m/uL Hgb 9.4 L (11.4-16.0) gm/dL Hct 32.0 L (34.0-46.0) % MCHC 29.4 L (31.0-37.0) g/dL RDW 20.5 H (11.5-15.5) % Neutrophils # 8.1 H (1.3-7.7) k/uL PT 15.8 H (9.0-12.0) sec INR 1.6 H (<1.2) APTT 31.7 H (22.0-30.0) sec Chloride 108 H (98-107) mmol/L BUN 30 H (7-17) mg/dL Creatinine 1.55 H (0.52-1.04) mg/dL Total Bilirubin 8.1 H (0.2-1.3) mg/dL AST 290 H (14-36) U/L ALT 157 H (9-52) U/L Alkaline Phosphatase 346 H (38-126) U/L Total Protein 5.9 L (6.3-8.2) g/dL Albumin 2.8 L (3.5-5.0) g/dL
--- NOTE | 2019-01-24 11:19 | US ---
Therapeutic paracentesis. DATE OF EXAM: 01/24/2019 CLINICAL HISTORY: Ascites The procedure was discussed with the patient. The risks, complications, benefits, and alternatives we re discussed and any questions were answered. Informed consent was obtained. The patient was placed s upine on the ultrasound table and prepped and draped in the usual sterile fashion. All elements of maximal barrier technique were utilized. Under ultrasound guidance, access into the right lower quadrant was obtained, via the paracentesis catheter system and direct ultrasound guidanc e. Approximately 2 liters of straw-colored fluid was removed. The patient was stable throughout the proc edure and remained stable upon discharge from Department of Radiology. IMPRESSION: Successful therapeutic paracentesis under ultrasound guidance.
--- NOTE | 2019-01-24 11:19 | US ---
EXAMINATION TYPE: US kidneys/renal and bladder DATE OF EXAM: 01/24/2019 COMPARISON: NONE CLINICAL HISTORY: surinder. EXAM MEASUREMENTS: Right Kidney: 10.5 x 4.5 x 5.1 cm Left Kidney: 11.0 x 5.5 x 5.4 cm Right Kidney: No hydronephrosis or nephrolithiasis seen, inferior pole obscured by bowel gas Left Kidney: No hydronephrosis or nephrolithiasis seen, inferior pole obscured by bowel gas Bladder: not visualized Small amount of ascites noted IMPRESSION: No hydronephrosis or nephrolithiasis. Small amount of ascites noted.
[2019-01-24] MEDS: SERTRALINE 25 MG TAB PO SCH (12:09)
[2019-01-24] MEDS: LACTULOSE 20 GM/30 ML CUP PO PRN (12:09)
[2019-01-24] MEDS: FERROUS SULFATE 325 MG TAB PO SCH (12:09)
[2019-01-24] MEDS: FAMOTIDINE 20 MG TAB PO SCH (12:09)
--- NOTE | 2019-01-24 13:02 | P.PN ---
Subjective Progress Note Date: 01/24/19 Principal diagnosis: ETOH liver cirrhosis ascites Status post 2 L removal paracentesis received albumin. White count 10.9. Hemoglobin 9.4. INR 1.6. Total bilirubin 8.1. AST 290. ALT 157. AP 346. Ammonia pending. Objective - Vital Signs Vital signs: Vital Signs Temp 98 F 01/24/19 12:34 Pulse 107 H 01/24/19 12:34 Resp 18 01/24/19 12:34 BP 149/79 01/24/19 12:34 Pulse Ox 100 01/24/19 12:34 Intake & Output 01/23/19 01/24/19 01/24/19 18:59 06:59 18:59 Intake Total 940 Balance 940 Intake: Oral 940 Other: Voiding Method Toilet Toilet Toilet # Voids 1 3 - Exam General appearance: The patient is alert, oriented, in no acute distress. Jaundice. Appropriate but slow to response. HET: Head is normocephalic and atraumatic. Pupils are equal and reactive. Sclerae icterus. Oropharynx is clear without lesions. Neck: Supple without lymphadenopathy. Trachea midline. Heart: S1 S2. Regular rate and rhythm. Lungs: No crackles or wheezes are heard. Abdomen: Soft, nontender, nondistended with bowel sounds. No peritoneal signs. No palpable organomegaly or masses. Extremities: Normal skin color and turgor. No cyanosis, rash, ulceration, clubbing, or edema. Radial and pedal pulses are 2/4 bilaterally. Neurological: No focal deficits. Strength and sensation are grossly intact. - Labs CBC & Chem 7: 01/24/19 07:53 01/24/19 07:53 Labs: Abnormal Lab Results - Last 24 Hours (Table) 01/24/19 01/24/19 01/24/19 Range/Units 07:53 07:53 07:53 WBC 10.9 H (3.8-10.6) k/uL RBC 3.68 L (3.80-5.40) m/uL Hgb 9.4 L (11.4-16.0) gm/dL Hct 32.0 L (34.0-46.0) % MCHC 29.4 L (31.0-37.0) g/dL RDW 20.5 H (11.5-15.5) % Neutrophils # 8.1 H (1.3-7.7) k/uL PT 15.8 H (9.0-12.0) sec INR 1.6 H (<1.2) APTT 31.7 H (22.0-30.0) sec Chloride 108 H (98-107) mmol/L BUN 30 H (7-17) mg/dL Creatinine 1.55 H (0.52-1.04) mg/dL Total Bilirubin 8.1 H (0.2-1.3) mg/dL AST 290 H (14-36) U/L ALT 157 H (9-52) U/L Alkaline Phosphatase 346 H (38-126) U/L Total Protein 5.9 L (6.3-8.2) g/dL Albumin 2.8 L (3.5-5.0) g/dL Assessment and Plan (1) Ascites Current Visit: Yes Status: Acute Code(s): R18.8 - OTHER ASCITES SNOMED Code(s): 601931362 (2) Elevated bilirubin Current Visit: Yes Status: Acute Code(s): R17 - UNSPECIFIED JAUNDICE SNOMED Code(s): 610706833 (3) Hepatic encephalopathy Current Visit: Yes Status: Acute Code(s): K72.90 - HEPATIC FAILURE, UNSPECIFIED WITHOUT COMA SNOMED Code(s): 60746412 (4) Liver cirrhosis Current Visit: Yes Status: Acute Code(s): K74.60 - UNSPECIFIED CIRRHOSIS OF LIVER SNOMED Code(s): 68533369 (5) History of Harshad-en-Y gastric bypass Current Visit: No Status: Acute Code(s): Z98.84 - BARIATRIC SURGERY STATUS SNOMED Code(s): 256261711 Plan: Status post paracentesis. Trend serum ammonia. Patient is slow to respond but appropriate continue Lactulose 20 g twice daily. Continue diuretics. Low sodium diet. Supportive measures. Avoid hepatotoxins. Follow with [facility] after discharge. Assessment and plan a care discussed with Dr. Talavera
[2019-01-24] MEDS ORDERED: LACTULOSE 20 GM/30 ML CUP PO SCH (13:24)
[2019-01-24 15:15] LABS: Color,BF Yellow
[2019-01-24 15:17] LABS: Appearance,BF Hazy
--- NOTE | 2019-01-24 15:47 | P.PN ---
Subjective Progress Note Date: 01/24/19 Interval history: This is a pleasant 38 years old female with past medical history of asthma, diabetes mellitus, migraine, Aury thyroiditis and eczema, alcoholic cirrhosis and history of hepatic encephalopathy. Patient was recently discharged from the hospital for hepatic encephalopathy. Patient follow-up with [facility], last week she had With colostomy bag on the right side to collect extra fluids from her ascites. Presents because of increasing abdominal distention and difficulty breathing, mostly related to her ascites. Patient denies abdominal pain no nausea vomiting, she eating drinking regularly. She has frequent bowel movements which were summoned lose about 6-7 times per day, regulated by lactulose 15 gm twice a day. Also at home she is on Lasix 20 mg and Aldactone 50 mg daily. On admission labs were reviewed, CBC was unremarkable, sodium 136, potassium 3.3, creatinine 2.0 which is elevated, total bilirubin is 6.9 and elevated liver enzymes, patient has history of elevated liver enzymes too 01/23/2019 creatinine improved, down to 1.75 today. Awaiting paracentesis- rescheduled for tomorrow. INR 1.6. Complains of mild abdominal discomfort. Maintaining O2 sats of 9090s on room air. Evaluated by nephrology with recommendations noted. Denies chest pain, palpitations or increasing shortness of breath. 01/24/2019 maintained on Lasix IV push ,scheduled for paracentesis this morning. INR 1.6, total bili went 8.1, LFTs noted. Renal function improving,creatinine 1.55. Renal ultrasound reporting no hydronephrosis. Mild tachycardia. Objective - Vital Signs Vital signs: Vital Signs Temp 98 F 01/24/19 12:34 Pulse 107 H 01/24/19 12:34 Resp 18 01/24/19 12:34 BP 149/79 01/24/19 12:34 Pulse Ox 100 01/24/19 12:34 Intake & Output 01/23/19 01/24/19 01/24/19 18:59 06:59 18:59 Intake Total 940 Balance 940 Intake: Oral 940 Other: Voiding Method Toilet Toilet Toilet # Voids 1 3 - Exam GENERAL: The patient is alert and oriented x3, not in any acute distress. Jaundiced. HEENT: Pupils are round and equally reacting to light. EOMI. No scleral icterus. No conjunctival pallor. Normocephalic, atraumatic. CARDIOVASCULAR: S1 and S2 present. No murmurs, rubs, or gallops. Tachycardic. PULMONARY: Chest is clear to auscultation, bilateral bases diminished ,no wheezing or crackles. ABDOMEN: Firm, distended, mild diffuse tenderness, positive ascites, normoactive bowel sounds. No palpable organomegaly. MUSCULOSKELETAL: No joint swelling or deformity. EXTREMITIES: No cyanosis, clubbing. positive pedal edema. NEUROLOGICAL: Gross neurological examination did not reveal any focal deficits. SKIN: No rashes. - Labs CBC & Chem 7: 01/24/19 07:53 01/24/19 07:53 Labs: Abnormal Lab Results - Last 24 Hours (Table) 01/24/19 01/24/19 01/24/19 Range/Units 07:53 07:53 07:53 WBC 10.9 H (3.8-10.6) k/uL RBC 3.68 L (3.80-5.40) m/uL Hgb 9.4 L (11.4-16.0) gm/dL Hct 32.0 L (34.0-46.0) % MCHC 29.4 L (31.0-37.0) g/dL RDW 20.5 H (11.5-15.5) % Neutrophils # 8.1 H (1.3-7.7) k/uL PT 15.8 H (9.0-12.0) sec INR 1.6 H (<1.2) APTT 31.7 H (22.0-30.0) sec Chloride 108 H (98-107) mmol/L BUN 30 H (7-17) mg/dL Creatinine 1.55 H (0.52-1.04) mg/dL Total Bilirubin 8.1 H (0.2-1.3) mg/dL AST 290 H (14-36) U/L ALT 157 H (9-52) U/L Alkaline Phosphatase 346 H (38-126) U/L Ammonia (<30) umol/L Total Protein 5.9 L (6.3-8.2) g/dL Albumin 2.8 L (3.5-5.0) g/dL 01/24/19 Range/Units 12:49 WBC (3.8-10.6) k/uL RBC (3.80-5.40) m/uL Hgb (11.4-16.0) gm/dL Hct (34.0-46.0) % MCHC (31.0-37.0) g/dL RDW (11.5-15.5) % Neutrophils # (1.3-7.7) k/uL PT (9.0-12.0) sec INR (<1.2) APTT (22.0-30.0) sec Chloride (98-107) mmol/L BUN (7-17) mg/dL Creatinine (0.52-1.04) mg/dL Total Bilirubin (0.2-1.3) mg/dL AST (14-36) U/L ALT (9-52) U/L Alkaline Phosphatase (38-126) U/L Ammonia 94 H (<30) umol/L Total Protein (6.3-8.2) g/dL Albumin (3.5-5.0) g/dL Assessment and Plan Assessment: Alcoholic liver cirrhosis, with elevated liver enzymes Ascites, fluid overload Bilateral leg edema Acute renal failure, present on admission, mostly prerenal secondary to diuresis, possible hepatorenal syndrome. Baseline creatinine 1. History of EtOH abuse patient reports no active EtOH consumption. History of Harshad-en-Y gastric bypass. History of cholecystectomy November 2018. Coagulopathy secondary to liver disease Chronic iron deficiency anemia. Morbid obesity BMI 41. Diabetes mellitus Liver cirrhosis, status post liver biopsy last week at [facility] Metabolic acidosis secondary to acute renal failure, improving Plan: Continue on current medication regime ,monitoring and symptomatic treatment. Maintain fluid restrictions. Diuretics increased as per nephrology. Paracentesis pending. Close monitoring of renal function with repeat labs ordered for a.m. Discharge planning in progress for tomorrow, pt mildly tachycardic today. The impression and plan of care has been dictated as directed. : I performed a history and examination of this patient, discussed the same with the dictator. I agree with the dictator's note ,documented as a scribe. Any additional findings or plans will be noted.
[2019-01-24 16:02] LABS: Nucleated Cells, Body Fluid 44 /uL; RBC, Body Fluid 590 /uL
[2019-01-24 16:04] LABS: Mononuclear WBC,Body Fluid 40 %; Polynuclear WBC,Body Fluid 60 %; Total Cells Counted,Body Fluid 100
[2019-01-24] MEDS: LACTULOSE 20 GM/30 ML CUP PO SCH ×2 (17:10→23:03)
[2019-01-24] MEDS ORDERED: LACTULOSE 20 GM/30 ML CUP PO ONE (20:14)
[2019-01-25] MEDS: LEVOTHYROXINE 25 MCG TAB PO SCH (06:07)
[2019-01-25] MEDS: traMADol 50 MG TAB PO PRN (06:09)
[2019-01-25 07:40] LABS: INR 1.6 (<1.2); Partial Thromboplastin Time 33.1 sec (22.0-30.0); Prothrombin Time 16.4 sec (9.0-12.0)
[2019-01-25 07:41] LABS: Anisocytosis Moderate; Basophils # (A) 0.1 k/uL (0-0.2); Basophils % (A) 1 %; Eosinophils # (A) 0.2 k/uL (0-0.7); Eosinophils % (A) 3 %; HCT 32.2 % (34.0-46.0); Hypochromasia Marked; Lymphocytes # (A) 1.6 k/uL (1.0-4.8); Lymphocytes % (A) 18 %; MCH 25.2 pg (25.0-35.0); MCHC 28.1 g/dL (31.0-37.0); MCV 89.8 fL (80.0-100.0); Mean Platelet Volume 8.9; Monocytes # (A) 0.7 k/uL (0-1.0); Monocytes % (A) 8 %; Neutrophils # (A) 5.7 k/uL (1.3-7.7); Neutrophils % (A) 68 %; Platelet Count 139 k/uL (150-450); RBC 3.58 m/uL (3.80-5.40); RDW 20.7 % (11.5-15.5); WBC 8.4 k/uL (3.8-10.6)
[2019-01-25 07:57] LABS: Albumin 2.7 g/dL (3.5-5.0); Calcium 8.7 mg/dL (8.4-10.2); Potassium 4.2 mmol/L (3.5-5.1); Total Bilirubin 8.6 mg/dL (0.2-1.3); Total Protein 5.8 g/dL (6.3-8.2)
[2019-01-25] MEDS: FAMOTIDINE 20 MG TAB PO SCH (08:32)
[2019-01-25] MEDS: LACTULOSE 20 GM/30 ML CUP PO SCH ×4 (08:32→22:16)
[2019-01-25] MEDS: FERROUS SULFATE 325 MG TAB PO SCH (08:32)
[2019-01-25] MEDS: SERTRALINE 25 MG TAB PO SCH (08:32)
[2019-01-25] MEDS: FUROSEMIDE 10 MG/ML 4 ML VIAL IV SCH ×3 (08:32→23:51)
[2019-01-25] MEDS: HEPARIN SODIUM,PORCINE 5,000 UNIT/ML 1 ML VIAL SQ SCH ×2 (08:32→22:16)
--- NOTE | 2019-01-25 09:32 | P.PN ---
Subjective Progress Note Date: 01/25/19 Principal diagnosis: ETOH liver cirrhosis ascites Status post 2 L removal paracentesis received albumin. White count 8.4. Hemoglobin 9.0. INR 1.6. Total bilirubin 8.6. Creatinine improved 1.3. Sodium 139. Ammonia increased 94 yesterday presently 55 receiving lactulose. Objective - Vital Signs Vital signs: Vital Signs Temp 97.5 F L 01/25/19 08:31 Pulse 103 H 01/25/19 08:31 Resp 16 01/25/19 08:31 BP 101/65 01/25/19 08:31 Pulse Ox 100 01/25/19 08:31 Intake & Output 01/24/19 01/25/19 01/25/19 18:59 06:59 18:59 Intake Total 50 Balance 50 Intake: Intake, IV Titration 50 Amount Albumin Human 25% 50 ml 50 In Empty Bag 1 bag @ 50 mls/hr IVPB ONCE ONE Rx#: [id number] Other: Voiding Method Toilet Toilet # Voids 2 # Bowel Movements 2 - Exam General appearance: The patient is alert, oriented, in no acute distress. Jaundice. Appropriate but slow to response. HET: Head is normocephalic and atraumatic. Pupils are equal and reactive. Sclerae icterus. Oropharynx is clear without lesions. Neck: Supple without lymphadenopathy. Trachea midline. Heart: S1 S2. Regular rate and rhythm. Lungs: No crackles or wheezes are heard. Abdomen: Soft, nontender, nondistended with bowel sounds. No peritoneal signs. No palpable organomegaly or masses. Extremities: Normal skin color and turgor. No cyanosis, rash, ulceration, clubbing, or edema. Radial and pedal pulses are 2/4 bilaterally. Neurological: No focal deficits. Strength and sensation are grossly intact. - Labs CBC & Chem 7: 01/25/19 06:55 01/25/19 06:55 Labs: Abnormal Lab Results - Last 24 Hours (Table) 01/24/19 01/25/19 01/25/19 Range/Units 12:49 06:55 06:55 RBC 3.58 L (3.80-5.40) m/uL Hgb 9.0 L (11.4-16.0) gm/dL Hct 32.2 L (34.0-46.0) % MCHC 28.1 L (31.0-37.0) g/dL RDW 20.7 H (11.5-15.5) % Plt Count 139 L (150-450) k/uL PT 16.4 H (9.0-12.0) sec INR 1.6 H (<1.2) APTT 33.1 H (22.0-30.0) sec Chloride (98-107) mmol/L Carbon Dioxide (22-30) mmol/L BUN (7-17) mg/dL Creatinine (0.52-1.04) mg/dL Glucose (74-99) mg/dL Total Bilirubin (0.2-1.3) mg/dL AST (14-36) U/L ALT (9-52) U/L Alkaline Phosphatase (38-126) U/L Ammonia 94 H (<30) umol/L Total Protein (6.3-8.2) g/dL Albumin (3.5-5.0) g/dL 01/25/19 01/25/19 Range/Units 06:55 06:55 RBC (3.80-5.40) m/uL Hgb (11.4-16.0) gm/dL Hct (34.0-46.0) % MCHC (31.0-37.0) g/dL RDW (11.5-15.5) % Plt Count (150-450) k/uL PT (9.0-12.0) sec INR (<1.2) APTT (22.0-30.0) sec Chloride 109 H (98-107) mmol/L Carbon Dioxide 18 L (22-30) mmol/L BUN 30 H (7-17) mg/dL Creatinine 1.36 H (0.52-1.04) mg/dL Glucose 105 H (74-99) mg/dL Total Bilirubin 8.6 H (0.2-1.3) mg/dL AST 258 H (14-36) U/L ALT 139 H (9-52) U/L Alkaline Phosphatase 336 H (38-126) U/L Ammonia 55 H (<30) umol/L Total Protein 5.8 L (6.3-8.2) g/dL Albumin 2.7 L (3.5-5.0) g/dL Microbiology - Last 24 Hours (Table) 01/24/19 10:10 Gram Stain - Preliminary Ascites Fluid Body Fluid Culture - Preliminary 01/24/19 10:10 Anaerobic Culture - Preliminary Ascites Fluid Assessment and Plan (1) Ascites Current Visit: Yes Status: Acute Code(s): R18.8 - OTHER ASCITES SNOMED Code(s): 071087919 (2) Elevated bilirubin Current Visit: Yes Status: Acute Code(s): R17 - UNSPECIFIED JAUNDICE SNOMED Code(s): 880714799 (3) Hepatic encephalopathy Current Visit: Yes Status: Acute Code(s): K72.90 - HEPATIC FAILURE, UNSPECIFIED WITHOUT COMA SNOMED Code(s): 91176844 (4) Liver cirrhosis Narrative/Plan: Decompensated liver cirrhosis with suspected underlying hepatorenal syndrome Current Visit: Yes Status: Acute Code(s): K74.60 - UNSPECIFIED CIRRHOSIS OF LIVER SNOMED Code(s): 84347218 (5) History of Harshad-en-Y gastric bypass Current Visit: No Status: Acute Code(s): Z98.84 - BARIATRIC SURGERY STATUS SNOMED Code(s): 758230818 Plan: Status post paracentesis. Trend serum ammonia. Patient is slow to respond but appropriate continue Lactulose 20 g 4 times daily. Continue diuretics. Low sodium diet. Supportive measures. Avoid hepatotoxins. Follow with [facility] after discharge. Assessment and plan a care discussed with Dr. Talavera
--- NOTE | 2019-01-25 11:10 | P.PN ---
Subjective Patient is seen in follow-up for acute kidney injury. Renal function is improving. Creatinine is down to 1.36 today. She is maintained on Lasix 40 mg IV three times daily. She admits to good urine output. Still quite edematous. She underwent paracentesis on January 24 to 2 L removed. No vomiting or diarrhea. She is confused this morning. Ammonia level elevated. Vital signs are stable. General: The patient appeared well nourished and normally developed. HEENT: Head exam is unremarkable. Neck is without jugular venous distension. LUNGS: Breath sounds decreased. HEART: Rate and Rhythm are regular. First and second heart sounds normal. No murmurs, rubs or gallops. ABDOMEN: Abdomen soft. Bowel sounds present. EXTREMITITES: 2+ edema. Objective - Vital Signs Vital signs: Vital Signs Temp 97.5 F L 01/25/19 08:31 Pulse 103 H 01/25/19 08:31 Resp 16 01/25/19 08:31 BP 101/65 01/25/19 08:31 Pulse Ox 100 01/25/19 08:31 Intake & Output 01/24/19 01/25/19 01/25/19 18:59 06:59 18:59 Intake Total 50 Balance 50 Intake: Intake, IV Titration 50 Amount Albumin Human 25% 50 ml 50 In Empty Bag 1 bag @ 50 mls/hr IVPB ONCE ONE Rx#: [id number] Other: Voiding Method Toilet Toilet # Voids 2 # Bowel Movements 2 - Labs CBC & Chem 7: 01/25/19 06:55 01/25/19 06:55 Labs: Abnormal Lab Results - Last 24 Hours (Table) 01/24/19 01/25/19 01/25/19 Range/Units 12:49 06:55 06:55 RBC 3.58 L (3.80-5.40) m/uL Hgb 9.0 L (11.4-16.0) gm/dL Hct 32.2 L (34.0-46.0) % MCHC 28.1 L (31.0-37.0) g/dL RDW 20.7 H (11.5-15.5) % Plt Count 139 L (150-450) k/uL PT 16.4 H (9.0-12.0) sec INR 1.6 H (<1.2) APTT 33.1 H (22.0-30.0) sec Chloride (98-107) mmol/L Carbon Dioxide (22-30) mmol/L BUN (7-17) mg/dL Creatinine (0.52-1.04) mg/dL Glucose (74-99) mg/dL Total Bilirubin (0.2-1.3) mg/dL AST (14-36) U/L ALT (9-52) U/L Alkaline Phosphatase (38-126) U/L Ammonia 94 H (<30) umol/L Total Protein (6.3-8.2) g/dL Albumin (3.5-5.0) g/dL 01/25/19 01/25/19 Range/Units 06:55 06:55 RBC (3.80-5.40) m/uL Hgb (11.4-16.0) gm/dL Hct (34.0-46.0) % MCHC (31.0-37.0) g/dL RDW (11.5-15.5) % Plt Count (150-450) k/uL PT (9.0-12.0) sec INR (<1.2) APTT (22.0-30.0) sec Chloride 109 H (98-107) mmol/L Carbon Dioxide 18 L (22-30) mmol/L BUN 30 H (7-17) mg/dL Creatinine 1.36 H (0.52-1.04) mg/dL Glucose 105 H (74-99) mg/dL Total Bilirubin 8.6 H (0.2-1.3) mg/dL AST 258 H (14-36) U/L ALT 139 H (9-52) U/L Alkaline Phosphatase 336 H (38-126) U/L Ammonia 55 H (<30) umol/L Total Protein 5.8 L (6.3-8.2) g/dL Albumin 2.7 L (3.5-5.0) g/dL Microbiology - Last 24 Hours (Table) 01/24/19 10:10 Gram Stain - Preliminary Ascites Fluid Body Fluid Culture - Preliminary 01/24/19 10:10 Anaerobic Culture - Preliminary Ascites Fluid Assessment and Plan Plan: Assessment: 1. Acute kidney injury with concern for hepatorenal syndrome. Creatinine peaked at 2.15 this admission and is 1.36 today. Baseline creatinine near 1. Urinalysis is benign. No hydronephrosis noted on renal ultrasound. 2. Liver cirrhosis status post liver biopsy earlier this month at [facility]. ?Drug-induced injury. 3. Ascites status post paracentesis on January 24 2 L removed. 4. Generalized edema. 5. Metabolic acidosis secondary to acute kidney injury. 6. Hepatic encephalopathy. Maintain electrolytes. GI following. Plan: Maintain Lasix 40 mg IV 3 times daily. Maintain 1500 mL fluid restriction. Low-salt diet. Add oral sodium bicarbonate. Continue to monitor renal function and urine output.
[2019-01-25] MEDS: SODIUM BICARBONATE TAB 650 MG TAB PO SCH ×2 (12:44→22:16)
[2019-01-25] MEDS ORDERED: LACTULOSE 20 GM/30 ML CUP PO ONE (16:34)
--- NOTE | 2019-01-25 20:21 | P.PN ---
Subjective This is a pleasant 38 years old female with past medical history of asthma, diabetes mellitus, migraine, Aury thyroiditis and eczema, alcoholic cirrhosis and history of hepatic encephalopathy. Patient was recently discharged from the hospital for hepatic encephalopathy. Patient follow-up with [facility], last week she had With colostomy bag on the right side to collect extra fluids from her ascites. Presents because of increasing abdominal distention and difficulty breathing, mostly related to her ascites. Patient denies abdominal pain no nausea vomiting, she eating drinking regularly. She has frequent bowel movements which were summoned lose about 6-7 times per day, regulated by lactulose 15 gm twice a day. Also at home she is on Lasix 20 mg and Aldactone 50 mg daily. On admission labs were reviewed, CBC was unremarkable, sodium 136, potassium 3.3, creatinine 2.0 which is elevated, total bilirubin is 6.9 and elevated liver enzymes, patient has history of elevated liver enzymes too 01/23/2019 creatinine improved, down to 1.75 today. Awaiting paracentesis- rescheduled for tomorrow. INR 1.6. Complains of mild abdominal discomfort. Maintaining O2 sats of 9090s on room air. Evaluated by nephrology with r ecommendations noted. Denies chest pain, palpitations or increasing shortness of breath. 01/24/2019 maintained on Lasix IV push ,scheduled for paracentesis this morning. INR 1.6, total bili went 8.1, LFTs noted. Renal function improving,creatinine 1.55. Renal ultrasound reporting no hydronephrosis. Mild tachycardia. 01/25/2019 pt is more confused today secondary to hepatic encephalopathy, she is on lactulose x5 , her ammonia level is improving but still elevated . no abd pain or tenderness. GI and nephrology teams are following the case Objective - Vital Signs Vital signs: Vital Signs Temp 98.1 F 01/25/19 11:57 Pulse 101 H 01/25/19 11:57 Resp 16 01/25/19 11:57 BP 108/67 01/25/19 11:57 Pulse Ox 100 01/25/19 11:57 Intake & Output 01/25/19 01/25/19 01/26/19 06:59 18:59 06:59 Other: Voiding Method Toilet Toilet # Voids 2 # Bowel Movements 2 1 - Exam -GENERAL: The patient is alert and oriented x2-3,confued, not in any acute distress. Jaundiced. HEENT: Pupils are round and equally reacting to light. EOMI. No scleral icterus. No conjunctival pallor. Normocephalic, atraumatic. CARDIOVASCULAR: S1 and S2 present. No murmurs, rubs, or gallops. Tachycardic. PULMONARY: Chest is clear to auscultation, bilateral bases diminished ,no wheezing or crackles. ABDOMEN: Firm, distended, mild diffuse tenderness, positive ascites, normoactive bowel sounds. No palpable organomegaly. MUSCULOSKELETAL: No joint swelling or deformity. EXTREMITIES: No cyanosis, clubbing. positive pedal edema. NEUROLOGICAL: Gross neurological examination did not reveal any focal deficits. SKIN: No rashes. - Labs CBC & Chem 7: 01/25/19 06:55 01/25/19 06:55 Labs: Abnormal Lab Results - Last 24 Hours (Table) 01/25/19 01/25/19 01/25/19 Range/Units 06:55 06:55 06:55 RBC 3.58 L (3.80-5.40) m/uL Hgb 9.0 L (11.4-16.0) gm/dL Hct 32.2 L (34.0-46.0) % MCHC 28.1 L (31.0-37.0) g/dL RDW 20.7 H (11.5-15.5) % Plt Count 139 L (150-450) k/uL PT 16.4 H (9.0-12.0) sec INR 1.6 H (<1.2) APTT 33.1 H (22.0-30.0) sec Chloride 109 H (98-107) mmol/L Carbon Dioxide 18 L (22-30) mmol/L BUN 30 H (7-17) mg/dL Creatinine 1.36 H (0.52-1.04) mg/dL Glucose 105 H (74-99) mg/dL Total Bilirubin 8.6 H (0.2-1.3) mg/dL AST 258 H (14-36) U/L ALT 139 H (9-52) U/L Alkaline Phosphatase 336 H (38-126) U/L Ammonia (<30) umol/L Total Protein 5.8 L (6.3-8.2) g/dL Albumin 2.7 L (3.5-5.0) g/dL 01/25/19 Range/Units 06:55 RBC (3.80-5.40) m/uL Hgb (11.4-16.0) gm/dL Hct (34.0-46.0) % MCHC (31.0-37.0) g/dL RDW (11.5-15.5) % Plt Count (150-450) k/uL PT (9.0-12.0) sec INR (<1.2) APTT (22.0-30.0) sec Chloride (98-107) mmol/L Carbon Dioxide (22-30) mmol/L BUN (7-17) mg/dL Creatinine (0.52-1.04) mg/dL Glucose (74-99) mg/dL Total Bilirubin (0.2-1.3) mg/dL AST (14-36) U/L ALT (9-52) U/L Alkaline Phosphatase (38-126) U/L Ammonia 55 H (<30) umol/L Total Protein (6.3-8.2) g/dL Albumin (3.5-5.0) g/dL Microbiology - Last 24 Hours (Table) 01/24/19 10:10 Gram Stain - Preliminary Ascites Fluid Body Fluid Culture - Preliminary 01/24/19 10:10 Anaerobic Culture - Preliminary Ascites Fluid Assessment and Plan Assessment: Alcoholic liver cirrhosis, with elevated liver enzymes hepatic encephalopathy Ascites, fluid overload Bilateral leg edema Acute renal failure, present on admission History of EtOH abuse patient reports no active EtOH consumption. History of Harshad-en-Y gastric bypass. History of cholecystectomy November 2018. Coagulopathy secondary to liver disease Chronic iron deficiency anemia. Morbid obesity BMI 41. Diabetes mellitus Plan: this is a pleasant 38 yo F who presents with abd pain and ascitis, and acute renal failure. Patient is already on Lasix, we'll increase it to 40 daily. However withhold Aldactone in view of worsening kidney function. We'll call nephrology consult rate GI team has already been consulted by each team. Labs and medication were reviewed.. Continue same treatment. Continue with symptomatic treatment. Resume home medication. Monitor lytes and vitals. DVT and GI prophylaxis. Further recommendations of the clinical course of the patient DVT prophylaxis: Subcutaneous heparin GI Prophylaxis: Pepcid Prognosis is guarded
[2019-01-26] MEDS: traMADol 50 MG TAB PO PRN ×3 (03:31→22:32)
[2019-01-26] MEDS: LEVOTHYROXINE 25 MCG TAB PO SCH (06:21)
--- NOTE | 2019-01-26 08:50 | P.PN ---
Subjective Progress Note Date: 01/26/19 Principal diagnosis: ETOH liver cirrhosis ascites Status post 2 L removal paracentesis. Morning chemistries pending. Reports increased lower extremity edema pain in legs. Afebrile. Objective - Vital Signs Vital signs: Vital Signs Temp 98.0 F 01/26/19 05:00 Pulse 95 01/26/19 05:00 Resp 16 01/26/19 05:00 BP 111/70 01/26/19 05:00 Pulse Ox 99 01/26/19 05:00 Intake & Output 01/25/19 01/26/19 01/26/19 18:59 06:59 18:59 Intake Total 520 Balance 520 Intake: Oral 520 Other: Voiding Method Toilet Toilet # Voids 3 # Bowel Movements 1 2 - Exam General appearance: The patient is alert, oriented, in no acute distress. Jaundice. Appropriate but slow to response. HET: Head is normocephalic and atraumatic. Pupils are equal and reactive. Sclerae icterus. Oropharynx is clear without lesions. Neck: Supple without lymphadenopathy. Trachea midline. Heart: S1 S2. Regular rate and rhythm. Lungs: No crackles or wheezes are heard. Abdomen: Soft, nontender, nondistended with bowel sounds. No peritoneal signs. No palpable organomegaly or masses. Extremities: Normal skin color and turgor. No cyanosis, rash, ulceration, clubbing, or edema. Radial and pedal pulses are 2/4 bilaterally. Neurological: No focal deficits. Strength and sensation are grossly intact. - Labs CBC & Chem 7: 01/27/19 05:26 01/27/19 05:26 Labs: Abnormal Lab Results - Last 24 Hours (Table) 01/25/19 Range/Units 06:55 Ammonia 55 H (<30) umol/L Microbiology - Last 24 Hours (Table) 01/24/19 10:10 Gram Stain - Preliminary Ascites Fluid Body Fluid Culture - Preliminary Assessment and Plan (1) Liver cirrhosis Narrative/Plan: Decompensated liver cirrhosis with suspected underlying hepatorenal syndrome Current Visit: Yes Status: Acute Code(s): K74.60 - UNSPECIFIED CIRRHOSIS OF LIVER SNOMED Code(s): 83182996 (2) Ascites Current Visit: Yes Status: Acute Code(s): R18.8 - OTHER ASCITES SNOMED Code(s): 219805850 (3) Elevated bilirubin Current Visit: Yes Status: Acute Code(s): R17 - UNSPECIFIED JAUNDICE SNOMED Code(s): 854977429 (4) Hepatic encephalopathy Current Visit: Yes Status: Acute Code(s): K72.90 - HEPATIC FAILURE, UNSPECIFIED WITHOUT COMA SNOMED Code(s): 25937073 (5) History of Harshad-en-Y gastric bypass Current Visit: No Status: Acute Code(s): Z98.84 - BARIATRIC SURGERY STATUS SNOMED Code(s): 461536178 Plan: 1. Continue present medical therapy. Await chemistry results this morning if stable may be Dc per medicine. F/U with [facility] as advised. Assessment and plan a care discussed with Dr. Talavera
[2019-01-26] MEDS: SERTRALINE 25 MG TAB PO SCH (08:52)
[2019-01-26] MEDS: SODIUM BICARBONATE TAB 650 MG TAB PO SCH ×3 (08:52→21:27)
[2019-01-26] MEDS: FERROUS SULFATE 325 MG TAB PO SCH (08:52)
[2019-01-26] MEDS: FAMOTIDINE 20 MG TAB PO SCH (08:52)
[2019-01-26] MEDS: HEPARIN SODIUM,PORCINE 5,000 UNIT/ML 1 ML VIAL SQ SCH ×2 (08:53→21:24)
[2019-01-26] MEDS: LACTULOSE 20 GM/30 ML CUP PO SCH ×4 (09:03→21:24)
[2019-01-26 09:07] LABS: Albumin 2.3 g/dL (3.5-5.0); Calcium 8.2 mg/dL (8.4-10.2); Magnesium 1.9 mg/dL (1.6-2.3); Potassium 3.4 mmol/L (3.5-5.1); Total Bilirubin 7.8 mg/dL (0.2-1.3); Total Protein 5.2 g/dL (6.3-8.2)
[2019-01-26 09:09] LABS: Anisocytosis Moderate; Basophils % (A) 0 %; Eosinophils # (A) 0.2 k/uL (0-0.7); Eosinophils % (A) 3 %; HCT 27.8 % (34.0-46.0); HGB 8.3 gm/dL (11.4-16.0); Hypochromasia Marked; Lymphocytes # (A) 1.3 k/uL (1.0-4.8); Lymphocytes % (A) 22 %; MCH 25.7 pg (25.0-35.0); MCV 85.7 fL (80.0-100.0); Mean Platelet Volume 8.5; Microcytosis Slight; Monocytes # (A) 0.4 k/uL (0-1.0); Monocytes % (A) 7 %; Neutrophils % (A) 65 %; Platelet Count 113 k/uL (150-450); RBC 3.25 m/uL (3.80-5.40); WBC 6.1 k/uL (3.8-10.6)
[2019-01-26 09:12] LABS: INR 1.8 (<1.2); Prothrombin Time 17.4 sec (9.0-12.0)
[2019-01-26 09:13] LABS: Partial Thromboplastin Time 38.5 sec (22.0-30.0)
[2019-01-26] MEDS: FUROSEMIDE 10 MG/ML 4 ML VIAL IV SCH (09:27)
--- NOTE | 2019-01-26 10:12 | P.PN ---
Subjective Patient is seen in follow-up for acute kidney injury. Renal function is improving. Creatinine is down to 1.2 today. She is maintained on Lasix 40 mg IV three times daily. She admits to good urine output. Still quite edematous. She underwent paracentesis on January 24 to 2 L removed. No vomiting or diarrhea. Mentation is improved. Vital signs are stable. General: The patient appeared well nourished and normally developed. HEENT: Head exam is unremarkable. Neck is without jugular venous distension. LUNGS: Breath sounds decreased. HEART: Rate and Rhythm are regular. First and second heart sounds normal. No murmurs, rubs or gallops. ABDOMEN: Abdomen soft. Bowel sounds present. EXTREMITITES: 2+ edema. Objective - Vital Signs Vital signs: Vital Signs Temp 98.0 F 01/26/19 05:00 Pulse 95 01/26/19 05:00 Resp 16 01/26/19 05:00 BP 111/70 01/26/19 05:00 Pulse Ox 99 01/26/19 05:00 Intake & Output 01/25/19 01/26/19 01/26/19 18:59 06:59 18:59 Intake Total 520 Balance 520 Intake: Oral 520 Other: Voiding Method Toilet Toilet # Voids 3 # Bowel Movements 1 2 - Labs CBC & Chem 7: 01/26/19 07:49 01/26/19 07:49 Labs: Abnormal Lab Results - Last 24 Hours (Table) 01/26/19 01/26/19 01/26/19 Range/Units 07:49 07:49 07:49 RBC 3.25 L (3.80-5.40) m/uL Hgb 8.3 L (11.4-16.0) gm/dL Hct 27.8 L (34.0-46.0) % MCHC 30.0 L (31.0-37.0) g/dL RDW 21.0 H (11.5-15.5) % Plt Count 113 L (150-450) k/uL PT 17.4 H (9.0-12.0) sec INR 1.8 H (<1.2) APTT 38.5 H (22.0-30.0) sec Potassium 3.4 L (3.5-5.1) mmol/L Chloride 108 H (98-107) mmol/L BUN 25 H (7-17) mg/dL Creatinine 1.20 H (0.52-1.04) mg/dL Calcium 8.2 L (8.4-10.2) mg/dL Total Bilirubin 7.8 H (0.2-1.3) mg/dL AST 219 H (14-36) U/L ALT 125 H (9-52) U/L Alkaline Phosphatase 301 H (38-126) U/L Total Protein 5.2 L (6.3-8.2) g/dL Albumin 2.3 L (3.5-5.0) g/dL Microbiology - Last 24 Hours (Table) 01/24/19 10:10 Gram Stain - Preliminary Ascites Fluid Body Fluid Culture - Preliminary Assessment and Plan Plan: Assessment: 1. Acute kidney injury with concern for hepatorenal syndrome. Creatinine peaked at 2.15 this admission and is 1.2 today. Baseline creatinine near 1. Urinalysis is benign. No hydronephrosis noted on renal ultrasound. 2. Liver cirrhosis status post liver biopsy earlier this month at [facility]. ?Drug-induced injury. 3. Ascites status post paracentesis on January 24 2 L removed. 4. Generalized edema. 5. Metabolic acidosis secondary to acute kidney injury. Better. 6. Hepatic encephalopathy. GI following. Mentation improved. 7. Hypokalemia secondary to diuresis. Plan: Start Lasix drip at 10 mL an hour. Add Aldactone 25 mg twice daily. Replace potassium. 60 mEq today. Maintain 1500 mL fluid restriction. Low-salt diet. Daily weights. Strict is and os. Maintain oral sodium bicarbonate. Continue to monitor renal function and urine output.
[2019-01-26] MEDS: SPIRONOLACTONE 25 MG TAB PO SCH ×2 (12:39→21:25)
[2019-01-26] MEDS: FUROSEMIDE 100 MG in SODIUM CHLORIDE 0.9% 90 ML IV SCH ×2 (14:55→21:59)
--- NOTE | 2019-01-26 15:28 | US ---
EXAMINATION TYPE: US venous doppler duplex LE BI DATE OF EXAM: 01/26/2019 3:22 PM COMPARISON: NONE CLINICAL HISTORY: r/o dvt. Bilateral leg edema. No hx of blood clots and not on blood thinners. Maria Del Carmen n. SIDE PERFORMED: Bilateral TECHNIQUE: The lower extremity deep venous system is examined utilizing real time linear array sonog robe with graded compression, doppler sonography and color-flow sonography. VESSELS IMAGED: External Iliac Vein (EIV) Common Femoral Vein Deep Femoral Vein Greater Saphenous Vein * Femoral Vein Popliteal Vein Small Saphenous Vein * Proximal Calf Veins (* superficial vessels) Limited visualization of bilateral femoral vein due to patient body habitus and edema Right Leg: Negative for acute DVT Left Leg: Negative for acute DVT IMPRESSION: No evidence for DVT at this time.
[2019-01-26] MEDS ORDERED: Potassium Replacement Protocol 1 EACH MISC MISCELLANE PRN (16:13)
--- NOTE | 2019-01-26 16:22 | P.PN ---
Subjective Progress Note Date: 01/26/19 Interval history: This is a pleasant 38 years old female with past medical history of asthma, diabetes mellitus, migraine, Aury thyroiditis and eczema, alcoholic cirrhosis and history of hepatic encephalopathy. Patient was recently discharged from the hospital for hepatic encephalopathy. [facility] follow[facility]up with [facility], last week she had With colostomy bag on the right side to collect extra fluids from her ascites. Presents because of increasing abdominal distention and difficulty breathing, mostly related to her ascites. Patient denies abdominal pain no nausea vomiting, she eating drinking regularly. She has frequent bowel movements which were summoned lose about 6-7 times per day, regulated by lactulose 15 gm twice a day. Also at home she is on Lasix 20 mg and Aldactone 50 mg daily. On admission labs were reviewed, CBC was unremarkable, sodium 136, potassium 3.3, creatinine 2.0 which is elevated, total bilirubin is 6.9 and elevated liver enzymes, patient has history of elevated liver enzymes too 01/23/2019 creatinine improved, down to 1.75 today. Awaiting paracentesis- rescheduled for tomorrow. INR 1.6. Complains of mild abdominal discomfort. Maintaining O2 sats of 9090s on room air. Evaluated by nephrology with recommendations noted. Denies chest pain, palpitations or increasing shortness of breath. 01/24/2019 maintained on Lasix IV push ,scheduled for paracentesis this morning. INR 1.6, total bili went 8.1, LFTs noted. Renal function improving,creatinine 1.55. Renal ultrasound reporting no hydronephrosis. Mild tachycardia. 01/25/2019 pt is more confused today secondary to hepatic encephalopathy, she is on lactulose x5 , her ammonia level is improving but still elevated . no abd pain or tenderness. GI and nephrology teams are following the case 01/26/2019 sensorium improving, with further improvement of ammonia level on lactulose. Lasix increased yesterday. Renal function continues to improve, creatinine down to 1.2. Potassium 3.4.Lasix drip initiated as per nephrology. Earlier staff reported bilateral lower legs with increased swelling, redness and warmth. Currently legs elevated, edematous, non-reddened, without increase in temperature of either extremity. Doppler ordered. Afebrile. Objective - Vital Signs Vital signs: Vital Signs Temp 97.6 F 01/26/19 13:22 Pulse 100 01/26/19 13:22 Resp 17 01/26/19 13:22 BP 106/67 01/26/19 13:22 Pulse Ox 100 01/26/19 13:22 Intake & Output 01/25/19 01/26/19 01/26/19 18:59 06:59 18:59 Intake Total 520 118 Balance 520 118 Intake: Oral 520 118 Other: Voiding Method Toilet Toilet # Voids 3 # Bowel Movements 1 2 - Exam GENERAL: The patient is alert and oriented x3, not in any acute distress. Jaundiced. HEENT: Pupils are round and equally reacting to light. EOMI. No scleral icterus. No conjunctival pallor. Normocephalic, atraumatic. CARDIOVASCULAR: S1 and S2 present. No murmurs, rubs, or gallops. PULMONARY: Chest is clear to auscultation, bilateral bases diminished ,no wheezing or crackles. ABDOMEN: Firm, distended, mild diffuse tenderness, positive ascites, normoactive bowel sounds. No palpable organomegaly. MUSCULOSKELETAL: No joint swelling or deformity. EXTREMITIES: No cyanosis, clubbing. positive lower extremity edema NEUROLOGICAL: Gross neurological examination did not reveal any focal deficits. SKIN: No rashes. - Labs CBC & Chem 7: 01/26/19 07:49 01/26/19 07:49 Labs: Abnormal Lab Results - Last 24 Hours (Table) 01/26/19 01/26/19 01/26/19 Range/Units 07:49 07:49 07:49 RBC 3.25 L (3.80-5.40) m/uL Hgb 8.3 L (11.4-16.0) gm/dL Hct 27.8 L (34.0-46.0) % MCHC 30.0 L (31.0-37.0) g/dL RDW 21.0 H (11.5-15.5) % Plt Count 113 L (150-450) k/uL PT 17.4 H (9.0-12.0) sec INR 1.8 H (<1.2) APTT 38.5 H (22.0-30.0) sec Potassium 3.4 L (3.5-5.1) mmol/L Chloride 108 H (98-107) mmol/L BUN 25 H (7-17) mg/dL Creatinine 1.20 H (0.52-1.04) mg/dL Calcium 8.2 L (8.4-10.2) mg/dL Total Bilirubin 7.8 H (0.2-1.3) mg/dL AST 219 H (14-36) U/L ALT 125 H (9-52) U/L Alkaline Phosphatase 301 H (38-126) U/L Ammonia (<30) umol/L Total Protein 5.2 L (6.3-8.2) g/dL Albumin 2.3 L (3.5-5.0) g/dL 01/26/19 Range/Units 12:31 RBC (3.80-5.40) m/uL Hgb (11.4-16.0) gm/dL Hct (34.0-46.0) % MCHC (31.0-37.0) g/dL RDW (11.5-15.5) % Plt Count (150-450) k/uL PT (9.0-12.0) sec INR (<1.2) APTT (22.0-30.0) sec Potassium (3.5-5.1) mmol/L Chloride (98-107) mmol/L BUN (7-17) mg/dL Creatinine (0.52-1.04) mg/dL Calcium (8.4-10.2) mg/dL Total Bilirubin (0.2-1.3) mg/dL AST (14-36) U/L ALT (9-52) U/L Alkaline Phosphatase (38-126) U/L Ammonia 43 H (<30) umol/L Total Protein (6.3-8.2) g/dL Albumin (3.5-5.0) g/dL Microbiology - Last 24 Hours (Table) 01/24/19 10:10 Anaerobic Culture - Preliminary Ascites Fluid 01/24/19 10:10 Gram Stain - Preliminary Ascites Fluid Body Fluid Culture - Preliminary Assessment and Plan Assessment: Alcoholic liver cirrhosis, with elevated liver enzymes Hepatic encephalopathy, improving Ascites, fluid overload, status post paracentesis with 2 L removed; currently on Lasix drip Bilateral leg edema Acute renal failure, present on admission, possible hepatorenal syndrome. Baseline creatinine 1. History of EtOH abuse patient reports no active EtOH consumption. History of Harshad-en-Y gastric bypass. History of cholecystectomy November 2018. Coagulopathy secondary to liver disease Chronic iron deficiency anemia. Morbid obesity BMI 41. Diabetes mellitus Liver cirrhosis, status post liver biopsy last week at [facility] Metabolic acidosis secondary to acute renal failure, improving Plan: Continue on current medication regime , oral sodium bicarb ,monitoring and symptomatic treatment. Diuretics as per nephrology, currently on Lasix drip, Aldactone resumed. Maintain fluid restrictions. Close monitoring of renal function with repeat labs ordered for a.m. Doppler of bilateral lower extremities ordered. Electrolyte replacement ordered. Further recommendations to follow. The impression and plan of care has been dictated as directed. : I performed a history and examination of this patient, discussed the same with the dictator. I agree with the dictator's note ,documented as a scribe. Any additional findings or plans will be noted.
[2019-01-27] MEDS ORDERED: POTASSIUM CHLORIDE 10 MEQ in WATER FOR INJECTION 1 100ML.BAG IVPB SCH (04:00)
[2019-01-27] MEDS: traMADol 50 MG TAB PO PRN ×3 (05:52→19:37)
[2019-01-27] MEDS: LEVOTHYROXINE 25 MCG TAB PO SCH (05:52)
[2019-01-27 05:56] LABS: Anisocytosis Moderate; Basophils % (A) 1 %; Eosinophils # (A) 0.2 k/uL (0-0.7); Eosinophils % (A) 4 %; HCT 29.3 % (34.0-46.0); HGB 8.9 gm/dL (11.4-16.0); Hypochromasia Marked; Lymphocytes % (A) 18 %; MCH 25.8 pg (25.0-35.0); MCHC 30.3 g/dL (31.0-37.0); MCV 85.2 fL (80.0-100.0); Mean Platelet Volume 8.2; Microcytosis Slight; Monocytes # (A) 0.5 k/uL (0-1.0); Monocytes % (A) 9 %; Neutrophils # (A) 3.8 k/uL (1.3-7.7); Neutrophils % (A) 67 %; Platelet Count 126 k/uL (150-450); RBC 3.43 m/uL (3.80-5.40); RDW 20.9 % (11.5-15.5); WBC 5.8 k/uL (3.8-10.6)
[2019-01-27 06:00] LABS: Albumin 2.4 g/dL (3.5-5.0); Magnesium 1.7 mg/dL (1.6-2.3); Potassium 3.2 mmol/L (3.5-5.1); Total Bilirubin 7.8 mg/dL (0.2-1.3); Total Protein 5.3 g/dL (6.3-8.2)
[2019-01-27 06:02] LABS: INR 1.7 (<1.2); Partial Thromboplastin Time 39.8 sec (22.0-30.0); Prothrombin Time 17.3 sec (9.0-12.0)
[2019-01-27] MEDS: POTASSIUM CHLORIDE 10 MEQ in WATER FOR INJECTION 1 100ML.BAG IVPB SCH ×3 (08:03→19:27)
[2019-01-27] MEDS: SERTRALINE 25 MG TAB PO SCH (08:48)
[2019-01-27] MEDS: SPIRONOLACTONE 25 MG TAB PO SCH ×2 (08:48→20:37)
[2019-01-27] MEDS: SODIUM BICARBONATE TAB 650 MG TAB PO SCH ×2 (08:48→20:37)
[2019-01-27] MEDS: FAMOTIDINE 20 MG TAB PO SCH (08:48)
[2019-01-27] MEDS: HEPARIN SODIUM,PORCINE 5,000 UNIT/ML 1 ML VIAL SQ SCH ×2 (08:48→20:37)
[2019-01-27] MEDS: LACTULOSE 20 GM/30 ML CUP PO SCH ×4 (08:49→21:59)
[2019-01-27] MEDS: FERROUS SULFATE 325 MG TAB PO SCH (08:59)
--- NOTE | 2019-01-27 11:04 | P.PN ---
Subjective Patient is seen in follow-up for acute kidney injury. Renal function is improving. Creatinine is down to 1.11 today. She is maintained on Lasix drip at 10 mL an hour. She admits to good urine output. Still quite edematous. She underwent paracentesis on January 24 to 2 L removed. No vomiting or diarrhea. Mentation is improved. Vital signs are stable. General: The patient appeared well nourished and normally developed. HEENT: Head exam is unremarkable. Neck is without jugular venous distension. LUNGS: Breath sounds decreased. HEART: Rate and Rhythm are regular. First and second heart sounds normal. No murmurs, rubs or gallops. ABDOMEN: Abdomen soft. Bowel sounds present. EXTREMITITES: 2+ edema. Objective - Vital Signs Vital signs: Vital Signs Temp 97.8 F 01/27/19 09:37 Pulse 95 01/27/19 09:51 Resp 17 01/27/19 09:37 BP 102/69 01/27/19 09:37 Pulse Ox 100 01/27/19 09:37 Intake & Output 01/26/19 01/27/19 01/27/19 18:59 06:59 18:59 Intake Total 118 1000 708 Output Total 1200 1450 Balance -1082 -450 708 Weight 124.194 kg 125.5 kg 124.4 kg Intake: Oral 118 1000 708 Output: Urine 1200 1450 Other: Voiding Method Toilet # Voids 2 - Labs CBC & Chem 7: 01/27/19 05:26 01/27/19 05:26 Labs: Abnormal Lab Results - Last 24 Hours (Table) 01/26/19 01/27/19 01/27/19 Range/Units 12:31 05:26 05:26 RBC 3.43 L (3.80-5.40) m/uL Hgb 8.9 L (11.4-16.0) gm/dL Hct 29.3 L (34.0-46.0) % MCHC 30.3 L (31.0-37.0) g/dL RDW 20.9 H (11.5-15.5) % Plt Count 126 L (150-450) k/uL PT 17.3 H (9.0-12.0) sec INR 1.7 H (<1.2) APTT 39.8 H (22.0-30.0) sec Potassium (3.5-5.1) mmol/L Chloride (98-107) mmol/L BUN (7-17) mg/dL Creatinine (0.52-1.04) mg/dL Glucose (74-99) mg/dL Calcium (8.4-10.2) mg/dL Total Bilirubin (0.2-1.3) mg/dL AST (14-36) U/L ALT (9-52) U/L Alkaline Phosphatase (38-126) U/L Ammonia 43 H (<30) umol/L Total Protein (6.3-8.2) g/dL Albumin (3.5-5.0) g/dL 01/27/19 Range/Units 05:26 RBC (3.80-5.40) m/uL Hgb (11.4-16.0) gm/dL Hct (34.0-46.0) % MCHC (31.0-37.0) g/dL RDW (11.5-15.5) % Plt Count (150-450) k/uL PT (9.0-12.0) sec INR (<1.2) APTT (22.0-30.0) sec Potassium 3.2 L (3.5-5.1) mmol/L Chloride 109 H (98-107) mmol/L BUN 22 H (7-17) mg/dL Creatinine 1.11 H (0.52-1.04) mg/dL Glucose 111 H (74-99) mg/dL Calcium 8.0 L (8.4-10.2) mg/dL Total Bilirubin 7.8 H (0.2-1.3) mg/dL AST 243 H (14-36) U/L ALT 129 H (9-52) U/L Alkaline Phosphatase 302 H (38-126) U/L Ammonia (<30) umol/L Total Protein 5.3 L (6.3-8.2) g/dL Albumin 2.4 L (3.5-5.0) g/dL Microbiology - Last 24 Hours (Table) 01/24/19 10:10 Gram Stain - Preliminary Ascites Fluid Body Fluid Culture - Preliminary 01/24/19 10:10 Anaerobic Culture - Preliminary Ascites Fluid Assessment and Plan Plan: Assessment: 1. Acute kidney injury with concern for hepatorenal syndrome. Creatinine peaked at 2.15 this admission and is 1.11 today. Baseline creatinine near 1. Urinalysis is benign. No hydronephrosis noted on renal ultrasound. 2. Liver cirrhosis status post liver biopsy earlier this month at [facility]. ?Drug-induced injury. 3. Ascites status post paracentesis on January 24 2 L removed. 4. Generalized edema. 5. Metabolic acidosis secondary to acute kidney injury. Better. 6. Hepatic encephalopathy. GI following. Mentation improved. 7. Hypokalemia secondary to diuresis. 8. Anemia. Rule out iron deficiency. Plan: Maintain Lasix drip at 10 mL an hour. Maintain Aldactone 25 mg twice daily. Add metolazone 5 mg daily. Replace potassium. 80 mEq today. Maintain 1500 mL fluid restriction. Low-salt diet. Daily weights. Strict is and os. Maintain oral sodium bicarbonate. Continue to monitor renal function and urine output. Check iron studies.
[2019-01-27] MEDS: FUROSEMIDE 100 MG in SODIUM CHLORIDE 0.9% 90 ML IV SCH ×3 (11:31→19:46)
[2019-01-27] MEDS: METOLAZONE 5 MG TAB PO SCH (11:32)
[2019-01-27] MEDS: POTASSIUM CHLORIDE ER 20 MEQ TAB.ER PO SCH ×2 (11:40→17:02)
[2019-01-27] MEDS ORDERED: MAGNESIUM SULFATE-D5W PMX 1 GM in DEXTROSE/WATER 1 100ML.BAG IVPB ONE (12:00)
[2019-01-27 14:09] VITALS: BMI 45.6
--- NOTE | 2019-01-27 17:19 | P.PN ---
Subjective Progress Note Date: 01/27/19 Interval history: This is a pleasant 38 years old female with past medical history of asthma, diabetes mellitus, migraine, Aury thyroiditis and eczema, alcoholic cirrhosis and history of hepatic encephalopathy. Patient was recently discharged from the hospital for hepatic encephalopathy. Patient follow[facility]up with [facility], last week she had With colostomy bag on the right side to collect extra fluids from her ascites. Presents because of increasing abdominal distention and difficulty breathing, mostly related to her ascites. Patient denies abdominal pain no nausea vomiting, she eating drinking regularly. She has frequent bowel movements which were summoned lose about 6-7 times per day, regulated by lactulose 15 gm twice a day. Also at home she is on Lasix 20 mg and Aldactone 50 mg daily. On admission labs were reviewed, CBC was unremarkable, sodium 136, potassium 3.3, creatinine 2.0 which is elevated, total bilirubin is 6.9 and elevated liver enzymes, patient has history of elevated liver enzymes too 01/23/2019 creatinine improved, down to 1.75 today. Awaiting paracentesis- rescheduled for tomorrow. INR 1.6. Complains of mild abdominal discomfort. Maintaining O2 sats of 9090s on room air. Evaluated by nephrology with recommendations noted. Denies chest pain, palpitations or increasing shortness of breath. 01/24/2019 maintained on Lasix IV push ,scheduled for paracentesis this morning. INR 1.6, total bili went 8.1, LFTs noted. Renal function improving,creatinine 1.55. Renal ultrasound reporting no hydronephrosis. Mild tachycardia. 01/25/2019 pt is more confused today secondary to hepatic encephalopathy, she is on lactulose x5 , her ammonia level is improving but still elevated . no abd pain or tenderness. GI and nephrology teams are following the case 01/26/2019 sensorium improving, with further improvement of ammonia level on lactulose. Lasix increased yesterday. Renal function continues to improve, creatinine down to 1.2. Potassium 3.4.Lasix drip initiated as per nephrology. Earlier staff reported bilateral lower legs with increased swelling, redness and warmth. Currently legs elevated, edematous, non-reddened, without increase in temperature of either extremity. Doppler ordered. Afebrile. 01/27/2019 maintained on 1500 MLS fluid restriction, low salt diet, Aldactone, metolazone .diuresing on Lasix IV drip, weight slowly decreasing, continues to have significant edema. Good diet intake, no nausea vomiting or diarrhea. No abdominal pain. Sensorium significantly improved. Potassium 3.2, magnesium 1.7.. Objective - Vital Signs Vital signs: Vital Signs Temp 97.7 F 01/27/19 16:00 Pulse 103 H 01/27/19 16:00 Resp 18 01/27/19 16:00 BP 121/78 01/27/19 16:00 Pulse Ox 100 01/27/19 16:00 Intake & Output 01/26/19 01/27/19 01/27/19 18:59 06:59 18:59 Intake Total 118 1100 708 Output Total 1200 1450 350 Balance -1082 -350 358 Weight 124.194 kg 125.5 kg 124.851 kg Intake: Intake, IV Titration 100 Amount Furosemide 100 mg In 100 Sodium Chloride 0.9% 90 ml @ 10 MG/HR 10 mls/hr IV .Q10H [facility] Rx#: [id number] Oral 118 1000 708 Output: Urine 1200 1450 350 Other: Voiding Method Toilet # Voids 2 1 # Bowel Movements 1 - Exam GENERAL: The patient is alert and oriented x3, not in any acute distress. Jaundiced. HEENT: Pupils are round and equally reacting to light. EOMI. Normocephalic, atraumatic. CARDIOVASCULAR: S1 and S2 present. No murmurs, rubs, or gallops. PULMONARY: Chest is clear to auscultation, bilateral bases diminished ,no wheezing or crackles. ABDOMEN: Firm, distended, mild diffuse tenderness, positive ascites, normoactive bowel sounds. No palpable organomegaly. MUSCULOSKELETAL: No joint swelling or deformity. EXTREMITIES: No cyanosis, clubbing. positive lower extremity edema NEUROLOGICAL: Gross neurological examination did not reveal any focal deficits. SKIN: No rashes. - Labs CBC & Chem 7: 01/27/19 05:26 01/27/19 05:26 Labs: Abnormal Lab Results - Last 24 Hours (Table) 01/27/19 01/27/19 01/27/19 Range/Units 05:26 05:26 05:26 RBC 3.43 L (3.80-5.40) m/uL Hgb 8.9 L (11.4-16.0) gm/dL Hct 29.3 L (34.0-46.0) % MCHC 30.3 L (31.0-37.0) g/dL RDW 20.9 H (11.5-15.5) % Plt Count 126 L (150-450) k/uL PT 17.3 H (9.0-12.0) sec INR 1.7 H (<1.2) APTT 39.8 H (22.0-30.0) sec Potassium 3.2 L (3.5-5.1) mmol/L Chloride 109 H (98-107) mmol/L BUN 22 H (7-17) mg/dL Creatinine 1.11 H (0.52-1.04) mg/dL Glucose 111 H (74-99) mg/dL Calcium 8.0 L (8.4-10.2) mg/dL Total Bilirubin 7.8 H (0.2-1.3) mg/dL AST 243 H (14-36) U/L ALT 129 H (9-52) U/L Alkaline Phosphatase 302 H (38-126) U/L Total Protein 5.3 L (6.3-8.2) g/dL Albumin 2.4 L (3.5-5.0) g/dL Microbiology - Last 24 Hours (Table) 01/24/19 10:10 Gram Stain - Preliminary Ascites Fluid Body Fluid Culture - Preliminary 01/24/19 10:10 Anaerobic Culture - Preliminary Ascites Fluid Assessment and Plan Assessment: Alcoholic liver cirrhosis, with elevated liver enzymes Hepatic encephalopathy, improving Ascites, fluid overload, status post paracentesis with 2 L removed; on Lasix drip Bilateral leg edema Acute renal failure, present on admission, possible hepatorenal syndrome. Baseline creatinine 1. History of EtOH abuse patient reports no active EtOH consumption. History of Harshad-en-Y gastric bypass. History of cholecystectomy November 2018. Coagulopathy secondary to liver disease Chronic iron deficiency anemia. Morbid obesity BMI 41. Diabetes mellitus Liver cirrhosis, status post liver biopsy last week at [facility] Metabolic acidosis secondary to acute renal failure, improving Plan: Continue on current medication regime , oral sodium bicarb , metolazone, Aldactone monitoring and symptomatic treatment. Maintained on Lasix drip as per nephrology.strict I&O's .continues on 1500 MLS fluid restriction, low-salt diet .potassium replacements as ordered .Close monitoring of electrolytes, renal function with repeat labs ordered for a.m. The impression and plan of care has been dictated as directed. : I performed a history and examination of this patient, discussed the same with the dictator. I agree with the dictator's note ,documented as a scribe. Any additional findings or plans will be noted.
[2019-01-27 18:56] LABS: Iron Saturation 10.66 (12.00-45.00)
[2019-01-28] MEDS: traMADol 50 MG TAB PO PRN ×4 (01:26→17:34)
[2019-01-28] MEDS: FUROSEMIDE 100 MG in SODIUM CHLORIDE 0.9% 90 ML IV SCH ×2 (03:47→14:18)
[2019-01-28 04:23] LABS: Anisocytosis Moderate; Basophils # (A) 0.1 k/uL (0-0.2); Basophils % (A) 1 %; Eosinophils # (A) 0.4 k/uL (0-0.7); Eosinophils % (A) 5 %; HCT 31.4 % (34.0-46.0); HGB 9.2 gm/dL (11.4-16.0); Hypochromasia Marked; Lymphocytes # (A) 1.8 k/uL (1.0-4.8); Lymphocytes % (A) 21 %; MCH 25.1 pg (25.0-35.0); MCHC 29.3 g/dL (31.0-37.0); MCV 85.5 fL (80.0-100.0); Microcytosis Slight; Monocytes # (A) 0.8 k/uL (0-1.0); Monocytes % (A) 9 %; Neutrophils # (A) 5.4 k/uL (1.3-7.7); Neutrophils % (A) 63 %; Platelet Count 142 k/uL (150-450); RBC 3.67 m/uL (3.80-5.40); RDW 21.7 % (11.5-15.5); WBC 8.5 k/uL (3.8-10.6)
[2019-01-28 04:32] LABS: Potassium 3.1 mmol/L (3.5-5.1)
[2019-01-28 04:33] LABS: Albumin 2.5 g/dL (3.5-5.0); Calcium 8.3 mg/dL (8.4-10.2); Magnesium 1.9 mg/dL (1.6-2.3); Total Bilirubin 7.8 mg/dL (0.2-1.3); Total Protein 5.6 g/dL (6.3-8.2)
[2019-01-28] MEDS: POTASSIUM CHLORIDE ER 20 MEQ TAB.ER PO SCH ×6 (06:05→22:50)
[2019-01-28] MEDS: LEVOTHYROXINE 25 MCG TAB PO SCH (06:05)
[2019-01-28] MEDS: LEVOTHYROXINE 50 MCG TAB PO SCH (06:09)
[2019-01-28] MEDS: SODIUM BICARBONATE TAB 650 MG TAB PO SCH ×2 (08:58→22:19)
[2019-01-28] MEDS: HEPARIN SODIUM,PORCINE 5,000 UNIT/ML 1 ML VIAL SQ SCH ×2 (08:58→22:20)
[2019-01-28] MEDS: LACTULOSE 20 GM/30 ML CUP PO SCH ×4 (08:58→22:20)
[2019-01-28] MEDS: SPIRONOLACTONE 25 MG TAB PO SCH ×2 (08:58→22:19)
[2019-01-28] MEDS: METOLAZONE 5 MG TAB PO SCH (08:59)
[2019-01-28] MEDS: SERTRALINE 25 MG TAB PO SCH (08:59)
[2019-01-28] MEDS: FAMOTIDINE 20 MG TAB PO SCH (09:00)
--- NOTE | 2019-01-28 15:43 | P.PN ---
Subjective This is a pleasant 38 years old female with past medical history of asthma, diabetes mellitus, migraine, Aury thyroiditis and eczema, alcoholic cirrhosis and history of hepatic encephalopathy. Patient was recently discharged from the hospital for hepatic encephalopathy. Patient follow-up with [facility], last week she had With colostomy bag on the right side to collect extra fluids from her ascites. Presents because of increasing abdominal distention and difficulty breathing, mostly related to her ascites. Patient denies abdominal pain no nausea vomiting, she eating drinking regularly. She has frequent bowel movements which were summoned lose about 6-7 times per day, regulated by lactulose 15 gm twice a day. Also at home she is on Lasix 20 mg and Aldactone 50 mg daily. On admission labs were reviewed, CBC was unremarkable, sodium 136, potassium 3.3, creatinine 2.0 which is elevated, total bilirubin is 6.9 and elevated liver enzymes, patient has history of elevated liver enzymes too 01/23/2019 creatinine improved, down to 1.75 today. Awaiting paracentesis- rescheduled for tomorrow. INR 1.6. Complains of mild abdominal discomfort. Maintaining O2 sats of 9090s on room air. Evaluated by nephrology with r ecommendations noted. Denies chest pain, palpitations or increasing shortness of breath. 01/24/2019 maintained on Lasix IV push ,scheduled for paracentesis this morning. INR 1.6, total bili went 8.1, LFTs noted. Renal function improving,creatinine 1.55. Renal ultrasound reporting no hydronephrosis. Mild tachycardia. 01/25/2019 pt is more confused today secondary to hepatic encephalopathy, she is on lactulose x5 , her ammonia level is improving but still elevated . no abd pain or tenderness. GI and nephrology teams are following the case 01/28/2019 patient is awake, alert lid ptosis in her mentality but his confusion is significantly improved, she is interactive and walk and by herself. Her swelling is significantly improving. She has stephany wraps around her legs. She remains on Lasix drip. Her creatinine is slightly worsened to 1.3. Electrolytes replaced. Patient is aware that she needs to follow up with her in [facility] gastro[facility]ology [facility], she is been there before and she told e has the contact information [place] Objective - Vital Signs Vital signs: Vital Signs Temp 97.3 F L 01/28/19 12:47 Pulse 98 01/28/19 12:47 Resp 16 01/28/19 12:47 BP 113/75 01/28/19 12:47 Pulse Ox 100 01/28/19 12:47 Intake & Output 01/27/19 01/28/19 01/28/19 18:59 06:59 18:59 Intake Total 708 567.667 100 Output Total 350 3300 Balance 358 -2732.333 100 Weight 124.851 kg Intake: IV 165 Furosemide 100 mg In 120 Sodium Chloride 0.9% 90 ml @ 10 MG/HR 10 mls/hr IV .Q10H [facility] Rx#: [id number] Invasive Line 2 45 Intake, IV Titration 162.667 100 Amount Furosemide 100 mg In 162.667 100 Sodium Chloride 0.9% 90 ml @ 10 MG/HR 10 mls/hr IV .Q10H [facility] Rx#: [id number] Oral 708 240 Output: Urine 350 3300 Other: Voiding Method Toilet # Voids 1 1 2 # Bowel Movements 1 2 - Labs CBC & Chem 7: 01/28/19 04:11 01/28/19 09:10 Labs: Abnormal Lab Results - Last 24 Hours (Table) 01/27/19 01/28/19 01/28/19 Range/Units 05:26 04:11 04:11 RBC 3.67 L (3.80-5.40) m/uL Hgb 9.2 L (11.4-16.0) gm/dL Hct 31.4 L (34.0-46.0) % MCHC 29.3 L (31.0-37.0) g/dL RDW 21.7 H (11.5-15.5) % Plt Count 142 L (150-450) k/uL Potassium 3.1 L (3.5-5.1) mmol/L BUN 19 H (7-17) mg/dL Creatinine 1.35 H (0.52-1.04) mg/dL Glucose 135 H (74-99) mg/dL Calcium 8.3 L (8.4-10.2) mg/dL Iron 34 L (50-170) ug/dL Iron Saturation 10.66 L (12.00-45.00) Total Bilirubin 7.8 H (0.2-1.3) mg/dL AST 269 H (14-36) U/L ALT 130 H (9-52) U/L Alkaline Phosphatase 299 H (38-126) U/L Total Protein 5.6 L (6.3-8.2) g/dL Albumin 2.5 L (3.5-5.0) g/dL 01/28/19 01/28/19 Range/Units 04:11 09:10 RBC (3.80-5.40) m/uL Hgb (11.4-16.0) gm/dL Hct (34.0-46.0) % MCHC (31.0-37.0) g/dL RDW (11.5-15.5) % Plt Count (150-450) k/uL Potassium 3.0 L 3.0 L (3.5-5.1) mmol/L BUN (7-17) mg/dL Creatinine (0.52-1.04) mg/dL Glucose (74-99) mg/dL Calcium (8.4-10.2) mg/dL Iron (50-170) ug/dL Iron Saturation (12.00-45.00) Total Bilirubin (0.2-1.3) mg/dL AST (14-36) U/L ALT (9-52) U/L Alkaline Phosphatase (38-126) U/L Total Protein (6.3-8.2) g/dL Albumin (3.5-5.0) g/dL Microbiology - Last 24 Hours (Table) 01/24/19 10:10 Anaerobic Culture - Final Ascites Fluid 01/24/19 10:10 Gram Stain - Final Ascites Fluid Body Fluid Culture - Final
--- NOTE | 2019-01-28 16:49 | P.PN ---
Subjective Progress Note Date: 01/28/19 Seen and examined for the follow-up of acute kidney injury. Currently on Lasix drip for volume overload. Objective - Vital Signs Vital signs: Vital Signs Temp 97.8 F 01/28/19 15:54 Pulse 91 01/28/19 15:54 Resp 16 01/28/19 16:00 BP 115/74 01/28/19 15:54 Pulse Ox 100 01/28/19 15:54 Intake & Output 01/27/19 01/28/19 01/28/19 18:59 06:59 18:59 Intake Total 708 567.667 100 Output Total 350 3300 Balance 358 -2732.333 100 Weight 124.851 kg Intake: IV 165 Furosemide 100 mg In 120 Sodium Chloride 0.9% 90 ml @ 10 MG/HR 10 mls/hr IV .Q10H [facility] Rx#: [id number] Invasive Line 2 45 Intake, IV Titration 162.667 100 Amount Furosemide 100 mg In 162.667 100 Sodium Chloride 0.9% 90 ml @ 10 MG/HR 10 mls/hr IV .Q10H [facility] Rx#: [id number] Oral 708 240 Output: Urine 350 3300 Other: Voiding Method Toilet # Voids 1 1 2 # Bowel Movements 1 2 - Exam No acute distress S1-S2 heard Lungs clear Trace edema - Labs CBC & Chem 7: 01/28/19 04:11 01/28/19 09:10 Labs: Abnormal Lab Results - Last 24 Hours (Table) 01/27/19 01/28/19 01/28/19 Range/Units 05:26 04:11 04:11 RBC 3.67 L (3.80-5.40) m/uL Hgb 9.2 L (11.4-16.0) gm/dL Hct 31.4 L (34.0-46.0) % MCHC 29.3 L (31.0-37.0) g/dL RDW 21.7 H (11.5-15.5) % Plt Count 142 L (150-450) k/uL Potassium 3.1 L (3.5-5.1) mmol/L BUN 19 H (7-17) mg/dL Creatinine 1.35 H (0.52-1.04) mg/dL Glucose 135 H (74-99) mg/dL Calcium 8.3 L (8.4-10.2) mg/dL Iron 34 L (50-170) ug/dL Iron Saturation 10.66 L (12.00-45.00) Total Bilirubin 7.8 H (0.2-1.3) mg/dL AST 269 H (14-36) U/L ALT 130 H (9-52) U/L Alkaline Phosphatase 299 H (38-126) U/L Total Protein 5.6 L (6.3-8.2) g/dL Albumin 2.5 L (3.5-5.0) g/dL 01/28/19 01/28/19 Range/Units 04:11 09:10 RBC (3.80-5.40) m/uL Hgb (11.4-16.0) gm/dL Hct (34.0-46.0) % MCHC (31.0-37.0) g/dL RDW (11.5-15.5) % Plt Count (150-450) k/uL Potassium 3.0 L 3.0 L (3.5-5.1) mmol/L BUN (7-17) mg/dL Creatinine (0.52-1.04) mg/dL Glucose (74-99) mg/dL Calcium (8.4-10.2) mg/dL Iron (50-170) ug/dL Iron Saturation (12.00-45.00) Total Bilirubin (0.2-1.3) mg/dL AST (14-36) U/L ALT (9-52) U/L Alkaline Phosphatase (38-126) U/L Total Protein (6.3-8.2) g/dL Albumin (3.5-5.0) g/dL Microbiology - Last 24 Hours (Table) 01/24/19 10:10 Anaerobic Culture - Final Ascites Fluid 01/24/19 10:10 Gram Stain - Final Ascites Fluid Body Fluid Culture - Final Assessment and Plan Assessment: #1 acute kidney injury secondary to volume overload with a concern for HRS. Creatinine was improving. Creep up creatinine today secondary to over diuresis. #2 liver cirrhosis status post biopsy #3 generalized edema #4 metabolic alkalosis secondary to over diuresis #5 hypokalemia secondary to diuretics Plan: #1 stop Lasix drip and change to Lasix 40 mg by mouth twice a day. #2 stop metolazone #3 replace potassium #4 check BMP in the morning
[2019-01-28 22:21] LABS: Magnesium 1.8 mg/dL (1.6-2.3); Potassium 2.9 mmol/L (3.5-5.1)
[2019-01-28] MEDS: MAGNESIUM SULFATE-D5W PMX 1 GM in DEXTROSE/WATER 1 100ML.BAG IVPB SCH (22:50)
[2019-01-29] MEDS: MAGNESIUM SULFATE-D5W PMX 1 GM in DEXTROSE/WATER 1 100ML.BAG IVPB SCH ×2 (00:01→01:08)
[2019-01-29] MEDS: traMADol 50 MG TAB PO PRN ×4 (00:01→20:44)
[2019-01-29] MEDS: POTASSIUM CHLORIDE ER 20 MEQ TAB.ER PO SCH ×8 (00:04→22:03)
[2019-01-29 03:54] LABS: Albumin 2.2 g/dL (3.5-5.0); Magnesium 2.1 mg/dL (1.6-2.3); Total Bilirubin 7.1 mg/dL (0.2-1.3); Total Protein 4.9 g/dL (6.3-8.2)
[2019-01-29] MEDS: LEVOTHYROXINE 50 MCG TAB PO SCH (06:22)
[2019-01-29] MEDS: LACTULOSE 20 GM/30 ML CUP PO SCH ×4 (07:37→22:04)
[2019-01-29] MEDS: HEPARIN SODIUM,PORCINE 5,000 UNIT/ML 1 ML VIAL SQ SCH ×2 (07:37→22:03)
[2019-01-29] MEDS: SODIUM BICARBONATE TAB 650 MG TAB PO SCH ×2 (07:37→22:04)
[2019-01-29] MEDS: SPIRONOLACTONE 25 MG TAB PO SCH ×2 (07:37→22:04)
[2019-01-29] MEDS: FUROSEMIDE 40 MG TAB PO SCH ×2 (07:38→17:21)
[2019-01-29] MEDS: FAMOTIDINE 20 MG TAB PO SCH (07:38)
[2019-01-29] MEDS: SERTRALINE 25 MG TAB PO SCH (07:38)
[2019-01-29] MEDS: FERROUS SULFATE 325 MG TAB PO SCH ×2 (07:40→16:17)
--- NOTE | 2019-01-29 13:29 | P.PN ---
Subjective Progress Note Date: 01/29/19 Seen and examined for the follow-up of acute kidney injury. Lasix drip was stopped yesterday currently on by mouth Lasix. Weight stable. She admits some abdominal distention but no changes in weight. Objective - Vital Signs Vital signs: Vital Signs Temp 97.6 F 01/29/19 12:39 Pulse 102 H 01/29/19 12:39 Resp 17 01/29/19 12:39 BP 101/69 01/29/19 12:39 Pulse Ox 100 01/29/19 12:39 Intake & Output 01/28/19 01/29/19 01/29/19 18:59 06:59 18:59 Intake Total 757 422 Output Total 2650 1550 Balance -1893 -1128 Weight 123.5 kg Intake: Intake, IV Titration 100 200 Amount Furosemide 100 mg In 100 Sodium Chloride 0.9% 90 ml @ 10 MG/HR 10 mls/hr IV .Q10H KYRA Rx#: [id number] Magnesium Sulfate-D5w Pmx 200 1 gm In Dextrose/Water 1 100ml.bag @ 100 mls/hr IVPB Q1H KYRA Rx#: [id number] Oral 657 222 Output: Urine 2650 1550 Other: Voiding Method Toilet # Voids 2 # Bowel Movements 1 - Exam No acute distress S1-S2 heard Lungs clear Trace edema - Labs CBC & Chem 7: 01/28/19 04:11 01/29/19 09:36 Labs: Abnormal Lab Results - Last 24 Hours (Table) 01/28/19 01/29/19 01/29/19 Range/Units 21:53 03:15 09:36 Potassium 2.9 L 3.0 L 3.3 L (3.5-5.1) mmol/L Creatinine 1.17 H (0.52-1.04) mg/dL Glucose 114 H (74-99) mg/dL Calcium 8.0 L (8.4-10.2) mg/dL Total Bilirubin 7.1 H (0.2-1.3) mg/dL AST 281 H (14-36) U/L ALT 121 H (9-52) U/L Alkaline Phosphatase 282 H (38-126) U/L Total Protein 4.9 L (6.3-8.2) g/dL Albumin 2.2 L (3.5-5.0) g/dL Microbiology - Last 24 Hours (Table) 01/24/19 10:10 Anaerobic Culture - Final Ascites Fluid Assessment and Plan Assessment: #1 acute kidney injury secondary to volume overload and hemodynamic ATN. Creatinine better today after changing Lasix drip to oral. #2 liver cirrhosis status post biopsy #3 generalized edema, better #4 metabolic alkalosis secondary to over diuresis, improved #5 hypokalemia secondary to diuretics Plan: #1 creatinine better after stopping Lasix drip. Continue with oral Lasix by mouth twice a day. #2 replace potassium Stable from nephrology point of view for discharge to be followed up in the office in 2 weeks and [facility] liver clinic.
--- NOTE | 2019-01-29 16:48 | P.PN ---
Subjective This is a pleasant 38 years old female with past medical history of asthma, diabetes mellitus, migraine, Aury thyroiditis and eczema, alcoholic cirrhosis and history of hepatic encephalopathy. Patient was recently discharged from the hospital for hepatic encephalopathy. Patient follow-up with [facility], last week she had With colostomy bag on the right side to collect extra fluids from her ascites. Presents because of increasing abdominal distention and difficulty breathing, mostly related to her ascites. Patient denies abdominal pain no nausea vomiting, she eating drinking regularly. She has frequent bowel movements which were summoned lose about 6-7 times per day, regulated by lactulose 15 gm twice a day. Also at home she is on Lasix 20 mg and Aldactone 50 mg daily. On admission labs were reviewed, CBC was unremarkable, sodium 136, potassium 3.3, creatinine 2.0 which is elevated, total bilirubin is 6.9 and elevated liver enzymes, patient has history of elevated liver enzymes too 01/23/2019 creatinine improved, down to 1.75 today. Awaiting paracentesis- rescheduled for tomorrow. INR 1.6. Complains of mild abdominal discomfort. Maintaining O2 sats of 9090s on room air. Evaluated by nephrology with r ecommendations noted. Denies chest pain, palpitations or increasing shortness of breath. 01/24/2019 maintained on Lasix IV push ,scheduled for paracentesis this morning. INR 1.6, total bili went 8.1, LFTs noted. Renal function improving,creatinine 1.55. Renal ultrasound reporting no hydronephrosis. Mild tachycardia. 01/25/2019 pt is more confused today secondary to hepatic encephalopathy, she is on lactulose x5 , her ammonia level is improving but still elevated . no abd pain or tenderness. GI and nephrology teams are following the case 01/28/2019 patient is awake, alert lid ptosis in her mentality but his confusion is significantly improved, she is interactive and walk and by herself. Her swelling is significantly improving. She has stephany wraps around her legs. She remains on Lasix drip. Her creatinine is slightly worsened to 1.3. Electrolytes replaced. Patient is aware that she needs to follow up with her in [facility] gastroenterology clinic, she is been there before and she told e has the contact information Christopher 01/29/2019 Patient doing well, no nausea vomiting. No chest pain or dyspnea. She is more awake and alert. She states she had to sleep last night. She'll get [place] during night. Her creatinine improved after changing IV Lasix to by mouth Lasix. Nephrology follow-up is appreciated Objective - Vital Signs Vital signs: Vital Signs Temp 97.6 F 01/29/19 12:39 Pulse 102 H 01/29/19 12:39 Resp 18 01/29/19 16:00 BP 101/69 01/29/19 12:39 Pulse Ox 100 01/29/19 12:39 Intake & Output 01/28/19 01/29/19 01/29/19 18:59 06:59 18:59 Intake Total 757 422 Output Total 2650 1550 Balance -1893 -1128 Weight 123.5 kg Intake: Intake, IV Titration 100 200 Amount Furosemide 100 mg In 100 Sodium Chloride 0.9% 90 ml @ 10 MG/HR 10 mls/hr IV .Q10H KYRA Rx#: [id number] Magnesium Sulfate-D5w Pmx 200 1 gm In Dextrose/Water 1 100ml.bag @ 100 mls/hr IVPB Q1H KYRA Rx#: [id number] Oral 657 222 Output: Urine 2650 1550 Other: Voiding Method Toilet # Voids 2 # Bowel Movements 1 - Exam -GENERAL: The patient is alert and oriented x2-3,confued, not in any acute distress. Jaundiced. HEENT: Pupils are round and equally reacting to light. EOMI. No scleral icterus. No conjunctival pallor. Normocephalic, atraumatic. CARDIOVASCULAR: S1 and S2 present. No murmurs, rubs, or gallops. Tachycardic. PULMONARY: Chest is clear to auscultation, bilateral bases diminished ,no wheezing or crackles. ABDOMEN: Firm, distended, mild diffuse tenderness, positive ascites, normoactive bowel sounds. No palpable organomegaly. MUSCULOSKELETAL: No joint swelling or deformity. EXTREMITIES: No cyanosis, clubbing. positive pedal edema. NEUROLOGICAL: Gross neurological examination did not reveal any focal deficits. SKIN: No rashes. - Labs CBC & Chem 7: 01/28/19 04:11 01/29/19 09:36 Labs: Abnormal Lab Results - Last 24 Hours (Table) 01/28/19 01/29/19 01/29/19 Range/Units 21:53 03:15 09:36 Potassium 2.9 L 3.0 L 3.3 L (3.5-5.1) mmol/L Creatinine 1.17 H (0.52-1.04) mg/dL Glucose 114 H (74-99) mg/dL Calcium 8.0 L (8.4-10.2) mg/dL Total Bilirubin 7.1 H (0.2-1.3) mg/dL AST 281 H (14-36) U/L ALT 121 H (9-52) U/L Alkaline Phosphatase 282 H (38-126) U/L Total Protein 4.9 L (6.3-8.2) g/dL Albumin 2.2 L (3.5-5.0) g/dL Microbiology - Last 24 Hours (Table) 01/24/19 10:10 Anaerobic Culture - Final Ascites Fluid Assessment and Plan Assessment: Alcoholic liver cirrhosis, with elevated liver enzymes hepatic encephalopathy Ascites, fluid overload Bilateral leg edema Acute renal failure, present on admission History of EtOH abuse patient reports no active EtOH consumption. History of Harshad-en-Y gastric bypass. History of cholecystectomy November 2018. Coagulopathy secondary to liver disease Chronic iron deficiency anemia. Morbid obesity BMI 41. Diabetes mellitus Plan: this is a pleasant 38 yo F who presents with abd pain and ascitis, and acute renal failure. Patient is already on Lasix, we'll increase it to 40 daily. However withhold Aldactone in view of worsening kidney function. We'll call nephrology consult rate GI team has already been consulted by each team. Labs and medication were reviewed.. Continue same treatment. Continue with symptomatic treatment. Resume home medication. Monitor lytes and vitals. DVT and GI prophylaxis. Further recommendations of the clinical course of the patient DVT prophylaxis: Subcutaneous heparin GI Prophylaxis: Pepcid Prognosis is guarded
[2019-01-29] MEDS ORDERED: POTASSIUM CHLORIDE ER 20 MEQ TAB.ER PO STA (23:56)
[2019-01-30] MEDS: POTASSIUM CHLORIDE ER 20 MEQ TAB.ER PO SCH ×3 (00:38→04:38)
[2019-01-30] MEDS: traMADol 50 MG TAB PO PRN ×3 (02:54→16:46)
[2019-01-30] MEDS: LEVOTHYROXINE 50 MCG TAB PO SCH (06:17)
[2019-01-30] MEDS: HEPARIN SODIUM,PORCINE 5,000 UNIT/ML 1 ML VIAL SQ SCH (08:22)
[2019-01-30] MEDS: SPIRONOLACTONE 25 MG TAB PO SCH (08:22)
[2019-01-30] MEDS: FAMOTIDINE 20 MG TAB PO SCH (08:22)
[2019-01-30] MEDS: FUROSEMIDE 40 MG TAB PO SCH ×2 (08:22→16:45)
[2019-01-30] MEDS: SODIUM BICARBONATE TAB 650 MG TAB PO SCH (08:22)
[2019-01-30] MEDS: SERTRALINE 25 MG TAB PO SCH (08:23)
[2019-01-30] MEDS: LACTULOSE 20 GM/30 ML CUP PO SCH ×2 (08:25→13:19)
[2019-01-30] MEDS: FERROUS SULFATE 325 MG TAB PO SCH (08:25)
[2019-01-30] MEDS ORDERED: POTASSIUM CHLORIDE ER 20 MEQ TAB.ER PO STA ×3 (09:00→10:01)
[2019-01-30] MEDS ORDERED: POTASSIUM CHLORIDE 20 MEQ in WATER FOR INJECTION 1 100ML.BAG IVPB STA (10:57)
[2019-01-30 11:32] VITALS: BP 105/68; PULSE 89; RESP 18; TEMP 97.9
--- NOTE | 2019-01-30 15:51 | PN ---
PROGRESS NOTE Patient is seen for followup for hyponatremia and acute kidney injury. Renal function has improved, with creatinine down to 1.1 from 2.1 mg/dL at peak. The patient is maintained on oral Lasix along with potassium supplementation. On examination this morning, blood pressure was 105/69, heart rate 95 per minute. Patient is afebrile. EXAMINATION OF THE HEART: S1 and S2. EXAMINATION OF LUNGS: Bilateral breath sounds are heard. ABDOMEN: Soft, non-tender, distended. Examination of lower extremities shows edema 1+ bilaterally. Labs show sodium 137, potassium 3.1 from today. Serum creatinine was 1.17 yesterday. ASSESSMENT: 1. Acute kidney injury, acute tubular necrosis, nonoliguric currently improved. 2. Liver cirrhosis. 3. Metabolic alkalosis secondary to over-diuresis, currently improved. 4. Hypokalemia secondary to diuretics, being replaced. PLAN: Patient is stable for discharge from nephrology standpoint. Increase potassium supplementation and repeat labs as outpatient in about 3-4 days. MMODL / IJN: [id number] /
--- NOTE | 2019-01-30 20:59 | P.DS ---
Providers Date of admission: 01/21/19 22:55 Attending physician: Daisha Parker Consults: 01/22/19 13:22 Consult Physician Urgent Consulting Provider: Amy Villalobos Consult Reason/Comments: renal failure Do you want consulting provider notified?: Yes Primary care physician: Cammy Lobato Hospital Course: Diagnoses: Alcoholic liver cirrhosis, with elevated liver enzymes hepatic encephalopathy, resolved Ascites, fluid overload Bilateral leg edema Acute renal failure, present on admission. Secondary to fluid overload History of EtOH abuse patient reports no active EtOH consumption. History of Harshad-en-Y gastric bypass. History of cholecystectomy November 2018. Coagulopathy secondary to liver disease Chronic iron deficiency anemia. Morbid obesity BMI 41. Diabetes mellitus Hospital course: This is a pleasant 38 years old female with past medical history of asthma, diabetes mellitus, migraine, Aury thyroiditis and eczema, alcoholic cirrhosis and history of hepatic encephalopathy. Patient was recently discharged from the hospital for hepatic encephalopathy. Patient follow-up with [facility], last week she had With colostomy bag on the right side to collect extra fluids from her ascites. Presents because of increasing abdominal distention and difficulty breathing, mostly related to her ascites. Associated with confusion at times. Patient has been evaluated by gastroente rology and nephrology team as patient had acute kidney injury on the presentation. She received lactulose and Lasix drip. Her swelling and ascites are significantly decreased. Her mental status improved to baseline after developing several loose bowel movements. On the day of discharge, patient returned to her baseline mental status with no more confusion. Her swelling is significantly improved. Patient denies chest pain or dyspnea. Patient is mobile with no difficulty. Creatinine 10 back to 1.17. Hemoglobin is 9.2, WBC 8.5K. Her electrolysis been replaced including potassium. Magnesium 2.0. she will be discharged on lasix 240 mg BID and KcL 20 mEq, discussed with nephrology team. Liver enzymes and the Hyde are persistently elevated moderately. Patient however is asymptomatic with no abdominal pain or nausea vomiting. She is tolerating diet well. [facility] Problems and management plan was discussed with the patient in details and she verbalized understanding and acceptance Patient is found stable and can be discharged home in guarded Prognosis however she needs follow-up as outpatient. Patient was instructed to follow up with her PCP in one week, also she was instructed to follow up with her GI clinic in 2 weeks and she agrees. appointment was made with the gi clinic in [facility] and her P CP and she agrees with it. Gen: patient is a AAOx3, no distress CVS: S1-S2, RRR, no murmur Lungs: B/L CTA, no wheezing Abdomen: soft, no distention, no tenderness, positive bowel sounds Extremity: no leg edema or induration Time spent more than 35 minutes d Patient Condition at Discharge: Undetermined Plan - Discharge Summary Discharge Rx Participant: Yes New Discharge Prescriptions: New Spironolactone [Aldactone] 25 mg PO BID #60 tab Lactulose [Cephulac] 20 gm PO QID #3600 ml Potassium Chloride ER [K-Dur 20] 20 meq PO DAILY #30 tab Furosemide [Lasix] 40 mg PO BID@0900,1600 #60 tab Ferrous Sulfate [Iron (65 MG Elemental)] 325 mg PO BID-W/MEALS #60 tab Sodium Bicarbonate Tab 650 mg PO BID #30 tab Continue Levothyroxine Sodium [Synthroid] 25 mcg PO DAILY Sertraline HCl [Zoloft] 25 mg PO DAILY Omeprazole 40 mg PO DAILY PRN PRN Reason: Heartburn Multivitamin [Multivitamins Adult Gummies] 1 tab PO DAILY Discontinued Furosemide [Lasix] 20 mg PO DAILY Lactulose [Constulose] 10 gm PO BID PRN PRN Reason: Constipation Lactulose 10 gm PO DAILY Ferrous Sulfate [Iron (65 MG Elemental)] 325 mg PO DAILY Spironolactone 50 mg PO DAILY Discharge Medication List Levothyroxine Sodium [Synthroid] 25 mcg PO DAILY 07/03/16 [History] Sertraline HCl [Zoloft] 25 mg PO DAILY 11/04/18 [History] Multivitamin [Multivitamins Adult Gummies] 1 tab PO DAILY 12/23/18 [History] Omeprazole 40 mg PO DAILY PRN 12/23/18 [History] Ferrous Sulfate [Iron (65 MG Elemental)] 325 mg PO BID-W/MEALS #60 tab 01/30/19 [Rx] Furosemide [Lasix] 40 mg PO BID@0900,1600 #60 tab 01/30/19 [Rx] Lactulose [Cephulac] 20 gm PO QID #3600 ml 01/30/19 [Rx] Potassium Chloride ER [K-Dur 20] 20 meq PO DAILY #30 tab 01/30/19 [Rx] Sodium Bicarbonate Tab 650 mg PO BID #30 tab 01/30/19 [Rx] Spironolactone [Aldactone] 25 mg PO BID #60 tab 01/30/19 [Rx] Follow up Appointment(s)/Referral(s): Dr. Duncan, GI clinic at [facility] [Other] - 02/28/19 3:30 am Lisbeth Krueger MD [STAFF PHYSICIAN] - 02/24/19 8:30 am Cammy Lobato DO [Primary Care Provider] - 01/31/19 1:40 pm Bam Rich DO [STAFF PHYSICIAN] - 1 Week (Dr. Rich's office will be calling patient with an appointment date and time. ) Patient Instructions/Handouts: Spironolactone (By mouth), Furosemide (By mouth), Potassium Chloride (By mouth), Lactulose (By mouth), Sodium Bicarbonate (By mouth), Cirrhosis (DC), Ascites (DC) Activity/Diet/Wound Care/Special Instructions: Pt will be following up in the GI office with a possible repeat paracentisis in 2 weeks set up by interventional radiology and the GI office. titrate your lactulose to 4-6 bowel movements per day activity is limited till you see your doctor Discharge Disposition: HOME SELF-CARE
== END 2019-01-30 17:15 | disposition home or self-care (01) | DRG 432 ==
LOC: EC 22:01 → 3NMEDONC 22:55
PROVIDERS: ADMIT Hospitalist; ATTEND Hospitalist
PROC: 0W9G3ZZ Drainage of Peritoneal Cavity, Percutaneous Approach (ICD-10-PCS; principal; 2019-01-24)
DX: K70.31 Alcoholic cirrhosis of liver with ascites (principal); N17.0 Acute kidney failure with tubular necrosis; K76.7 Hepatorenal syndrome; K76.6 Portal hypertension; D68.4 Acquired coagulation factor deficiency; E87.1 Hypo-osmolality and hyponatremia; E87.2 Acidosis; Z68.41 Body mass index [BMI] 40.0-44.9, adult; D50.9 Iron deficiency anemia, unspecified; E06.3 Autoimmune thyroiditis; E11.9 Type 2 diabetes mellitus without complications; E66.01 Morbid (severe) obesity due to excess calories; E87.6 Hypokalemia; T50.2X5A Adverse effect of carbonic-anhydrase inhibitors, benzothiadiazides and other diuretics, initial encounter; E87.70 Fluid overload, unspecified; J45.909 Unspecified asthma, uncomplicated; K72.90 Hepatic failure, unspecified without coma; Z76.82 Awaiting organ transplant status; Z79.890 Hormone replacement therapy; Z79.899 Other long term (current) drug therapy; Z82.49 Family history of ischemic heart disease and other diseases of the circulatory system; Z83.3 Family history of diabetes mellitus; Z90.49 Acquired absence of other specified parts of digestive tract; Z93.3 Colostomy status; Z98.84 Bariatric surgery status; K59.00 Constipation, unspecified; Z88.5 Allergy status to narcotic agent; Z88.2 Allergy status to sulfonamides; Z88.7 Allergy status to serum and vaccine; Z88.8 Allergy status to other drugs, medicaments and biological substances; L30.9 Dermatitis, unspecified; T37 Poisoning by, adverse effect of and underdosing of other systemic anti-infectives and antiparasitics
CPT/HCPCS: 36415; 49083; 76705; 76770; 80053; 81003; 82140; 82150; 82728; 82945; 83540; 83550; 83690; 83735; 84132; 85025; 85610; 85730; 87070; 87075; 87205; 88108; 88305; 89050; 93970; 96360; 99285

== ENCOUNTER 2019-02-07 12:42 | Day surgery (SDC) | payer OTHER ==
[2019-02-07] MEDS ORDERED: ALBUMIN HUMAN 25% 50 ML in EMPTY BAG 1 BAG IVPB SCH (13:15)
[2019-02-07 13:38] LABS: Platelet Count 119 k/uL (150-450)
[2019-02-07 13:41] VITALS: TEMP 98.2
[2019-02-07 13:51] LABS: INR 1.8 (<1.2); Prothrombin Time 18.2 sec (9.0-12.0)
--- NOTE | 2019-02-07 16:14 | US ---
Therapeutic paracentesis. DATE OF EXAM: 02/07/2019 CLINICAL HISTORY: Ascites The procedure was discussed with the patient. The risks, complications, benefits, and alternatives we re discussed and any questions were answered. Informed consent was obtained. The patient was placed s upine on the ultrasound table and prepped and draped in the usual sterile fashion. All elements of maximal barrier technique were utilized. Under ultrasound guidance, access into the left lower quadrant was obtained, via the paracentesis catheter system and direct ultrasound guidance . Approximately 2.3 liters of straw-colored fluid was removed. The patient was stable throughout the pr ocedure and remained stable upon discharge from Department of Radiology. IMPRESSION: Successful therapeutic paracentesis under ultrasound guidance.
[2019-02-07 16:21] VITALS: BP 121/72; PULSE 98; RESP 14
== END 2019-02-07 16:05 | disposition home or self-care (01) ==
LOC: RADPROMAIN 12:42
PROVIDERS: ATTEND Internal Medicine
DX: R18.8 Other ascites (principal)
CPT/HCPCS: 49083; 82565; 84520; 85049; 85610

== ENCOUNTER 2019-02-12 01:39 | Inpatient (IN) | payer OTHER ==
[2019-02-12] MEDS ORDERED: NALOXONE 0.4 MG/ML 1 ML VIAL IV PRN (03:05)
[2019-02-12] MEDS ORDERED: FUROSEMIDE 10 MG/ML 4 ML VIAL IV STA (03:07)
[2019-02-12 03:20] LABS: Anisocytosis Moderate; Basophils # (A) 0.1 k/uL (0-0.2); Basophils % (A) 1 %; Eosinophils # (A) 0.4 k/uL (0-0.7); Eosinophils % (A) 5 %; HCT 29.3 % (34.0-46.0); HGB 9.4 gm/dL (11.4-16.0); Hypochromasia Moderate; Lymphocytes # (A) 1.6 k/uL (1.0-4.8); Lymphocytes % (A) 18 %; MCH 28.7 pg (25.0-35.0); MCHC 32.1 g/dL (31.0-37.0); Microcytosis Slight; Monocytes # (A) 0.6 k/uL (0-1.0); Monocytes % (A) 7 %; Neutrophils # (A) 5.9 k/uL (1.3-7.7); Neutrophils % (A) 67 %; Platelet Count 119 k/uL (150-450); RBC 3.28 m/uL (3.80-5.40); WBC 8.8 k/uL (3.8-10.6)
[2019-02-12 03:25] LABS: MCV 89.4 fL (80.0-100.0)
--- NOTE | 2019-02-12 03:26 | ED ---
Abdominal Pain HPI - General Chief Complaint: Abdominal Pain Stated Complaint: Abdominal Swelling Time Seen by Provider: 02/12/19 01:56 Source: patient, family Mode of arrival: ambulatory Limitations: no limitations - History of Present Illness Initial Comments: The patient is a 38-year-old female with extensive past medical history most significant for chronic liver disease currently being worked up by [facility] gastroenterology for possible transplant in the future. Patient suffers from recurrent episodes of ascites for which she has regular paracentesis. Patient was recently admitted to the hospital during that admission she received IV Lasix was discharged home with sections a take 40 mg twice a day however patient reports she was only prescribed 20 mg daily and has only been taking 20 mg daily. She reports that she is followed up with gastroenterology she has had repeat peak paracentesis. Patient reports that despite this she has continued worsening lower extremity edema, recurrent ascites and generalized malaise. Patient returns the emergency department today because she is concerned about the amount of fluid she is retaining. - Related Data Home Medications Medication Instructions Recorded Confirmed Levothyroxine Sodium [Synthroid] 25 mcg PO DAILY 07/03/16 02/07/19 Sertraline HCl [Zoloft] 25 mg PO DAILY 11/04/18 02/07/19 Multivitamin [Multivitamins Adult 1 tab PO DAILY 12/23/18 02/07/19 Gummies] Omeprazole 40 mg PO DAILY PRN 12/23/18 02/07/19 Previous Rx's Medication Instructions Recorded Ferrous Sulfate [Iron (65 MG 325 mg PO BID-W/MEALS #60 tab 01/30/19 Elemental)] Furosemide [Lasix] 40 mg PO BID@0900,1600 #60 tab 01/30/19 Lactulose [Cephulac] 20 gm PO QID #3600 ml 01/30/19 Potassium Chloride ER [K-Dur 20] 20 meq PO DAILY #30 tab 01/30/19 Sodium Bicarbonate Tab 650 mg PO BID #30 tab 01/30/19 Spironolactone [Aldactone] 25 mg PO BID #60 tab 01/30/19 Allergies Allergy/AdvReac Type Severity Reaction Status Date / Time adhesive Allergy Rash/Hives Verified 02/12/19 01:49 morphine Allergy Rash/Hives Verified 02/12/19 01:49 sulfamethoxazole Allergy Unknown Verified 02/12/19 01:49 [From Bactrim] Tetanus Vaccines and Toxoid Allergy Swelling Verified 02/12/19 01:49 [Tetanus Vaccines & Toxoid] trimethoprim [From Bactrim] Allergy Unknown Verified 02/12/19 01:49 cigarette smoke AdvReac Cough, Verified 02/12/19 01:49 Shortness of Breath sertraline [From Zoloft] AdvReac DIZZY/Nausea Verified 02/12/19 01:49 & Vomiting skin ink Allergy Rash/Hives Uncoded 02/12/19 01:49 yellow squash Allergy Anaphylaxis Uncoded 02/12/19 01:49 dust AdvReac Mild Itching Uncoded 02/12/19 01:49 dust mites AdvReac Rash/Hives Uncoded 02/12/19 01:49 Review of Systems ROS Statement: Those systems with pertinent positive or pertinent negative responses have been documented in the HPI. ROS Other: All systems not noted in ROS Statement are negative. Past Medical History Past Medical History: Asthma, Diabetes Mellitus, Skin Disorder, Thyroid Disorder Additional Past Medical History / Comment(s): migraines, hashimotos, eczema, no current rx for diabetes- diet control, anemia, elevated liver enzymes & retaini ng fluid since recent surgery-has gained 40 lbs. of fluid recently per pt. History of Any Multi-Drug Resistant Organisms: None Reported Date of last positivie culture/infection: JUNE 2013 MDRO Source:: WOUND ON LEFT UPPER ABDOMEN Past Surgical History: Appendectomy, Bariatric Surgery, Section, Cholecystectomy, Orthopedic Surgery, Tubal Ligation Additional Past Surgical History / Comment(s): LENA-EN-Y, left knee arthroscopy, I&D left upper abdomen; Panniculectomy Jul 2016, robotic lap. marlena 11-07-18 Past Anesthesia/Blood Transfusion Reactions: Family History of Problems w/ Anesthesia, Motion Sickness, Postoperative Nausea & Vomiting (PONV) Additional Past Anesthesia/Blood Transfusion Reaction / Comment(s): mother-"hard time waking up and trouble breathing" Past Psychological History: No Psychological Hx Reported Smoking Status: Never smoker Past Alcohol Use History: None Reported Past Drug Use History: None Reported - Past Family History Mother Family Medical History: No Reported History Additional Family Medical History / Comment(s): Mother had gastric bypass surgery and no longer has HTN or high cholesteral. Father Family Medical History: Diabetes Mellitus, Hyperlipidemia, Hypertension General Exam - General Exam Comments Initial Comments: Physical Exam GENERAL: Chronically ill appearing, jaundice, obese female HENT: Normocephalic, Atraumatic. EYES: PERRL, EOMI Scleral icterus PULMONARY: Unlabored respirations. No audible rales rhonchi or wheezing was noted. CARDIOVASCULAR: There is a regular rate and rhythm without any murmurs gallops or rubs. ABDOMEN: Obese Ascities Leaking ascitic fluid from previous paracentesis on left lateral abdomen SKIN: Pale, jaundice : Deferred NEUROLOGIC: Patient is alert and oriented x3. Moving all extremities spontaneously MUSCULOSKELETAL: Normal extremities with adequate strength and full range of motion. No lower extremity swelling or edema. No calf tenderness. PSYCHIATRIC: Normal psychiatric evaluation. Limitations: no limitations Limitations: no limitations Course Vital Signs 02/12/19 01:44 Temperature 98.3 F Pulse Rate 106 H Respiratory 20 Rate Blood Pressure 110/65 O2 Sat by Pulse 100 Oximetry Medical Decision Making - Medical Decision Making The patient was seen and evaluated, history is obtained from the patient and review of medical record Patient has multiple medical comorbidities, due to pill burden and confusion about treatment plan she has been underdosing her Lasix and has significant worsening edema in the bilateral lower extremities and recurrent ascites of the abdomen Repeat labs were ordered Patient care was discussed with gastroenterology Dr. Spivey she who agrees with plan to admit the patient to the medicine service he will evaluate the patient and the morning for possible recurrent paracentesis Patient's home medications were ordered including her 4 times daily lactulose and the Lasix was ordered for the edema Resulted with multiple significant abnormalities worsening kidney function, elevated lipase As plan patient will be admitted to the hospital for fluid management, diuresis likely paracentesis - Lab Data Result diagrams: 02/12/19 02:39 02/12/19 02:39 Lab Results 02/12/19 02/12/19 02/12/19 Range/Units 02:39 02:39 02:39 WBC 8.8 (3.8-10.6) k/uL RBC 3.28 L (3.80-5.40) m/uL Hgb 9.4 L (11.4-16.0) gm/dL Hct 29.3 L (34.0-46.0) % MCV 89.4 D (80.0-100.0) fL MCH 28.7 (25.0-35.0) pg MCHC 32.1 (31.0-37.0) g/dL RDW 22.0 H (11.5-15.5) % Plt Count 119 L (150-450) k/uL Neutrophils % 67 % Lymphocytes % 18 % Monocytes % 7 % Eosinophils % 5 % Basophils % 1 % Neutrophils # 5.9 (1.3-7.7) k/uL Lymphocytes # 1.6 (1.0-4.8) k/uL Monocytes # 0.6 (0-1.0) k/uL Eosinophils # 0.4 (0-0.7) k/uL Basophils # 0.1 (0-0.2) k/uL Hypochromasia Moderate Anisocytosis Moderate Microcytosis Slight PT 18.0 H (9.0-12.0) sec INR 1.8 H (<1.2) APTT 34.1 H (22.0-30.0) sec Sodium 137 (137-145) mmol/L Potassium 3.5 (3.5-5.1) mmol/L Chloride 105 (98-107) mmol/L Carbon Dioxide 25 (22-30) mmol/L Anion Gap 7 mmol/L BUN 28 H (7-17) mg/dL Creatinine 2.10 H (0.52-1.04) mg/dL Est GFR (CKD-EPI)AfAm 34 (>60 ml/min/1.73 sqM) Est GFR (CKD-EPI)NonAf 30 (>60 ml/min/1.73 sqM) Glucose 138 H (74-99) mg/dL Calcium 8.1 L (8.4-10.2) mg/dL Total Bilirubin 7.0 H (0.2-1.3) mg/dL AST 204 H (14-36) U/L ALT 105 H (9-52) U/L Alkaline Phosphatase 375 H (38-126) U/L Total Protein 5.5 L (6.3-8.2) g/dL Albumin 2.5 L (3.5-5.0) g/dL Amylase 61 (30-110) U/L Lipase 540 H (23-300) U/L Disposition Clinical Impression: Hepatorenal syndrome, ARLETTE (acute kidney injury), Dehydration, Transaminitis, At risk for readmission to hospital, Liver cirrhosis, Ascites, Jaundice Disposition: ADMITTED IP TO THIS HOSP Condition: Serious Is patient prescribed a controlled substance at d/c from ED?: No
[2019-02-12 03:32] LABS: Albumin 2.5 g/dL (3.5-5.0); Calcium 8.1 mg/dL (8.4-10.2); Potassium 3.5 mmol/L (3.5-5.1); Total Protein 5.5 g/dL (6.3-8.2)
[2019-02-12 04:04] LABS: INR 1.8 (<1.2); Partial Thromboplastin Time 34.1 sec (22.0-30.0)
[2019-02-12 04:50] LABS: Appearance,Urine Cloudy (Clear); Bilirubin,Urine Negative (Negative); Blood,Urine Negative (Negative); Color,Urine Yellow; Glucose,Urine (UA) Negative (Negative); Hyaline Casts,Urine 44 /lpf (0-2); Ketones,Urine Negative (Negative); Leukocyte Esterase,Urine Small (Negative); Mucus,Urine Occasional /hpf; Nitrite,Urine Negative (Negative); PH, Urine 5.5 (5.0-8.0); Protein,Urine Negative (Negative); RBC,Urine 1 /hpf (0-5); Specific Gravity,Urine 1.017 (1.001-1.035); Squamous Epithelial Cell,Urine 5 /hpf (0-4); Urobilinogen,Urine <2.0 mg/dL (<2.0); WBC,Urine 10 /hpf (0-5)
[2019-02-12] MEDS ORDERED: LEVOTHYROXINE 25 MCG TAB PO SCH (06:30)
[2019-02-12] MEDS ORDERED: FERROUS SULFATE 325 MG TAB PO SCH (07:30)
[2019-02-12] MEDS: PANTOPRAZOLE 40 MG TABLET PO PRN (08:40)
[2019-02-12] MEDS ORDERED: LACTULOSE 20 GM/30 ML CUP PO SCH ×2 (09:00→10:00)
[2019-02-12] MEDS ORDERED: SERTRALINE 25 MG TAB PO SCH (09:00)
[2019-02-12] MEDS ORDERED: POTASSIUM CHLORIDE ER 20 MEQ TAB.ER PO SCH (09:00)
[2019-02-12] MEDS ORDERED: FUROSEMIDE 10 MG/ML 4 ML VIAL IV SCH (09:00)
[2019-02-12] MEDS ORDERED: SPIRONOLACTONE 25 MG TAB PO SCH (09:00)
--- NOTE | 2019-02-12 12:15 | P.HPIM ---
History of Present Illness H&P Date: 02/12/19 Chief Complaint: Abdominal distention and worsening of lower extremity edema Ms. Ravi is a 38-year-old female with a past medical history of liver cirrhosis, portal hypertension, myositis, and deficiency anemia, morbid obesity and laparoscopic cholecystectomy done in November 2018 for chronic a calculus cholecystitis, Harshad-en-Y gastric bypass coming into the hospital with a chief complaint of increased swelling in her bilateral lower extremities and also worsening abdominal distention. Patient has history of chronic liver disease that is currently being worked up at [facility] gastroenterology for possible liver transplant. Patient has regular paracentesis for recurrent gastritis and she had 2.7 L of fluid taken out 5 days back. During her recent hospital admission she was discharged on 40 mg of Lasix to be taken twice a day. Then patient went to follow up with her PCP who changed her Lasix from 40 twice a day to 20 twice a day and since then she noticed that her lower extremity edema got worsened and her abdominal distention as well. Patient denies having any fevers chills or rigors. Patient denies having any abdominal pain. No nausea, vomiting or diarrhea. No constipation. No blood in her bowel movements. She complains of shortness of breath in association with her abdominal pain. At the time of admission patient's hemoglobin is 9.4, AST 204, AST 105 and alkaline phosphatase of 375. Creatinine is 2.10 and total bilirubin of 7.0 and albumin of 2.5. Patient has been given IV 40 mg of Lasix and admitted to the floor for further management with a GI consult. Patient denies having any fevers chills or rigors. No abdominal pain nausea vomiting or diarrhea. No dysuria or hematuria. No blood in her bowel movements. She states that she has gained almost 100 pounds in the past 4 months. Review of Systems REVIEW OF SYSTEMS: PSYCH: No history of anxiety or depression NEURO:No c/o weakness of the extremties, No facial droop, No speech abnormalities. VASCULAR: Peripheral nervous system within the normal limits no edema HEMATOLOGIC: No history of easy bleeding and bruising . No recent infections . RESPIRATORY: No cough, + SOB, No chest discomfort. IMMUNE: No infections INTEGUMENT: no rashes OPHTHALMOLOGIC: No blurry vision and no eye discharge : No dysuria or hematuria PATENTS EXAMINER: No bleeding PV CARDIAC: No chest pain or paroxysmal nocturnal dyspnea MUSCULOSKELETAL : No Aches or pains in the joints or muscles. GI: As per HPI Past Medical History Past Medical History: Asthma, Diabetes Mellitus, Skin Disorder, Thyroid Disorder Additional Past Medical History / Comment(s): migraines, hashimotos, eczema, no current rx for diabetes- diet control, anemia, elevated liver enzymes & retaining fluid since recent surgery-has gained 40 lbs. of fluid recently per pt. History of Any Multi-Drug Resistant Organisms: None Reported Date of last positivie culture/infection: JUNE 2013 MDRO Source:: WOUND ON LEFT UPPER ABDOMEN Past Surgical History: Appendectomy, Bariatric Surgery, Section, Ch olecystectomy, Orthopedic Surgery, Tubal Ligation Additional Past Surgical History / Comment(s): HARSHAD-EN-Y, left knee arthroscopy, I&D left upper abdomen; Panniculectomy Jul 2016, robotic lap. marlena 11-07-18 Past Anesthesia/Blood Transfusion Reactions: Family History of Problems w/ Anesthesia, Motion Sickness, Postoperative Nausea & Vomiting (PONV) Additional Past Anesthesia/Blood Transfusion Reaction / Comment(s): mother-"hard time waking up and trouble breathing" Past Psychological History: No Psychological Hx Reported Smoking Status: Never smoker Past Alcohol Use History: None Reported Past Drug Use History: None Reported - Past Family History Mother Family Medical History: No Reported History Additional Family Medical History / Comment(s): Mother had gastric bypass surgery and no longer has HTN or high cholesteral. Father Family Medical History: Diabetes Mellitus, Hyperlipidemia, Hypertension Medications and Allergies Home Medications Medication Instructions Recorded Confirmed Type Levothyroxine Sodium [Synthroid] 25 mcg PO DAILY@0400 07/03/16 02/12/19 History Sertraline HCl [Zoloft] 25 mg PO DAILY@0400 11/04/18 02/12/19 History Multivitamin [Multivitamins Adult 1 tab PO DAILY@1000 12/23/18 02/12/19 History Gummies] Omeprazole 40 mg PO DAILY PRN 12/23/18 02/12/19 History Ferrous Sulfate [Iron (65 MG 325 mg PO BID-W/MEALS #60 tab 01/30/19 02/12/19 Rx Elemental)] Lactulose [Cephulac] 20 gm PO QID #3600 ml 01/30/19 02/12/19 Rx Potassium Chloride ER [K-Dur 20] 20 meq PO DAILY #30 tab 01/30/19 02/12/19 Rx Sodium Bicarbonate Tab 650 mg PO BID #30 tab 01/30/19 02/12/19 Rx Spironolactone [Aldactone] 25 mg PO BID #60 tab 01/30/19 02/12/19 Rx Furosemide [Lasix] 20 mg PO DAILY 02/12/19 02/12/19 History Allergies Allergy/AdvReac Type Severity Reaction Status Date / Time adhesive Allergy Rash/Hives Verified 02/12/19 08:23 morphine Allergy Rash/Hives Verified 02/12/19 08:23 sulfamethoxazole Allergy Unknown Verified 02/12/19 08:23 [From Bactrim] Tetanus Vaccines and Toxoid Allergy Swelling Verified 02/12/19 08:23 [Tetanus Vaccines & Toxoid] trimethoprim [From Bactrim] Allergy Unknown Verified 02/12/19 08:23 cigarette smoke AdvReac Cough, Verified 02/12/19 08:23 Shortness of Breath sertraline [From Zoloft] AdvReac DIZZY/Nausea Verified 02/12/19 08:23 & Vomiting skin ink Allergy Rash/Hives Uncoded 02/12/19 01:49 yellow squash Allergy Anaphylaxis Uncoded 02/12/19 01:49 dust AdvReac Mild Itching Uncoded 02/12/19 01:49 dust mites AdvReac Rash/Hives Uncoded 02/12/19 01:49 Physical Exam Vitals: Vital Signs Temp Pulse Pulse Resp BP BP Pulse Ox 02/12/19 04:58 98.1 F 102 H 20 114/74 100 02/12/19 01:44 98.3 F 106 H 20 110/65 100 Intake and Output 02/11/19 02/12/19 02/12/19 22:59 06:59 14:59 Output Total 200 300 Balance -200 -300 Output: Urine 200 300 Other: # Voids 1 Weight 137.2 kg GEN. APPEARANCE: alert, in no apparent distress HEAD EXAM: atraumatic, normocephalic, normal inspection EYE EXAM: Mild pallor . Scleral icterus positive. ENT EXAM: normal exam, mucous membranes moist NECK EXAM: normal inspection. Absent: tenderness, meningismus, full ROM, lymphadenopathy RESPIRATORY EXAM: normal lung sounds bilaterally. Absent: respiratory distress, wheezes, rales, rhonchi, stridor CARDIOVASCULAR EXAM: regular rate, normal rhythm, normal heart sounds. Absent: systolic murmur, diastolic murmur, rubs, gallop, clicks GI/ABDOMINAL EXAM: Abdomen is distended. Soft, nontender. Bowel sounds are positive. Patient has a surgical scar in the lower abdomen. EXTREMITIES EXAM: Bilateral pitting edema of lower extremities. Abdominal wall edema. NEUROLOGICAL EXAM: alert, oriented X3, focal neurological deficits. PSYCHIATRIC EXAM: normal affect, normal mood Results CBC & Chem 7: 02/12/19 02:39 02/12/19 02:39 Labs: Abnormal Lab Results - Last 24 Hours (Table) 02/12/19 02/12/19 02/12/19 Range/Units 02:39 02:39 02:39 RBC 3.28 L (3.80-5.40) m/uL Hgb 9.4 L (11.4-16.0) gm/dL Hct 29.3 L (34.0-46.0) % RDW 22.0 H (11.5-15.5) % Plt Count 119 L (150-450) k/uL PT 18.0 H (9.0-12.0) sec INR 1.8 H (<1.2) APTT 34.1 H (22.0-30.0) sec BUN 28 H (7-17) mg/dL Creatinine 2.10 H (0.52-1.04) mg/dL Glucose 138 H (74-99) mg/dL Calcium 8.1 L (8.4-10.2) mg/dL Total Bilirubin 7.0 H (0.2-1.3) mg/dL AST 204 H (14-36) U/L ALT 105 H (9-52) U/L Alkaline Phosphatase 375 H (38-126) U/L Total Protein 5.5 L (6.3-8.2) g/dL Albumin 2.5 L (3.5-5.0) g/dL Lipase 540 H (23-300) U/L Urine Appearance (Clear) Ur Leukocyte Esterase (Negative) Urine WBC (0-5) /hpf Ur Squamous Epith Cells (0-4) /hpf Hyaline Casts (0-2) /lpf Urine Mucus (None) /hpf 04/14/19 Range/Units 04:30 RBC (3.80-5.40) m/uL Hgb (11.4-16.0) gm/dL Hct (34.0-46.0) % RDW (11.5-15.5) % Plt Count (150-450) k/uL PT (9.0-12.0) sec INR (<1.2) APTT (22.0-30.0) sec BUN (7-17) mg/dL Creatinine (0.52-1.04) mg/dL Glucose (74-99) mg/dL Calcium (8.4-10.2) mg/dL Total Bilirubin (0.2-1.3) mg/dL AST (14-36) U/L ALT (9-52) U/L Alkaline Phosphatase (38-126) U/L Total Protein (6.3-8.2) g/dL Albumin (3.5-5.0) g/dL Lipase (23-300) U/L Urine Appearance Cloudy H (Clear) Ur Leukocyte Esterase Small H (Negative) Urine WBC 10 H (0-5) /hpf Ur Squamous Epith Cells 5 H (0-4) /hpf Hyaline Casts 44 H (0-2) /lpf Urine Mucus Occasional H (None) /hpf Thrombosis Risk Factor Assmnt - Choose All That Apply Any of the Below Risk Factors Present?: Yes Each Factor Represents 1 point: Obesity (BMI >25), Swollen legs (current) Other Risk Factors: No Thrombosis Risk Factor Assessment Total Risk Factor Score: 2 Thrombosis Risk Factor Assessment Level: Low Risk Assessment and Plan Assessment: ASSESSMENT Hepatorenal syndrome Recurrent Ascites Liver cirrhosis - concerns for possible drug-induced liver injury Coagulopathy secondary to liver disease Chronic iron deficiency anemia Morbid obesity BMI of 50 Type 2 diabetes mellitus History of Harshad-en-Y gastric bypass History of alcohol abuse PLAN: Patient has been started on 40 mg IV Lasix twice a day. Avoid hepatotoxins. Resume her home medication regimen. GI has been consulted - for possible initiation of midodrine, octreotide and albumin therapy. Overall prognosis is guarded. Further recommendations to follow depending on the progress of the patient.
[2019-02-12] MEDS: LACTULOSE 20 GM/30 ML CUP PO SCH ×2 (15:41→20:40)
[2019-02-12] MEDS: FUROSEMIDE 10 MG/ML 4 ML VIAL IV SCH (15:41)
[2019-02-12] MEDS: FERROUS SULFATE 325 MG TAB PO SCH (15:41)
[2019-02-12] MEDS: MORPHINE SULFATE 2 MG/ML SYRINGE IVP PRN ×2 (15:41→20:58)
[2019-02-12] MEDS: SPIRONOLACTONE 25 MG TAB PO SCH (15:41)
[2019-02-12] MEDS: RIFAXIMIN 550 MG TABLET PO SCH (20:40)
--- NOTE | 2019-02-12 20:52 | P.CONS ---
History of Present Illness - Reason for Consult Consult date: 02/12/19 Ascites Requesting physician: Daisha Parker - Chief Complaint Abdominal distension - History of Present Illness 38-year-old female with a medical history significant for decompensated cirrhosis with a ascites requiring paracentesis, previous hospitalizations for hepatic encephalopathy, iron deficiency anemia, obesity, laparoscopic cholecystectomy in November 2018 for chronic acalculous cholecystitis, diabetes mellitus, previous Harshad-en-Y gastric bypass who presented to the hospital with complaints of increasing abdominal distention and lower extremity swelling. The patient was recently hospitalized for similar complaints and reports that after discharge she had her diuretics decreased in the outpatient setting. She reports that since that time she has been having increasing lower 70 swelling and abdominal distention. She has previously been seen at [facility] and is following up with the hepatology team noting that she has an appointment on February 28. The patient was on home diuretic therapy with Lasix 20 mg twice a day. She also takes lactulose therapy which she reports compliance with for treatment of hepatic encephalopathy. The patient has been given Xifaxan in the past while hospitalized but has been unable to have this covered in the [facility] setting by her insurance company. She reports her last paracentesis was excellently 5 days ago during which 2.7 L of ascitic fluid was removed. On presentation to the hospital laboratory evaluation was significant for WBC 8.8, hemoglobin 9.4, platelet count 119,000, INR 1.8, creatinine 2.1, alkaline phosphatase 375, total bilirubin 7, AST 204, and ALT 105. Review of Systems REVIEW OF SYSTEMS: CONSTITUTIONAL: Denies any fevers, chills, weight change or fatigue. CARDIOVASCULAR: Denies any chest pain, palpitations high or low blood pressures RESPIRATORY: Denies any shortness of breath, hemoptysis or cough. GENITOURINARY: No dysuria or hematuria, she feels she has been urinating less on the reduced dose of diuretics. MUSCULOSKELETAL: No weakness reported. SKIN: Denies any new rashes or lesions, or pallor however she continues to have some jaundice. PSYCHIATRIC: Denies any depression or anxiety. NEUROLOGY: Denies headache, denies any new focal deficits. EARS/NOSE/THROAT: No recent hearing change, congestion, nasal discharge or sore throat. EYES: No pain in eyes, discharge or change in vision. GASTROINTESTINAL: As per HPI. Past Medical History Past Medical History: Asthma, Diabetes Mellitus, Skin Disorder, Thyroid Disorder Additional Past Medical History / Comment(s): migraines, hashimotos, eczema, no current rx for diabetes- diet control, anemia, elevated liver enzymes & retaining fluid since recent surgery-has gained 40 lbs. of fluid recently per pt. History of Any Multi-Drug Resistant Organisms: None Reported Year Discovered:: JUNE 2013 MDRO Source:: WOUND ON LEFT UPPER ABDOMEN Past Surgical History: Appendectomy, Bariatric Surgery, Section, Cholecystectomy, Orthopedic Surgery, Tubal Ligation Additional Past Surgical History / Comment(s): HARSHAD-EN-Y, left knee arthroscopy, I&D left upper abdomen; Panniculectomy Jul 2016, robotic lap. marlena 11-07-18 Past Anesthesia/Blood Transfusion Reactions: Family History of Problems w/ Anesthesia, Motion Sickness, Postoperative Nausea & Vomiting (PONV) Additional Past Anesthesia/Blood Transfusion Reaction / Comm: mother-"hard time waking up and trouble breathing" Past Psychological History: No Psychological Hx Reported Smoking Status: Never smoker Past Alcohol Use History: None Reported Past Drug Use History: None Reported - Past Family History Mother Family Medical History: No Reported History Additional Family Medical History / Comment(s): Mother had gastric bypass surgery and no longer has HTN or high cholesteral. Father Family Medical History: Diabetes Mellitus, Hyperlipidemia, Hypertension Medications and Allergies Home Medications Medication Instructions Recorded Confirmed Type Levothyroxine Sodium [Synthroid] 25 mcg PO DAILY@0400 07/03/16 02/12/19 History Sertraline HCl [Zoloft] 25 mg PO DAILY@0400 11/04/18 02/12/19 History Multivitamin [Multivitamins Adult 1 tab PO DAILY@1000 12/23/18 02/12/19 History Gummies] Omeprazole 40 mg PO DAILY PRN 12/23/18 02/12/19 History Ferrous Sulfate [Iron (65 MG 325 mg PO BID-W/MEALS #60 tab 01/30/19 02/12/19 Rx Elemental)] Lactulose [Cephulac] 20 gm PO QID #3600 ml 01/30/19 02/12/19 Rx Potassium Chloride ER [K-Dur 20] 20 meq PO DAILY #30 tab 01/30/19 02/12/19 Rx Sodium Bicarbonate Tab 650 mg PO BID #30 tab 01/30/19 02/12/19 Rx Spironolactone [Aldactone] 25 mg PO BID #60 tab 01/30/19 02/12/19 Rx Furosemide [Lasix] 20 mg PO DAILY 02/12/19 02/12/19 History Allergies Allergy/AdvReac Type Severity Reaction Status Date / Time adhesive Allergy Rash/Hives Verified 02/12/19 08:23 morphine Allergy Rash/Hives Verified 02/12/19 08:23 sulfamethoxazole Allergy Unknown Verified 02/12/19 08:23 [From Bactrim] Tetanus Vaccines and Toxoid Allergy Swelling Verified 02/12/19 08:23 [Tetanus Vaccines & Toxoid] trimethoprim [From Bactrim] Allergy Unknown Verified 02/12/19 08:23 cigarette smoke AdvReac Cough, Verified 02/12/19 08:23 Shortness of Breath sertraline [From Zoloft] AdvReac DIZZY/Nausea Verified 02/12/19 08:23 & Vomiting skin ink Allergy Rash/Hives Uncoded 02/12/19 01:49 yellow squash Allergy Anaphylaxis Uncoded 02/12/19 01:49 dust AdvReac Mild Itching Uncoded 02/12/19 01:49 dust mites AdvReac Rash/Hives Uncoded 02/12/19 01:49 Physical Exam Vitals: Vital Signs Temp Pulse Pulse Resp BP BP Pulse Ox 02/12/19 04:58 98.1 F 102 H 20 114/74 100 02/12/19 01:44 98.3 F 106 H 20 110/65 100 Intake and Output 02/11/19 02/12/19 02/12/19 22:59 06:59 14:59 Output Total 200 Balance -200 Output: Urine 200 Other: # Voids 1 Weight 137.2 kg On physical examination, patient appears comfortable in no apparent distress. HEAD: Normocephalic, atraumatic. EYES: Scleral icterus. No conjunctival injection. MOUTH: No lesions, tongue midline. NECK: Trachea midline, no gross abnormalities. CHEST: Clear to auscultation with no wheezing or rhonchi appreciated. HEART: Regular rate and rhythm. ABDOMEN: Soft, obese, with positive fluid wave. Bowel sounds are positive. No organomegaly. No guarding or rigidity. EXTREMITIES: Bilateral pitting pedal edema. SKIN: No rashes, mild jaundice. NEUROLOGIC: Alert and oriented x3. No focal deficits. Results CBC & Chem 7: 02/12/19 02:39 02/12/19 02:39 Labs: Abnormal Lab Results - Last 24 Hours (Table) 02/12/19 02/12/19 02/12/19 Range/Units 02:39 02:39 02:39 RBC 3.28 L (3.80-5.40) m/uL Hgb 9.4 L (11.4-16.0) gm/dL Hct 29.3 L (34.0-46.0) % RDW 22.0 H (11.5-15.5) % Plt Count 119 L (150-450) k/uL PT 18.0 H (9.0-12.0) sec INR 1.8 H (<1.2) APTT 34.1 H (22.0-30.0) sec BUN 28 H (7-17) mg/dL Creatinine 2.10 H (0.52-1.04) mg/dL Glucose 138 H (74-99) mg/dL Calcium 8.1 L (8.4-10.2) mg/dL Total Bilirubin 7.0 H (0.2-1.3) mg/dL AST 204 H (14-36) U/L ALT 105 H (9-52) U/L Alkaline Phosphatase 375 H (38-126) U/L Total Protein 5.5 L (6.3-8.2) g/dL Albumin 2.5 L (3.5-5.0) g/dL Lipase 540 H (23-300) U/L Urine Appearance (Clear) Ur Leukocyte Esterase (Negative) Urine WBC (0-5) /hpf Ur Squamous Epith Cells (0-4) /hpf Hyaline Casts (0-2) /lpf Urine Mucus (None) /hpf 02/12/19 Range/Units 04:30 RBC (3.80-5.40) m/uL Hgb (11.4-16.0) gm/dL Hct (34.0-46.0) % RDW (11.5-15.5) % Plt Count (150-450) k/uL PT (9.0-12.0) sec INR (<1.2) APTT (22.0-30.0) sec BUN (7-17) mg/dL Creatinine (0.52-1.04) mg/dL Glucose (74-99) mg/dL Calcium (8.4-10.2) mg/dL Total Bilirubin (0.2-1.3) mg/dL AST (14-36) U/L ALT (9-52) U/L Alkaline Phosphatase (38-126) U/L Total Protein (6.3-8.2) g/dL Albumin (3.5-5.0) g/dL Lipase (23-300) U/L Urine Appearance Cloudy H (Clear) Ur Leukocyte Esterase Small H (Negative) Urine WBC 10 H (0-5) /hpf Ur Squamous Epith Cells 5 H (0-4) /hpf Hyaline Casts 44 H (0-2) /lpf Urine Mucus Occasional H (None) /hpf Assessment and Plan (1) Liver cirrhosis Narrative/Plan: Decompensated liver cirrhosis with prior episodes of hepatic encephalopathy and recurrent complaints of abdominal distention secondary to ascites. Patient cu rrently had her diuretics decreased in the outpatient setting and reports worsening lower extremity and abdominal distention and swelling. The patient on presentation is found to have a meld sodium score of 27. She has been referred to [facility] and is currently undergoing evaluation with further liver transplant program. Current Visit: Yes Status: Acute Code(s): K74.60 - UNSPECIFIED CIRRHOSIS OF LIVER SNOMED Code(s): 31162936 (2) Abdominal pain Current Visit: No Status: Acute Code(s): R10.9 - UNSPECIFIED ABDOMINAL PAIN SNOMED Code(s): 90369330 (3) Elevated liver enzymes Narrative/Plan: Secondary to decompensated liver cirrhosis. Current Visit: No Status: Acute Code(s): R74.8 - ABNORMAL LEVELS OF OTHER SERUM ENZYMES SNOMED Code(s): 419145419 (4) Hepatic encephalopathy Narrative/Plan: No physical exam findings of asterixis to suggest hepatic encephalopathy. Currently the patient is on lactulose therapy with Xifaxan added in the hospital. Current Visit: No Status: Acute Code(s): K72.90 - HEPATIC FAILURE, UNSPECIFIED WITHOUT COMA SNOMED Code(s): 00613131 Plan: Supportive care Okay for low-sodium diet Continue to monitor CBC, CMP, liver enzymes and INR Continue diuresis with IV Lasix and spironolactone Continue lactulose and Xifaxan therapy If concern arises for hepatorenal syndrome would advise addition of midrodrine, octreotide and albumin Given meld sodium score of 27, recommendations are for continued follow up with [facility] in the liver transplant team Patient continues to complain of pain and small dose of morphine was added, however extensive conversation with the patient and her on the need to limit narcotic and sedative medications as these can cause prolonged sedation and altered mental status in the setting of chronic liver disease Thank you for allowing us to participate in the care of the patient we will continue to follow
[2019-02-13] MEDS: LACTULOSE 20 GM/30 ML CUP PO SCH ×4 (04:17→20:17)
[2019-02-13] MEDS: FUROSEMIDE 10 MG/ML 4 ML VIAL IV SCH ×3 (04:18→17:02)
[2019-02-13] MEDS: POTASSIUM CHLORIDE ER 20 MEQ TAB.ER PO SCH (04:18)
[2019-02-13] MEDS: SPIRONOLACTONE 25 MG TAB PO SCH ×2 (04:18→17:04)
[2019-02-13] MEDS: SERTRALINE 25 MG TAB PO SCH (04:19)
[2019-02-13] MEDS: FERROUS SULFATE 325 MG TAB PO SCH ×2 (04:19→17:04)
[2019-02-13] MEDS: LEVOTHYROXINE 25 MCG TAB PO SCH (04:19)
[2019-02-13 08:13] LABS: Albumin 2.4 g/dL (3.5-5.0); Calcium 8.1 mg/dL (8.4-10.2); Potassium 3.7 mmol/L (3.5-5.1); Total Bilirubin 7.9 mg/dL (0.2-1.3); Total Protein 5.5 g/dL (6.3-8.2)
[2019-02-13 08:26] LABS: Anisocytosis Moderate; Basophils # (A) 0.1 k/uL (0-0.2); Basophils % (A) 1 %; Eosinophils # (A) 0.5 k/uL (0-0.7); Eosinophils % (A) 5 %; HCT 30.2 % (34.0-46.0); HGB 9.3 gm/dL (11.4-16.0); Hypochromasia Marked; Lymphocytes # (A) 1.5 k/uL (1.0-4.8); Lymphocytes % (A) 15 %; MCHC 30.9 g/dL (31.0-37.0); MCV 90.5 fL (80.0-100.0); Mean Platelet Volume 8.6; Monocytes # (A) 0.8 k/uL (0-1.0); Monocytes % (A) 8 %; Neutrophils # (A) 7.2 k/uL (1.3-7.7); Neutrophils % (A) 70 %; Platelet Count 126 k/uL (150-450); RBC 3.34 m/uL (3.80-5.40); RDW 21.5 % (11.5-15.5); WBC 10.3 k/uL (3.8-10.6)
[2019-02-13] MEDS: RIFAXIMIN 550 MG TABLET PO SCH ×2 (09:27→20:17)
[2019-02-13] MEDS: MORPHINE SULFATE 2 MG/ML SYRINGE IVP PRN ×2 (09:37→17:14)
--- NOTE | 2019-02-13 11:20 | P.PN ---
Subjective History of present illness, from medical records Ms. Ravi is a 38-year-old female with a past medical history of liver cirrhosis, portal hypertension, myositis, and deficiency anemia, morbid obesity and laparoscopic cholecystectomy done in November 2018 for chronic a calculus cholecystitis, Harshad-en-Y gastric bypass coming into the hospital with a chief complaint of increased swelling in her bilateral lower extremities and also worsening abdominal distention. Patient has history of chronic liver disease that is currently being worked up at [facility] gastroenterology for possible liver transplant. Patient has regular paracentesis for recurrent gastritis and she had 2.7 L of fluid taken out 5 days back. During her recent hospital admission she was discharged on 40 mg of Lasix to be taken twice a day. Then patient went to follow up with her PCP who changed her Lasix from 40 twice a day to 20 twice a day and since then she noticed that her lower extremity edema got worsened and her abdominal distention as well. Patient denies having any fevers chills or rigors. Patient denies having any abdominal pain. No nausea, vomiting or diarrhea. No constipation. No blood in her bowel movements. She complains of shortness of breath in association with her abdominal pain. At the time of admission patient's hemoglobin is 9.4, AST 204, AST 105 and alkaline phosphatase of 375. Creatinine is 2.10 and total bilirubin of 7.0 and albumin of 2.5. Patient has been given IV 40 mg of Lasix and admitted to the floor for further management with a GI consult. Subjective 02/13/2019 This is a pleasant 38 years old female with past medical history of fluid overload secondary to liver cirrhosis. Presents with similar complaint of worsening edema after her PCP lower to her Lasix from 40 mg twice a day to 20 mg daily, concerning her kidney function. Patient after that started having swelling in her legs and abdominal distention with generalized body ache. She was placed on Lasix 40 mg IV twice a day, however her weight remains the same 137.2 to 137.5 kg. Liver function tests are still elevated. We'll increase Lasix to 3 times a day with fluid restriction CONSTITUTIONAL: No fever, no malaise, no fatigue. HEENT: No recent visual problems or hearing problems. Denied any sore throat. CARDIOVASCULAR: No orthopnea, PND, no palpitations, no syncope. PULMONARY: No shortness of breath, no cough, no hemoptysis. GASTROINTESTINAL: No diarrhea, no nausea, no vomiting, no abdominal pain. Normoactive bowel sounds. NEUROLOGICAL: No headaches, no weakness, no numbness. HEMATOLOGICAL: Denies any bleeding or petechiae. GENITOURINARY: Denies any burning micturition, frequency, or urgency. MUSCULOSKELETAL/RHEUMATOLOGICAL: Denies any joint pain, swelling, or any muscle pain. ENDOCRINE: Denies any polyuria or polydipsia. Medication: ferrous Sulfate, Lasix, lactulose, levothyroxine, morphine, Princess nix, potassium chloride, rifaximin, Zoloft, spironolactone. Objective - Vital Signs Vital signs: Vital Signs Temp 97.3 F L 02/13/19 04:45 Pulse 108 H 02/13/19 04:45 Resp 20 02/13/19 04:45 BP 111/70 02/13/19 04:45 Pulse Ox 100 02/13/19 04:45 Intake & Output 02/12/19 02/13/19 02/13/19 18:59 06:59 18:59 Intake Total 800 Output Total 700 202 Balance -700 598 Weight 137.5 kg Intake: Oral 800 Output: Urine 700 200 Urine/Stool Mix 2 Other: # Voids 1 0 # Bowel Movements 0 - Exam GENERAL: The patient is alert and oriented x3, not in any acute distress. Well developed, well nourished. HEENT: Pupils are round and equally reacting to light. EOMI. No scleral icterus. No conjunctival pallor. Normocephalic, atraumatic. No pharyngeal erythema. No thyromegaly. CARDIOVASCULAR: S1 and S2 present. No murmurs, rubs, or gallops. PULMONARY: Chest is clear to auscultation, no wheezing or crackles. -ABDOMEN: Soft, nontender,distended secondary to ascites, normoactive bowel sounds. No palpable organomegaly. MUSCULOSKELETAL: No joint swelling or deformity. -EXTREMITIES: No cyanosis, clubbing, bilateral leg edema NEUROLOGICAL: Gross neurological examination did not reveal any focal deficits. SKIN: No rashes. - Labs CBC & Chem 7: 02/13/19 07:46 02/13/19 07:46 Labs: Abnormal Lab Results - Last 24 Hours (Table) 02/13/19 02/13/19 02/13/19 Range/Units 07:46 07:46 09:33 RBC 3.34 L (3.80-5.40) m/uL Hgb 9.3 L (11.4-16.0) gm/dL Hct 30.2 L (34.0-46.0) % MCHC 30.9 L (31.0-37.0) g/dL RDW 21.5 H (11.5-15.5) % Plt Count 126 L (150-450) k/uL BUN 30 H (7-17) mg/dL Creatinine 2.38 H (0.52-1.04) mg/dL Glucose 146 H (74-99) mg/dL Calcium 8.1 L (8.4-10.2) mg/dL Total Bilirubin 7.9 H (0.2-1.3) mg/dL AST 212 H (14-36) U/L ALT 110 H (9-52) U/L Alkaline Phosphatase 340 H (38-126) U/L Ammonia 49 H (<30) umol/L Total Protein 5.5 L (6.3-8.2) g/dL Albumin 2.4 L (3.5-5.0) g/dL Microbiology - Last 24 Hours (Table) 02/12/19 02:39 Blood Culture - Preliminary Blood No Growth after 24 hours Assessment and Plan Assessment: Alcoholic liver cirrhosis, with elevated liver enzymes Ascites, fluid overload Bilateral leg edema Acute renal failure, present on admission. Secondary to fluid overload. concern for hepatorenal syndrome history of hepatic encephalopathy, not active issue currently History of EtOH abuse patient reports no active EtOH consumption. History of Harshad-en-Y gastric bypass. History of cholecystectomy November 2018. Coagulopathy secondary to liver disease Chronic iron deficiency anemia. Morbid obesity BMI 41. Diabetes mellitus Plan: this is a pleasant 38 yo F who presents with abd pain and ascitis, and acute renal failure. Patient is already on Lasix, we'll increase it to 40 daily. However withhold Aldactone in view of worsening kidney function. We'll call nephrology consult rate GI team has already been consulted by each team. Labs and medication were reviewed.. Continue same treatment. Continue with symptomatic treatment. Resume home medication. Monitor lytes and vitals. DVT and GI prophylaxis. Further recommendations of the clinical course of the patient DVT prophylaxis: Subcutaneous heparin GI Prophylaxis: Pepcid Prognosis is guarded
--- NOTE | 2019-02-13 19:19 | P.PN ---
Subjective Progress Note Date: 02/13/19 Principal diagnosis: Decompensated cirrhosis, ascites Patient seen lying in bed. Tolerating her diet. Still reporting some abdominal distention. Reporting good bowel movements. Concerned about difficulty urinating as she is unable to fit on bedside commode or toilet in bathroom. Objective - Vital Signs Vital signs: Vital Signs Temp 97.3 F L 02/13/19 04:45 Pulse 108 H 02/13/19 04:45 Resp 20 02/13/19 04:45 BP 111/70 02/13/19 04:45 Pulse Ox 100 02/13/19 04:45 Intake & Output 02/12/19 02/13/19 02/13/19 18:59 06:59 18:59 Intake Total 800 Output Total 700 202 Balance -700 598 Weight 137.5 kg Intake: Oral 800 Output: Urine 700 200 Urine/Stool Mix 2 Other: # Voids 1 0 # Bowel Movements 0 - Exam On physical examination, patient appears comfortable in no apparent distress. HEAD: Normocephalic, atraumatic. EYES: Scleral icterus. No conjunctival injection. MOUTH: No lesions, tongue midline. NECK: Trachea midline, no gross abnormalities. CHEST: Clear to auscultation with no wheezing or rhonchi appreciated. HEART: Regular rate and rhythm. ABDOMEN: Soft, obese, distended. Bowel sounds are positive. No organomegaly. No guarding or rigidity. EXTREMITIES: Bilateral 2+ pedal edema. SKIN: No rashes, no jaundice. NEUROLOGIC: Alert and oriented x3. Mild asterixis noted. No focal deficits. - Labs CBC & Chem 7: 02/13/19 07:46 02/13/19 07:46 Labs: Abnormal Lab Results - Last 24 Hours (Table) 02/13/19 02/13/19 02/13/19 Range/Units 07:46 07:46 09:33 RBC 3.34 L (3.80-5.40) m/uL Hgb 9.3 L (11.4-16.0) gm/dL Hct 30.2 L (34.0-46.0) % MCHC 30.9 L (31.0-37.0) g/dL RDW 21.5 H (11.5-15.5) % Plt Count 126 L (150-450) k/uL BUN 30 H (7-17) mg/dL Creatinine 2.38 H (0.52-1.04) mg/dL Glucose 146 H (74-99) mg/dL Calcium 8.1 L (8.4-10.2) mg/dL Total Bilirubin 7.9 H (0.2-1.3) mg/dL AST 212 H (14-36) U/L ALT 110 H (9-52) U/L Alkaline Phosphatase 340 H (38-126) U/L Ammonia 49 H (<30) umol/L Total Protein 5.5 L (6.3-8.2) g/dL Albumin 2.4 L (3.5-5.0) g/dL Microbiology - Last 24 Hours (Table) 02/12/19 02:39 Blood Culture - Preliminary Blood No Growth after 24 hours Assessment and Plan (1) Liver cirrhosis Narrative/Plan: Decompensated liver cirrhosis with prior episodes of hepatic encephalopathy and recurrent complaints of abdominal distention secondary to ascites. Patient currently had her diuretics decreased in the outpatient setting and reports worsening lower extremity and abdominal distention and swelling. The patient on presentation is found to have a meld sodium score of 27. She has been referred to [facility] and is currently undergoing evaluation with further liver transplant program. Current Visit: Yes Status: Acute Code(s): K74.60 - UNSPECIFIED CIRRHOSIS OF LIVER SNOMED Code(s): 42564490 (2) Abdominal pain Current Visit: No Status: Acute Code(s): R10.9 - UNSPECIFIED ABDOMINAL PAIN SNOMED Code(s): 47291184 (3) Elevated liver enzymes Narrative/Plan: Secondary to decompensated liver cirrhosis. Current Visit: No Status: Acute Code(s): R74.8 - ABNORMAL LEVELS OF OTHER SERUM ENZYMES SNOMED Code(s): 315114429 (4) Hepatic encephalopathy Narrative/Plan: No physical exam findings of asterixis to suggest hepatic encephalopathy. Currently the patient is on lactulose therapy with Xifaxan added in the hospital. Current Visit: No Status: Acute Code(s): K72.90 - HEPATIC FAILURE, UNSPECIFIED WITHOUT COMA SNOMED Code(s): 56201992 Plan: Supportive care Okay for low-sodium diet Continue to monitor CBC, CMP, liver enzymes and INR Continue diuresis with IV Lasix and spironolactone Continue lactulose and Xifaxan therapy Creatinine slightly elevated from admission, discussion with primary care and will consult nephrology at this time and if concern for hepatorenal syndrome would advise addition of midrodrine, octreotide and albumin Given meld sodium score of 27 on admission, recommendations are for continued follow up with [facility] in the liver transplant team Patient continues to complain of pain and small dose of morphine was added, however extensive conversation with the patient and her on the need to limit narcotic and sedative medications as these can cause prolonged sedation and altered mental status in the setting of chronic liver disease Thank you for allowing us to participate in the care of the patient we will continue to follow
[2019-02-13] MEDS: FAMOTIDINE 20 MG/2 ML VIAL IV SCH (20:18)
[2019-02-13] MEDS: HEPARIN SODIUM,PORCINE 5,000 UNIT/ML 1 ML VIAL SQ SCH (20:18)
[2019-02-14] MEDS: MORPHINE SULFATE 2 MG/ML SYRINGE IVP PRN ×3 (02:51→18:31)
[2019-02-14] MEDS: FERROUS SULFATE 325 MG TAB PO SCH ×2 (04:03→18:16)
[2019-02-14] MEDS: POTASSIUM CHLORIDE ER 20 MEQ TAB.ER PO SCH (04:03)
[2019-02-14] MEDS: SPIRONOLACTONE 25 MG TAB PO SCH ×2 (04:03→18:16)
[2019-02-14] MEDS: LACTULOSE 20 GM/30 ML CUP PO SCH ×4 (04:03→21:11)
[2019-02-14] MEDS: FUROSEMIDE 10 MG/ML 4 ML VIAL IV SCH (04:04)
[2019-02-14] MEDS: SERTRALINE 25 MG TAB PO SCH (04:16)
[2019-02-14] MEDS: LEVOTHYROXINE 25 MCG TAB PO SCH (04:16)
[2019-02-14] MEDS: RIFAXIMIN 550 MG TABLET PO SCH ×2 (08:31→21:12)
[2019-02-14 08:32] LABS: Anisocytosis Moderate; HCT 30.2 % (34.0-46.0); HGB 9.7 gm/dL (11.4-16.0); Hypochromasia Moderate; INR 1.8 (<1.2); MCH 29.2 pg (25.0-35.0); MCHC 32.1 g/dL (31.0-37.0); MCV 90.8 fL (80.0-100.0); Mean Platelet Volume 9.1; Partial Thromboplastin Time 36.2 sec (22.0-30.0); Platelet Count 133 k/uL (150-450); Prothrombin Time 17.9 sec (9.0-12.0); RBC 3.33 m/uL (3.80-5.40); RDW 21.4 % (11.5-15.5); WBC 10.8 k/uL (3.8-10.6)
[2019-02-14 08:36] LABS: Potassium 3.6 mmol/L (3.5-5.1)
[2019-02-14 08:37] LABS: Albumin 2.4 g/dL (3.5-5.0); Calcium 8.2 mg/dL (8.4-10.2); Total Bilirubin 7.8 mg/dL (0.2-1.3); Total Protein 5.5 g/dL (6.3-8.2)
[2019-02-14] MEDS: FAMOTIDINE 20 MG/2 ML VIAL IV SCH ×2 (08:37→21:11)
[2019-02-14] MEDS: HEPARIN SODIUM,PORCINE 5,000 UNIT/ML 1 ML VIAL SQ SCH ×2 (08:37→21:11)
[2019-02-14 10:13] LABS: Eosinophils # (M) 0.54 k/uL (0-0.7); Lymphocytes # (M) 0.76 k/uL (1.0-4.8); Monocytes # (M) 0.97 k/uL (0-1.0); Neutrophils # (M) 8.53 k/uL (1.3-7.7); Neutrophils % (M) 79 %; Nucleated Red Blood Cells 0 /100 WBC (0-0); Total Cells Counted 100
[2019-02-14 10:14] LABS: Target Cells Present
--- NOTE | 2019-02-14 10:21 | P.PN ---
Subjective History of present illness, from medical records Ms. Ravi is a 38-year-old female with a past medical history of liver cirrhosis, portal hypertension, myositis, and deficiency anemia, morbid obesity and laparoscopic cholecystectomy done in November 2018 for chronic a calculus cholecystitis, Harshad-en-Y gastric bypass coming into the hospital with a chief complaint of increased swelling in her bilateral lower extremities and also worsening abdominal distention. Patient has history of chronic liver disease that is currently being worked up at [facility] gastroenterology for possible liver transplant. Patient has regular paracentesis for recurrent gastritis and she had 2.7 L of fluid taken out 5 days back. During her recent hospital admission she was discharged on 40 mg of Lasix to be taken twice a day. Then patient went to follow up with her PCP who changed her Lasix from 40 twice a day to 20 twice a day and since then she noticed that her lower extremity edema got worsened and her abdominal distention as well. Patient denies having any fevers chills or rigors. Patient denies having any abdominal pain. No nausea, vomiting or diarrhea. No constipation. No blood in her bowel movements. She complains of shortness of breath in association with her abdominal pain. At the time of admission patient's hemoglobin is 9.4, AST 204, AST 105 and alkaline phosphatase of 375. Creatinine is 2.10 and total bilirubin of 7.0 and albumin of 2.5. Patient has been given IV 40 mg of Lasix and admitted to the floor for further management with a GI consult. Subjective 02/13/2019 This is a pleasant 38 years old female with past medical history of fluid overload secondary to liver cirrhosis. Presents with similar complaint of worsening edema after her PCP lower to her Lasix from 40 mg twice a day to 20 mg daily, concerning her kidney function. Patient after that started having swelling in her legs and abdominal distention with generalized body ache. She was placed on Lasix 40 mg IV twice a day, however her weight remains the same 137.2 to 137.5 kg. Liver function tests are still elevated. We'll increase Lasix to 3 times a day with fluid restriction 02/14/2019 Patient still bit lethargic, however she is fully awake and oriented. She denies abdominal pain or chest pain or dyspnea. She has generalized body pain and swelling in her abdominal girth and both lower extremities. She has several bowel movements yesterday and she is already on lactulose. Also her Lasix increased yesterday from 40 mg twice to 3 times a day. Her weight has increased today 137.5 up to 140.1 kg. Her creatinine is still trending up 2.3 to 2.5. Liver enzymes are elevated but stable as well as total bilirubin. GI team are following the patient and nephrology team has been consulted already. Patient also has mild leukocytosis of 10.8 K. We will send for blood culture and start ceftriaxone. CONSTITUTIONAL: No fever, HEENT: No recent visual problems or hearing problems. Denied any sore throat. CARDIOVASCULAR: No orthopnea, PND, no palpitations, no syncope. PULMONARY: No shortness of breath, no cough, no hemoptysis. GASTROINTESTINAL: No diarrhea, no nausea, no vomiting, no abdominal pain. Normoactive bowel sounds. NEUROLOGICAL: No headaches, no weakness, no numbness. HEMATOLOGICAL: Denies any bleeding or petechiae. GENITOURINARY: Denies any burning micturition, frequency, or urgency. MUSCULOSKELETAL/RHEUMATOLOGICAL: Denies any joint pain, swelling, or any muscle pain. ENDOCRINE: Denies any polyuria or polydipsia. Medication: ferrous Sulfate, Lasix, lactulose, levothyroxine, morphine, Protonix, potassium chloride, rifaximin, Zoloft, spironolactone. Objective - Vital Signs Vital signs: Vital Signs Temp 97.8 F 02/14/19 05:00 Pulse 98 02/14/19 08:00 Resp 16 02/14/19 08:00 BP 94/59 02/14/19 05:00 Pulse Ox 100 02/14/19 05:00 Intake & Output 02/13/19 02/14/19 02/14/19 18:59 06:59 18:59 Intake Total 240 Output Total 500 Balance -260 Weight 140.1 kg Intake: Oral 240 Output: Urine 500 Other: # Voids 0 # Bowel Movements 1 - Exam GENERAL: The patient is alert and oriented x3, not in any acute distress. Well developed, well nourished. HEENT: Pupils are round and equally reacting to light. EOMI. No scleral icterus. No conjunctival pallor. Normocephalic, atraumatic. No pharyngeal erythema. No thyromegaly. CARDIOVASCULAR: S1 and S2 present. No murmurs, rubs, or gallops. PULMONARY: Chest is clear to auscultation, no wheezing or crackles. -ABDOMEN: Soft, nontender,distended secondary to ascites, normoactive bowel sounds. No palpable organomegaly. MUSCULOSKELETAL: No joint swelling or deformity. -EXTREMITIES: No cyanosis, clubbing, bilateral leg edema NEUROLOGICAL: Gross neurological examination did not reveal any focal deficits. SKIN: No rashes. - Labs CBC & Chem 7: 02/14/19 07:40 02/14/19 07:40 Labs: Abnormal Lab Results - Last 24 Hours (Table) 02/14/19 02/14/19 02/14/19 Range/Units 07:40 07:40 07:40 WBC 10.8 H (3.8-10.6) k/uL RBC 3.33 L (3.80-5.40) m/uL Hgb 9.7 L (11.4-16.0) gm/dL Hct 30.2 L (34.0-46.0) % RDW 21.4 H (11.5-15.5) % Plt Count 133 L (150-450) k/uL PT 17.9 H (9.0-12.0) sec INR 1.8 H (<1.2) APTT 36.2 H (22.0-30.0) sec BUN 31 H (7-17) mg/dL Creatinine 2.52 H (0.52-1.04) mg/dL Glucose 115 H (74-99) mg/dL Calcium 8.2 L (8.4-10.2) mg/dL Total Bilirubin 7.8 H (0.2-1.3) mg/dL AST 224 H (14-36) U/L ALT 117 H (9-52) U/L Alkaline Phosphatase 351 H (38-126) U/L Total Protein 5.5 L (6.3-8.2) g/dL Albumin 2.4 L (3.5-5.0) g/dL Microbiology - Last 24 Hours (Table) 02/12/19 02:39 Blood Culture - Preliminary Blood No Growth after 48 hours Assessment and Plan Assessment: Alcoholic liver cirrhosis, with elevated liver enzymes Ascites, fluid overload Bilateral leg edema Acute renal failure, present on admission. Secondary to fluid overload. concern for hepatorenal syndrome history of hepatic encephalopathy, not active issue currently History of EtOH abuse patient reports no active EtOH consumption. History of Harshad-en-Y gastric bypass. History of cholecystectomy November 2018. Coagulopathy secondary to liver disease Chronic iron deficiency anemia. Morbid obesity BMI 41. Diabetes mellitus Plan: this is a pleasant 38 yo F who presents with abd pain and ascitis, and acute re nal failure. Patient is already on Lasix, we'll increase it to 40 daily 3 times daily. We'll call nephrology consult. GI team has already been consulted by each team. Labs and medication were reviewed.. Continue same treatment. Continue with symptomatic treatment. Resume home medication. Monitor lytes and vitals. DVT and GI prophylaxis. Further recommendations of the clinical course of the patient DVT prophylaxis: Subcutaneous heparin GI Prophylaxis: Pepcid Prognosis is guarded
--- NOTE | 2019-02-14 10:48 | P.NPCON ---
History of Present Illness - Reason for Consult acute renal failure - History of Present Illness Reason for consultation: Acute kidney injury History of present illness: Patient is a 38-year-old female seen in renal consultation for acute kidney injury. Patient has history of nonalcoholic liver disease and is being worked up for liver transplant at [facility]. Patient states she gets paracentesis on a weekly basis. Last paracentesis was last Wednesday. Patient was admitted to the hospital last month and volume overload which improved with IV diuresis. Creatinine during that admission peaked at 2.15 and was down to 1.1 during discharge. This admission her creatinine was 2.38 and is up to 2.52 today. She is currently maintained on Lasix 40 mg IV 3 times daily. She presented to the hospital with worsening edema and dyspnea over the last few days. Patient states she was taking Lasix 20 mg once daily. She is unsure if she was taking spironolactone or not. She has been voiding. No hematuria or dysuria. She does admit to dyspnea. Denies use of nonsteroidals. Vital signs are stable. General: The patient appeared well nourished and normally developed. HEENT: Head exam is unremarkable. Neck is without jugular venous distension. LUNGS: Lungs are clear to auscultation and percussion. Breath sounds decreased. HEART: Rate and Rhythm are regular. First and second heart sounds normal. No murmurs, rubs or gallops. ABDOMEN: Bowel sounds present. Distention noted. EXTREMITITES: 2+ edema. Past Medical History Past Medical History: Asthma, Diabetes Mellitus, Skin Disorder, Thyroid Disorder Additional Past Medical History / Comment(s): migraines, hashimotos, eczema, no current rx for diabetes- diet control, anemia, elevated liver enzymes & retaining fluid since recent surgery-has gained 40 lbs. of fluid recently per pt. History of Any Multi-Drug Resistant Organisms: None Reported Date of last positivie culture/infection: JUNE 2013 MDRO Source:: WOUND ON LEFT UPPER ABDOMEN Past Surgical History: Appendectomy, Bariatric Surgery, Section, Cholecystectomy, Orthopedic Surgery, Tubal Ligation Additional Past Surgical History / Comment(s): LENA-EN-Y, left knee arthroscopy, I&D left upper abdomen; Panniculectomy Jul 2016, robotic lap. marlena 11-07-18 Past Anesthesia/Blood Transfusion Reactions: Family History of Problems w/ Anesthesia, Motion Sickness, Postoperative Nausea & Vomiting (PONV) Additional Past Anesthesia/Blood Transfusion Reaction / Comment(s): mother-"hard time waking up and trouble breathing" Past Psychological History: No Psychological Hx Reported Smoking Status: Never smoker Past Alcohol Use History: None Reported Past Drug Use History: None Reported - Past Family History Mother Family Medical History: No Reported History Additional Family Medical History / Comment(s): Mother had gastric bypass surgery and no longer has HTN or high cholesteral. Father Family Medical History: Diabetes Mellitus, Hyperlipidemia, Hypertension Medications and Allergies Home Medications Medication Instructions Recorded Confirmed Type Levothyroxine Sodium [Synthroid] 25 mcg PO DAILY@0400 07/03/16 02/12/19 History Sertraline HCl [Zoloft] 25 mg PO DAILY@0400 11/04/18 02/12/19 History Multivitamin [Multivitamins Adult 1 tab PO DAILY@1000 12/23/18 02/12/19 History Gummies] Omeprazole 40 mg PO DAILY PRN 12/23/18 02/12/19 History Ferrous Sulfate [Iron (65 MG 325 mg PO BID-W/MEALS #60 tab 01/30/19 02/12/19 Rx Elemental)] Lactulose [Cephulac] 20 gm PO QID #3600 ml 01/30/19 02/12/19 Rx Potassium Chloride ER [K-Dur 20] 20 meq PO DAILY #30 tab 01/30/19 02/12/19 Rx Sodium Bicarbonate Tab 650 mg PO BID #30 tab 01/30/19 02/12/19 Rx Spironolactone [Aldactone] 25 mg PO BID #60 tab 01/30/19 02/12/19 Rx Furosemide [Lasix] 20 mg PO DAILY 02/12/19 02/12/19 History Allergies Allergy/AdvReac Type Severity Reaction Status Date / Time adhesive Allergy Rash/Hives Verified 02/12/19 08:23 morphine Allergy Rash/Hives Verified 02/12/19 08:23 sulfamethoxazole Allergy Unknown Verified 02/12/19 08:23 [From Bactrim] Tetanus Vaccines and Toxoid Allergy Swelling Verified 02/12/19 08:23 [Tetanus Vaccines & Toxoid] trimethoprim [From Bactrim] Allergy Unknown Verified 02/12/19 08:23 cigarette smoke AdvReac Cough, Verified 02/12/19 08:23 Shortness of Breath sertraline [From Zoloft] AdvReac DIZZY/Nausea Verified 02/12/19 08:23 & Vomiting skin ink Allergy Rash/Hives Uncoded 02/12/19 01:49 yellow squash Allergy Anaphylaxis Uncoded 02/12/19 01:49 dust AdvReac Mild Itching Uncoded 02/12/19 01:49 dust mites AdvReac Rash/Hives Uncoded 02/12/19 01:49 Physical Exam Vitals: Vital Signs Temp Pulse Resp BP Pulse Ox 02/14/19 08:00 98 16 02/14/19 05:00 97.8 F 98 16 94/59 100 02/13/19 22:41 18 02/13/19 21:35 97.8 F 103 H 109/67 99 02/13/19 12:52 97.7 F 103 H 18 103/64 100 Intake and Output 02/13/19 02/14/19 02/14/19 22:59 06:59 14:59 Output Total 500 Balance -500 Output: Urine 500 Other: # Voids 0 0 # Bowel Movements 1 Weight 140.1 kg Results - Lab Results Most recent lab results Calcium 8.2 mg/dL (8.4-10.2) L 02/14/19 07:40 02/14/19 07:40 02/14/19 07:40 Assessment and Plan Plan: Assessment: 1. Acute kidney injury secondary to hepatorenal syndrome. Creatinine 2.5 today. No proteinuria on UA. Ultrasound from last month revealed normal sized kidneys without any hydronephrosis. 2. Dyspnea secondary to volume overload. 3. Ascites. Last paracentesis was on February 07. Patient states she had 2.7 L removed. 4. Decompensated liver cirrhosis. Patient following at [facility] for liver transplant. Plan: Add midodrine 5 mg 3 times daily. Discontinue IV Lasix. Start Lasix drip at 10 mL an hour. Add metolazone. Maintain Aldactone. Low-salt diet. 1500 mL fluid restriction. Continue to monitor renal function and urine output. Thank you for the consultation. I will continue to follow the patient with you during her hospital stay.
[2019-02-14] MEDS: FUROSEMIDE 100 MG in SODIUM CHLORIDE 0.9% 90 ML IV SCH ×2 (11:49→22:10)
[2019-02-14] MEDS: MIDODRINE 5 MG TAB PO SCH ×2 (11:49→18:16)
[2019-02-14] MEDS: METOLAZONE 5 MG TAB PO SCH (11:50)
--- NOTE | 2019-02-14 14:45 | P.PN ---
Subjective Progress Note Date: 02/14/19 Principal diagnosis: Decompensated liver disease IV Lasix drip. Increased abdominal ascites. INR 1.8. LFTs stable total bilirubin 7.8. AST 224. ALT 117. AP 351. Ammonia 49. Platelet 133. Objective - Vital Signs Vital signs: Vital Signs Temp 97.7 F 02/14/19 11:57 Pulse 92 02/14/19 14:33 Resp 18 02/14/19 14:33 BP 106/69 02/14/19 11:57 Pulse Ox 98 02/14/19 11:57 Intake & Output 02/13/19 02/14/19 02/14/19 18:59 06:59 18:59 Intake Total 240 Output Total 500 Balance -260 Weight 140.1 kg Intake: Oral 240 Output: Urine 500 Other: # Voids 0 0 # Bowel Movements 1 - Exam General appearance: The patient is alert, oriented, in no acute distress. Jaundice. HET: Head is normocephalic and atraumatic. Pupils are equal and reactive. Oropharynx is clear without lesions. Sclerae icterus. Neck: Supple without lymphadenopathy. Trachea midline. Heart: S1 S2. Regular rate and rhythm. Lungs: No crackles or wheezes are heard. Abdomen: Soft, grossly distended moderate ascites with bowel sounds. No peritoneal signs. No palpable organomegaly or masses. Extremities: +3 bilateral lower extremity pitting edema. Neurological: No focal deficits. Strength and sensation are grossly intact. - Labs CBC & Chem 7: 02/14/19 07:40 02/14/19 07:40 Labs: Abnormal Lab Results - Last 24 Hours (Table) 02/14/19 02/14/19 02/14/19 Range/Units 07:40 07:40 07:40 WBC 10.8 H (3.8-10.6) k/uL RBC 3.33 L (3.80-5.40) m/uL Hgb 9.7 L (11.4-16.0) gm/dL Hct 30.2 L (34.0-46.0) % RDW 21.4 H (11.5-15.5) % Plt Count 133 L (150-450) k/uL Neutrophils # (Manual) 8.53 H (1.3-7.7) k/uL Lymphocytes # (Manual) 0.76 L (1.0-4.8) k/uL PT 17.9 H (9.0-12.0) sec INR 1.8 H (<1.2) APTT 36.2 H (22.0-30.0) sec BUN 31 H (7-17) mg/dL Creatinine 2.52 H (0.52-1.04) mg/dL Glucose 115 H (74-99) mg/dL Calcium 8.2 L (8.4-10.2) mg/dL Total Bilirubin 7.8 H (0.2-1.3) mg/dL AST 224 H (14-36) U/L ALT 117 H (9-52) U/L Alkaline Phosphatase 351 H (38-126) U/L Total Protein 5.5 L (6.3-8.2) g/dL Albumin 2.4 L (3.5-5.0) g/dL Microbiology - Last 24 Hours (Table) 02/12/19 02:39 Blood Culture - Preliminary Blood No Growth after 48 hours Assessment and Plan (1) Decompensated liver disease Current Visit: Yes Status: Acute Code(s): K74.69 - OTHER CIRRHOSIS OF LIVER SNOMED Code(s): 69625802 (2) Liver cirrhosis Current Visit: Yes Status: Acute Code(s): K74.60 - UNSPECIFIED CIRRHOSIS OF LIVER SNOMED Code(s): 35651592 (3) Hepatorenal syndrome Current Visit: Yes Status: Acute Code(s): K76.7 - HEPATORENAL SYNDROME SNOMED Code(s): 80208431 Plan: Ultrasound-guided paracentesis scheduled tomorrow 02/15/2019. We'll give 25 g of albumin preprocedure. Will require postprocedure albumin as well. Continue with present medical therapy. We'll follow with you. Assessment and plan a care discussed with Dr. Talavera
--- NOTE | 2019-02-14 16:56 | US ---
EXAMINATION TYPE: US abdomen limited DATE OF EXAM: 02/14/2019 COMPARISON: Ultrasound 02/07/2019 CLINICAL HISTORY: assess for fluid pocket please. Ascites check FINDINGS: Anechoic fluid seen in all 4 quadrants, largest pocket seen in LLQ . IMPRESSION: Ascites.
[2019-02-14] MEDS ORDERED: MORPHINE SULFATE 2 MG/ML SYRINGE IVP STA (20:26)
[2019-02-15] MEDS: LACTULOSE 20 GM/30 ML CUP PO SCH ×4 (02:35→21:05)
[2019-02-15] MEDS: POTASSIUM CHLORIDE ER 20 MEQ TAB.ER PO SCH (02:35)
[2019-02-15] MEDS: SERTRALINE 25 MG TAB PO SCH (02:35)
[2019-02-15] MEDS: LEVOTHYROXINE 25 MCG TAB PO SCH (02:35)
[2019-02-15] MEDS: FERROUS SULFATE 325 MG TAB PO SCH ×2 (02:35→16:13)
[2019-02-15] MEDS: SPIRONOLACTONE 25 MG TAB PO SCH ×2 (02:35→16:13)
[2019-02-15] MEDS: MORPHINE SULFATE 2 MG/ML SYRINGE IVP PRN ×2 (02:36→19:52)
[2019-02-15 07:27] LABS: INR 1.9 (<1.2); Partial Thromboplastin Time 36.8 sec (22.0-30.0); Prothrombin Time 18.4 sec (9.0-12.0)
[2019-02-15 07:37] LABS: Albumin 2.3 g/dL (3.5-5.0); Calcium 8.4 mg/dL (8.4-10.2); Magnesium 2.4 mg/dL (1.6-2.3); Potassium 3.7 mmol/L (3.5-5.1); Total Bilirubin 8.4 mg/dL (0.2-1.3); Total Protein 5.3 g/dL (6.3-8.2)
[2019-02-15] MEDS: HEPARIN SODIUM,PORCINE 5,000 UNIT/ML 1 ML VIAL SQ SCH ×2 (08:26→21:05)
[2019-02-15] MEDS: FUROSEMIDE 100 MG in SODIUM CHLORIDE 0.9% 90 ML IV SCH ×3 (08:36→19:51)
[2019-02-15] MEDS: MIDODRINE 5 MG TAB PO SCH ×3 (08:37→17:46)
[2019-02-15] MEDS: FAMOTIDINE 20 MG/2 ML VIAL IV SCH (08:38)
[2019-02-15] MEDS: METOLAZONE 5 MG TAB PO SCH ×2 (08:38→21:04)
[2019-02-15] MEDS: RIFAXIMIN 550 MG TABLET PO SCH ×2 (08:38→21:04)
[2019-02-15] MEDS: traMADol 50 MG TAB PO SCH ×4 (08:39→21:04)
[2019-02-15] MEDS: ALBUMIN HUMAN 25% 50 ML in EMPTY BAG 1 BAG IVPB SCH ×4 (10:13→13:32)
--- NOTE | 2019-02-15 10:23 | P.PN ---
Subjective There is history of female past medical history significant for liver cirrhosis, portal hypertension, myositis, morbid obesity, past medical history of gastric bypass surgery consult the hospital for increased swelling in bilateral lower extremity and abdominal distention. She is currently on workup list in the process for possible liver transplant. She has regular paracentesis as an outpatient. 02/15/2019 This is my first day taking care of the patient At the time of my examination the patient is alert oriented but was slightly drowsy. She complains of abdominal distention and says that she has pain because the distention. No chest pain or racing heart Objective - Vital Signs Vital signs: Vital Signs Temp 97.7 F 02/15/19 05:00 Pulse 98 02/15/19 05:00 Resp 18 02/15/19 05:00 BP 113/68 02/15/19 05:00 Pulse Ox 93 L 02/15/19 05:00 Intake & Output 02/14/19 02/15/19 02/15/19 18:59 06:59 18:59 Intake Total 100 321 Output Total 950 550 Balance -850 -229 Weight 140.5 kg Intake: Intake, IV Titration 100 100 Amount Furosemide 100 mg In 100 100 Sodium Chloride 0.9% 90 ml @ 10 MG/HR 10 mls/hr IV .Q10H [facility] Rx#: [id number] Oral 221 Output: Urine 950 550 Other: Voiding Method Toilet Toilet # Voids 0 # Bowel Movements 1 - Exam On exam, alert and oriented x3. HEENT: Conjunctivae normal. eyes normal. NECK: No JVD. No thyroid enlargement. No LNs CARDIOVASCULAR: S1-S2 positive RESPIRATION: Breath sounds diminished in the bases. No rhonchi or crackles. No bronchial breathing. ABDOMEN: Soft, mildly tender, distended.. Was not able to appreciate any organomegaly secondary to distention and fluid. LEGS: +2 pedal edema NERVOUS SYSTEM: Cranial N 2-12 grossly normal. Moves all 4 limbs. No focal deficits. No sensory deficit. No signs of cerebellar dysfucntion. Skin: no ulcer no rash - Labs CBC & Chem 7: 02/14/19 07:40 02/15/19 06:42 Labs: Abnormal Lab Results - Last 24 Hours (Table) 02/15/19 02/15/19 Range/Units 06:42 06:42 PT 18.4 H (9.0-12.0) sec INR 1.9 H (<1.2) APTT 36.8 H (22.0-30.0) sec BUN 33 H (7-17) mg/dL Creatinine 2.70 H (0.52-1.04) mg/dL Glucose 129 H (74-99) mg/dL Magnesium 2.4 H (1.6-2.3) mg/dL Total Bilirubin 8.4 H (0.2-1.3) mg/dL AST 214 H (14-36) U/L ALT 113 H (9-52) U/L Alkaline Phosphatase 345 H (38-126) U/L Total Protein 5.3 L (6.3-8.2) g/dL Albumin 2.3 L (3.5-5.0) g/dL Microbiology - Last 24 Hours (Table) 02/12/19 02:39 Blood Culture - Preliminary Blood No Growth after 72 hours Assessment and Plan Assessment: - Liver cirrhosis probably alcohol related - Ascites - Hepatic encephalopathy - Bilateral lower extremity edema - Cardiorenal syndrome - Fluid overload Plan: - Patient is on Lasix drip to be continued. Nephrology on board. Appreciated the recommendations - GI following the patient for liver cirrhosis. Patient to get present he says today. - Patient is slightly lethargic. We'll continue the lactulose and will hold off on the narcotics. We'll give her Ultram for pain. - We will continue rest of the medications - We'll follow up on the patient Time with Patient: Greater than 30
--- NOTE | 2019-02-15 10:32 | P.PN ---
Subjective Patient is seen in follow-up for acute kidney injury. Creatinine up at 2.7 today. Patient is still quite edematous. Urine output is good. She is currently maintained on Lasix drip at 10 mL an hour. She scheduled to undergo paracentesis today. Patient has history of liver cirrhosis. Vital signs are stable. General: The patient appeared well nourished and normally developed. HEENT: Head exam is unremarkable. Neck is without jugular venous distension. LUNGS: Lungs are clear to auscultation and percussion. Breath sounds decreased. HEART: Rate and Rhythm are regular. First and second heart sounds normal. No murmurs, rubs or gallops. ABDOMEN: Distention noted. Bowel sounds decreased. EXTREMITITES: 2+ edema. Objective - Vital Signs Vital signs: Vital Signs Temp 97.7 F 02/15/19 05:00 Pulse 98 02/15/19 05:00 Resp 18 02/15/19 05:00 BP 113/68 02/15/19 05:00 Pulse Ox 93 L 02/15/19 05:00 Intake & Output 02/14/19 02/15/19 02/15/19 18:59 06:59 18:59 Intake Total 100 321 Output Total 950 550 Balance -850 -229 Weight 140.5 kg Intake: Intake, IV Titration 100 100 Amount Furosemide 100 mg In 100 100 Sodium Chloride 0.9% 90 ml @ 10 MG/HR 10 mls/hr IV .Q10H [facility] Rx#: [id number] Oral 221 Output: Urine 950 550 Other: Voiding Method Toilet Toilet # Voids 0 # Bowel Movements 1 - Labs CBC & Chem 7: 02/14/19 07:40 02/15/19 06:42 Labs: Abnormal Lab Results - Last 24 Hours (Table) 02/15/19 02/15/19 Range/Units 06:42 06:42 PT 18.4 H (9.0-12.0) sec INR 1.9 H (<1.2) APTT 36.8 H (22.0-30.0) sec BUN 33 H (7-17) mg/dL Creatinine 2.70 H (0.52-1.04) mg/dL Glucose 129 H (74-99) mg/dL Magnesium 2.4 H (1.6-2.3) mg/dL Total Bilirubin 8.4 H (0.2-1.3) mg/dL AST 214 H (14-36) U/L ALT 113 H (9-52) U/L Alkaline Phosphatase 345 H (38-126) U/L Total Protein 5.3 L (6.3-8.2) g/dL Albumin 2.3 L (3.5-5.0) g/dL Microbiology - Last 24 Hours (Table) 02/12/19 02:39 Blood Culture - Preliminary Blood No Growth after 72 hours Assessment and Plan Plan: Assessment: 1. Acute kidney injury secondary to hepatorenal syndrome. Creatinine 2.7 today. No proteinuria on UA. Ultrasound from last month revealed normal sized kidneys without any hydronephrosis. 2. Dyspnea secondary to volume overload. 3. Ascites. Last paracentesis was on February 07. Patient states she had 2.7 L removed. Scheduled for paracentesis today. 4. Decompensated liver cirrhosis. Patient following at [facility] for liver transplant. Plan: Maintain midodrine 5 mg 3 times daily. Increase Lasix drip to 15 mL an hour. Increase metolazone to 5 mg twice daily. Maintain Aldactone. Low-salt diet. 1500 mL fluid restriction. Continue to monitor renal function and urine output. 25 g of albumin prior to paracentesis. An additional 25 g to be given if more than 4 L removed. Repeat electrolytes in the morning.
--- NOTE | 2019-02-15 12:01 | P.PN ---
Subjective Progress Note Date: 02/15/19 Principal diagnosis: Decompensated liver disease IV Lasix drip. Increased abdominal ascites. INR 1.9. Paracentesis scheduled today. Creatinine increased to 0.7 today. Objective - Vital Signs Vital signs: Vital Signs Temp 97.6 F 02/15/19 11:19 Pulse 97 02/15/19 11:54 Resp 14 02/15/19 11:54 BP 113/60 02/15/19 11:54 Pulse Ox 100 02/15/19 11:54 Intake & Output 02/14/19 02/15/19 02/15/19 18:59 06:59 18:59 Intake Total 100 321 Output Total 950 550 Balance -850 -229 Weight 140.5 kg Intake: Intake, IV Titration 100 100 Amount Furosemide 100 mg In 100 100 Sodium Chloride 0.9% 90 ml @ 10 MG/HR 10 mls/hr IV .Q10H [facility] Rx#: [id number] Oral 221 Output: Urine 950 550 Other: Voiding Method Toilet Toilet # Voids 0 # Bowel Movements 1 - Exam General appearance: The patient is alert, oriented, in no acute distress. Jaundice. HET: Head is normocephalic and atraumatic. Pupils are equal and reactive. Oropharynx is clear without lesions. Sclerae icterus. Neck: Supple without lymphadenopathy. Trachea midline. Heart: S1 S2. Regular rate and rhythm. Lungs: No crackles or wheezes are heard. Abdomen: Soft, grossly distended moderate ascites with bowel sounds. No peritoneal signs. No palpable organomegaly or masses. Extremities: +3 bilateral lower extremity pitting edema. Neurological: No focal deficits. Strength and sensation are grossly intact. - Labs CBC & Chem 7: 02/14/19 07:40 02/15/19 06:42 Labs: Abnormal Lab Results - Last 24 Hours (Table) 02/15/19 02/15/19 Range/Units 06:42 06:42 PT 18.4 H (9.0-12.0) sec INR 1.9 H (<1.2) APTT 36.8 H (22.0-30.0) sec BUN 33 H (7-17) mg/dL Creatinine 2.70 H (0.52-1.04) mg/dL Glucose 129 H (74-99) mg/dL Magnesium 2.4 H (1.6-2.3) mg/dL Total Bilirubin 8.4 H (0.2-1.3) mg/dL AST 214 H (14-36) U/L ALT 113 H (9-52) U/L Alkaline Phosphatase 345 H (38-126) U/L Total Protein 5.3 L (6.3-8.2) g/dL Albumin 2.3 L (3.5-5.0) g/dL Microbiology - Last 24 Hours (Table) 02/12/19 02:39 Blood Culture - Preliminary Blood No Growth after 72 hours Assessment and Plan (1) Decompensated liver disease Current Visit: Yes Status: Acute Code(s): K74.69 - OTHER CIRRHOSIS OF LIVER SNOMED Code(s): 90186545 (2) Liver cirrhosis Current Visit: Yes Status: Acute Code(s): K74.60 - UNSPECIFIED CIRRHOSIS OF LIVER SNOMED Code(s): 46981211 (3) Hepatorenal syndrome Current Visit: Yes Status: Acute Code(s): K76.7 - HEPATORENAL SYNDROME SNOMED Code(s): 05712948 Plan: Ultrasound-guided paracentesis scheduled today. We'll give 25 g of albumin preprocedure. Will require postprocedure albumin as well. Continue with present medical therapy. We'll follow with you. Assessment and plan a care discussed with Dr. Talavera
--- NOTE | 2019-02-15 15:29 | US ---
Therapeutic paracentesis. DATE OF EXAM: 02/15/2019 CLINICAL HISTORY: Ascites The procedure was discussed with the patient. The risks, complications, benefits, and alternatives we re discussed and any questions were answered. Informed consent was obtained. The patient was placed s upine on the ultrasound table and prepped and draped in the usual sterile fashion. All elements of maximal barrier technique were utilized. Under ultrasound guidance, access into the left lower quadrant was obtained, via the paracentesis catheter system and direct ultrasound guidance . Approximately 4.9 liters of straw-colored fluid was removed. The patient was stable throughout the pr ocedure and remained stable upon discharge from Department of Radiology. IMPRESSION: Successful therapeutic paracentesis under ultrasound guidance.
[2019-02-16] MEDS: FUROSEMIDE 100 MG in SODIUM CHLORIDE 0.9% 90 ML IV SCH ×3 (01:33→17:04)
[2019-02-16] MEDS: SERTRALINE 25 MG TAB PO SCH (03:10)
[2019-02-16] MEDS: LEVOTHYROXINE 25 MCG TAB PO SCH (03:10)
[2019-02-16] MEDS: LACTULOSE 20 GM/30 ML CUP PO SCH ×4 (03:10→21:10)
[2019-02-16] MEDS: POTASSIUM CHLORIDE ER 20 MEQ TAB.ER PO SCH ×3 (03:10→15:35)
[2019-02-16] MEDS: FERROUS SULFATE 325 MG TAB PO SCH ×2 (03:10→15:02)
[2019-02-16] MEDS: SPIRONOLACTONE 25 MG TAB PO SCH ×2 (03:10→15:36)
[2019-02-16 07:37] LABS: Anisocytosis Moderate; HCT 28.9 % (34.0-46.0); HGB 8.9 gm/dL (11.4-16.0); Hypochromasia Slight; MCH 27.9 pg (25.0-35.0); MCHC 30.9 g/dL (31.0-37.0); MCV 90.2 fL (80.0-100.0); Mean Platelet Volume 7.9; Microcytosis Slight; RDW 22.2 % (11.5-15.5); WBC 5.6 k/uL (3.8-10.6)
[2019-02-16 07:45] LABS: Albumin 2.5 g/dL (3.5-5.0); Calcium 8.6 mg/dL (8.4-10.2); Magnesium 2.2 mg/dL (1.6-2.3); Total Bilirubin 8.1 mg/dL (0.2-1.3); Total Protein 5.3 g/dL (6.3-8.2)
[2019-02-16 07:46] LABS: Partial Thromboplastin Time 42.5 sec (22.0-30.0); Prothrombin Time 19.6 sec (9.0-12.0)
[2019-02-16] MEDS: HEPARIN SODIUM,PORCINE 5,000 UNIT/ML 1 ML VIAL SQ SCH ×2 (08:08→21:11)
[2019-02-16] MEDS: MIDODRINE 5 MG TAB PO SCH ×3 (08:08→17:04)
[2019-02-16] MEDS: RIFAXIMIN 550 MG TABLET PO SCH ×2 (08:08→21:11)
[2019-02-16] MEDS: FAMOTIDINE 20 MG TAB PO SCH (08:08)
[2019-02-16] MEDS: traMADol 50 MG TAB PO SCH ×4 (08:08→21:11)
[2019-02-16] MEDS: METOLAZONE 5 MG TAB PO SCH ×2 (08:10→21:11)
[2019-02-16 08:24] LABS: Platelet Count 86 k/uL (150-450)
--- NOTE | 2019-02-16 09:49 | P.PN ---
Subjective Patient is seen in follow-up for acute kidney injury. Renal function is relatively stable - creatinine 2.74 today. Patient is still quite edematous although improving. Urine output is good. She is currently maintained on Lasix drip at 15 mL an hour. She underwent paracentesis on February 15 to 4.9 L removed. She did receive albumin pre and post procedure. Patient has history of liver cirrhosis. Vital signs are stable. General: The patient appeared well nourished and normally developed. HEENT: Head exam is unremarkable. Neck is without jugular venous distension. LUNGS: Lungs are clear to auscultation and percussion. Breath sounds decreased. HEART: Rate and Rhythm are regular. First and second heart sounds normal. No murmurs, rubs or gallops. ABDOMEN: Distention noted. Bowel sounds decreased. EXTREMITITES: 2+ edema. Objective - Vital Signs Vital signs: Vital Signs Temp 97.4 F L 02/16/19 05:09 Pulse 98 02/16/19 05:09 Resp 16 02/16/19 05:09 BP 99/57 02/16/19 05:09 Pulse Ox 100 02/16/19 05:09 Intake & Output 02/15/19 02/16/19 02/16/19 18:59 06:59 18:59 Intake Total 1142 1125.5 99.25 Output Total 2050 3950 Balance -908 -2824.5 99.25 Weight 132.7 kg Intake: Intake, IV Titration 200 85.5 99.25 Amount Furosemide 100 mg In 200 85.5 99.25 Sodium Chloride 0.9% 90 ml @ 15 MG/HR 15 mls/hr IV .Q6H40M [facility] Rx#: [id number] Oral 942 1040 Output: Urine 0 3950 Other: Voiding Method Toilet Toilet # Bowel Movements 1 - Labs CBC & Chem 7: 02/16/19 07:14 02/16/19 07:14 Labs: Abnormal Lab Results - Last 24 Hours (Table) 02/16/19 02/16/19 02/16/19 Range/Units 07:14 07:14 07:14 RBC 3.20 L (3.80-5.40) m/uL Hgb 8.9 L (11.4-16.0) gm/dL Hct 28.9 L (34.0-46.0) % MCHC 30.9 L (31.0-37.0) g/dL RDW 22.2 H (11.5-15.5) % Plt Count 86 L (150-450) k/uL PT 19.6 H (9.0-12.0) sec INR 2.0 H (<1.2) APTT 42.5 H (22.0-30.0) sec Potassium 3.0 L (3.5-5.1) mmol/L BUN 33 H (7-17) mg/dL Creatinine 2.74 H (0.52-1.04) mg/dL Glucose 113 H (74-99) mg/dL Total Bilirubin 8.1 H (0.2-1.3) mg/dL AST 175 H (14-36) U/L ALT 99 H (9-52) U/L Alkaline Phosphatase 309 H (38-126) U/L Total Protein 5.3 L (6.3-8.2) g/dL Albumin 2.5 L (3.5-5.0) g/dL Microbiology - Last 24 Hours (Table) 02/12/19 02:39 Blood Culture - Preliminary Blood No Growth after 96 hours Assessment and Plan Plan: Assessment: 1. Acute kidney injury secondary to hepatorenal syndrome. Creatinine 2.74 tod ay. No proteinuria on UA. Ultrasound from last month revealed normal sized kidneys without any hydronephrosis. 2. Dyspnea secondary to volume overload. Improved. 3. Ascites. Patient gets weekly paracentesis. Last done February 15 - 4.9 L removed. 4. Decompensated liver cirrhosis. Patient following at [facility] for liver transplant. 5. Hypokalemia secondary to diuresis. Plan: Maintain midodrine 5 mg 3 times daily. Maintain Lasix drip at 15 mL an hour. Maintain metolazone 5 mg twice daily. Increase Aldactone to 50 mg twice daily. Replace potassium. 80 mEq today. Low-salt diet. 1500 mL fluid restriction. Continue to monitor renal function and urine output. Repeat electrolytes in the morning.
--- NOTE | 2019-02-16 13:07 | P.PN ---
Subjective There is history of female past medical history significant for liver cirrhosis, portal hypertension, myositis, morbid obesity, past medical history of gastric bypass surgery consult the hospital for increased swelling in bilateral lower extremity and abdominal distention. She is currently on workup list in the process for possible liver transplant. She has regular paracentesis as an outpatient. 02/15/2019 This is my first day taking care of the patient At the time of my examination the patient is alert oriented but was slightly drowsy. She complains of abdominal distention and says that she has pain because the distention. No chest pain or racing heart 02/16/2019 Patient lethargy but more alert today She had paracentesis done yesterday. Says that her belly feeling much better. She lost some weight and she said that she's feeling better No chest pain racing heart Objective - Vital Signs Vital signs: Vital Signs Temp 97.5 F L 02/16/19 12:53 Pulse 98 02/16/19 12:53 Resp 16 02/16/19 12:53 BP 101/51 02/16/19 12:53 Pulse Ox 96 02/16/19 12:53 Intake & Output 02/15/19 02/16/19 02/16/19 18:59 06:59 18:59 Intake Total 1142 1125.5 99.25 Output Total 2049 3950 Balance -908 -2824.5 99.25 Weight 132.7 kg Intake: Intake, IV Titration 200 85.5 99.25 Amount Furosemide 100 mg In 200 85.5 99.25 Sodium Chloride 0.9% 90 ml @ 15 MG/HR 15 mls/hr IV .Q6H40M [facility] Rx#: [id number] Oral 942 1040 Output: Urine 2049 3950 Other: Voiding Method Toilet Toilet # Bowel Movements 1 - Exam On exam, alert and oriented x3. HEENT: Conjunctivae normal. eyes normal. NECK: No JVD. No thyroid enlargement. No LNs CARDIOVASCULAR: S1-S2 positive RESPIRATION: Breath sounds diminished in the bases. No rhonchi or crackles. No bronchial breathing. ABDOMEN: Soft, mildly tender, distended.. Was not able to appreciate any organomegaly secondary to distention and fluid. LEGS: +2 pedal edema NERVOUS SYSTEM: Cranial N 2-12 grossly normal. Moves all 4 limbs. No focal deficits. No sensory deficit. No signs of cerebellar dysfucntion. Skin: no ulcer no rash - Labs CBC & Chem 7: 02/16/19 07:14 02/16/19 07:14 Labs: Abnormal Lab Results - Last 24 Hours (Table) 02/16/19 02/16/19 02/16/19 Range/Units 07:14 07:14 07:14 RBC 3.20 L (3.80-5.40) m/uL Hgb 8.9 L (11.4-16.0) gm/dL Hct 28.9 L (34.0-46.0) % MCHC 30.9 L (31.0-37.0) g/dL RDW 22.2 H (11.5-15.5) % Plt Count 86 L (150-450) k/uL PT 19.6 H (9.0-12.0) sec INR 2.0 H (<1.2) APTT 42.5 H (22.0-30.0) sec Potassium 3.0 L (3.5-5.1) mmol/L BUN 33 H (7-17) mg/dL Creatinine 2.74 H (0.52-1.04) mg/dL Glucose 113 H (74-99) mg/dL Total Bilirubin 8.1 H (0.2-1.3) mg/dL AST 175 H (14-36) U/L ALT 99 H (9-52) U/L Alkaline Phosphatase 309 H (38-126) U/L Total Protein 5.3 L (6.3-8.2) g/dL Albumin 2.5 L (3.5-5.0) g/dL Microbiology - Last 24 Hours (Table) 02/12/19 02:39 Blood Culture - Preliminary Blood No Growth after 96 hours Assessment and Plan Assessment: - Liver cirrhosis probably alcohol related - Ascites - Hepatic encephalopathy - Bilateral lower extremity edema - Cardiorenal syndrome - Fluid overload Plan: - Lasix drip increased by nephrology - Had paracentesis done yesterday - We will continue current management - We'll follow the patient
--- NOTE | 2019-02-16 14:00 | P.PN ---
Subjective Progress Note Date: 02/16/19 Principal diagnosis: Decompensated liver disease Status post 4.9 L paracentesis yesterday. Feels better. INR 2. White count 5.6. Hemoglobin 8.9. Platelet 86,000. LFTs stable total bilirubin 8.1. AST 175. ALT 99. AP 309. Objective - Vital Signs Vital signs: Vital Signs Temp 97.5 F L 02/16/19 12:53 Pulse 98 02/16/19 12:53 Resp 16 02/16/19 12:53 BP 101/51 02/16/19 12:53 Pulse Ox 96 02/16/19 12:53 Intake & Output 02/15/19 02/16/19 02/16/19 18:59 06:59 18:59 Intake Total 1142 1125.5 99.25 Output Total 2049 3950 Balance -908 -2824.5 99.25 Weight 132.7 kg Intake: Intake, IV Titration 200 85.5 99.25 Amount Furosemide 100 mg In 200 85.5 99.25 Sodium Chloride 0.9% 90 ml @ 15 MG/HR 15 mls/hr IV .Q6H40M [facility] Rx#: [id number] Oral 942 1040 Output: Urine 2049 3950 Other: Voiding Method Toilet Toilet # Bowel Movements 1 - Exam General appearance: The patient is alert, oriented, in no acute distress. Jaundice. HET: Head is normocephalic and atraumatic. Pupils are equal and reactive. Oropharynx is clear without lesions. Sclerae icterus. Neck: Supple without lymphadenopathy. Trachea midline. Heart: S1 S2. Regular rate and rhythm. Lungs: No crackles or wheezes are heard. Abdomen: Soft, distended with ascites improved from previous exam with bowel sounds. No peritoneal signs. No palpable organomegaly or masses. Extremities: +3 bilateral lower extremity pitting edema. Neurological: No focal deficits. Strength and sensation are grossly intact. - Labs CBC & Chem 7: 02/16/19 07:14 02/16/19 07:14 Labs: Abnormal Lab Results - Last 24 Hours (Table) 02/16/19 02/16/19 02/16/19 Range/Units 07:14 07:14 07:14 RBC 3.20 L (3.80-5.40) m/uL Hgb 8.9 L (11.4-16.0) gm/dL Hct 28.9 L (34.0-46.0) % MCHC 30.9 L (31.0-37.0) g/dL RDW 22.2 H (11.5-15.5) % Plt Count 86 L (150-450) k/uL PT 19.6 H (9.0-12.0) sec INR 2.0 H (<1.2) APTT 42.5 H (22.0-30.0) sec Potassium 3.0 L (3.5-5.1) mmol/L BUN 33 H (7-17) mg/dL Creatinine 2.74 H (0.52-1.04) mg/dL Glucose 113 H (74-99) mg/dL Total Bilirubin 8.1 H (0.2-1.3) mg/dL AST 175 H (14-36) U/L ALT 99 H (9-52) U/L Alkaline Phosphatase 309 H (38-126) U/L Total Protein 5.3 L (6.3-8.2) g/dL Albumin 2.5 L (3.5-5.0) g/dL Microbiology - Last 24 Hours (Table) 02/12/19 02:39 Blood Culture - Preliminary Blood No Growth after 96 hours Assessment and Plan (1) Decompensated liver disease Current Visit: Yes Status: Acute Code(s): K74.69 - OTHER CIRRHOSIS OF LIVER SNOMED Code(s): 53865131 (2) Liver cirrhosis Current Visit: Yes Status: Acute Code(s): K74.60 - UNSPECIFIED CIRRHOSIS OF LIVER SNOMED Code(s): 34458818 (3) Hepatorenal syndrome Current Visit: Yes Status: Acute Code(s): K76.7 - HEPATORENAL SYNDROME SNOMED Code(s): 64538153 Plan: Continue with present medical therapy. Appreciate diuretic management by nephrology. Assessment and plan a care discussed with Dr. Talavera
[2019-02-17] MEDS: FUROSEMIDE 100 MG in SODIUM CHLORIDE 0.9% 90 ML IV SCH ×6 (02:07→23:40)
[2019-02-17] MEDS: LACTULOSE 20 GM/30 ML CUP PO SCH ×4 (04:08→21:24)
[2019-02-17] MEDS: FERROUS SULFATE 325 MG TAB PO SCH ×2 (04:08→09:36)
[2019-02-17] MEDS: SERTRALINE 25 MG TAB PO SCH (04:08)
[2019-02-17] MEDS: SPIRONOLACTONE 25 MG TAB PO SCH ×2 (04:08→09:33)
[2019-02-17] MEDS: LEVOTHYROXINE 25 MCG TAB PO SCH (04:08)
[2019-02-17] MEDS: POTASSIUM CHLORIDE ER 20 MEQ TAB.ER PO SCH ×6 (04:08→21:24)
[2019-02-17] MEDS ORDERED: Potassium Replacement Protocol 1 EACH MISC MISCELLANE PRN (08:00)
[2019-02-17 08:09] LABS: Anisocytosis Moderate; HCT 28.9 % (34.0-46.0); HGB 9.2 gm/dL (11.4-16.0); Hypochromasia Moderate; MCH 28.7 pg (25.0-35.0); MCHC 31.7 g/dL (31.0-37.0); MCV 90.6 fL (80.0-100.0); Mean Platelet Volume 8.8; RBC 3.19 m/uL (3.80-5.40); RDW 21.4 % (11.5-15.5); WBC 6.2 k/uL (3.8-10.6)
[2019-02-17 08:11] LABS: Platelet Count 88 k/uL (150-450)
[2019-02-17 08:30] LABS: Albumin 2.4 g/dL (3.5-5.0); Calcium 8.5 mg/dL (8.4-10.2); Magnesium 2.1 mg/dL (1.6-2.3); Potassium 3.2 mmol/L (3.5-5.1); Total Bilirubin 8.1 mg/dL (0.2-1.3); Total Protein 5.2 g/dL (6.3-8.2)
[2019-02-17] MEDS: HEPARIN SODIUM,PORCINE 5,000 UNIT/ML 1 ML VIAL SQ SCH ×2 (09:33→21:24)
[2019-02-17] MEDS: MIDODRINE 5 MG TAB PO SCH ×3 (09:33→17:07)
[2019-02-17] MEDS: RIFAXIMIN 550 MG TABLET PO SCH ×2 (09:33→21:24)
[2019-02-17] MEDS: PANTOPRAZOLE 40 MG TABLET PO PRN (09:33)
[2019-02-17] MEDS: traMADol 50 MG TAB PO SCH ×4 (09:33→21:23)
[2019-02-17] MEDS: FAMOTIDINE 20 MG TAB PO SCH (09:34)
[2019-02-17] MEDS: METOLAZONE 5 MG TAB PO SCH ×2 (09:34→21:23)
--- NOTE | 2019-02-17 11:46 | P.PN ---
Subjective Progress Note Date: 02/17/19 Principal diagnosis: Decompensated liver disease Status post paracentesis ascitic fluid is leaking from left-sided abdomen without hematoma bleeding or pain. LFTs stable total bilirubin 8.1. AST 187. ALT 98. AP 292. Kidney function unchanged from yesterday. BUN 33. Creatinine 2.7. Receiving IV Lasix. Objective - Vital Signs Vital signs: Vital Signs Temp 97.3 F L 02/17/19 04:59 Pulse 101 H 02/17/19 04:59 Resp 18 02/17/19 04:59 BP 94/58 02/17/19 04:59 Pulse Ox 100 02/17/19 04:59 Intake & Output 02/16/19 02/17/19 02/17/19 18:59 06:59 18:59 Intake Total 499.25 280 100 Output Total 2000 1200 Balance -1500.75 -920 100 Weight 133 kg Intake: IV 60 Furosemide 100 mg In 60 Sodium Chloride 0.9% 90 ml @ 15 MG/HR 15 mls/hr IV .Q6H40M [facility] Rx#: [id number] Intake, IV Titration 199.25 100 100 Amount Furosemide 100 mg In 199.25 100 100 Sodium Chloride 0.9% 90 ml @ 15 MG/HR 15 mls/hr IV .Q6H40M [facility] Rx#: [id number] Oral 120 Other 300 Output: Urine 1999 1200 Other: Voiding Method Toilet - Exam General appearance: The patient is alert, oriented, in no acute distress. Jaundice. HET: Head is normocephalic and atraumatic. Pupils are equal and reactive. Oropharynx is clear without lesions. Sclerae icterus. Neck: Supple without lymphadenopathy. Trachea midline. Heart: S1 S2. Regular rate and rhythm. Lungs: No crackles or wheezes are heard. Abdomen: Soft, distended with mild ascites evidence of ascitic leakage from left-sided abdomen without hematoma or bleeding. No peritoneal signs. No palpable organomegaly or masses. Extremities: +3 bilateral lower extremity pitting edema. Neurological: No focal deficits. Strength and sensation are grossly intact. - Labs CBC & Chem 7: 02/17/19 07:44 02/17/19 07:44 Labs: Abnormal Lab Results - Last 24 Hours (Table) 02/16/19 02/17/19 02/17/19 Range/Units 17:59 07:44 07:44 RBC 3.19 L (3.80-5.40) m/uL Hgb 9.2 L (11.4-16.0) gm/dL Hct 28.9 L (34.0-46.0) % RDW 21.4 H (11.5-15.5) % Plt Count 88 L (150-450) k/uL Sodium 136 L (137-145) mmol/L Potassium 3.0 L 3.2 L (3.5-5.1) mmol/L BUN 33 H (7-17) mg/dL Creatinine 2.78 H (0.52-1.04) mg/dL Total Bilirubin 8.1 H (0.2-1.3) mg/dL AST 187 H (14-36) U/L ALT 98 H (9-52) U/L Alkaline Phosphatase 292 H (38-126) U/L Total Protein 5.2 L (6.3-8.2) g/dL Albumin 2.4 L (3.5-5.0) g/dL Microbiology - Last 24 Hours (Table) 02/12/19 02:39 Blood Culture - Preliminary Blood No Growth after 120 hours Assessment and Plan (1) Decompensated liver disease Current Visit: Yes Status: Acute Code(s): K74.69 - OTHER CIRRHOSIS OF LIVER SNOMED Code(s): 30302411 (2) Liver cirrhosis Current Visit: Yes Status: Acute Code(s): K74.60 - UNSPECIFIED CIRRHOSIS OF LIVER SNOMED Code(s): 62916152 (3) Hepatorenal syndrome Current Visit: Yes Status: Acute Code(s): K76.7 - HEPATORENAL SYNDROME SNOMED Code(s): 29837335 Plan: Continue with present medical therapy. Appreciate diuretic management by nephrology. Ostomy appliance applied over paracentesis site to assist with fluid collection. We'll continue to monitor. PT/INR in a.m. Assessment and plan a care discussed with Dr. Talavera
[2019-02-17] MEDS ORDERED: POTASSIUM CHLORIDE ER 20 MEQ TAB.ER PO STA (13:04)
--- NOTE | 2019-02-17 13:18 | P.PN ---
Subjective Patient is seen in follow-up for acute kidney injury. Renal function is relatively stable - creatinine 2.78 today. Patient is still quite edematous although improving. Urine output is good. She is currently maintained on Lasix drip at 15 mL an hour. She underwent paracentesis on February 15 to 4.9 L removed. She did receive albumin pre and post procedure. Patient has history of liver cirrhosis. Overall feels better today. She was having drainage from the paracentesis site and had an ostomy bag placed this morning. Vital signs are stable. General: The patient appeared well nourished and normally developed. HEENT: Head exam is unremarkable. Neck is without jugular venous distension. LUNGS: Lungs are clear to auscultation and percussion. Breath sounds decreased. HEART: Rate and Rhythm are regular. First and second heart sounds normal. No murmurs, rubs or gallops. ABDOMEN: Distention noted. Bowel sounds decreased. EXTREMITITES: 2+ edema. Objective - Vital Signs Vital signs: Vital Signs Temp 98.9 F 02/17/19 12:31 Pulse 97 02/17/19 12:31 Resp 16 02/17/19 12:31 BP 109/57 02/17/19 12:31 Pulse Ox 100 02/17/19 12:31 Intake & Output 02/16/19 02/17/19 02/17/19 18:59 06:59 18:59 Intake Total 499.25 280 100 Output Total 2000 1200 Balance -1500.75 -920 100 Weight 133 kg Intake: IV 60 Furosemide 100 mg In 60 Sodium Chloride 0.9% 90 ml @ 15 MG/HR 15 mls/hr IV .Q6H40M [facility] Rx#: [id number] Intake, IV Titration 199.25 100 100 Amount Furosemide 100 mg In 199.25 100 100 Sodium Chloride 0.9% 90 ml @ 15 MG/HR 15 mls/hr IV .Q6H40M [facility] Rx#: [id number] Oral 120 Other 300 Output: Urine 1999 1200 Other: Voiding Method Toilet - Labs CBC & Chem 7: 02/17/19 07:44 02/17/19 07:44 Labs: Abnormal Lab Results - Last 24 Hours (Table) 02/16/19 02/17/19 02/17/19 Range/Units 17:59 07:44 07:44 RBC 3.19 L (3.80-5.40) m/uL Hgb 9.2 L (11.4-16.0) gm/dL Hct 28.9 L (34.0-46.0) % RDW 21.4 H (11.5-15.5) % Plt Count 88 L (150-450) k/uL Sodium 136 L (137-145) mmol/L Potassium 3.0 L 3.2 L (3.5-5.1) mmol/L BUN 33 H (7-17) mg/dL Creatinine 2.78 H (0.52-1.04) mg/dL Total Bilirubin 8.1 H (0.2-1.3) mg/dL AST 187 H (14-36) U/L ALT 98 H (9-52) U/L Alkaline Phosphatase 292 H (38-126) U/L Total Protein 5.2 L (6.3-8.2) g/dL Albumin 2.4 L (3.5-5.0) g/dL Microbiology - Last 24 Hours (Table) 02/12/19 02:39 Blood Culture - Preliminary Blood No Growth after 120 hours Assessment and Plan Plan: Assessment: 1. Acute kidney injury secondary to hepatorenal syndrome. Creatinine 2.78 today. No proteinuria on UA. Ultrasound from last month revealed normal sized kidneys without any hydronephrosis. 2. Dyspnea secondary to volume overload. Improved. 3. Ascites. Patient gets weekly paracentesis. Last done February 15 - 4.9 L removed. 4. Decompensated liver cirrhosis. Patient following at [facility] for liver transplant. 5. Hypokalemia secondary to diuresis. Magnesium normal. Plan: Maintain midodrine 5 mg 3 times daily. Increase Lasix drip to 20 mL an hour. Maintain metolazone 5 mg twice daily. Maintain Aldactone 50 mg twice daily. Replace potassium. 80 mEq today. Low-salt diet. 1500 mL fluid restriction. Continue to monitor renal function and urine output. Repeat electrolytes in the morning.
[2019-02-18] MEDS: FUROSEMIDE 100 MG in SODIUM CHLORIDE 0.9% 90 ML IV SCH ×4 (04:21→21:09)
[2019-02-18] MEDS: POTASSIUM CHLORIDE ER 20 MEQ TAB.ER PO SCH ×4 (04:23→21:04)
[2019-02-18] MEDS: FERROUS SULFATE 325 MG TAB PO SCH ×2 (04:23→15:48)
[2019-02-18] MEDS: LEVOTHYROXINE 25 MCG TAB PO SCH (04:23)
[2019-02-18] MEDS: SPIRONOLACTONE 25 MG TAB PO SCH ×2 (04:23→15:48)
[2019-02-18] MEDS: SERTRALINE 25 MG TAB PO SCH (04:30)
[2019-02-18] MEDS: LACTULOSE 20 GM/30 ML CUP PO SCH ×4 (04:30→21:05)
[2019-02-18] MEDS: FAMOTIDINE 20 MG TAB PO SCH (07:46)
[2019-02-18] MEDS: traMADol 50 MG TAB PO SCH ×4 (07:46→21:03)
[2019-02-18] MEDS: HEPARIN SODIUM,PORCINE 5,000 UNIT/ML 1 ML VIAL SQ SCH ×2 (07:46→21:04)
[2019-02-18] MEDS: METOLAZONE 5 MG TAB PO SCH ×2 (07:47→21:03)
[2019-02-18] MEDS: MIDODRINE 5 MG TAB PO SCH ×3 (07:47→17:25)
[2019-02-18] MEDS: RIFAXIMIN 550 MG TABLET PO SCH ×2 (07:56→21:03)
[2019-02-18 09:41] LABS: Albumin 2.3 g/dL (3.5-5.0); Calcium 8.5 mg/dL (8.4-10.2); Magnesium 2.1 mg/dL (1.6-2.3); Potassium 3.1 mmol/L (3.5-5.1); Total Bilirubin 7.5 mg/dL (0.2-1.3); Total Protein 5.1 g/dL (6.3-8.2)
[2019-02-18 09:58] LABS: INR 1.9 (<1.2); Prothrombin Time 19.1 sec (9.0-12.0)
--- NOTE | 2019-02-18 12:37 | P.PN ---
Subjective Progress Note Date: 02/17/19 There is history of female past medical history significant for liver cirrhosis, portal hypertension, myositis, morbid obesity, past medical history of gastric bypass surgery consult the hospital for increased swelling in bilateral lower extremity and abdominal distention. She is currently on workup list in the process for possible liver transplant. She has regular paracentesis as an outpatient. Status post paracentesis ascitic fluid is leaking from left-sided abdomen without hematoma bleeding or pain; an ostomy bag has been placed at paracentesis site. LFTs stable total bilirubin 8.1. AST 187. ALT 98. AP 292. Kidney function unchanged from yesterday. BUN 33. Creatinine 2.7. Receiving I V Lasix infusion; nephrology is following and recommending to increase Lasix drip to 20 meals and hour and continue with midodrine 5 mg 3 times a day and metolazone 5 mg daily; patient remains on Aldactone 50 mg twice a day. Objective - Vital Signs Vital signs: Vital Signs Temp 97.3 F L 02/17/19 04:59 Pulse 101 H 02/17/19 04:59 Resp 18 02/17/19 04:59 BP 94/58 02/17/19 04:59 Pulse Ox 100 02/17/19 04:59 Intake & Output 02/16/19 02/17/19 02/17/19 18:59 06:59 18:59 Intake Total 499.25 280 Output Total 2000 1200 Balance -1500.75 -920 Weight 133 kg Intake: IV 60 Furosemide 100 mg In 60 Sodium Chloride 0.9% 90 ml @ 15 MG/HR 15 mls/hr IV .Q6H40M [facility] Rx#: [id number] Intake, IV Titration 199.25 100 Amount Furosemide 100 mg In 199.25 100 Sodium Chloride 0.9% 90 ml @ 15 MG/HR 15 mls/hr IV .Q6H40M [facility] Rx#: [id number] Oral 120 Other 300 Output: Urine 1999 1200 Other: Voiding Method Toilet - Exam General: The patient appeared well nourished and normally developed. HEENT: Head exam is unremarkable. Neck is without jugular venous distension. LUNGS: Lungs are clear to auscultation and percussion. Breath sounds decreased. HEART: Rate and Rhythm are regular. First and second heart sounds normal. No murmurs, rubs or gallops. ABDOMEN: Distention noted. Bowel sounds decreased. EXTREMITITES: 2+ edema. - Labs CBC & Chem 7: 02/17/19 07:44 02/18/19 09:00 Labs: Abnormal Lab Results - Last 24 Hours (Table) 02/16/19 02/17/19 02/17/19 Range/Units 17:59 07:44 07:44 RBC 3.19 L (3.80-5.40) m/uL Hgb 9.2 L (11.4-16.0) gm/dL Hct 28.9 L (34.0-46.0) % RDW 21.4 H (11.5-15.5) % Plt Count 88 L (150-450) k/uL Sodium 136 L (137-145) mmol/L Potassium 3.0 L 3.2 L (3.5-5.1) mmol/L BUN 33 H (7-17) mg/dL Creatinine 2.78 H (0.52-1.04) mg/dL Total Bilirubin 8.1 H (0.2-1.3) mg/dL AST 187 H (14-36) U/L ALT 98 H (9-52) U/L Alkaline Phosphatase 292 H (38-126) U/L Total Protein 5.2 L (6.3-8.2) g/dL Albumin 2.4 L (3.5-5.0) g/dL Microbiology - Last 24 Hours (Table) 02/12/19 02:39 Blood Culture - Preliminary Blood No Growth after 120 hours Assessment and Plan Assessment: 1. Acute kidney injury secondary to hepatorenal syndrome. Creatinine 2.78 today. No proteinuria on UA. Ultrasound from last month revealed normal sized kidneys without any hydronephrosis. 2. Dyspnea secondary to volume overload. Improved. 3. Ascites. Patient gets weekly paracentesis. Last done February 15 - 4.9 L removed. 4. Decompensated liver cirrhosis. Patient following at [facility] for liver transplant. 5. Hypokalemia secondary to diuresis. Magnesium normal. Plan: Maintain midodrine 5 mg 3 times daily. Increase Lasix drip to 20 mL an hour. Maintain metolazone 5 mg twice daily. Maintain Aldactone 50 mg twice daily. Replace potassium. 80 mEq today. Low-salt diet. 1500 mL fluid restriction. Continue to monitor renal function and urine output. Repeat electrolytes in the morning.
--- NOTE | 2019-02-18 15:16 | P.PN ---
Subjective Progress Note Date: 02/18/19 Principal diagnosis: This is a 38-year-old female with nonalcoholic cirrhosis who is being diuresed with IV Lasix 20 mg per hour as well as Spirinolactone 50 twice a day. She is m aintaining her blood pressure in the 90s to 100 range. Her urine output is 2300 for the last 24 hours but prior to that was 30 20, and 6,000 mL. Her creatinine is still slowly going up from 2.7-2.8, her baseline creatinine was 0.69 a month ago on 01/10/2019 History of present illness: Patient is a 38-year-old female seen in renal consultation for acute kidney injury. Patient has history of nonalcoholic liver disease and is being worked up for liver transplant at [facility]. Patient states she gets paracentesis on a weekly basis. Last paracentesis was last Wednesday. Patient was admitted to the hospital last month and volume overload which improved with IV diuresis. Creatinine during that admission peaked at 2.15 and was down to 1.1 during discharge. This admission her creatinine was 2.38 and is up to 2.52 today. She is currently maintained on Lasix 40 mg IV 3 times daily. She presented to the hospital with worsening edema and dyspnea over the last few days. Patient states she was taking Lasix 20 mg once daily. She is unsure if she was taking spironolactone or not. She has been voiding. No hematuria or dysuria. She does admit to dyspnea. Denies use of nonsteroidals. Objective - Vital Signs Vital signs: Vital Signs Temp 97.7 F 02/18/19 11:43 Pulse 95 02/18/19 11:43 Resp 16 02/18/19 11:43 BP 99/66 02/18/19 11:43 Pulse Ox 100 02/18/19 11:43 Intake & Output 02/17/19 02/18/19 02/18/19 18:59 06:59 18:59 Intake Total 1075 193.667 100 Output Total 1350 950 Balance -275 -756.333 100 Weight 133 kg 132 kg Intake: Intake, IV Titration 191 193.667 100 Amount Furosemide 100 mg In 191 193.667 100 Sodium Chloride 0.9% 90 ml @ 20 MG/HR 20 mls/hr IV .Q5H [facility] Rx#:[id number] Oral 884 Output: Urine 1350 950 Other: Voiding Method Toilet # Voids 2 Vital signs are stable. General: The patient appeared well nourished and normally developed. HEENT: Head exam is unremarkable. Neck is without jugular venous distension. LUNGS: Lungs are clear to auscultation and percussion. Breath sounds decreased. HEART: Rate and Rhythm are regular. First and second heart sounds normal. No m urmurs, rubs or gallops. ABDOMEN: Bowel sounds present. Distention noted. EXTREMITITES: 2+ edema. Neurologically awake alert oriented - Labs CBC & Chem 7: 02/17/19 07:44 02/18/19 09:00 Labs: Abnormal Lab Results - Last 24 Hours (Table) 02/17/19 02/18/19 02/18/19 Range/Units 17:57 09:00 09:00 PT 19.1 H (9.0-12.0) sec INR 1.9 H (<1.2) Potassium 3.1 L 3.1 L (3.5-5.1) mmol/L BUN 34 H (7-17) mg/dL Creatinine 2.87 H (0.52-1.04) mg/dL Glucose 152 H (74-99) mg/dL Total Bilirubin 7.5 H (0.2-1.3) mg/dL AST 178 H (14-36) U/L ALT 95 H (9-52) U/L Alkaline Phosphatase 258 H (38-126) U/L Total Protein 5.1 L (6.3-8.2) g/dL Albumin 2.3 L (3.5-5.0) g/dL Microbiology - Last 24 Hours (Table) 02/12/19 02:39 Blood Culture - Final Blood No Growth after 144 hours Assessment and Plan Assessment: Impression. 1. Acute kidney injury secondary to hepatorenal syndrome. Creatinine 2.8 today. No proteinuria on UA. Ultrasound from last month revealed normal sized kidneys without any hydronephrosis. Slowly worsening renal function. 2. Dyspnea secondary to volume overload. Improved. 3. Ascites. Patient gets weekly paracentesis. Last done February 15 - 4.9 L rem magali. 4. Decompensated liver cirrhosis. Patient following at [facility] for liver transplant. 5. Hypokalemia secondary to diuresis. Magnesium normal. Plan: Maintain midodrine 5 mg 3 times daily. Increase Lasix drip to 20 mL an hour. Maintain metolazone 5 mg twice daily. Maintain Aldactone 50 mg twice daily. Replace potassium. 80 mEq today. Low-salt diet. 1500 mL fluid restriction. Continue to monitor renal function and urine output. Repeat electrolytes in the morning.
--- NOTE | 2019-02-18 18:46 | P.PN ---
Subjective Progress Note Date: 02/18/19 There is history of female past medical history significant for liver cirrhosis, portal hypertension, myositis, morbid obesity, past medical history of gastric bypass surgery consult the hospital for increased swelling in bilateral lower extremity and abdominal distention. She is currently on workup list in the process for possible liver transplant. She has regular paracentesis as an outpatient. Status post paracentesis ascitic fluid is leaking from left-sided abdomen without hematoma bleeding or pain; an ostomy bag has been placed at paracentesis site. LFTs stable total bilirubin 8.1. AST 187. ALT 98. AP 292. Kidney function unchanged from yesterday. BUN 33. Creatinine 2.7. Receiving I V Lasix infusion; nephrology is following and recommending to increase Lasix drip to 20mls/ hour and continue with midodrine 5 mg 3 times a day and metolazone 5 mg daily; patient remains on Aldactone 50 mg twice a day. 02/18/2019 Patient is seen and evaluated in the room at bedside; vital signs remained stable and form a temperature of 97.7, pulse 95, respirations 16 and blood pressure of 99/66; patient is saturating 100% on room air Lab review shows an INR of 1.9, potassium of 3.1; BUN/creatinine show slight worsening from 33/2.78 yesterday to 34/2.87 this morning; patient has been on IV Lasix infusion which was increased to 20ml/hr yesterday by nephrology service Objective - Vital Signs Vital signs: Vital Signs Temp 97.7 F 02/18/19 11:43 Pulse 95 02/18/19 11:43 Resp 16 02/18/19 11:43 BP 99/66 02/18/19 11:43 Pulse Ox 100 02/18/19 11:43 Intake & Output 02/17/19 02/18/19 02/18/19 18:59 06:59 18:59 Intake Total 1075 193.667 Output Total 1350 950 Balance -275 -816.333 Weight 133 kg 132 kg Intake: Intake, IV Titration 191 193.667 Amount Furosemide 100 mg In 191 193.667 Sodium Chloride 0.9% 90 ml @ 20 MG/HR 20 mls/hr IV .Q5H [facility] Rx#:[id number] Oral 884 Output: Urine 1350 950 Other: Voiding Method Toilet # Voids 2 - Exam General: The patient appeared well nourished and normally developed. HEENT: Head exam is unremarkable. Neck is without jugular venous distension. LUNGS: Lungs are clear to auscultation and percussion. Breath sounds decreased. HEART: Rate and Rhythm are regular. First and second heart sounds normal. No murmurs, rubs or gallops. ABDOMEN: Distention noted. Bowel sounds decreased. EXTREMITITES: 2+ edema. - Labs CBC & Chem 7: 02/17/19 07:44 02/18/19 09:00 Labs: Abnormal Lab Results - Last 24 Hours (Table) 02/17/19 02/18/19 02/18/19 Range/Units 17:57 09:00 09:00 PT 19.1 H (9.0-12.0) sec INR 1.9 H (<1.2) Potassium 3.1 L 3.1 L (3.5-5.1) mmol/L BUN 34 H (7-17) mg/dL Creatinine 2.87 H (0.52-1.04) mg/dL Glucose 152 H (74-99) mg/dL Total Bilirubin 7.5 H (0.2-1.3) mg/dL AST 178 H (14-36) U/L ALT 95 H (9-52) U/L Alkaline Phosphatase 258 H (38-126) U/L Total Protein 5.1 L (6.3-8.2) g/dL Albumin 2.3 L (3.5-5.0) g/dL Microbiology - Last 24 Hours (Table) 02/12/19 02:39 Blood Culture - Final Blood No Growth after 144 hours Assessment and Plan Assessment: 1. Acute kidney injury secondary to hepatorenal syndrome. Creatinine 2.78 today. No proteinuria on UA. Ultrasound from last month revealed normal sized kidneys without any hydronephrosis. 2. Dyspnea secondary to volume overload. Improved. 3. Ascites. Patient gets weekly paracentesis. Last done February 15 - 4.9 L removed. 4. Decompensated liver cirrhosis. Patient following at [facility] for liver transplant. 5. Hypokalemia secondary to diuresis. Magnesium normal. Plan: Maintain midodrine 5 mg 3 times daily. Increase Lasix drip to 20 mL an hour. Maintain metolazone 5 mg twice daily. Maintain Aldactone 50 mg twice daily. Replace potassium. 80 mEq today. Low-salt diet. 1500 mL fluid restriction. Continue to monitor renal function and urine output. Repeat electrolytes in the morning.
[2019-02-19] MEDS: FUROSEMIDE 100 MG in SODIUM CHLORIDE 0.9% 90 ML IV SCH ×5 (02:56→21:54)
[2019-02-19] MEDS: SERTRALINE 25 MG TAB PO SCH (04:31)
[2019-02-19] MEDS: SPIRONOLACTONE 25 MG TAB PO SCH ×2 (04:31→15:16)
[2019-02-19] MEDS: LACTULOSE 20 GM/30 ML CUP PO SCH ×4 (04:31→21:10)
[2019-02-19] MEDS: POTASSIUM CHLORIDE ER 20 MEQ TAB.ER PO SCH ×4 (04:31→21:54)
[2019-02-19] MEDS: FERROUS SULFATE 325 MG TAB PO SCH ×2 (04:31→15:16)
[2019-02-19] MEDS: LEVOTHYROXINE 25 MCG TAB PO SCH (04:31)
[2019-02-19] MEDS: MIDODRINE 5 MG TAB PO SCH ×3 (07:08→16:45)
[2019-02-19] MEDS: FAMOTIDINE 20 MG TAB PO SCH (07:08)
[2019-02-19] MEDS: HEPARIN SODIUM,PORCINE 5,000 UNIT/ML 1 ML VIAL SQ SCH ×2 (07:08→21:10)
[2019-02-19] MEDS: RIFAXIMIN 550 MG TABLET PO SCH ×2 (07:08→21:10)
[2019-02-19] MEDS: METOLAZONE 5 MG TAB PO SCH ×2 (07:08→21:10)
[2019-02-19] MEDS: traMADol 50 MG TAB PO SCH ×2 (08:22→13:51)
[2019-02-19 08:59] LABS: Albumin 2.6 g/dL (3.5-5.0); Calcium 8.6 mg/dL (8.4-10.2); Total Bilirubin 7.6 mg/dL (0.2-1.3); Total Protein 5.4 g/dL (6.3-8.2)
[2019-02-19 09:06] LABS: Potassium 2.6 mmol/L (3.5-5.1)
[2019-02-19] MEDS ORDERED: Potassium Replacement Protocol 1 EACH MISC MISCELLANE PRN ×3 (12:34→21:24)
[2019-02-19] MEDS ORDERED: POTASSIUM CHLORIDE 20 MEQ in WATER FOR INJECTION 1 100ML.BAG IVPB SCH (13:00)
[2019-02-19] MEDS: POTASSIUM CHLORIDE 20 MEQ in WATER FOR INJECTION 1 100ML.BAG IVPB SCH ×2 (13:54→15:48)
--- NOTE | 2019-02-19 14:04 | P.PN ---
Subjective Progress Note Date: 02/19/19 Principal diagnosis: This is a 38-year-old female with nonalcoholic cirrhosis who is being diuresed with IV Lasix 20 mg per hour as well as Spirinolactone 50 twice a day. She is m aintaining her blood pressure in the 90s to 100 range. Her urine output is not well documented. Yesterday. Prior to that urine output was 2300, 3020 and 6000. Last 3 days Her creatinine is still slowly going up from 2.7-2.8, further to 2.9 this morning, her baseline creatinine was 0.69 a month ago on 01/10/2019 History of present illness: Patient is a 38-year-old female seen in renal consultation for acute kidney injury. Patient has history of nonalcoholic liver disease and is being worked up for liver transplant at [facility]. Patient states she gets paracentesis on a weekly basis. Last paracentesis was last Wednesday. Patient was admitted to the hospital last month and volume overload which improved with IV diuresis. Creatinine during that admission peaked at 2.15 and was down to 1.1 during discharge. This admission her creatinine was 2.38 and is up to 2.52 today. She is currently maintained on Lasix 40 mg IV 3 times daily. She presented to the hospital with worsening edema and dyspnea over the last few days. Patient states she was taking Lasix 20 mg once daily. She is unsure if she was taking spironolactone or not. She has been voiding. No hematuria or dy suria. She does admit to dyspnea. Denies use of nonsteroidals. Objective - Vital Signs Vital signs: Vital Signs Temp 97.5 F L 02/19/19 12:33 Pulse 91 02/19/19 12:33 Resp 16 02/19/19 12:33 BP 92/55 02/19/19 12:33 Pulse Ox 100 02/19/19 12:33 Intake & Output 02/18/19 02/19/19 02/19/19 18:59 06:59 18:59 Intake Total 200 165.667 100 Balance 200 165.667 100 Weight 132 kg Intake: Intake, IV Titration 200 165.667 100 Amount Furosemide 100 mg In 200 165.667 100 Sodium Chloride 0.9% 90 ml @ 20 MG/HR 20 mls/hr IV .Q5H [facility] Rx#:[id number] Other: Voiding Method Toilet Toilet Toilet # Voids 3 On examination is awake alert oriented comfortable somewhat pale looking HEENT exam no JVP neck is supple no facial asymmetry Lungs clear to auscultation good air entry bilaterally Heart sounds are unremarkable for any murmur rub gallop Abdomen is soft mild ascites Probably present Extremity exam was 2-3+ edema Neurologically awake alert oriented comfortable - Labs CBC & Chem 7: 02/17/19 07:44 02/19/19 08:09 Labs: Abnormal Lab Results - Last 24 Hours (Table) 02/19/19 Range/Units 08:09 Sodium 136 L (137-145) mmol/L Potassium 2.6 L* (3.5-5.1) mmol/L BUN 32 H (7-17) mg/dL Creatinine 2.90 H (0.52-1.04) mg/dL Glucose 206 H (74-99) mg/dL Total Bilirubin 7.6 H (0.2-1.3) mg/dL AST 201 H (14-36) U/L ALT 98 H (9-52) U/L Alkaline Phosphatase 285 H (38-126) U/L Total Protein 5.4 L (6.3-8.2) g/dL Albumin 2.6 L (3.5-5.0) g/dL Assessment and Plan Assessment: Impression. 1. Acute kidney injury secondary to hepatorenal syndrome. Creatinine 2.8 and slightly up to 2.9 today. No proteinuria on UA. Ultrasound from last month revealed normal sized kidneys without any hydronephrosis. Slowly worsening renal function. 2. Dyspnea secondary to volume overload. Improved. 3. Ascites. Patient gets weekly paracentesis. Last done February 15 - 4.9 L removed. 4. Decompensated liver cirrhosis. Patient following at [facility] for liver transplant. 5. Hypokalemia secondary to diuresis. Magnesium normal. 6. Moderate edema. Currently on Lasix 20 mg per hour Plan: Maintain midodrine 5 mg 3 times daily. Increase Lasix drip to 20 mL an hour. Maintain metolazone 5 mg twice daily. Maintain Aldactone 50 mg twice daily. Replace potassium. 100 mEq today. Low-salt diet. 1500 mL fluid restriction. Continue to monitor renal function and urine output. Repeat electrolytes in the morning.
--- NOTE | 2019-02-19 14:35 | P.PN ---
Subjective Progress Note Date: 02/19/19 There is history of female past medical history significant for liver cirrhosis, portal hypertension, myositis, morbid obesity, past medical history of gastric bypass surgery consult the hospital for increased swelling in bilateral lower extremity and abdominal distention. She is currently on workup list in the process for possible liver transplant. She has regular paracentesis as an outpatient. Status post paracentesis ascitic fluid is leaking from left-sided abdomen without hematoma bleeding or pain; an ostomy bag has been placed at paracentesis site. LFTs stable total bilirubin 8.1. AST 187. ALT 98. AP 292. Kidney function unchanged from yesterday. BUN 33. Creatinine 2.7. Receiving I V Lasix infusion; nephrology is following and recommending to increase Lasix drip to 20mls/ hour and continue with midodrine 5 mg 3 times a day and metolazone 5 mg daily; patient remains on Aldactone 50 mg twice a day. 02/18/2019 Patient is seen and evaluated in the room at bedside; vital signs remained stable and form a temperature of 97.7, pulse 95, respirations 16 and blood pressure of 99/66; patient is saturating 100% on room air Lab review shows an INR of 1.9, potassium of 3.1; BUN/creatinine show slight worsening from 33/2.78 yesterday to 34/2.87 this morning; patient has been on IV Lasix infusion which was increased to 20ml/hr yesterday by nephrology service 02/19/2019 Patient is seen and evaluated at bedside; more awake and alert today; was has no specific complaints Patient isbeing diuresed with IV Lasix 20 mg per hour as well as Spirinolactone 50 twice a day. She is maintaining her blood pressure in the 90s to 100 range. Her creatinine is still slowly going up from 2.7-2.8, further to 2.9 this morning, her baseline creatinine was 0.69 a month ago on 01/10/2019; nephrology is on board and recommending to continue IV Lasix infusion at 20 mg per hour along with metolazone and Aldactone; continue with fluid restriction of 1500 mL per 24 hours; continue to monitor electrolytes and renal function along with strict urine output Objective - Vital Signs Vital signs: Vital Signs Temp 97.6 F 02/19/19 05:11 Pulse 94 02/19/19 05:11 Resp 16 02/19/19 05:11 BP 100/65 02/19/19 05:11 Pulse Ox 100 02/19/19 05:11 Intake & Output 02/18/19 02/19/19 02/19/19 18:59 06:59 18:59 Intake Total 200 165.667 Balance 200 165.667 Weight 132 kg Intake: Intake, IV Titration 200 165.667 Amount Furosemide 100 mg In 200 165.667 Sodium Chloride 0.9% 90 ml @ 20 MG/HR 20 mls/hr IV .Q5H [facility] Rx#:[id number] Other: Voiding Method Toilet Toilet - Exam General: The patient appeared well nourished and normally developed. HEENT: Head exam is unremarkable. Neck is without jugular venous distension. LUNGS: Lungs are clear to auscultation and percussion. Breath sounds decreased. HEART: Rate and Rhythm are regular. First and second heart sounds normal. No murmurs, rubs or gallops. ABDOMEN: Distention noted. Bowel sounds decreased. EXTREMITITES: 2+ edema. - Labs CBC & Chem 7: 02/17/19 07:44 02/19/19 08:09 Labs: Abnormal Lab Results - Last 24 Hours (Table) 02/18/19 02/18/19 02/19/19 Range/Units 09:00 09:00 08:09 PT 19.1 H (9.0-12.0) sec INR 1.9 H (<1.2) Sodium 136 L (137-145) mmol/L Potassium 3.1 L 2.6 L* (3.5-5.1) mmol/L BUN 34 H 32 H (7-17) mg/dL Creatinine 2.87 H 2.90 H (0.52-1.04) mg/dL Glucose 152 H 206 H (74-99) mg/dL Total Bilirubin 7.5 H 7.6 H (0.2-1.3) mg/dL AST 178 H 201 H (14-36) U/L ALT 95 H 98 H (9-52) U/L Alkaline Phosphatase 258 H 285 H (38-126) U/L Total Protein 5.1 L 5.4 L (6.3-8.2) g/dL Albumin 2.3 L 2.6 L (3.5-5.0) g/dL Assessment and Plan Assessment: 1. Acute kidney injury secondary to hepatorenal syndrome. Creatinine 2.78 today. No proteinuria on UA. Ultrasound from last month revealed normal sized kidneys without any hydronephrosis. 2. Dyspnea secondary to volume overload. Improved. 3. Ascites. Patient gets weekly paracentesis. Last done February 15 - 4.9 L removed. 4. Decompensated liver cirrhosis. Patient following at [facility] for liver transplant. 5. Hypokalemia secondary to diuresis. Magnesium normal. Plan: Maintain midodrine 5 mg 3 times daily. Increase Lasix drip to 20 mL an hour. Maintain metolazone 5 mg twice daily. Maintain Aldactone 50 mg twice daily. Replace potassium. 80 mEq today. Low-salt diet. 1500 mL fluid restriction. Continue to monitor renal function and urine output. Repeat electrolytes in the morning. Time with Patient: Greater than 30
[2019-02-19] MEDS: CALAMINE/ZINC OXIDE LOTION 177 ML BTL TOPICAL PRN ×2 (16:13→21:56)
[2019-02-20] MEDS: FUROSEMIDE 100 MG in SODIUM CHLORIDE 0.9% 90 ML IV SCH ×5 (02:12→22:48)
[2019-02-20] MEDS: traMADol 50 MG TAB PO PRN ×3 (02:37→20:03)
[2019-02-20] MEDS: SPIRONOLACTONE 25 MG TAB PO SCH ×2 (05:43→15:59)
[2019-02-20] MEDS: LACTULOSE 20 GM/30 ML CUP PO SCH ×5 (05:44→23:05)
[2019-02-20] MEDS: SERTRALINE 25 MG TAB PO SCH (05:44)
[2019-02-20] MEDS: LEVOTHYROXINE 25 MCG TAB PO SCH (05:44)
[2019-02-20] MEDS: FERROUS SULFATE 325 MG TAB PO SCH ×2 (05:44→15:59)
[2019-02-20] MEDS: POTASSIUM CHLORIDE ER 20 MEQ TAB.ER PO SCH ×4 (05:46→13:28)
[2019-02-20] MEDS: RIFAXIMIN 550 MG TABLET PO SCH ×2 (07:55→20:04)
[2019-02-20] MEDS: MIDODRINE 5 MG TAB PO SCH ×3 (07:55→17:33)
[2019-02-20] MEDS: HEPARIN SODIUM,PORCINE 5,000 UNIT/ML 1 ML VIAL SQ SCH ×2 (07:55→20:04)
[2019-02-20] MEDS: METOLAZONE 5 MG TAB PO SCH ×2 (07:56→20:04)
[2019-02-20] MEDS: FAMOTIDINE 20 MG TAB PO SCH (07:56)
[2019-02-20] MEDS: PANTOPRAZOLE 40 MG TABLET PO PRN (07:56)
[2019-02-20 08:06] LABS: Albumin 2.4 g/dL (3.5-5.0); Calcium 8.3 mg/dL (8.4-10.2); Potassium 2.8 mmol/L (3.5-5.1); Total Bilirubin 6.7 mg/dL (0.2-1.3); Total Protein 5.2 g/dL (6.3-8.2)
[2019-02-20] MEDS ORDERED: Potassium Replacement Protocol 1 EACH MISC MISCELLANE PRN (08:26)
--- NOTE | 2019-02-20 08:32 | P.PN ---
Subjective Patient is seen in follow-up for acute kidney injury. Renal function is stable - creatinine 2.81 today. Patient is still quite edematous although improving. Urine output is good. She is currently maintained on Lasix drip at 20 mL an hour along with metolazone and Aldactone. She underwent paracentesis on February 15 to 4.9 L removed. She did receive albumin pre and post procedure. Patient has history of liver cirrhosis. Overall feels better today. Vital signs are stable. General: The patient appeared well nourished and normally developed. HEENT: Head exam is unremarkable. Neck is without jugular venous distension. LUNGS: Lungs are clear to auscultation and percussion. Breath sounds decreased. HEART: Rate and Rhythm are regular. First and second heart sounds normal. No murmurs, rubs or gallops. ABDOMEN: Distention noted. Bowel sounds decreased. EXTREMITITES: 2+ edema. Objective - Vital Signs Vital signs: Vital Signs Temp 97.6 F 02/20/19 05:57 Pulse 94 02/20/19 05:57 Resp 16 02/20/19 05:57 BP 101/62 02/20/19 05:57 Pulse Ox 100 02/20/19 05:57 Intake & Output 02/19/19 02/20/19 02/20/19 18:59 06:59 18:59 Intake Total 200 186 100 Output Total 1550 550 Balance -1350 -364 100 Weight 132.5 kg Intake: Intake, IV Titration 200 186 100 Amount Furosemide 100 mg In 200 186 100 Sodium Chloride 0.9% 90 ml @ 20 MG/HR 20 mls/hr IV .Q5H [facility] Rx#:[id number] Output: Drainage 100 Left Abdomen 100 Urine 1450 550 Other: Voiding Method Toilet Toilet # Voids 3 - Labs CBC & Chem 7: 02/17/19 07:44 02/20/19 07:14 Labs: Abnormal Lab Results - Last 24 Hours (Table) 02/19/19 02/19/19 02/20/19 Range/Units 08:09 20:36 07:14 Sodium 136 L 136 L (137-145) mmol/L Potassium 2.6 L* 3.3 L 2.8 L (3.5-5.1) mmol/L BUN 32 H 31 H (7-17) mg/dL Creatinine 2.90 H 2.81 H (0.52-1.04) mg/dL Glucose 206 H (74-99) mg/dL Calcium 8.3 L (8.4-10.2) mg/dL Total Bilirubin 7.6 H 6.7 H (0.2-1.3) mg/dL AST 201 H 203 H (14-36) U/L ALT 98 H 94 H (9-52) U/L Alkaline Phosphatase 285 H 285 H (38-126) U/L Total Protein 5.4 L 5.2 L (6.3-8.2) g/dL Albumin 2.6 L 2.4 L (3.5-5.0) g/dL Assessment and Plan Plan: Assessment: 1. Acute kidney injury secondary to hepatorenal syndrome. Creatinine 2.81 today. No proteinuria on UA. Ultrasound from last month revealed normal sized kidneys without any hydronephrosis. 2. Dyspnea secondary to volume overload. Improved. 3. Ascites. Patient gets weekly paracentesis. Last done February 15 - 4.9 L removed. 4. Decompensated liver cirrhosis. Patient following at for liver transplant. 5. Hypokalemia secondary to diuresis. Magnesium normal. Plan: Maintain midodrine 5 mg 3 times daily. Maintain current regimen of diuretics. Replace potassium. 100 mEq today. Low-salt diet. 1500 mL fluid restriction. Continue to monitor renal function and urine output. Repeat electrolytes in the morning.
[2019-02-20 08:44] LABS: Anisocytosis Moderate; Basophils # (A) 0.1 k/uL (0-0.2); Basophils % (A) 1 %; Eosinophils # (A) 0.7 k/uL (0-0.7); Eosinophils % (A) 10 %; HCT 28.5 % (34.0-46.0); HGB 9.1 gm/dL (11.4-16.0); Hypochromasia Slight; Lymphocytes # (A) 1.4 k/uL (1.0-4.8); Lymphocytes % (A) 20 %; MCH 28.9 pg (25.0-35.0); MCHC 31.8 g/dL (31.0-37.0); MCV 90.8 fL (80.0-100.0); Mean Platelet Volume 8.7; Monocytes # (A) 0.6 k/uL (0-1.0); Monocytes % (A) 8 %; Neutrophils % (A) 58 %; Platelet Count 76 k/uL (150-450); RBC 3.14 m/uL (3.80-5.40); RDW 21.6 % (11.5-15.5); WBC 6.8 k/uL (3.8-10.6)
[2019-02-20] MEDS: POTASSIUM CHLORIDE 20 MEQ in WATER FOR INJECTION 1 100ML.BAG IVPB SCH ×3 (09:22→12:51)
[2019-02-20 09:45] LABS: Poikilocytosis (M) Present
--- NOTE | 2019-02-20 12:35 | P.PN ---
Subjective History of present illness, from medical records Ms. Ravi is a 38-year-old female with a past medical history of liver cirrhosis, portal hypertension, myositis, and deficiency anemia, morbid obesity and laparoscopic cholecystectomy done in November 2018 for chronic a calculus cholecystitis, Harshad-en-Y gastric bypass coming into the hospital with a chief complaint of increased swelling in her bilateral lower extremities and also worsening abdominal distention. Patient has history of chronic liver disease that is currently being worked up at [facility] gastroenterology for possible liver transplant. Patient has regular paracentesis for recurrent gastritis and she had 2.7 L of fluid taken out 5 days back. During her recent hospital admission she was discharged on 40 mg of Lasix to be taken twice a day. Then patient went to follow up with her PCP who changed her Lasix from 40 twice a day to 20 twice a day and since then she noticed that her lower extremity edema got worsened and her abdominal distention as well. Patient denies having any fevers chills or rigors. Patient denies having any abdominal pain. No nausea, vomiting or diarrhea. No constipation. No blood in her bowel movements. She complains of shortness of breath in association with her abdominal pain. At the time of admission patient's hemoglobin is 9.4, AST 204, AST 105 and alkaline phosphatase of 375. Creatinine is 2.10 and total bilirubin of 7.0 and albumin of 2.5. Patient has been given IV 40 mg of Lasix and admitted to the floor for further management with a GI consult. Subjective 02/13/2019 This is a pleasant 38 years old female with past medical history of fluid overload secondary to liver cirrhosis. Presents with similar complaint of worsening edema after her PCP lower to her Lasix from 40 mg twice a day to 20 mg daily, concerning her kidney function. Patient after that started having swelling in her legs and abdominal distention with generalized body ache. She was placed on Lasix 40 mg IV twice a day, however her weight remains the same 137.2 to 137.5 kg. Liver function tests are still elevated. We'll increase Lasix to 3 times a day with fluid restriction 02/14/2019 Patient still bit lethargic, however she is fully awake and oriented. She denies abdominal pain or chest pain or dyspnea. She has generalized body pain and swelling in her abdominal girth and both lower extremities. She has several bowel movements yesterday and she is already on lactulose. Also her Lasix increased yesterday from 40 mg twice to 3 times a day. Her weight has increased today 137.5 up to 140.1 kg. Her creatinine is still trending up 2.3 to 2.5. Liver enzymes are elevated but stable as well as total bilirubin. GI team are following the patient and nephrology team has been consulted already. Patient also has mild leukocytosis of 10.8 K. We will send for blood culture and start ceftriaxone. Subjective 02/20/2019 Patient today is fully awake and oriented but lethargic. She's having bowel movement and on lactulose 30 mg 4 times a day, we'll check ammonia level and in the meantime we'll increase it to 5 times a day. She still have leg swelling however she is on Lasix drip at 20 mg per hour as per nephrology recommendation. Her creatinine today is 2.81, compared to 2.87 and 2.90 in the previous days. Her weight today is 132.5 kg, which is improved from 137 upon admission and 140.5 kg, however is is been stable over The last 3 days at 132 kg. I discussed the case with GI team. Her Ultram was delivered from 50 to 25 mg CONSTITUTIONAL: No fever, HEENT: No recent visual problems or hearing problems. Denied any sore throat. CARDIOVASCULAR: No orthopnea, PND, no palpitations, no syncope. PULMONARY: No shortness of breath, no cough, no hemoptysis. GASTROINTESTINAL: No diarrhea, no nausea, no vomiting, no abdominal pain. Normoactive bowel sounds. NEUROLOGICAL: No headaches, no weakness, no numbness. HEMATOLOGICAL: Denies any bleeding or petechiae. GENITOURINARY: Denies any burning micturition, frequency, or urgency. MUSCULOSKELETAL/RHEUMATOLOGICAL: Denies any joint pain, swelling, or any muscle pain. ENDOCRINE: Denies any polyuria or polydipsia. Medication: ferrous Sulfate, Lasix, lactulose, levothyroxine, morphine, Protonix, potassium chloride, rifaximin, Zoloft, spironolactone. Objective - Vital Signs Vital signs: Vital Signs Temp 98 F 02/20/19 12:10 Pulse 78 02/20/19 12:10 Resp 18 02/20/19 12:10 BP 92/53 04/22/19 12:10 Pulse Ox 100 02/20/19 12:10 Intake & Output 02/19/19 02/20/19 02/20/19 18:59 06:59 18:59 Intake Total 200 186 100 Output Total 1550 550 Balance -1350 -364 100 Weight 132.5 kg Intake: Intake, IV Titration 200 186 100 Amount Furosemide 100 mg In 200 186 100 Sodium Chloride 0.9% 90 ml @ 20 MG/HR 20 mls/hr IV .Q5H [facility] Rx#:[id number] Output: Drainage 100 Left Abdomen 100 Urine 1450 550 Other: Voiding Method Toilet Toilet Toilet # Voids 3 - Exam GENERAL: The patient is alert and oriented x3, not in any acute distress. Well developed, well nourished. HEENT: Pupils are round and equally reacting to light. EOMI. No scleral icterus. No conjunctival pallor. Normocephalic, atraumatic. No pharyngeal erythema. No thyromegaly. CARDIOVASCULAR: S1 and S2 present. No murmurs, rubs, or gallops. PULMONARY: Chest is clear to auscultation, no wheezing or crackles. -ABDOMEN: Soft, nontender,distended secondary to ascites, normoactive bowel sounds. No palpable organomegaly. MUSCULOSKELETAL: No joint swelling or deformity. -EXTREMITIES: No cyanosis, clubbing, bilateral leg edema NEUROLOGICAL: Gross neurological examination did not reveal any focal deficits. SKIN: No rashes. - Labs CBC & Chem 7: 02/20/19 07:14 02/20/19 07:14 Labs: Abnormal Lab Results - Last 24 Hours (Table) 02/19/19 02/20/19 02/20/19 Range/Units 20:36 07:14 07:14 RBC 3.14 L (3.80-5.40) m/uL Hgb 9.1 L (11.4-16.0) gm/dL Hct 28.5 L (34.0-46.0) % RDW 21.6 H (11.5-15.5) % Plt Count 76 L (150-450) k/uL Sodium 136 L (137-145) mmol/L Potassium 3.3 L 2.8 L (3.5-5.1) mmol/L BUN 31 H (7-17) mg/dL Creatinine 2.81 H (0.52-1.04) mg/dL Calcium 8.3 L (8.4-10.2) mg/dL Total Bilirubin 6.7 H (0.2-1.3) mg/dL AST 203 H (14-36) U/L ALT 94 H (9-52) U/L Alkaline Phosphatase 285 H (38-126) U/L Total Protein 5.2 L (6.3-8.2) g/dL Albumin 2.4 L (3.5-5.0) g/dL Assessment and Plan Assessment: Alcoholic liver cirrhosis, with elevated liver enzymes Ascites, fluid overload Bilateral leg edema Acute renal failure, present on admission. Secondary to fluid overload. concern for hepatorenal syndrome history of hepatic encephalopathy, not active issue currently History of EtOH abuse patient reports no active EtOH consumption. History of Harshad-en-Y gastric bypass. History of cholecystectomy November 2018. Coagulopathy secondary to liver disease Chronic iron deficiency anemia. Morbid obesity BMI 41. Diabetes mellitus Plan: this is a pleasant 38 yo F who presents with abd pain and ascitis, and acute renal failure. Patient is already on Lasix, we'll increase it to 40 daily 3 times daily. We'll call nephrology consult. GI team has already been consulted by each team. Labs and medication were reviewed.. Continue same treatment. Continue with symptomatic treatment. Resume home medication. Monitor lytes and vitals. DVT and GI prophylaxis. Further recommendations of the clinical course of the patient DVT prophylaxis: Subcutaneous heparin GI Prophylaxis: Pepcid Prognosis is guarded
--- NOTE | 2019-02-20 16:48 | P.PN ---
Subjective Progress Note Date: 02/20/19 Principal diagnosis: Decompensated cirrhosis, ascites Patient seen lying in bed. Tolerating her diet. Still reporting some abdominal distention. Reporting good bowel movements. She is concerned about being somewhat more confused today. Objective - Vital Signs Vital signs: Vital Signs Temp 98 F 02/20/19 12:10 Pulse 78 02/20/19 12:10 Resp 18 02/20/19 12:10 BP 92/53 02/20/19 12:10 Pulse Ox 100 02/20/19 12:10 Intake & Output 02/19/19 02/20/19 02/20/19 18:59 06:59 18:59 Intake Total 200 186 191 Output Total 1550 550 Balance -1350 -364 191 Weight 132.5 kg Intake: Intake, IV Titration 200 186 191 Amount Furosemide 100 mg In 200 186 191 Sodium Chloride 0.9% 90 ml @ 20 MG/HR 20 mls/hr IV .Q5H [facility] Rx#:[id number] Output: Drainage 100 Left Abdomen 100 Urine 1450 550 Other: Voiding Method Toilet Toilet Toilet # Voids 3 - Exam On physical examination, patient appears comfortable in no apparent distress. HEAD: Normocephalic, atraumatic. EYES: Scleral icterus. No conjunctival injection. MOUTH: No lesions, tongue midline. NECK: Trachea midline, no gross abnormalities. CHEST: Clear to auscultation with no wheezing or rhonchi appreciated. HEART: Regular rate and rhythm. ABDOMEN: Soft, obese, distended. Bowel sounds are positive. No organomegaly. No guarding or rigidity. EXTREMITIES: Bilateral 2+ pedal edema. SKIN: No rashes, no jaundice. NEUROLOGIC: Alert and oriented x3. Mild asterixis noted. No focal deficits. - Labs CBC & Chem 7: 02/20/19 07:14 02/20/19 07:14 Labs: Abnormal Lab Results - Last 24 Hours (Table) 02/19/19 02/20/19 02/20/19 Range/Units 20:36 07:14 07:14 RBC 3.14 L (3.80-5.40) m/uL Hgb 9.1 L (11.4-16.0) gm/dL Hct 28.5 L (34.0-46.0) % RDW 21.6 H (11.5-15.5) % Plt Count 76 L (150-450) k/uL Sodium 136 L (137-145) mmol/L Potassium 3.3 L 2.8 L (3.5-5.1) mmol/L BUN 31 H (7-17) mg/dL Creatinine 2.81 H (0.52-1.04) mg/dL Calcium 8.3 L (8.4-10.2) mg/dL Total Bilirubin 6.7 H (0.2-1.3) mg/dL AST 203 H (14-36) U/L ALT 94 H (9-52) U/L Alkaline Phosphatase 285 H (38-126) U/L Total Protein 5.2 L (6.3-8.2) g/dL Albumin 2.4 L (3.5-5.0) g/dL Assessment and Plan (1) Liver cirrhosis Narrative/Plan: Decompensated liver cirrhosis with prior episodes of hepatic encephalopathy and recurrent complaints of abdominal distention secondary to ascites. Patient currently had her diuretics decreased in the outpatient setting and reports worsening lower extremity and abdominal distention and swelling. The patient on presentation is found to have a meld sodium score of 27. She has been referred to [facility] and is currently undergoing evaluation with further liver transplant program. Current Visit: Yes Status: Acute Code(s): K74.60 - UNSPECIFIED CIRRHOSIS OF LIVER SNOMED Code(s): 05422740 (2) Abdominal pain Current Visit: No Status: Acute Code(s): R10.9 - UNSPECIFIED ABDOMINAL PAIN SNOMED Code(s): 11057674 (3) Elevated liver enzymes Narrative/Plan: Secondary to decompensated liver cirrhosis. Current Visit: No Status: Acute Code(s): R74.8 - ABNORMAL LEVELS OF OTHER SERUM ENZYMES SNOMED Code(s): 304810747 (4) Hepatic encephalopathy Narrative/Plan: No physical exam findings of asterixis to suggest hepatic encephalopathy. Currently the patient is on lactulose therapy with Xifaxan added in the hospital. Current Visit: No Status: Acute Code(s): K72.90 - HEPATIC FAILURE, UNSPECIFIED WITHOUT COMA SNOMED Code(s): 98006111 Plan: Supportive care Okay for low-sodium diet Continue to monitor CBC, CMP, liver enzymes and INR Continue diuresis with IV Lasix and spironolactone and Metolazone per nephrology recommendations Continue lactulose and Xifaxan therapy, lactulose dosing increased to the Continue midrodrine Appreciate nephrology recommendations Given meld sodium score of 27 on admission, recommendations are for continued follow up with [facility] in the liver transplant team Limit narcotics and sedative medications Thank you for allowing us to participate in the care of the patient we will continue to follow
[2019-02-20 21:24] VITALS: RESP 16
[2019-02-21] MEDS: FUROSEMIDE 100 MG in SODIUM CHLORIDE 0.9% 90 ML IV SCH ×2 (03:21→08:32)
[2019-02-21] MEDS: SPIRONOLACTONE 25 MG TAB PO SCH ×2 (03:22→08:12)
[2019-02-21] MEDS: POTASSIUM CHLORIDE ER 20 MEQ TAB.ER PO SCH (03:22)
[2019-02-21] MEDS: LEVOTHYROXINE 25 MCG TAB PO SCH (03:22)
[2019-02-21] MEDS: SERTRALINE 25 MG TAB PO SCH (03:22)
[2019-02-21] MEDS: FERROUS SULFATE 325 MG TAB PO SCH ×2 (03:22→16:24)
[2019-02-21] MEDS: traMADol 50 MG TAB PO PRN (03:34)
[2019-02-21] MEDS: LACTULOSE 20 GM/30 ML CUP PO SCH ×3 (05:41→16:24)
[2019-02-21] MEDS: FAMOTIDINE 20 MG TAB PO SCH (08:13)
[2019-02-21] MEDS: HEPARIN SODIUM,PORCINE 5,000 UNIT/ML 1 ML VIAL SQ SCH (08:13)
[2019-02-21] MEDS: RIFAXIMIN 550 MG TABLET PO SCH (08:14)
[2019-02-21] MEDS: MIDODRINE 5 MG TAB PO SCH ×3 (08:14→16:24)
[2019-02-21] MEDS: METOLAZONE 5 MG TAB PO SCH (08:16)
[2019-02-21 08:29] LABS: Albumin 2.4 g/dL (3.5-5.0); Calcium 8.4 mg/dL (8.4-10.2); Magnesium 1.9 mg/dL (1.6-2.3); Potassium 3.2 mmol/L (3.5-5.1); Total Bilirubin 7.2 mg/dL (0.2-1.3); Total Protein 5.2 g/dL (6.3-8.2)
[2019-02-21] MEDS ORDERED: POTASSIUM CHLORIDE ER 20 MEQ TAB.ER PO STA (08:47)
--- NOTE | 2019-02-21 08:48 | P.PN ---
Subjective History of present illness, from medical records Ms. Ravi is a 38-year-old female with a past medical history of liver cirrhosis, portal hypertension, myositis, and deficiency anemia, morbid obesity and laparoscopic cholecystectomy done in November 2018 for chronic a calculus cholecystitis, Harshad-en-Y gastric bypass coming into the hospital with a chief complaint of increased swelling in her bilateral lower extremities and also worsening abdominal distention. Patient has history of chronic liver disease that is currently being worked up at [facility] gastroenterology for possible liver transplant. Patient has regular paracentesis for recurrent gastritis and she had 2.7 L of fluid taken out 5 days back. During her recent hospital admission she was discharged on 40 mg of Lasix to be taken twice a day. Then patient went to follow up with her PCP who changed her Lasix from 40 twice a day to 20 twice a day and since then she noticed that her lower extremity edema got worsened and her abdominal distention as well. Patient denies having any fevers chills or rigors. Patient denies having any abdominal pain. No nausea, vomiting or diarrhea. No constipation. No blood in her bowel movements. She complains of shortness of breath in association with her abdominal pain. At the time of admission patient's hemoglobin is 9.4, AST 204, AST 105 and alkaline phosphatase of 375. Creatinine is 2.10 and total bilirubin of 7.0 and albumin of 2.5. Patient has been given IV 40 mg of Lasix and admitted to the floor for further management with a GI consult. Subjective 02/13/2019 This is a pleasant 38 years old female with past medical history of fluid overload secondary to liver cirrhosis. Presents with similar complaint of worsening edema after her PCP lower to her Lasix from 40 mg twice a day to 20 mg daily, concerning her kidney function. Patient after that started having swelling in her legs and abdominal distention with generalized body ache. She was placed on Lasix 40 mg IV twice a day, however her weight remains the same 137.2 to 137.5 kg. Liver function tests are still elevated. We'll increase Lasix to 3 times a day with fluid restriction 02/14/2019 Patient still bit lethargic, however she is fully awake and oriented. She denies abdominal pain or chest pain or dyspnea. She has generalized body pain and swelling in her abdominal girth and both lower extremities. She has several bowel movements yesterday and she is already on lactulose. Also her Lasix increased yesterday from 40 mg twice to 3 times a day. Her weight has increased today 137.5 up to 140.1 kg. Her creatinine is still trending up 2.3 to 2.5. Liver enzymes are elevated but stable as well as total bilirubin. GI team are following the patient and nephrology team has been consulted already. Patient also has mild leukocytosis of 10.8 K. We will send for blood culture and start ceftriaxone. Subjective 02/20/2019 Patient today is fully awake and oriented but lethargic. She's having bowel movement and on lactulose 30 mg 4 times a day, we'll check ammonia level and in the meantime we'll increase it to 5 times a day. She still have leg swelling however she is on Lasix drip at 20 mg per hour as per nephrology recommendation. Her creatinine today is 2.81, compared to 2.87 and 2.90 in the previous days. Her weight today is 132.5 kg, which is improved from 137 upon admission and 140.5 kg, however is is been stable over The last 3 days at 132 kg. I discussed the case with GI team. Her Ultram was delivered from 50 to 25 mg 02/21/2019 Today patient redness is much improved and back to her normal state, she is fully awake and oriented with no lethargy. Her conversation is appropriate. Patient denies pain anywhere.patient weight today dropped from 132.5 down to 129.8 kg. Patient remains on Lasix drip at 20 mg per hour. Also she remains on lactulose X5. Ammonia level is within normal limits. Her leg swelling is improving although his still there patient is happy about the progress she is making. Patient remains on fluid restriction at 15 mL per day. Physical therapy evaluation is ordered today. Patient herself feels ready to go home and she is eager to see her kids. Patient was instructed to follow up with her in [facility] gastroenterology unit upon discharge, she told me she has an appointment next Wednesday at 10 AM. Creatinine is slightly improved from 2.8 down to 2.4. Still has elevated liver enzymes which is stable.low potassium was replaced as well as magnesium. Objective - Vital Signs Vital signs: Vital Signs Temp 97.6 F 02/21/19 04:55 Pulse 77 02/21/19 04:55 Resp 16 04/23/19 04:55 BP 103/51 02/21/19 04:55 Pulse Ox 99 02/21/19 04:55 Intake & Output 02/20/19 02/21/19 02/21/19 18:59 06:59 18:59 Intake Total 673 771 100 Output Total 2250 Balance 673 -1479 100 Weight 129.8 kg Intake: Intake, IV Titration 273 191 100 Amount Furosemide 100 mg In 273 191 100 Sodium Chloride 0.9% 90 ml @ 20 MG/HR 20 mls/hr IV .Q5H [facility] Rx#:[id number] Oral 580 Other 400 Output: Urine 2250 Other: Voiding Method Toilet Toilet # Voids 1 - Exam GENERAL: The patient is alert and oriented x3, not in any acute distress. Well developed, well nourished. HEENT: Pupils are round and equally reacting to light. EOMI. No scleral icterus. No conjunctival pallor. Normocephalic, atraumatic. No pharyngeal erythema. No thyromegaly. CARDIOVASCULAR: S1 and S2 present. No murmurs, rubs, or gallops. PULMONARY: Chest is clear to auscultation, no wheezing or crackles. -ABDOMEN: Soft, nontender,distended secondary to ascites, normoactive bowel sounds. No palpable organomegaly. MUSCULOSKELETAL: No joint swelling or deformity. -EXTREMITIES: No cyanosis, clubbing, bilateral leg edema NEUROLOGICAL: Gross neurological examination did not reveal any focal deficits. SKIN: No rashes. - Labs CBC & Chem 7: 02/20/19 07:14 02/21/19 07:58 Labs: Abnormal Lab Results - Last 24 Hours (Table) 02/20/19 02/21/19 Range/Units 07:14 07:58 RBC 3.14 L (3.80-5.40) m/uL Hgb 9.1 L (11.4-16.0) gm/dL Hct 28.5 L (34.0-46.0) % RDW 21.6 H (11.5-15.5) % Plt Count 76 L (150-450) k/uL Sodium 136 L (137-145) mmol/L Potassium 3.2 L (3.5-5.1) mmol/L BUN 31 H (7-17) mg/dL Creatinine 2.46 H (0.52-1.04) mg/dL Glucose 161 H (74-99) mg/dL Total Bilirubin 7.2 H (0.2-1.3) mg/dL AST 210 H (14-36) U/L ALT 94 H (9-52) U/L Alkaline Phosphatase 260 H (38-126) U/L Total Protein 5.2 L (6.3-8.2) g/dL Albumin 2.4 L (3.5-5.0) g/dL Assessment and Plan Assessment: Alcoholic liver cirrhosis, with elevated liver enzymes Ascites, fluid overload Bilateral leg edema Acute renal failure, present on admission. Secondary to fluid overload. concern for hepatorenal syndrome history of hepatic encephalopathy, not active issue currently History of EtOH abuse patient reports no active EtOH consumption. History of Harshad-en-Y gastric bypass. History of cholecystectomy November 2018. Coagulopathy secondary to liver disease Chronic iron deficiency anemia. Morbid obesity BMI 41. Diabetes mellitus Plan: this is a pleasant 38 yo F who presents with abd pain and ascitis, and acute renal failure. Patient is already on Lasix, we'll increase it to 40 daily 3 times daily. We'll call nephrology consult. GI team has already been consulted by each team. Labs and medication were reviewed.. Continue same treatment. Continue with symptomatic treatment. Resume home medication. Monitor lytes and vitals. DVT and GI prophylaxis. Further recommendations of the clinical course of the patient DVT prophylaxis: Subcutaneous heparin GI Prophylaxis: Pepcid Prognosis is guarded
--- NOTE | 2019-02-21 09:48 | P.PN ---
Subjective Patient is seen in follow-up for acute kidney injury. Renal function is improved - creatinine 2.46 today. Edema gradually improving. Urine output is good. She is currently maintained on Lasix drip at 20 mL an hour along with metolazone and Aldactone. She underwent paracentesis on February 15 to 4.9 L removed. She did receive albumin pre and post procedure. Patient has history of liver cirrhosis. Overall feels better today. She is eager to go home. Vital signs are stable. General: The patient appeared well nourished and normally developed. HEENT: Head exam is unremarkable. Neck is without jugular venous distension. LUNGS: Lungs are clear to auscultation and percussion. Breath sounds decreased. HEART: Rate and Rhythm are regular. First and second heart sounds normal. No murmurs, rubs or gallops. ABDOMEN: Distention noted. Bowel sounds decreased. EXTREMITITES: 1+ edema. Objective - Vital Signs Vital signs: Vital Signs Temp 97.6 F 02/21/19 04:55 Pulse 77 02/21/19 04:55 Resp 16 02/21/19 04:55 BP 103/51 02/21/19 04:55 Pulse Ox 99 02/21/19 04:55 Intake & Output 02/20/19 02/21/19 02/21/19 18:59 06:59 18:59 Intake Total 673 771 100 Output Total 2250 Balance 673 -1479 100 Weight 129.8 kg Intake: Intake, IV Titration 273 191 100 Amount Furosemide 100 mg In 273 191 100 Sodium Chloride 0.9% 90 ml @ 20 MG/HR 20 mls/hr IV .Q5H [facility] Rx#:[id number] Oral 580 Other 400 Output: Urine 2250 Other: Voiding Method Toilet Toilet # Voids 1 - Labs CBC & Chem 7: 02/20/19 07:14 02/21/19 07:58 Labs: Abnormal Lab Results - Last 24 Hours (Table) 02/20/19 02/21/19 Range/Units 07:14 07:58 RBC 3.14 L (3.80-5.40) m/uL Hgb 9.1 L (11.4-16.0) gm/dL Hct 28.5 L (34.0-46.0) % RDW 21.6 H (11.5-15.5) % Plt Count 76 L (150-450) k/uL Sodium 136 L (137-145) mmol/L Potassium 3.2 L (3.5-5.1) mmol/L BUN 31 H (7-17) mg/dL Creatinine 2.46 H (0.52-1.04) mg/dL Glucose 161 H (74-99) mg/dL Total Bilirubin 7.2 H (0.2-1.3) mg/dL AST 210 H (14-36) U/L ALT 94 H (9-52) U/L Alkaline Phosphatase 260 H (38-126) U/L Total Protein 5.2 L (6.3-8.2) g/dL Albumin 2.4 L (3.5-5.0) g/dL Assessment and Plan Plan: Assessment: 1. Acute kidney injury secondary to hepatorenal syndrome. Renal function improving. Creatinine 2.46 today. No proteinuria on UA. Ultrasound from last month revealed normal sized kidneys without any hydronephrosis. 2. Dyspnea secondary to volume overload. Improved. 3. Ascites. Patient gets weekly paracentesis. Last done February 15 - 4.9 L removed. 4. Decompensated liver cirrhosis. Patient following at [facility] for liver transplant. 5. Hypokalemia secondary to diuresis. Magnesium normal. Plan: Maintain midodrine 5 mg 3 times daily. Maintain current regimen of diuretics. Replace potassium. 80 mEq today. Low-salt diet. 1500 mL fluid restriction. Continue to monitor renal function and urine output. Repeat electrolytes in the morning. Patient is eager to go home. She may be discharged with Lasix 60 mg orally twice daily, Aldactone 50 mg twice daily, metolazone 5 mg once daily, along with potassium supplementation 20 mEq twice daily. She is to get a repeat BMP and magnesium level checked in 2-3 days after discharge and to follow-up with her PCP end of the week. She is to follow-up with me within 1 week. Patient agrees to the plan. Also discussed with GI team.
--- NOTE | 2019-02-21 11:16 | P.PN ---
Subjective Progress Note Date: 02/21/19 Principal diagnosis: Decompensated liver disease Lying in bed. Tolerating diet. Requesting discharge. Mild abdominal discomfort. Receiving IV Lasix. Objective - Vital Signs Vital signs: Vital Signs Temp 97.6 F 02/21/19 04:55 Pulse 77 02/21/19 04:55 Resp 16 02/21/19 04:55 BP 103/51 02/21/19 04:55 Pulse Ox 99 02/21/19 04:55 Intake & Output 02/20/19 02/21/19 02/21/19 18:59 06:59 18:59 Intake Total 673 771 100 Output Total 2250 Balance 673 -1479 100 Weight 129.8 kg Intake: Intake, IV Titration 273 191 100 Amount Furosemide 100 mg In 273 191 100 Sodium Chloride 0.9% 90 ml @ 20 MG/HR 20 mls/hr IV .Q5H [facility] Rx#:[id number] Oral 580 Other 400 Output: Urine 2250 Other: Voiding Method Toilet Toilet # Voids 1 - Exam General appearance: The patient is alert, oriented, in no acute distress. Jaundice. HET: Head is normocephalic and atraumatic. Pupils are equal and reactive. Oropharynx is clear without lesions. Sclerae icterus. Neck: Supple without lymphadenopathy. Trachea midline. Heart: S1 S2. Regular rate and rhythm. Lungs: No crackles or wheezes are heard. Abdomen: Soft, distended with mild ascites evidence of ascitic leakage from left-sided abdomen without hematoma or bleeding. No peritoneal signs. No palpable organomegaly or masses. Extremities: +3 bilateral lower extremity pitting edema. Neurological: No focal deficits. Strength and sensation are grossly intact. - Labs CBC & Chem 7: 02/20/19 07:14 02/21/19 07:58 Labs: Abnormal Lab Results - Last 24 Hours (Table) 02/21/19 Range/Units 07:58 Sodium 136 L (137-145) mmol/L Potassium 3.2 L (3.5-5.1) mmol/L BUN 31 H (7-17) mg/dL Creatinine 2.46 H (0.52-1.04) mg/dL Glucose 161 H (74-99) mg/dL Total Bilirubin 7.2 H (0.2-1.3) mg/dL AST 210 H (14-36) U/L ALT 94 H (9-52) U/L Alkaline Phosphatase 260 H (38-126) U/L Total Protein 5.2 L (6.3-8.2) g/dL Albumin 2.4 L (3.5-5.0) g/dL Assessment and Plan (1) Decompensated liver disease Current Visit: Yes Status: Acute Code(s): K74.69 - OTHER CIRRHOSIS OF LIVER SNOMED Code(s): 44479026 (2) Liver cirrhosis Current Visit: Yes Status: Acute Code(s): K74.60 - UNSPECIFIED CIRRHOSIS OF LIVER SNOMED Code(s): 81677925 (3) Hepatorenal syndrome Current Visit: Yes Status: Acute Code(s): K76.7 - HEPATORENAL SYNDROME SNOMED Code(s): 50938919 Plan: 1. Case was discussed with nephrology today. IV Lasix will be discontinued oral diuretics will be advised per their recommendations. From a GI standpoint agreeable for discharge. Continue low-sodium diet. Continue lactulose and Xifaxan. Will set up outpatient therapeutic paracentesis on an scheduled/as needed basis. Continue to follow with [facility] liver transplant team as previously advised. Assessment and plan a care discussed with Dr. Talavera.
[2019-02-21 12:22] VITALS: BP 99/64; PULSE 101; TEMP 97.8
[2019-02-21] MEDS: MAGNESIUM SULFATE-D5W PMX 1 GM in DEXTROSE/WATER 1 100ML.BAG IVPB ONE ×2 (13:05→13:22)
[2019-02-21 15:11] VITALS: BMI 47.6
== END 2019-02-21 17:25 | disposition home or self-care (01) | DRG 432 ==
LOC: EC 01:39 → 4MS4W 03:08 → 3NMEDONC 02-13 14:19
PROVIDERS: ADMIT Hospitalist; ATTEND Hospitalist
PROC: 0W9G3ZZ Drainage of Peritoneal Cavity, Percutaneous Approach (ICD-10-PCS; principal; 2019-02-15)
DX: K74.60 Unspecified cirrhosis of liver (principal); K76.7 Hepatorenal syndrome; N17.9 Acute kidney failure, unspecified; Z68.43 Body mass index [BMI] 50.0-59.9, adult; D68.4 Acquired coagulation factor deficiency; E86.0 Dehydration; D50.9 Iron deficiency anemia, unspecified; E11.22 Type 2 diabetes mellitus with diabetic chronic kidney disease; E66.01 Morbid (severe) obesity due to excess calories; T50.1X6A Underdosing of loop [high-ceiling] diuretics, initial encounter; E87.6 Hypokalemia; T50.2X5A Adverse effect of carbonic-anhydrase inhibitors, benzothiadiazides and other diuretics, initial encounter; I13.10 Hypertensive heart and chronic kidney disease without heart failure, with stage 1 through stage 4 chronic kidney disease, or unspecified chronic kidney disease; J45.909 Unspecified asthma, uncomplicated; N18.9 Chronic kidney disease, unspecified; D72.829 Elevated white blood cell count, unspecified; G43.909 Migraine, unspecified, not intractable, without status migrainosus; Z90.49 Acquired absence of other specified parts of digestive tract; Z79.890 Hormone replacement therapy; Z79.899 Other long term (current) drug therapy; Z98.84 Bariatric surgery status; Z91.138 Patient's unintentional underdosing of medication regimen for other reason; Z83.3 Family history of diabetes mellitus; Z82.49 Family history of ischemic heart disease and other diseases of the circulatory system
CPT/HCPCS: 36410; 36415; 49083; 76705; 76937; 80053; 81001; 82140; 82150; 83690; 83735; 84132; 85025; 85027; 85610; 85730; 87040; 96374; 99284

== ENCOUNTER 2019-02-26 21:48 | Inpatient (IN) | payer OTHER ==
[2019-02-26 23:31] LABS: Albumin 2.3 g/dL (3.5-5.0); Calcium 8.1 mg/dL (8.4-10.2); Potassium 3.1 mmol/L (3.5-5.1); Total Bilirubin 6.1 mg/dL (0.2-1.3); Total Protein 5.1 g/dL (6.3-8.2)
[2019-02-26 23:39] LABS: Anisocytosis Moderate; Basophils # (A) 0.1 k/uL (0-0.2); Basophils % (A) 1 %; Eosinophils # (A) 0.8 k/uL (0-0.7); Eosinophils % (A) 10 %; HCT 28.1 % (34.0-46.0); HGB 9.1 gm/dL (11.4-16.0); Lymphocytes # (A) 1.4 k/uL (1.0-4.8); Lymphocytes % (A) 16 %; MCH 30.3 pg (25.0-35.0); MCHC 32.5 g/dL (31.0-37.0); MCV 93.1 fL (80.0-100.0); Macrocytosis Slight; Mean Platelet Volume 8.7; Microcytosis Slight; Monocytes # (A) 0.5 k/uL (0-1.0); Monocytes % (A) 6 %; Neutrophils # (A) 5.4 k/uL (1.3-7.7); Neutrophils % (A) 65 %; RBC 3.02 m/uL (3.80-5.40); RDW 22.1 % (11.5-15.5); WBC 8.3 k/uL (3.8-10.6)
[2019-02-26 23:42] LABS: Platelet Count 82 k/uL (150-450)
[2019-02-27 00:02] LABS: Lactic Acid, Venous 3.4 mmol/L (0.7-2.0)
[2019-02-27 00:16] LABS: Appearance,Urine Clear (Clear); Bilirubin,Urine Negative (Negative); Blood,Urine Negative (Negative); Calcium Oxalate Crystals,Urine Rare /hpf; Color,Urine Yellow; Glucose,Urine (UA) Negative (Negative); Hyaline Casts,Urine 85 /lpf (0-2); Ketones,Urine Negative (Negative); Leukocyte Esterase,Urine Trace (Negative); Mucus,Urine Rare /hpf; Nitrite,Urine Negative (Negative); Protein,Urine Negative (Negative); RBC,Urine <1 /hpf (0-5); Specific Gravity,Urine 1.009 (1.001-1.035); Squamous Epithelial Cell,Urine 1 /hpf (0-4); Urobilinogen,Urine <2.0 mg/dL (<2.0); WBC,Urine 7 /hpf (0-5)
[2019-02-27 00:37] LABS: Target Cells Present
[2019-02-27] MEDS ORDERED: NALOXONE 0.4 MG/ML 1 ML VIAL IV PRN (01:20)
[2019-02-27] MEDS ORDERED: KETOROLAC 30 MG/ML 1 ML VIAL IVP STA (01:20)
[2019-02-27] MEDS ORDERED: POTASSIUM CHLORIDE ER 20 MEQ TAB.ER PO STA ×2 (01:47→11:15)
[2019-02-27] MEDS ORDERED: PANTOPRAZOLE 40 MG TABLET PO PRN (01:48)
[2019-02-27] MEDS: SODIUM CHLORIDE 0.9% 1,000 ML IV SCH (02:27)
[2019-02-27] MEDS: SERTRALINE 25 MG TAB PO SCH (04:30)
[2019-02-27] MEDS: LEVOTHYROXINE 25 MCG TAB PO SCH (04:30)
[2019-02-27] MEDS: SPIRONOLACTONE 25 MG TAB PO SCH ×2 (04:30→18:44)
[2019-02-27 06:37] LABS: Glucose,Whole Blood 111 mg/dL (75-99)
[2019-02-27] MEDS: FERROUS SULFATE 325 MG TAB PO SCH ×2 (06:37→18:44)
[2019-02-27] MEDS: MIDODRINE 5 MG TAB PO SCH ×3 (06:37→18:44)
[2019-02-27] MEDS ORDERED: FUROSEMIDE 20 MG TAB PO SCH (09:00)
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
[2019-02-27 11:41] LABS: Glucose,Whole Blood 182 mg/dL (75-99)
[2019-02-27] MEDS: LACTULOSE 20 GM/30 ML CUP PO SCH ×3 (12:03→18:43)
[2019-02-27] MEDS: METOLAZONE 5 MG TAB PO SCH (12:03)
[2019-02-27] MEDS: RIFAXIMIN 550 MG TABLET PO SCH ×2 (12:04→21:58)
[2019-02-27] MEDS: POTASSIUM CHLORIDE ER 20 MEQ TAB.ER PO SCH ×2 (12:04→21:58)
[2019-02-27] MEDS: HYDROmorphone 0.5 MG/0.5 ML SYRINGE IVP PRN ×2 (12:15→18:45)
[2019-02-27] MEDS: ALBUMIN HUMAN 25% 50 ML in EMPTY BAG 1 BAG IVPB SCH ×4 (13:43→14:59)
[2019-02-27 16:44] LABS: Glucose,Whole Blood 120 mg/dL (75-99)
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
[2019-02-27] MEDS ORDERED: FAMOTIDINE 20 MG/2 ML VIAL IV SCH (21:00)
[2019-02-27 21:10] LABS: Glucose,Whole Blood 161 mg/dL (75-99)
[2019-02-27] MEDS: FUROSEMIDE 10 MG/ML 10 ML VIAL IV SCH (21:58)
[2019-02-27] MEDS: HEPARIN SODIUM,PORCINE 5,000 UNIT/ML 1 ML VIAL SQ SCH (22:00)
[2019-02-28] MEDS: HYDROmorphone 0.5 MG/0.5 ML SYRINGE IVP PRN ×3 (00:51→12:50)
[2019-02-28] MEDS: LACTULOSE 20 GM/30 ML CUP PO SCH ×3 (00:54→12:51)
[2019-02-28] MEDS: LEVOTHYROXINE 25 MCG TAB PO SCH (04:41)
[2019-02-28] MEDS: SERTRALINE 25 MG TAB PO SCH (04:41)
[2019-02-28] MEDS: SPIRONOLACTONE 25 MG TAB PO SCH (04:41)
[2019-02-28] MEDS: SODIUM CHLORIDE 0.9% 1,000 ML IV SCH (04:42)
[2019-02-28 05:06] LABS: Anisocytosis Moderate; HCT 28.2 % (34.0-46.0); Hypochromasia Slight; MCH 31.1 pg (25.0-35.0); MCV 97.4 fL (80.0-100.0); Macrocytosis Slight; Mean Platelet Volume 9.5; RBC 2.89 m/uL (3.80-5.40); RDW 21.1 % (11.5-15.5); WBC 10.8 k/uL (3.8-10.6)
[2019-02-28 05:11] LABS: INR 1.9 (<1.2); Prothrombin Time 18.4 sec (9.0-12.0)
[2019-02-28 05:21] LABS: Albumin 2.5 g/dL (3.5-5.0); Calcium 8.1 mg/dL (8.4-10.2); Magnesium 2.4 mg/dL (1.6-2.3); Potassium 3.6 mmol/L (3.5-5.1); Total Bilirubin 7.1 mg/dL (0.2-1.3); Total Protein 5.4 g/dL (6.3-8.2)
[2019-02-28 05:27] LABS: Platelet Count 80 k/uL (150-450)
[2019-02-28 06:14] LABS: Glucose,Whole Blood 179 mg/dL (75-99)
[2019-02-28] MEDS: MIDODRINE 5 MG TAB PO SCH ×2 (06:56→12:52)
[2019-02-28] MEDS: FERROUS SULFATE 325 MG TAB PO SCH (06:56)
[2019-02-28] MEDS: HEPARIN SODIUM,PORCINE 5,000 UNIT/ML 1 ML VIAL SQ SCH (08:44)
[2019-02-28] MEDS: RIFAXIMIN 550 MG TABLET PO SCH (08:45)
[2019-02-28] MEDS: POTASSIUM CHLORIDE ER 20 MEQ TAB.ER PO SCH (08:45)
[2019-02-28] MEDS: FUROSEMIDE 10 MG/ML 10 ML VIAL IV SCH (08:45)
[2019-02-28] MEDS: METOLAZONE 5 MG TAB PO SCH (08:45)
[2019-02-28 08:53] VITALS: TEMP 97.3
[2019-02-28] MEDS: ALBUMIN HUMAN 25% 50 ML in EMPTY BAG 1 BAG IVPB SCH ×3 (10:18→12:44)
--- NOTE | 2019-02-28 10:27 | P.PN ---
Subjective Patient is seen in follow-up for acute kidney injury. Renal function is worsening with creatinine up to 4.13 today. Patient has acute decompensated liver cirrhosis. She scheduled to undergo paracentesis today. Continues to complain of abdominal distention. She has been voiding. She is awake and alert. Patient states she had an episode of bleeding from her rectum last night. Hemoglobin stable at 9.0 today. Vital signs are stable. General: The patient appeared well nourished and normally developed. HEENT: Head exam is unremarkable. Neck is without jugular venous distension. LUNGS: Breath sounds decreased. HEART: Rate and Rhythm are regular. First and second heart sounds normal. No murmurs, rubs or gallops. ABDOMEN: Distention noted. Nontender. EXTREMITITES: 1+ edema. Objective - Vital Signs Vital signs: Vital Signs Temp 97.3 F L 02/28/19 08:00 Pulse 79 02/28/19 08:00 Resp 16 02/28/19 08:00 BP 116/60 02/28/19 08:00 Pulse Ox 97 02/28/19 08:00 Intake & Output 02/27/19 02/28/19 02/28/19 18:59 06:59 18:59 Intake Total 412 Output Total 400 Balance 12 Weight 132.7 kg Intake: Intake, IV Titration 190 Amount Albumin Human 25% 50 ml 50 In Empty Bag 1 bag @ 200 mls/hr IVPB Q15M [facility] Rx#: [id number] Sodium Chloride 0.9% 1, 140 000 ml @ 20 mls/hr IV . Q24H [facility] Rx#:[id number] Oral 222 Output: Urine 400 Other: Voiding Method Toilet Toilet # Bowel Movements 1 - Labs CBC & Chem 7: 02/28/19 04:52 02/28/19 04:52 Labs: Abnormal Lab Results - Last 24 Hours (Table) 02/27/19 02/27/19 02/27/19 Range/Units 11:37 16:40 21:09 WBC (3.8-10.6) k/uL RBC (3.80-5.40) m/uL Hgb (11.4-16.0) gm/dL Hct (34.0-46.0) % RDW (11.5-15.5) % Plt Count (150-450) k/uL PT (9.0-12.0) sec INR (<1.2) Sodium (137-145) mmol/L Carbon Dioxide (22-30) mmol/L BUN (7-17) mg/dL Creatinine (0.52-1.04) mg/dL POC Glucose (mg/dL) 182 H 120 H 161 H (75-99) mg/dL Calcium (8.4-10.2) mg/dL Magnesium (1.6-2.3) mg/dL Total Bilirubin (0.2-1.3) mg/dL AST (14-36) U/L ALT (9-52) U/L Alkaline Phosphatase (38-126) U/L Total Protein (6.3-8.2) g/dL Albumin (3.5-5.0) g/dL 02/28/19 02/28/19 02/28/19 Range/Units 04:52 04:52 04:52 WBC 10.8 H (3.8-10.6) k/uL RBC 2.89 L (3.80-5.40) m/uL Hgb 9.0 L (11.4-16.0) gm/dL Hct 28.2 L (34.0-46.0) % RDW 21.1 H (11.5-15.5) % Plt Count 80 L (150-450) k/uL PT 18.4 H (9.0-12.0) sec INR 1.9 H (<1.2) Sodium 136 L (137-145) mmol/L Carbon Dioxide 21 L (22-30) mmol/L BUN 41 H (7-17) mg/dL Creatinine 4.13 H (0.52-1.04) mg/dL POC Glucose (mg/dL) (75-99) mg/dL Calcium 8.1 L (8.4-10.2) mg/dL Magnesium 2.4 H (1.6-2.3) mg/dL Total Bilirubin 7.1 H (0.2-1.3) mg/dL AST 192 H (14-36) U/L ALT 87 H (9-52) U/L Alkaline Phosphatase 313 H (38-126) U/L Total Protein 5.4 L (6.3-8.2) g/dL Albumin 2.5 L (3.5-5.0) g/dL 04/30/19 Range/Units 06:05 WBC (3.8-10.6) k/uL RBC (3.80-5.40) m/uL Hgb (11.4-16.0) gm/dL Hct (34.0-46.0) % RDW (11.5-15.5) % Plt Count (150-450) k/uL PT (9.0-12.0) sec INR (<1.2) Sodium (137-145) mmol/L Carbon Dioxide (22-30) mmol/L BUN (7-17) mg/dL Creatinine (0.52-1.04) mg/dL POC Glucose (mg/dL) 179 H (75-99) mg/dL Calcium (8.4-10.2) mg/dL Magnesium (1.6-2.3) mg/dL Total Bilirubin (0.2-1.3) mg/dL AST (14-36) U/L ALT (9-52) U/L Alkaline Phosphatase (38-126) U/L Total Protein (6.3-8.2) g/dL Albumin (3.5-5.0) g/dL Microbiology - Last 24 Hours (Table) 02/26/19 23:36 Urine Culture - Preliminary Urine,Voided Assessment and Plan Plan: Assessment: 1. Acute kidney injury mostly prerenal secondary to hepatorenal syndrome. Creatinine up to 4.13 today. Urinalysis is benign. Ultrasound from last month revealed no evidence of hydronephrosis. No evidence of sepsis. 2. Liver cirrhosis. Patient follows at [facility] for potential liver transplant. 3. Hypokalemia secondary to diuresis. Better after replacement. 4. Volume overload. Much improved since her admission last week. 5. Metabolic acidosis secondary to lactic acidosis and acute kidney injury. Stable. 6. Ascites. Last paracentesis was on Wednesday. Patient states she had about 4.7 L removed. 7. GI bleed. Possibly related to liver failure. INR 1.9. Plan: Maintain Lasix 60 mg IV twice daily. Maintain metolazone 5 mg daily. Maintain Aldactone 50 mg twice a day. Maintain midodrine. Maintain potassium supplementation. Scheduled for paracentesis today. I will give her 25 g of albumin before the procedure and an additional 25 g after the procedure. Avoid nephrotoxins. Check iron studies. Repeat electrolytes in the morning. Discussed with the primary team. Consider octreotide if okay with GI. If no improvement in her overall condition, may need to be transferred to [facility].
--- NOTE | 2019-02-28 11:54 | P.PN ---
Subjective Ms. Ravi is a 38-year-old female with a past medical history of liver cirrhosis, portal hypertension, myositis, and deficiency anemia, morbid obesity and laparoscopic cholecystectomy done in November 2018 for chronic a calculus cholecystitis, Harshad-en-Y gastric bypass who presents because of abdominal swelling, she had paracentesis 6 days ago and 4.7 L been taken out as per patient. Patient was here last week for fluid overload 1 significant leg swelling and she was discharged on Lasix 60 mg twice a day, currently she is coming back but her legs are not swollen. Discussed with nephrology team are going to switch it to 60 mg IV twice daily. Also patient is fully awake and oriented and not in hepatic encephalopathy 02/28/2019 Patient remains fully awake and oriented, she is have abdominal distention is going for paracentesis today, he denies abdominal pain shows some discomfort from distention. No leg swelling and she remains on diuretic. She has an episode of bleeding per rectum which was painless overnight. However hemoglobin remains stable at 9.0. WBC is 10.8k . INR is 1.9. Creatinine is 4.1. Liver enzymes elevated but stable. Sugar is controlled. He was discussed with nephrology and GI team. Review of systems CONSTITUTIONAL: No fever, no malaise, no fatigue. HEENT: No recent visual problems or hearing problems. Denied any sore throat. CARDIOVASCULAR: No orthopnea, PND, no palpitations, no syncope. PULMONARY: No shortness of breath, no cough, no hemoptysis. GASTROINTESTINAL: No diarrhea, no nausea, no vomiting, no abdominal pain. Normoactive bowel sounds. NEUROLOGICAL: No headaches, no weakness, no numbness. HEMATOLOGICAL: Denies any bleeding or petechiae. GENITOURINARY: Denies any burning micturition, frequency, or urgency. MUSCULOSKELETAL/RHEUMATOLOGICAL: Denies any joint pain, swelling, or any muscle pain. ENDOCRINE: Denies any polyuria or polydipsia. Medication: Albuterol me, ferrous sulfate, Lasix, heparin, Dilaudid, lactulose, levothyroxine, metolazone, medial drain, Protonix, potassium chloride, approximating, sertraline, and spironolactone Objective - Vital Signs Vital signs: Vital Signs Temp 97.3 F L 02/28/19 08:00 Pulse 79 02/28/19 08:00 Resp 16 02/28/19 08:00 BP 116/60 02/28/19 08:00 Pulse Ox 97 02/28/19 08:00 Intake & Output 02/27/19 02/28/19 02/28/19 18:59 06:59 18:59 Intake Total 412 Output Total 400 Balance 12 Weight 132.7 kg Intake: Intake, IV Titration 190 Amount Albumin Human 25% 50 ml 50 In Empty Bag 1 bag @ 200 mls/hr IVPB Q15M [facility] Rx#: [id number] Sodium Chloride 0.9% 1, 140 000 ml @ 20 mls/hr IV . Q24H [facility] Rx#:[id number] Oral 222 Output: Urine 400 Other: Voiding Method Toilet Toilet Toilet # Bowel Movements 1 - Exam GENERAL: The patient is alert and oriented x3, not in any acute distress. Well developed, well nourished. HEENT: Pupils are round and equally reacting to light. EOMI. No scleral icterus. No conjunctival pallor. Normocephalic, atraumatic. No pharyngeal erythema. No thyromegaly. CARDIOVASCULAR: S1 and S2 present. No murmurs, rubs, or gallops. PULMONARY: Chest is clear to auscultation, no wheezing or crackles. -ABDOMEN: Soft, nontender,distended secondary to ascites, normoactive bowel sounds. No palpable organomegaly. MUSCULOSKELETAL: No joint swelling or deformity. -EXTREMITIES: No cyanosis, clubbing, minimal leg edema NEUROLOGICAL: Gross neurological examination did not reveal any focal deficits. SKIN: No rashes. - Labs CBC & Chem 7: 02/28/19 04:52 02/28/19 04:52 Labs: Abnormal Lab Results - Last 24 Hours (Table) 02/27/19 02/27/19 02/28/19 Range/Units 16:40 21:09 04:52 WBC (3.8-10.6) k/uL RBC (3.80-5.40) m/uL Hgb (11.4-16.0) gm/dL Hct (34.0-46.0) % RDW (11.5-15.5) % Plt Count (150-450) k/uL PT (9.0-12.0) sec INR (<1.2) Sodium 136 L (137-145) mmol/L Carbon Dioxide 21 L (22-30) mmol/L BUN 41 H (7-17) mg/dL Creatinine 4.13 H (0.52-1.04) mg/dL POC Glucose (mg/dL) 120 H 161 H (75-99) mg/dL Calcium 8.1 L (8.4-10.2) mg/dL Magnesium 2.4 H (1.6-2.3) mg/dL Total Bilirubin 7.1 H (0.2-1.3) mg/dL AST 192 H (14-36) U/L ALT 87 H (9-52) U/L Alkaline Phosphatase 313 H (38-126) U/L Total Protein 5.4 L (6.3-8.2) g/dL Albumin 2.5 L (3.5-5.0) g/dL 02/28/19 02/28/19 02/28/19 Range/Units 04:52 04:52 06:05 WBC 10.8 H (3.8-10.6) k/uL RBC 2.89 L (3.80-5.40) m/uL Hgb 9.0 L (11.4-16.0) gm/dL Hct 28.2 L (34.0-46.0) % RDW 21.1 H (11.5-15.5) % Plt Count 80 L (150-450) k/uL PT 18.4 H (9.0-12.0) sec INR 1.9 H (<1.2) Sodium (137-145) mmol/L Carbon Dioxide (22-30) mmol/L BUN (7-17) mg/dL Creatinine (0.52-1.04) mg/dL POC Glucose (mg/dL) 179 H (75-99) mg/dL Calcium (8.4-10.2) mg/dL Magnesium (1.6-2.3) mg/dL Total Bilirubin (0.2-1.3) mg/dL AST (14-36) U/L ALT (9-52) U/L Alkaline Phosphatase (38-126) U/L Total Protein (6.3-8.2) g/dL Albumin (3.5-5.0) g/dL Microbiology - Last 24 Hours (Table) 04/28/19 23:36 Urine Culture - Preliminary Urine,Voided Assessment and Plan Assessment: Recurrent Ascites, fluid overload Alcoholic liver cirrhosis, with elevated liver enzymes Episodes of painless blood per rectum Bilateral leg edema, mild Acute renal failure, present on admission. Secondary to hepatorenal syndrome history of hepatic encephalopathy, not active issue currently History of EtOH abuse patient reports no active EtOH consumption. History of Harshad-en-Y gastric bypass. History of cholecystectomy November 2018. Coagulopathy secondary to liver disease Chronic iron deficiency anemia. Morbid obesity BMI 41. Diabetes mellitus Plan: this is a pleasant 38 yo F who presents with abd pain and ascitis, and acute renal failure. Continue with Lasix as per nephrology recommendations, continue with lactulose and rifaximin mean .nephrology consult. GI team has already been consulted Labs and medication were reviewed.. Continue same treatment. Continue with symptomatic treatment. Resume home medication. Monitor lytes and vitals. DVT and GI prophylaxis. Further recommendations of the clinical course of the patient DVT prophylaxis: no heparin, stopped because of blood per rectum. Continue with compression stockings GI Prophylaxis: Pepcid Prognosis is guarded
[2019-02-28 12:11] VITALS: PULSE 88
[2019-02-28 12:17] LABS: Glucose,Whole Blood 87 mg/dL (75-99)
[2019-02-28 12:20] VITALS: BP 137/74; RESP 22
--- NOTE | 2019-02-28 12:44 | US ---
Therapeutic paracentesis. DATE OF EXAM: 02/28/2019 CLINICAL HISTORY: Ascites The patient arrived for procedure but had muscle spasms and declined the procedure. IMPRESSION: Patient deferred the procedure
--- NOTE | 2019-02-28 12:56 | P.PN ---
Subjective Progress Note Date: 02/28/19 Principal diagnosis: Decompensated alcohol liver disease Requesting transfer to tertiary center so she can meet her transplant team. Patient had an appointment today for transplant evaluation. She had a bowel movement last night that was associated with bright red blood when wiping. No further bloody bowel movements today request. Paracentesis canceled this morning secondary to patient's reviewed she was experiencing cramps in her feet and legs. Denies abdominal pain. No nausea vomiting. Objective - Vital Signs Vital signs: Vital Signs Temp 97.3 F L 02/28/19 08:00 Pulse 88 02/28/19 11:35 Resp 22 02/28/19 11:55 BP 137/74 02/28/19 11:55 Pulse Ox 98 02/28/19 11:55 Intake & Output 02/27/19 02/28/19 02/28/19 18:59 06:59 18:59 Intake Total 412 100 Output Total 400 Balance 12 100 Weight 132.7 kg Intake: Intake, IV Titration 190 Amount Albumin Human 25% 50 ml 50 In Empty Bag 1 bag @ 200 mls/hr IVPB Q15M [facility] Rx#: [id number] Sodium Chloride 0.9% 1, 140 000 ml @ 20 mls/hr IV . Q24H [facility] Rx#:[id number] Oral 222 100 Output: Urine 400 Other: Voiding Method Toilet Toilet Toilet # Bowel Movements 1 - Exam General appearance: The patient is alert, oriented, in no acute distress. Jaundice. HET: Head is normocephalic and atraumatic. Pupils are equal and reactive. Sclerae icterus. Oropharynx is clear without lesions. Neck: Supple without lymphadenopathy. Trachea midline. Heart: S1 S2. Regular rate and rhythm. Lungs: No crackles or wheezes are heard. Abdomen: Soft, distended moderate ascites with bowel sounds. No peritoneal signs. No palpable organomegaly or masses. Extremities: +3 bilateral lower extremity edema. Neurological: No focal deficits. Strength and sensation are grossly intact. Rectal: No bleeding. No palpable masses. Internal hemorrhoid felt without blood. - Labs CBC & Chem 7: 02/28/19 04:52 02/28/19 04:52 Labs: Abnormal Lab Results - Last 24 Hours (Table) 02/27/19 02/27/19 02/28/19 Range/Units 16:40 21:09 04:52 WBC (3.8-10.6) k/uL RBC (3.80-5.40) m/uL Hgb (11.4-16.0) gm/dL Hct (34.0-46.0) % RDW (11.5-15.5) % Plt Count (150-450) k/uL PT (9.0-12.0) sec INR (<1.2) Sodium 136 L (137-145) mmol/L Carbon Dioxide 21 L (22-30) mmol/L BUN 41 H (7-17) mg/dL Creatinine 4.13 H (0.52-1.04) mg/dL POC Glucose (mg/dL) 120 H 161 H (75-99) mg/dL Calcium 8.1 L (8.4-10.2) mg/dL Magnesium 2.4 H (1.6-2.3) mg/dL Total Bilirubin 7.1 H (0.2-1.3) mg/dL AST 192 H (14-36) U/L ALT 87 H (9-52) U/L Alkaline Phosphatase 313 H (38-126) U/L Total Protein 5.4 L (6.3-8.2) g/dL Albumin 2.5 L (3.5-5.0) g/dL 02/28/19 02/28/19 02/28/19 Range/Units 04:52 04:52 06:05 WBC 10.8 H (3.8-10.6) k/uL RBC 2.89 L (3.80-5.40) m/uL Hgb 9.0 L (11.4-16.0) gm/dL Hct 28.2 L (34.0-46.0) % RDW 21.1 H (11.5-15.5) % Plt Count 80 L (150-450) k/uL PT 18.4 H (9.0-12.0) sec INR 1.9 H (<1.2) Sodium (137-145) mmol/L Carbon Dioxide (22-30) mmol/L BUN (7-17) mg/dL Creatinine (0.52-1.04) mg/dL POC Glucose (mg/dL) 179 H (75-99) mg/dL Calcium (8.4-10.2) mg/dL Magnesium (1.6-2.3) mg/dL Total Bilirubin (0.2-1.3) mg/dL AST (14-36) U/L ALT (9-52) U/L Alkaline Phosphatase (38-126) U/L Total Protein (6.3-8.2) g/dL Albumin (3.5-5.0) g/dL Microbiology - Last 24 Hours (Table) 02/26/19 23:36 Urine Culture - Preliminary Urine,Voided Group D Enterococcus Assessment and Plan (1) Decompensated liver disease Narrative/Plan: Chronic ascites Current Visit: No Status: Acute Code(s): K74.69 - OTHER CIRRHOSIS OF LIVER SNOMED Code(s): 08508697 (2) Hepatorenal syndrome Current Visit: No Status: Acute Code(s): K76.7 - HEPATORENAL SYNDROME SNOMED Code(s): 77559808 (3) History of Harshad-en-Y gastric bypass Current Visit: No Status: Acute Code(s): Z98.84 - BARIATRIC SURGERY STATUS SNOMED Code(s): 702628614 (4) Jaundice Current Visit: No Status: Acute Code(s): R17 - UNSPECIFIED JAUNDICE SNOMED Code(s): 16901369 (5) Liver cirrhosis Current Visit: No Status: Acute Code(s): K74.60 - UNSPECIFIED CIRRHOSIS OF LIVER SNOMED Code(s): 11833059 (6) Coagulopathy Current Visit: Yes Status: Acute Code(s): D68.9 - COAGULATION DEFECT, UNSPECIFIED SNOMED Code(s): 26950408 (7) Thrombocytopenia Current Visit: Yes Status: Acute Code(s): D69.6 - THROMBOCYTOPENIA, UNSPECIFIED SNOMED Code(s): 598452727 Plan: 1. Rectal bleeding most likely hemorrhoidal in nature exacerbated by coagul opathy and thrombocytopenia. Anusol 25 mg daily at bedtime per rectum. Patient is requesting transfer to tertiary center. Case was discussed with attending Dr. Connolly he will initiate transfer to [facility]. Continue supportive care. Assessment and plan a care discussed with Dr. Talavera
[2019-02-28] MEDS ORDERED: HYDROCORTISONE SUPPOSITORY 25 MG SUPP RECTAL SCH (13:00)
[2019-02-28 17:09] LABS: Iron Saturation 50.84 (12.00-45.00)
--- NOTE | 2019-03-01 07:20 | P.DS ---
Providers Date of admission: 02/27/19 01:23 Attending physician: Daisha Parker Consults: 02/27/19 01:22 Consult Physician Routine Consulting Provider: Valdez Talavera Consult Reason/Comments: abdominal pain. your patient Do you want consulting provider notified?: Yes 02/27/19 08:52 Consult Physician Urgent Consulting Provider: Bam Rich Consult Reason/Comments: renal failure Do you want consulting provider notified?: Yes Primary care physician: Stated None Hospital Course: Diagnoses Recurrent Ascites, fluid overload Alcoholic liver cirrhosis, with elevated liver enzymes Episodes of painless blood per rectum, mostly related to her hemorrhoids and coagulopathy Bilateral leg edema, mild Acute renal failure, present on admission. Secondary to hepatorenal syndrome history of hepatic encephalopathy, not active issue currently History of EtOH abuse patient reports no active EtOH consumption. History of Harshad-en-Y gastric bypass. History of cholecystectomy November 2018. Coagulopathy secondary to liver disease Chronic iron deficiency anemia. Morbid obesity BMI 41. Diabetes mellitus Hospital course: This is a pleasant 58 years old female with alcoholic liver cirrhosis and recurrent ascites and hepatorenal syndrome , presents with abdominal distention, patient was recently discharged from the hospital when she was treated for ascites and leg edema with hepatic encephalopathy. However this time she presents she is fully awake and oriented. She has no leg edema or only minimal 1 and to continue with diuretics. Her creatinine was slightly above last time as now it was a 3 on admission going up to 4 on the day patient left the hospital. However patient has been with no symptoms and she's been evaluated by admissions evaluator who thinks that can be discharged on oral medicine whenever she is ready. However patient she supposed to get her paracentesis today which she declines when she went there because she developed some cramps in her right side of the abdomen went to her right leg that lasted for a few seconds and when she came to the floor she was out without pain again however patient has an appointment with liver transplant team today at 3:30 PM she already contacted them and they ask her to be there otherwise she will wait until June 2019 and she does not want to that. So I spoke with [facility] and discussed the case with the hospitalist and [facility] and he kindly accepted the patient and we were waiting to get her admitted and getting a bed their the accepting team at [facility] were informed that patient is on the list of liver transplant and they going to consult the transplant team. However the patient felt that she will miss her appointment and that should need to go to the office and decided to sign AMA. I explained to the patient and they are going to be consulted and they couldn't see her as an outpatient however she insisted on taking him in the office and thus she decided to leave AMA. Sister was at bedside. Patient was counseled against leaving AMA risks including but not limited to recurrent bleed, hepatic encephalopathy, sepsis, worsening renal function, organ dysfunction and or are explained and she verbalized understanding but she is still refusing to stay. Patient was counseled to change her mind to call 911 on come to emergency room again. Also she was counseled that after her appointment to go to admit her to the hospital and she agrees. Based upon my evaluation patient has capacity to make medical decision. Patient showed understanding of her medical problems and the risks Gen: patient is a AAOx3, no distress CVS: S1-S2, RRR, no murmur Lungs: B/L CTA, no wheezing Abdomen: soft, distented, no tenderness, positive bowel sounds Extremity: Mild bilateral leg edema but no induration Time spent more than 35 minutes Plan - Discharge Summary New Discharge Prescriptions: No Action Levothyroxine Sodium [Synthroid] 25 mcg PO DAILY@0400 Sertraline HCl [Zoloft] 25 mg PO DAILY@0400 Omeprazole 40 mg PO DAILY PRN PRN Reason: Heartburn Lactulose [Cephulac] 20 gm PO QID #3600 ml Ferrous Sulfate [Iron (65 MG Elemental)] 325 mg PO BID-W/MEALS #60 tab Spironolactone [Aldactone] 50 mg PO BID@0400,1600 #100 tab Potassium Chloride ER [K-Dur 20] 20 meq PO BID #60 tab.er.prt Midodrine [ProAmatine] 5 mg PO AC-TID #90 tab Rifaximin [Xifaxan] 550 mg PO BID #60 tablet Metolazone [Zaroxolyn] 5 mg PO DAILY #30 tab Furosemide [Lasix] 60 mg PO BID #180 tab Discharge Medication List Levothyroxine Sodium [Synthroid] 25 mcg PO DAILY@0400 07/03/16 [History] Sertraline HCl [Zoloft] 25 mg PO DAILY@0400 11/04/18 [History] Omeprazole 40 mg PO DAILY PRN 12/23/18 [History] Ferrous Sulfate [Iron (65 MG Elemental)] 325 mg PO BID-W/MEALS #60 tab 01/30/19 [Rx] Lactulose [Cephulac] 20 gm PO QID #3600 ml 01/30/19 [Rx] Furosemide [Lasix] 60 mg PO BID #180 tab 02/21/19 [Rx] Metolazone [Zaroxolyn] 5 mg PO DAILY #30 tab 02/21/19 [Rx] Midodrine [ProAmatine] 5 mg PO AC-TID #90 tab 02/21/19 [Rx] Potassium Chloride ER [K-Dur 20] 20 meq PO BID #60 tab.er.prt 02/21/19 [Rx] Rifaximin [Xifaxan] 550 mg PO BID #60 tablet 02/21/19 [Rx] Spironolactone [Aldactone] 50 mg PO BID@0400,1600 #100 tab 02/21/19 [Rx] Follow up Appointment(s)/Referral(s): [facility], [NON-STAFF] - None,Stated [Primary Care Provider] - 1 Week Activity/Diet/Wound Care/Special Instructions: Hospital Bed with Trapeze/Wheelchair - [facility] - [phone] Discharge Disposition: Left Against Medical Advice
== END 2019-02-28 14:14 | disposition left against medical advice (07) | DRG 432 ==
LOC: EC 21:48 → 3SCARD 02-27 01:23 → OBSVTOIN 02-28 11:06
PROVIDERS: ADMIT Hospitalist; ATTEND Hospitalist
DX: K70.31 Alcoholic cirrhosis of liver with ascites (principal); K76.7 Hepatorenal syndrome; K76.6 Portal hypertension; D68.4 Acquired coagulation factor deficiency; E87.2 Acidosis; N17.9 Acute kidney failure, unspecified; Z68.41 Body mass index [BMI] 40.0-44.9, adult; D50.9 Iron deficiency anemia, unspecified; D69.6 Thrombocytopenia, unspecified; E06.3 Autoimmune thyroiditis; E11.9 Type 2 diabetes mellitus without complications; E66.01 Morbid (severe) obesity due to excess calories; E87.6 Hypokalemia; E87.70 Fluid overload, unspecified; J45.909 Unspecified asthma, uncomplicated; K64.9 Unspecified hemorrhoids; M60.9 Myositis, unspecified; T50.2X5A Adverse effect of carbonic-anhydrase inhibitors, benzothiadiazides and other diuretics, initial encounter; Z79.890 Hormone replacement therapy; Z79.899 Other long term (current) drug therapy; Z82.49 Family history of ischemic heart disease and other diseases of the circulatory system; Z83.3 Family history of diabetes mellitus; Z90.49 Acquired absence of other specified parts of digestive tract; Z76.82 Awaiting organ transplant status; Z98.84 Bariatric surgery status; Z53.29 Procedure and treatment not carried out because of patient's decision for other reasons; F10.11 Alcohol abuse, in remission; Z88.5 Allergy status to narcotic agent; Z88.2 Allergy status to sulfonamides; Z88.7 Allergy status to serum and vaccine; Z88.8 Allergy status to other drugs, medicaments and biological substances
CPT/HCPCS: 36415; 76705; 80053; 81001; 82140; 82150; 82728; 83540; 83550; 83605; 83690; 83735; 84132; 85025; 85027; 85610; 87077; 87086; 87186

== ENCOUNTER 2019-03-22 11:39 | Day surgery (SDC) | payer OTHER ==
[2019-03-22 12:43] VITALS: RESP 20; TEMP 98
[2019-03-22 12:43] LABS: INR 1.8 (<1.2); Prothrombin Time 17.7 sec (9.0-12.0)
[2019-03-22 12:45] LABS: Mean Platelet Volume 8.6; Platelet Count 101 k/uL (150-450)
[2019-03-22] MEDS: ALBUMIN HUMAN 25% 50 ML in EMPTY BAG 1 BAG IVPB SCH ×4 (13:02→13:49)
[2019-03-22 14:35] VITALS: BP 106/58; PULSE 104
--- NOTE | 2019-03-22 17:03 | US ---
Therapeutic paracentesis. DATE OF EXAM: 03/22/2019 CLINICAL HISTORY: Ascites The procedure was discussed with the patient. The risks, complications, benefits, and alternatives we re discussed and any questions were answered. Informed consent was obtained. The patient was placed s upine on the ultrasound table and prepped and draped in the usual sterile fashion. All elements of maximal barrier technique were utilized. Under ultrasound guidance, access into the right lower quadrant was obtained, via the paracentesis catheter system and direct ultrasound guidanc e. Approximately 10.9 liters of straw-colored fluid was removed. The patient was stable throughout the p rocedure and remained stable upon discharge from Department of Radiology. IMPRESSION: Successful therapeutic paracentesis under ultrasound guidance.
== END 2019-03-22 15:05 | disposition home or self-care (01) ==
LOC: RADPROMAIN 11:39
PROVIDERS: ATTEND Internal Medicine
DX: R18.8 Other ascites (principal); K74.60 Unspecified cirrhosis of liver
CPT/HCPCS: 82565; 85049; 85610; 49083; P9047

== ENCOUNTER 2019-04-07 11:33 | Day surgery (SDC) | payer OTHER ==
[2019-04-07] MEDS: ALBUMIN HUMAN 25% 50 ML in EMPTY BAG 1 BAG IVPB SCH ×6 (12:43→15:21)
[2019-04-07 12:53] VITALS: RESP 16; TEMP 98.1
[2019-04-07 12:57] LABS: Anisocytosis Slight; HGB 9.1 gm/dL (11.4-16.0); Hypochromasia Slight; MCH 32.3 pg (25.0-35.0); MCHC 31.4 g/dL (31.0-37.0); MCV 102.8 fL (80.0-100.0); Macrocytosis Moderate; Mean Platelet Volume 7.9; Platelet Count 106 k/uL (150-450); RBC 2.83 m/uL (3.80-5.40); RDW 16.3 % (11.5-15.5); WBC 6.7 k/uL (3.8-10.6)
[2019-04-07 13:04] LABS: INR 1.7 (<1.2); Prothrombin Time 16.8 sec (9.0-12.0)
[2019-04-07 15:32] VITALS: PULSE 88
[2019-04-07 15:52] VITALS: BP 119/62
--- NOTE | 2019-04-07 16:56 | US ---
Therapeutic paracentesis. DATE OF EXAM: 04/07/2019 CLINICAL HISTORY: Ascites The procedure was discussed with the patient. The risks, complications, benefits, and alternatives we re discussed and any questions were answered. Informed consent was obtained. The patient was placed s upine on the ultrasound table and prepped and draped in the usual sterile fashion. All elements of maximal barrier technique were utilized. Under ultrasound guidance, access into the left lower quadrant was obtained, via the paracentesis catheter system and direct ultrasound guidance . Approximately 11.8 liters of straw-colored fluid was removed. The patient was stable throughout the p rocedure and remained stable upon discharge from Department of Radiology. IMPRESSION: Successful therapeutic paracentesis under ultrasound guidance.
== END 2019-04-07 16:00 | disposition home or self-care (01) ==
LOC: RADPROMAIN 11:33
PROVIDERS: ATTEND Internal Medicine
DX: R18.8 Other ascites (principal); M89.762 Major osseous defect, left lower leg
CPT/HCPCS: 82565; 85027; 85610; 36415; 49083; P9047

== ENCOUNTER 2019-04-14 11:43 | Day surgery (SDC) | payer OTHER ==
[2019-04-14 12:35] VITALS: RESP 20; TEMP 97.8
[2019-04-14] MEDS: ALBUMIN HUMAN 25% 50 ML in EMPTY BAG 1 BAG IVPB SCH ×4 (12:40→14:56)
[2019-04-14 12:43] LABS: Mean Platelet Volume 7.8; Platelet Count 107 k/uL (150-450)
[2019-04-14 13:00] LABS: INR 1.6 (<1.2); Prothrombin Time 16.3 sec (9.0-12.0)
[2019-04-14 15:17] VITALS: BP 119/60; PULSE 92
--- NOTE | 2019-04-14 15:45 | US ---
EXAMINATION TYPE: US paracentesis abd w/image DATE OF EXAM: 04/14/2019 COMPARISON: NONE HISTORY: Ascites. PROCEDURE: Maximal barrier technique was utilized. The skin overlying a suitable pocket of fluid was localized with ultrasound and the overlying skin was prepped and draped. Ultrasound was utilized with sterile technique. Lidocaine was used for local anesthesia and a skin jose made with a scalpel. Catheter was advanced under direct ultrasound guidance into a suitable pocket of fluid and approximately 8.6 liter s of serous fluid were removed. Catheter was withdrawn and hemostasis achieved. There is no immedia te complication; the patient is discharged in stable condition. IMPRESSION: STATUS POST ULTRASOUND GUIDED PARACENTESIS FOR PALLIATION OF ASCITES. THIS PROCEDURE WA S PERFORMED BY THE UNDERSIGNED.
== END 2019-04-14 15:30 | disposition home or self-care (01) ==
LOC: RADPROMAIN 11:43
PROVIDERS: ATTEND Internal Medicine
DX: R18.8 Other ascites (principal); K76.7 Hepatorenal syndrome
CPT/HCPCS: 82565; 85049; 85610; 36415; 49083; P9047

== ENCOUNTER 2019-05-26 12:35 | Day surgery (SDC) | payer OTHER ==
[2019-05-26 12:59] VITALS: TEMP 98
[2019-05-26] MEDS: ALBUMIN HUMAN 25% 50 ML in EMPTY BAG 1 BAG IVPB SCH ×6 (13:09→15:09)
[2019-05-26 13:11] LABS: Mean Platelet Volume 8.2; Platelet Count 159 k/uL (150-450)
[2019-05-26 13:23] LABS: INR 1.4 (<1.2)
[2019-05-26 14:32] VITALS: RESP 16
[2019-05-26 15:25] VITALS: BP 108/57; PULSE 89
--- NOTE | 2019-05-26 16:00 | US ---
EXAMINATION TYPE: US paracentesis abd w/image DATE OF EXAM: 05/26/2019 COMPARISON: NONE HISTORY: Ascites. PROCEDURE: Maximal barrier technique was utilized. The skin overlying a suitable pocket of fluid was localized with ultrasound and the overlying skin was prepped and draped. Ultrasound was utilized with sterile technique. Lidocaine was used for local anesthesia and a skin jose made with a scalpel. Catheter was advanced under direct ultrasound guidance into a suitable pocket of fluid and approximately 9.6 liter s of serous fluid were removed. Catheter was withdrawn and hemostasis achieved. There is no immedia te complication; the patient is discharged in stable condition. IMPRESSION: STATUS POST ULTRASOUND GUIDED PARACENTESIS FOR PALLIATION OF ASCITES. THIS PROCEDURE WA S PERFORMED BY THE UNDERSIGNED.
== END 2019-05-26 15:54 | disposition home or self-care (01) ==
LOC: RADPROMAIN 12:35
PROVIDERS: ATTEND Internal Medicine
DX: R18.8 Other ascites (principal)
CPT/HCPCS: 82565; 82947; 85049; 85610; 49083; P9047

== ENCOUNTER 2019-06-01 09:11 | Day surgery (SDC) | payer OTHER ==
[2019-06-01 09:43] LABS: Mean Platelet Volume 8.4; Platelet Count 139 k/uL (150-450)
[2019-06-01 09:57] LABS: INR 1.3 (<1.2); Prothrombin Time 13.6 sec (9.0-12.0)
[2019-06-01 10:01] VITALS: TEMP 98.1
[2019-06-01] MEDS: ALBUMIN HUMAN 25% 50 ML in EMPTY BAG 1 BAG IVPB SCH ×6 (10:10→11:42)
[2019-06-01 11:35] VITALS: BP 118/61; PULSE 90; RESP 16
--- NOTE | 2019-06-01 13:57 | US ---
EXAMINATION TYPE: US paracentesis abd w/image DATE OF EXAM: 06/01/2019 COMPARISON: NONE HISTORY: Ascites. PROCEDURE: Maximal barrier technique was utilized. The skin overlying a suitable pocket of fluid was localized with ultrasound and the overlying skin was prepped and draped. Ultrasound was utilized with sterile technique. Lidocaine was used for local anesthesia and a skin jose made with a scalpel. Catheter was advanced under direct ultrasound guidance into a suitable pocket of fluid and approximately 8.5 liter s of serous fluid were removed. Catheter was withdrawn and hemostasis achieved. There is no immedia te complication; the patient is discharged in stable condition. IMPRESSION: STATUS POST ULTRASOUND GUIDED PARACENTESIS FOR PALLIATION OF ASCITES. THIS PROCEDURE WA S PERFORMED BY THE UNDERSIGNED.
== END 2019-06-01 12:15 | disposition home or self-care (01) ==
LOC: RADPROMAIN 09:11
PROVIDERS: ATTEND Internal Medicine
DX: R18.8 Other ascites (principal)
CPT/HCPCS: 82565; 82947; 85049; 85610; 36415; 49083; P9047

== ENCOUNTER 2019-06-09 11:52 | Day surgery (SDC) | payer OTHER ==
[2019-06-09 12:16] VITALS: RESP 20; TEMP 97.9
[2019-06-09 12:43] LABS: Mean Platelet Volume 8.3; Platelet Count 181 k/uL (150-450)
[2019-06-09 12:50] LABS: INR 1.4 (<1.2)
[2019-06-09] MEDS: ALBUMIN HUMAN 25% 50 ML in EMPTY BAG 1 BAG IVPB SCH ×4 (12:57→15:15)
[2019-06-09 16:01] VITALS: BP 93/51; PULSE 93
--- NOTE | 2019-06-09 16:21 | US ---
EXAMINATION TYPE: US paracentesis abd w/image DATE OF EXAM: 06/09/2019 COMPARISON: NONE HISTORY: Ascites. PROCEDURE: Maximal barrier technique was utilized. The skin overlying a suitable pocket of fluid was localized with ultrasound and the overlying skin was prepped and draped. Ultrasound was utilized with sterile technique. Lidocaine was used for local anesthesia and a skin jose made with a scalpel. Catheter was advanced under direct ultrasound guidance into a suitable pocket of fluid and approximately 12 liters of serous fluid were removed. Catheter was withdrawn and hemostasis achieved. There is no immediat e complication; the patient is discharged in stable condition. IMPRESSION: STATUS POST ULTRASOUND GUIDED PARACENTESIS FOR PALLIATION OF ASCITES. THIS PROCEDURE WA S PERFORMED BY THE UNDERSIGNED.
== END 2019-06-09 16:10 | disposition home or self-care (01) ==
LOC: RADPROMAIN 11:52
PROVIDERS: ATTEND Internal Medicine
DX: R18.8 Other ascites (principal)
CPT/HCPCS: 82565; 85049; 85610; 36415; 49083; P9047

== ENCOUNTER 2019-06-15 16:01 | Inpatient (IN) | payer OTHER ==
[2019-06-15] MEDS ORDERED: MIDODRINE 5 MG TAB PO STA (16:26)
[2019-06-15] MEDS: SODIUM CHLORIDE 0.9% 500 ML 500 ML IV SCH ×2 (16:29→17:57)
--- NOTE | 2019-06-15 16:30 | ED ---
General Adult HPI - General Chief complaint: Extremity Injury, Lower Stated complaint: ankle pain Time Seen by Provider: 06/15/19 16:12 Source: patient, EMS, RN notes reviewed Mode of arrival: EMS Limitations: physical limitation - History of Present Illness Initial comments: Patient is a 38-year-old female presenting to the emergency Department with left leg pain. Patient states her daughter was giving her a massage yesterday when she suddenly fell on her left lower leg. Patient has had progressive discomfort of her left lower leg and foot/ankle region since that time. Patient states discomfort is severe. Patient states she is supposed to be on Ultram however there was a mistake and the wrong amount was written for her. Patient requests Ultram. Patient states she does have chronic hypotension associated with her chronic liver disease. 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 Patient states she has not take her Midodrin lately secondary to nausea. Patient is also feeling she may be dehydrated because she has not been eating or drinking well. Patient states her blood pressure frequently is in the 90s and she misses her Midodrin. - Related Data Home Medications Medication Instructions Recorded Confirmed Levothyroxine Sodium [Synthroid] 25 mcg PO DAILY@0400 07/03/16 06/15/19 Omeprazole 40 mg PO DAILY PRN 12/23/18 06/15/19 Furosemide [Lasix] 80 mg PO BID 04/07/19 06/15/19 Magnesium 400 mg PO DAILY 05/26/19 06/15/19 Midodrine [ProAmatine] 5 mg PO BID 05/26/19 06/15/19 Ferrous Sulfate [Iron (65 MG 325 mg PO AC-BID 06/15/19 06/15/19 Elemental)] Ondansetron HCl [Zofran] 4 mg PO Q6H PRN 06/15/19 06/15/19 traMADol HCL [Ultram] 50 mg PO BID PRN 06/15/19 06/15/19 Previous Rx's Medication Instructions Recorded Lactulose [Cephulac] 20 gm PO QID #3600 ml 01/30/19 Metolazone [Zaroxolyn] 5 mg PO DAILY #30 tab 02/21/19 Potassium Chloride ER [K-Dur 20] 20 meq PO BID #60 tab.er.prt 02/21/19 Rifaximin [Xifaxan] 550 mg PO BID #60 tablet 02/21/19 Spironolactone [Aldactone] 50 mg PO BID@0400,1600 #100 tab 02/21/19 Allergies Allergy/AdvReac Type Severity Reaction Status Date / Time adhesive Allergy Rash/Hives Verified 06/15/19 16:58 sulfamethoxazole Allergy Unknown Verified 06/15/19 16:58 [From Bactrim] Tetanus Vaccines and Toxoid Allergy Swelling Verified 06/15/19 16:58 [Tetanus Vaccines & Toxoid] trimethoprim [From Bactrim] Allergy Unknown Verified 06/15/19 16:58 cigarette smoke AdvReac Cough, Verified 06/15/19 16:58 Shortness of Breath sertraline [From Zoloft] AdvReac DIZZY/Nausea Verified 06/15/19 16:58 & Vomiting skin ink Allergy Rash/Hives Uncoded 06/15/19 16:58 yellow squash Allergy Anaphylaxis Uncoded 06/15/19 16:58 dust AdvReac Mild Itching Uncoded 06/15/19 16:58 dust mites AdvReac Rash/Hives Uncoded 06/15/19 16:58 Review of Systems ROS Statement: Those systems with pertinent positive or pertinent negative responses have been documented in the HPI. ROS Other: All systems not noted in ROS Statement are negative. Constitutional: Denies: fever Eyes: Denies: eye pain ENT: Denies: ear pain Respiratory: Denies: cough Cardiovascular: Denies: chest pain Endocrine: Reports: fatigue Gastrointestinal: Denies: abdominal pain Genitourinary: Denies: dysuria Musculoskeletal: Denies: back pain Skin: Denies: rash Neurological: Denies: weakness Past Medical History Past Medical History: Asthma, Diabetes Mellitus, Liver Disease, Skin Disorder, Thyroid Disorder Additional Past Medical History / Comment(s): Migraines, hashimotos, eczema, no current rx for diabetes - diet controlled, anemia, elevated liver enzymes & retaining fluid since lap marlena. History of Any Multi-Drug Resistant Organisms: None Reported Date of last positivie culture/infection: JUNE 2013 MDRO Source:: WOUND ON LEFT UPPER ABDOMEN Past Surgical History: Appendectomy, Bariatric Surgery, Section, Marlena cystectomy, Orthopedic Surgery, Tubal Ligation Additional Past Surgical History / Comment(s): LENA-EN-Y, left knee arthroscopy, I&D left upper abdomen; Panniculectomy Jul 2016, robotic lap. marlena 11-07-18, frequent paracentesis. Jun 2008 pt has a service dog that is registered as an emotional support do and service duty dog. Past Anesthesia/Blood Transfusion Reactions: Family History of Problems w/ Anesthesia, Motion Sickness, Postoperative Nausea & Vomiting (PONV) Additional Past Anesthesia/Blood Transfusion Reaction / Comment(s): mother - "hard time waking up and trouble breathing" Past Psychological History: No Psychological Hx Reported Smoking Status: Never smoker Past Alcohol Use History: None Reported Past Drug Use History: None Reported - Past Family History Mother Family Medical History: No Reported History Additional Family Medical History / Comment(s): Mother had gastric bypass surgery and no longer has HTN or high cholesteral. Father Family Medical History: Diabetes Mellitus, Hyperlipidemia, Hypertension General Exam Limitations: physical limitation General appearance: alert, in no apparent distress Head exam: Present: atraumatic Eye exam: Present: scleral icterus ENT exam: Present: mucous membranes dry Neck exam: Present: normal inspection Respiratory exam: Present: normal lung sounds bilaterally Cardiovascular Exam: Present: normal rhythm, tachycardia Expanded Peripheral pulses: 2+: Posterior Tibialis (L), Dorsalis Pedis (L) GI/Abdominal exam: Present: soft, distended. Absent: tenderness Extremities exam: Present: tenderness (Patient has severe discomfort with light touch to the area below the knee to the foot. Patient is hypersensitive to extremely light touch. There is minimal ecchymosis of the proximal calf.) Neurological exam: Present: alert Psychiatric exam: Present: normal affect, normal mood Skin exam: Present: normal color Course Vital Signs 06/15/19 06/15/19 06/15/19 16:04 16:27 16:45 Temperature 98.0 F Pulse Rate 115 H Respiratory 22 Rate Blood Pressure 78/32 79/41 87/38 O2 Sat by Pulse 100 Oximetry 06/15/19 06/15/19 06/15/19 17:02 17:54 18:05 Temperature Pulse Rate 109 H 114 H 112 H Respiratory 20 16 16 Rate Blood Pressure 70/40 102/54 108/50 O2 Sat by Pulse 99 99 99 Oximetry 06/15/19 18:32 Temperature Pulse Rate 115 H Respiratory 20 Rate Blood Pressure 112/50 O2 Sat by Pulse 100 Oximetry EKG Findings - EKG Comments: EKG Findings:: Sinus tachycardia 112. OK 132. QRS 78. QT 340. QTc 464. Normal axis. Low QRS voltage. No acute ST change. Medical Decision Making - Medical Decision Making Patient reevaluated and updated. Patient resting comfortably in bed. Leg reexamined. Still no erythema or warmth. Patient does have some continued tenderness however not as severe. Pulse remains intact. Case discussed with Dr. oviedo, who will admit covering for Dr. Franklin. He does request discussing case with nephrology as well. Case was also discussed with Dr. Villalobos, who will consult. She does recommend insulin and glucose as well as calcium. Addition she recommends sodium bicarb drip D5W with 3 A at 120. - Lab Data Result diagrams: 06/15/19 16:38 06/15/19 16:38 Lab Results 06/15/19 06/15/19 06/15/19 Range/Units 16:38 16:38 16:38 WBC 6.4 (3.8-10.6) k/uL RBC 3.45 L (3.80-5.40) m/uL Hgb 10.6 L (11.4-16.0) gm/dL Hct 35.7 (34.0-46.0) % MCV 103.5 H (80.0-100.0) fL MCH 30.9 (25.0-35.0) pg MCHC 29.8 L (31.0-37.0) g/dL RDW 15.7 H (11.5-15.5) % Plt Count 128 L (150-450) k/uL Neutrophils % (Manual) 49 % Band Neutrophils % 37 % Lymphocytes % (Manual) 11 % Monocytes % (Manual) 2 % Basophils % (Manual) 1 % Metamyelocytes % 2 % Myelocytes % 1 % Neutrophils # (Manual) 5.50 (1.3-7.7) k/uL Lymphocytes # (Manual) 0.70 L (1.0-4.8) k/uL Monocytes # (Manual) 0.13 (0-1.0) k/uL Basophils # (Manual) 0.06 (0-0.2) k/uL Metamyelocytes # (Man) 0.13 H (0) k/uL Myelocytes # (Manual) 0.06 H (0) k/uL Nucleated RBCs 0 (0-0) /100 WBC Manual Slide Review Performed Toxic Granulation Present Hypochromasia Marked Macrocytosis Moderate PT 19.1 H (9.0-12.0) sec INR 1.9 H (<1.2) APTT 39.7 H (22.0-30.0) sec Sodium 127 L (137-145) mmol/L Potassium 6.1 H* (3.5-5.1) mmol/L Chloride 100 (98-107) mmol/L Carbon Dioxide 8 L* (22-30) mmol/L Anion Gap 19 mmol/L BUN 45 H (7-17) mg/dL Creatinine 4.84 H (0.52-1.04) mg/dL Est GFR (CKD-EPI)AfAm 12 (>60 ml/min/1.73 sqM) Est GFR (CKD-EPI)NonAf 11 (>60 ml/min/1.73 sqM) Glucose 107 H (74-99) mg/dL Calcium 8.3 L (8.4-10.2) mg/dL Total Bilirubin 7.0 H (0.2-1.3) mg/dL AST 59 H (14-36) U/L ALT 43 (9-52) U/L Alkaline Phosphatase 314 H (38-126) U/L Ammonia (<30) umol/L Total Protein 4.4 L (6.3-8.2) g/dL Albumin 2.3 L (3.5-5.0) g/dL 06/15/19 Range/Units 16:38 WBC (3.8-10.6) k/uL RBC (3.80-5.40) m/uL Hgb (11.4-16.0) gm/dL Hct (34.0-46.0) % MCV (80.0-100.0) fL MCH (25.0-35.0) pg MCHC (31.0-37.0) g/dL RDW (11.5-15.5) % Plt Count (150-450) k/uL Neutrophils % (Manual) % Band Neutrophils % % Lymphocytes % (Manual) % Monocytes % (Manual) % Basophils % (Manual) % Metamyelocytes % % Myelocytes % % Neutrophils # (Manual) (1.3-7.7) k/uL Lymphocytes # (Manual) (1.0-4.8) k/uL Monocytes # (Manual) (0-1.0) k/uL Basophils # (Manual) (0-0.2) k/uL Metamyelocytes # (Man) (0) k/uL Myelocytes # (Manual) (0) k/uL Nucleated RBCs (0-0) /100 WBC Manual Slide Review Toxic Granulation Hypochromasia Macrocytosis PT (9.0-12.0) sec INR (<1.2) APTT (22.0-30.0) sec Sodium (137-145) mmol/L Potassium (3.5-5.1) mmol/L Chloride (98-107) mmol/L Carbon Dioxide (22-30) mmol/L Anion Gap mmol/L BUN (7-17) mg/dL Creatinine (0.52-1.04) mg/dL Est GFR (CKD-EPI)AfAm (>60 ml/min/1.73 sqM) Est GFR (CKD-EPI)NonAf (>60 ml/min/1.73 sqM) Glucose (74-99) mg/dL Calcium (8.4-10.2) mg/dL Total Bilirubin (0.2-1.3) mg/dL AST (14-36) U/L ALT (9-52) U/L Alkaline Phosphatase (38-126) U/L Ammonia 55 H (<30) umol/L Total Protein (6.3-8.2) g/dL Albumin (3.5-5.0) g/dL - Radiology Data Radiology results: report reviewed (Ultrasound negative for DVT), image reviewed (Chest x-ray shows no acute process. Left foot x-ray shows soft tissue sw elling. X-ray of the tib-fib shows subcutaneous edema. No fracture.) Critical Care Time Critical Care Time: Yes Total Critical Care Time: 33 Disposition Clinical Impression: Hypotension, Acute renal failure (ARF), Liver cirrhosis, Hyperkalemia Disposition: ADMITTED IP TO THIS [facility] Condition: Serious Is patient prescribed a controlled substance at d/c from ED?: No Decision Time: 18:17
[2019-06-15 17:04] LABS: INR 1.9 (<1.2); Partial Thromboplastin Time 39.7 sec (22.0-30.0); Prothrombin Time 19.1 sec (9.0-12.0)
[2019-06-15 17:05] LABS: Albumin 2.3 g/dL (3.5-5.0); Calcium 8.3 mg/dL (8.4-10.2); Total Protein 4.4 g/dL (6.3-8.2)
[2019-06-15 17:09] LABS: HCT 35.7 % (34.0-46.0); HGB 10.6 gm/dL (11.4-16.0); Hypochromasia Marked; MCH 30.9 pg (25.0-35.0); MCHC 29.8 g/dL (31.0-37.0); MCV 103.5 fL (80.0-100.0); Macrocytosis Moderate; Mean Platelet Volume 9.7; Platelet Count 128 k/uL (150-450); RBC 3.45 m/uL (3.80-5.40); RDW 15.7 % (11.5-15.5); WBC 6.4 k/uL (3.8-10.6)
[2019-06-15 17:14] LABS: Potassium 6.1 mmol/L (3.5-5.1)
[2019-06-15] MEDS ORDERED: SODIUM CHLORIDE 0.9% 1,000 ML IV STA ×2 (17:21→19:26)
[2019-06-15 17:49] LABS: Band Neutrophils % 37 %; Basophils # (M) 0.06 k/uL (0-0.2); Metamyelocytes # (M) 0.13 k/uL (0); Metamyelocytes % 2 %; Monocytes # (M) 0.13 k/uL (0-1.0); Myelocytes # (M) 0.06 k/uL (0); Myelocytes % 1 %; Neutrophils % (M) 49 %; Nucleated Red Blood Cells 0 /100 WBC (0-0); Total Cells Counted 200
[2019-06-15 17:50] LABS: Toxic Granulation Present
--- NOTE | 2019-06-15 17:58 | US ---
EXAMINATION TYPE: US venous doppler duplex LE LT DATE OF EXAM: 06/15/2019 5:40 PM COMPARISON: NONE CLINICAL HISTORY: Pain. extreme left leg pain and cramping after massage yesterday, no h/o dvt SIDE PERFORMED: Left TECHNIQUE: The lower extremity deep venous system is examined utilizing real time linear array sonog robe with graded compression, doppler sonography and color-flow sonography. VESSELS IMAGED: External Iliac Vein (EIV) Common Femoral Vein Deep Femoral Vein Greater Saphenous Vein * Femoral Vein Popliteal Vein Small Saphenous Vein * Proximal Calf Veins (* superficial vessels) * Left Leg: Appears negative for DVT, was unable to assess compression of dist femoral vein because I could not see vessel with color off. * patient could not have pain meds prior due to low BP, so was unable to get good blood flow and f ull compression of left mid femoral vein at first look. I assessed mid femoral vein after cramping en ded and was able to obtain good blood flow and full compression at that time. IMPRESSION: No evidence of deep venous thrombosis in the left leg.
[2019-06-15] MEDS ORDERED: DEXTROSE 10 % IN WATER 250 ML IV STA (18:12)
[2019-06-15] MEDS ORDERED: INSULIN REGULAR 100 UNIT/ML VIAL IV ONE (18:13)
[2019-06-15] MEDS ORDERED: NALOXONE 0.4 MG/ML 1 ML VIAL IV PRN (18:17)
--- NOTE | 2019-06-15 18:33 | XR ---
EXAMINATION TYPE: XR chest 2V DATE OF EXAM: 06/15/2019 COMPARISON: 01/05/2019 HISTORY: Weakness TECHNIQUE: Frontal and lateral views of the chest are obtained. FINDINGS: Heart and mediastinum are normal. Lungs are clear. Diaphragm is normal. Bony thorax is int act. There are chest leads. There is poor inspiration. IMPRESSION: No acute lung disease. Inspiration decreased compared to old exam.
--- NOTE | 2019-06-15 18:34 | XR ---
EXAMINATION TYPE: XR tibia fibula LT DATE OF EXAM: 06/15/2019 COMPARISON: NONE HISTORY: Weakness pain TECHNIQUE: 3 views FINDINGS: There is subcutaneous edema around the lower leg. Tibia and fibula appear intact. I see no fracture nor dislocation. IMPRESSION: Subcutaneous edema. No fracture.
--- NOTE | 2019-06-15 18:34 | XR ---
EXAMINATION TYPE: XR foot complete LT DATE OF EXAM: 06/15/2019 COMPARISON: NONE HISTORY: Weakness. Trauma. TECHNIQUE: 3 views FINDINGS: There is soft tissue swelling of the forefoot. Metatarsals appear intact. I see no fracture nor dislocation. IMPRESSION: Soft tissue swelling. No fracture seen.
[2019-06-15] MEDS: SODIUM CHLORIDE 0.9% 1,000 ML IV STA ×2 (18:51→19:30)
[2019-06-15] MEDS ORDERED: cefTRIAXone IN SWFI 1,000 MG/10 ML SYRINGE IVP STA (19:25)
[2019-06-15] MEDS ORDERED: PHYTONADIONE 2 MG in SODIUM CHLORIDE 0.9% 50 ML IVPB STA (19:28)
--- NOTE | 2019-06-15 19:30 | ED ---
Medical Decision Making - Medical Decision Making Blood pressure has decreased into the 70s again following close to 3 L of normal saline. Case was also discussed with Dr. Figueroa. He does request CPK level and lactate level. He does agree with antibiotics and recommends Rocephin. He does have concern for SBP. He does recommend the left foot. He is also agreeable to pressure wasn't plasma and central line in the femoral region. - Lab Data Result diagrams: 06/15/19 16:38 06/15/19 16:38 Lab Results 06/15/19 06/15/19 06/15/19 Range/Units 16:38 16:38 16:38 WBC 6.4 (3.8-10.6) k/uL RBC 3.45 L (3.80-5.40) m/uL Hgb 10.6 L (11.4-16.0) gm/dL Hct 35.7 (34.0-46.0) % MCV 103.5 H (80.0-100.0) fL MCH 30.9 (25.0-35.0) pg MCHC 29.8 L (31.0-37.0) g/dL RDW 15.7 H (11.5-15.5) % Plt Count 128 L (150-450) k/uL Neutrophils % (Manual) 49 % Band Neutrophils % 37 % Lymphocytes % (Manual) 11 % Monocytes % (Manual) 2 % Basophils % (Manual) 1 % Metamyelocytes % 2 % Myelocytes % 1 % Neutrophils # (Manual) 5.50 (1.3-7.7) k/uL Lymphocytes # (Manual) 0.70 L (1.0-4.8) k/uL Monocytes # (Manual) 0.13 (0-1.0) k/uL Basophils # (Manual) 0.06 (0-0.2) k/uL Metamyelocytes # (Man) 0.13 H (0) k/uL Myelocytes # (Manual) 0.06 H (0) k/uL Nucleated RBCs 0 (0-0) /100 WBC Manual Slide Review Performed Toxic Granulation Present Hypochromasia Marked Macrocytosis Moderate PT 19.1 H (9.0-12.0) sec INR 1.9 H (<1.2) APTT 39.7 H (22.0-30.0) sec Sodium 127 L (137-145) mmol/L Potassium 6.1 H* (3.5-5.1) mmol/L Chloride 100 (98-107) mmol/L Carbon Dioxide 8 L* (22-30) mmol/L Anion Gap 19 mmol/L BUN 45 H (7-17) mg/dL Creatinine 4.84 H (0.52-1.04) mg/dL Est GFR (CKD-EPI)AfAm 12 (>60 ml/min/1.73 sqM) Est GFR (CKD-EPI)NonAf 11 (>60 ml/min/1.73 sqM) Glucose 107 H (74-99) mg/dL Plasma Lactic Acid Hitesh (0.7-2.0) mmol/L Calcium 8.3 L (8.4-10.2) mg/dL Total Bilirubin 7.0 H (0.2-1.3) mg/dL AST 59 H (14-36) U/L ALT 43 (9-52) U/L Alkaline Phosphatase 314 H (38-126) U/L Ammonia (<30) umol/L Creatine Kinase (30-135) U/L Total Protein 4.4 L (6.3-8.2) g/dL Albumin 2.3 L (3.5-5.0) g/dL 06/15/19 06/15/19 06/15/19 Range/Units 16:38 16:38 16:38 WBC (3.8-10.6) k/uL RBC (3.80-5.40) m/uL Hgb (11.4-16.0) gm/dL Hct (34.0-46.0) % MCV (80.0-100.0) fL MCH (25.0-35.0) pg MCHC (31.0-37.0) g/dL RDW (11.5-15.5) % Plt Count (150-450) k/uL Neutrophils % (Manual) % Band Neutrophils % % Lymphocytes % (Manual) % Monocytes % (Manual) % Basophils % (Manual) % Metamyelocytes % % Myelocytes % % Neutrophils # (Manual) (1.3-7.7) k/uL Lymphocytes # (Manual) (1.0-4.8) k/uL Monocytes # (Manual) (0-1.0) k/uL Basophils # (Manual) (0-0.2) k/uL Metamyelocytes # (Man) (0) k/uL Myelocytes # (Manual) (0) k/uL Nucleated RBCs (0-0) /100 WBC Manual Slide Review Toxic Granulation Hypochromasia Macrocytosis PT (9.0-12.0) sec INR (<1.2) APTT (22.0-30.0) sec Sodium (137-145) mmol/L Potassium (3.5-5.1) mmol/L Chloride (98-107) mmol/L Carbon Dioxide (22-30) mmol/L Anion Gap mmol/L BUN (7-17) mg/dL Creatinine (0.52-1.04) mg/dL Est GFR (CKD-EPI)AfAm (>60 ml/min/1.73 sqM) Est GFR (CKD-EPI)NonAf (>60 ml/min/1.73 sqM) Glucose (74-99) mg/dL Plasma Lactic Acid Hitesh 9.7 H* (0.7-2.0) mmol/L Calcium (8.4-10.2) mg/dL Total Bilirubin (0.2-1.3) mg/dL AST (14-36) U/L ALT (9-52) U/L Alkaline Phosphatase (38-126) U/L Ammonia 55 H (<30) umol/L Creatine Kinase 25 L (30-135) U/L Total Protein (6.3-8.2) g/dL Albumin (3.5-5.0) g/dL Critical Care Time Critical Care Time: Yes Total Critical Care Time: 49 Critical Care Time: Total critical care time 49 minutes. Disposition Clinical Impression: Hypotension, Acute renal failure (ARF), Liver cirrhosis, Hyperkalemia Disposition: ADMITTED IP TO THIS HOSP Condition: Serious Is patient prescribed a controlled substance at d/c from ED?: No Procedures - Central Line Placement Right Femoral Consent Obtained: verbal consent Patient Placed on Monitor/Pulse Ox: Yes Prep: mask, gown, gloves Central Line Prep: Chlorhexidine scrub Local Anesthesia Used: Lidocaine 1% Amount of Anesthesia Used (mls): 2 Central Line Lumen Inserted: triple Central Line Position: good blood return, all ports aspirated, flushed, capped, sutured in place with 3-0 nylon Dressing Applied: Tegaderm Patient Tolerated Procedure: well Complications: none - Sepsis Sepsis Focused Exam #1 Time Sepsis Criteria Met: 19:30 Sepsis Focused Exam Date: 06/15/19 Sepsis Focused Exam Time: 20:50 Sepsis Focused Exam Complete: Yes Vital Signs & RN Notes Reviewed: Yes Capillary Refill: < 2 Seconds: Fingers, Toes Peripheral Pulses: Normal: Radial (R), Radial (L) Skin Color: Normal for Patient Respiratory Exam: normal lung sounds Cardiovascular Exam: tachycardia
[2019-06-15] MEDS ORDERED: CALCIUM GLUCONATE 1 GM in SODIUM CHLORIDE 0.9% 100 ML IVPB ONE (20:00)
[2019-06-15] MEDS: traMADol 50 MG TAB PO PRN (20:19)
[2019-06-15 21:00] LABS: Amorphous Sediment,Urine Occasional /hpf; Appearance,Urine Cloudy (Clear); Bilirubin,Urine 1+ (Negative); Blood,Urine Negative (Negative); Color,Urine Dark Brown; Glucose,Urine (UA) Trace (Negative); Ketones,Urine Negative (Negative); Leukocyte Esterase,Urine Trace (Negative); Nitrite,Urine Negative (Negative); Protein,Urine 1+ (Negative); RBC,Urine 1 /hpf (0-5); Specific Gravity,Urine 1.021 (1.001-1.035); Squamous Epithelial Cell,Urine 1 /hpf (0-4); WBC,Urine 6 /hpf (0-5)
[2019-06-15] MEDS: DEXTROSE 5% IN WATER 1,000 ML with SODIUM BICARB (1 MEQ/ML) 150 ML IV SCH (22:00)
[2019-06-15] MEDS: NOREPINEPHRINE 4 MG in SODIUM CHLORIDE 0.9% 250 ML IV SCH (22:15)
[2019-06-15 22:49] LABS: Glucose,Whole Blood 77 mg/dL (75-99)
[2019-06-15 23:45] LABS: Albumin 2.2 g/dL (3.5-5.0); Calcium 7.8 mg/dL (8.4-10.2); Magnesium 1.9 mg/dL (1.6-2.3); Phosphorus 4.9 mg/dL (2.5-4.5); Potassium 5.3 mmol/L (3.5-5.1); Total Bilirubin 5.9 mg/dL (0.2-1.3); Total Protein 4.1 g/dL (6.3-8.2)
[2019-06-16] MEDS ORDERED: SODIUM CHLORIDE 0.9% 1,000 ML IV ONE (00:34)
[2019-06-16] MEDS ORDERED: SODIUM BICARB 8.4% 50 ML SYR (1 MEQ/ML) IV STA (03:04)
[2019-06-16] MEDS ORDERED: FUROSEMIDE 10 MG/ML 4 ML VIAL IV STA (03:04)
[2019-06-16 04:07] LABS: Anisocytosis Slight; Calcium 7.7 mg/dL (8.4-10.2); HCT 27.9 % (34.0-46.0); HGB 8.5 gm/dL (11.4-16.0); Hypochromasia Moderate; MCH 30.8 pg (25.0-35.0); MCHC 30.6 g/dL (31.0-37.0); Macrocytosis Slight; Mean Platelet Volume 9.3; Phosphorus 4.6 mg/dL (2.5-4.5); RBC 2.77 m/uL (3.80-5.40); RDW 16.1 % (11.5-15.5); WBC 5.6 k/uL (3.8-10.6)
[2019-06-16 04:08] LABS: MCV 100.8 fL (80.0-100.0)
[2019-06-16 04:54] LABS: Band Neutrophils % 18 %; Eosinophils # (M) 0.06 k/uL (0-0.7); Lymphocytes # (M) 0.22 k/uL (1.0-4.8); Monocytes # (M) 0.62 k/uL (0-1.0); Myelocytes # (M) 0.06 k/uL (0); Myelocytes % 1 %; Neutrophils % (M) 65 %; Nucleated Red Blood Cells 0 /100 WBC (0-0); Polychromasia Present; Total Cells Counted 200
[2019-06-16 04:55] LABS: Platelet Count 80 k/uL (150-450)
[2019-06-16] MEDS: traMADol 50 MG TAB PO PRN ×2 (05:15→18:31)
[2019-06-16 06:35] LABS: Appearance,Urine Cloudy (Clear); Bilirubin,Urine Negative (Negative); Blood,Urine Trace (Negative); Color,Urine Dark Brown; Glucose,Urine (UA) Trace (Negative); Hyaline Casts,Urine 60 /lpf (0-2); Ketones,Urine Negative (Negative); Leukocyte Esterase,Urine Trace (Negative); Mucus,Urine Occasional /hpf; Nitrite,Urine Negative (Negative); Protein,Urine 1+ (Negative); Specific Gravity,Urine 1.014 (1.001-1.035); Squamous Epithelial Cell,Urine 5 /hpf (0-4); Urobilinogen,Urine <2.0 mg/dL (<2.0)
[2019-06-16] MEDS: DEXTROSE 5% IN WATER 1,000 ML with SODIUM BICARB (1 MEQ/ML) 150 ML IV SCH ×3 (06:56→21:47)
[2019-06-16] MEDS ORDERED: MIDODRINE 5 MG TAB PO SCH ×2 (07:30→21:00)
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
[2019-06-16] MEDS: PANTOPRAZOLE 40 MG/10 ML VIAL IV SCH (09:32)
[2019-06-16 10:16] LABS: INR 1.9 (<1.2); Prothrombin Time 18.6 sec (9.0-12.0)
[2019-06-16] MEDS ORDERED: NON-FORMULARY DRUG (Omeprazole [Omeprazole] 40 MG) PO PRN (10:39)
[2019-06-16] MEDS: ALBUMIN HUMAN 25% 50 ML in EMPTY BAG 1 BAG IVPB SCH ×2 (11:22→11:42)
[2019-06-16] MEDS ORDERED: SODIUM CHLORIDE 0.9% 500 ML 500 ML IV ONE (12:08)
[2019-06-16] MEDS: NOREPINEPHRINE 4 MG in SODIUM CHLORIDE 0.9% 250 ML IV SCH ×2 (12:30→21:47)
[2019-06-16 12:43] LABS: Potassium 5.5 mmol/L (3.5-5.1)
[2019-06-16] MEDS: RIFAXIMIN 550 MG TABLET PO SCH ×2 (12:46→20:17)
[2019-06-16] MEDS: MIDODRINE 5 MG TAB PO SCH ×2 (12:46→18:33)
[2019-06-16] MEDS ORDERED: SODIUM POLYSTYRENE SULFONATE 15 GM/60 ML BOTTLE PO STA (12:54)
[2019-06-16 15:03] LABS: Glucose,Whole Blood 117 mg/dL (75-99)
--- NOTE | 2019-06-16 15:48 | US ---
EXAMINATION TYPE: US kidneys/renal and bladder DATE OF EXAM: 06/16/2019 COMPARISON: NONE CLINICAL HISTORY: Acute renal failure. Renal failure, exam done portable in ICU EXAM MEASUREMENTS: Right Kidney: 10.0 x 4.5 x 5.4 cm Left Kidney: 9.1 x 5.3 x 4.8 cm Right Kidney: no hydronephrosis or masses seen Left Kidney: no hydronephrosis or masses seen Bladder: not visualized, pt has alberts catheter Abdominal ascites noted There is no evidence for hydronephrosis at this point in time. No nephrolithiasis is seen. No comfort s are identified. The urinary bladder is nondistended due to placement of a Alberts catheter. IMPRESSION: 1. No hydronephrosis or nephrolithiasis. 2. Incidentally noted abdominal ascites, partially visualized but appearing at least mild.
[2019-06-16] MEDS: OCTREOTIDE 100 MCG in SODIUM CHLORIDE 0.9% 100 ML IVPB SCH (15:49)
[2019-06-16] MEDS ORDERED: DEXTROSE 50% SYRINGE 50 ML IVP STA (15:50)
[2019-06-16] MEDS ORDERED: INSULIN REGULAR 100 UNIT/ML VIAL IV ONE ×2 (15:50→21:26)
[2019-06-16] MEDS ORDERED: DEXTROSE 10 % IN WATER 250 ML IV ONE ×2 (15:54→16:30)
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
[2019-06-16] MEDS ORDERED: ALBUMIN HUMAN 25% 50 ML in EMPTY BAG 1 BAG IVPB ONE (17:03)
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
[2019-06-16 17:51] LABS: Appearance,BF Clear; Color,BF Yellow
[2019-06-16 17:52] LABS: Mononuclear WBC,Body Fluid 47 %; Nucleated Cells, Body Fluid 29 /uL; Polynuclear WBC,Body Fluid 53 %; RBC, Body Fluid 25 /uL; Total Cells Counted,Body Fluid 100
--- NOTE | 2019-06-16 18:23 | CONS ---
CONSULTATION REASON FOR CONSULT: Renal failure, acidosis, hyperkalemia. HISTORY OF PRESENT ILLNESS: The patient is a 38-year-old female who has a history of chronic liver disease and portal hypertension with recurrent ascites, receiving paracenteses as outpatient almost on a weekly basis. The patient was admitted to the hospital with complaints of pain on her left leg where she states her daughter fell on her leg. There was no evidence of fractures. There is a hematoma noted in the left calf area. The patient was noted to be severely hypotensive and therefore she was admitted to the ICU. She is maintained on Levophed at about 10 mcg. Patient was also severely acidotic with a lactic acid of about 11. She denied any diarrhea, nausea or vomiting. There is no ongoing GI bleed at this point. Blood cultures are growing gram-negative bacilli. There is suspicion for possible subacute bacterial peritonitis and the fluid is currently being sent out. No obvious source of infection in the urinalysis. Patient has not had any significant urine output since yesterday. She has had only about 5 mL of urine output per hour. Patient did not respond to Lasix yesterday. She has received about 4 L of IV fluid boluses. No history of fevers or chills, chest pain or shortness of breath. Possible transfer to [facility] was discussed; however, patient declined. She has been admitted previously at [facility] for care of her liver disease. PAST MEDICAL HISTORY: 1. Type 2 diabetes. 2. Asthma. 3. Chronic liver disease, which is alcoholic liver disease. 4. Portal hypertension. 5. Hypothyroidism. PAST SURGICAL HISTORY: 1. Appendectomy. 2. Bariatric surgery. 3. Harshad-en-Y procedure. 4. . 5. Cholecystectomy. 6. Tubal ligation. 7. Left knee arthroscopy. 8. I&D of upper abdomen. 9. Panniculectomy. 10.Frequent paracenteses. SOCIAL HISTORY: Negative for smoking. Patient denies any active alcohol abuse. No history of other drug abuse. MEDICATIONS: Medications prior to admission included: 1. Synthroid. 2. Lactulose. 3. Omeprazole. 4. Zaroxolyn. 5. Rifaximin. 6. Aldactone. 7. Lasix. 8. Magnesium. 9. Midodrine. 10.Iron. 11.Zofran. 12.Ultram. ALLERGIES: ALLERGIES include: 1. BACTRIM, which causes swelling, rash. 2. ADHESIVE TAPE. 3. DUST. 4. CIGARETTE SMOKE. 5. TETANUS TOXOID, which causes swelling. REVIEW OF SYSTEMS: As per HPI. Other systems negative. PHYSICAL EXAMINATION: Patient is comfortable, awake, alert, oriented x3, not in any acute distress. This morning when patient was seen blood pressure was 90/46, heart rate of 105 per minute. She is afebrile. EXAMINATION OF THE HEART: S1 and S2. EXAMINATION OF LUNGS: Bilateral breath sounds are heard. ABDOMEN: Soft, non-tender. Examination of lower extremities shows edema 1+ bilaterally. 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 Patient is moving all 4 extremities. LABS: Sodium this morning 128, potassium 5.0. CO2 is 10. BUN 43, serum creatinine 4.5. Hemoglobin was 8.5 g/dL. UA showed 1+ protein, trace blood, WBCs 5, hyaline casts 60. ASSESSMENT: 1. Acute kidney injury, most likely acute tubular necrosis, with possibility of hepatorenal syndrome. However, given the significant hypotension, patient most likely has ATN. She has significant hyaline casts noted on the urinalysis as well. Currently patient is oliguric. We will continue with IV fluids, and if her urine output remains low with persistent acidosis or hyperkalemia, patient will need to be dialyzed. 2. Hyponatremia secondary to chronic liver disease, currently maintained on IV bicarb with some improvement in sodium levels, suggesting some underlying degree of hypovolemia as well. 3. Hyperkalemia associated with acute kidney injury and metabolic acidosis. 4. 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 5. Anion gap metabolic acidosis and non-gap metabolic acidosis secondary to lactic acidosis and renal failure, maintained on bicarb drip, slowly improving. 6. Hypotension secondary to sepsis. 7. Gram-negative bacteremia and sepsis, possibly related to the abdominal source, peritonitis versus bowel. 8. Coagulopathy secondary to chronic liver disease. PLAN: Continue with IV bicarb. Treat hyperkalemia with insulin and D50. Repeat another 500 mL of fluid bolus with normal saline. Check renal ultrasound. Maintain patient on empiric antibiotics and follow up on cultures of the peritoneal fluid. Thank you for this consultation. Will continue to follow this patient with you during her hospitalization. MMODL / IJN: [id number] /
[2019-06-16] MEDS: SPIRONOLACTONE 25 MG TAB PO SCH (18:32)
[2019-06-16] MEDS: LACTULOSE 20 GM/30 ML CUP PO SCH (20:17)
[2019-06-16] MEDS: ONDANSETRON 4 MG TAB PO PRN (20:20)
[2019-06-16 20:38] LABS: Potassium 5.8 mmol/L (3.5-5.1)
[2019-06-16] MEDS ORDERED: FUROSEMIDE 10 MG/ML 10 ML VIAL IV STA (21:26)
[2019-06-16] MEDS ORDERED: DEXTROSE 10 % IN WATER 250 ML IV STA (21:27)
[2019-06-17] MEDS: traMADol 50 MG TAB PO PRN (00:16)
[2019-06-17 05:54] LABS: Anisocytosis Slight; HCT 28.2 % (34.0-46.0); Hypochromasia Slight; MCH 31.8 pg (25.0-35.0); MCV 99.4 fL (80.0-100.0); Macrocytosis Slight; Mean Platelet Volume 9.8; RBC 2.84 m/uL (3.80-5.40); RDW 16.5 % (11.5-15.5); WBC 40.2 k/uL (3.8-10.6)
[2019-06-17 05:56] LABS: Platelet Count 69 k/uL (150-450)
[2019-06-17 06:00] LABS: INR 2.3 (<1.2); Prothrombin Time 22.8 sec (9.0-12.0)
[2019-06-17 06:04] LABS: Albumin 2.3 g/dL (3.5-5.0); Calcium 7.2 mg/dL (8.4-10.2); Phosphorus 5.1 mg/dL (2.5-4.5); Potassium 5.9 mmol/L (3.5-5.1); Total Bilirubin 7.5 mg/dL (0.2-1.3)
[2019-06-17] MEDS ORDERED: LEVOTHYROXINE 25 MCG TAB PO SCH (06:30)
[2019-06-17 06:38] LABS: Band Neutrophils % 10 %; Lymphocytes # (M) 1.61 k/uL (1.0-4.8); Monocytes # (M) 2.41 k/uL (0-1.0); Neutrophils % (M) 80 %; Nucleated Red Blood Cells 0 /100 WBC (0-0); Total Cells Counted 100
[2019-06-17] MEDS: MIDODRINE 5 MG TAB PO SCH ×2 (06:58→13:48)
[2019-06-17] MEDS: ONDANSETRON 4 MG TAB PO PRN (07:05)
[2019-06-17] MEDS: SPIRONOLACTONE 25 MG TAB PO SCH (07:06)
[2019-06-17] MEDS: DEXTROSE 5% IN WATER 1,000 ML with SODIUM BICARB (1 MEQ/ML) 150 ML IV SCH ×2 (07:06→09:59)
[2019-06-17] MEDS ORDERED: INSULIN ASPART (NovoLOG) 100 UNIT/ML VIAL SQ ONE (08:33)
[2019-06-17] MEDS ORDERED: DEXTROSE 50% SYRINGE 50 ML IVP STA ×2 (08:33→14:43)
[2019-06-17] MEDS ORDERED: DEXTROSE 10 % IN WATER 250 ML IV STA ×2 (08:36→14:45)
[2019-06-17] MEDS ORDERED: INSULIN REGULAR 100 UNIT/ML VIAL IV ONE ×2 (08:41→14:42)
--- NOTE | 2019-06-17 08:47 | XR ---
EXAMINATION TYPE: XR chest 1V portable DATE OF EXAM: 06/17/2019 HISTORY: central line placement. REFERENCE: Previous study dated 06/15/2019. FINDINGS: A left internal jugular catheter is been inserted. Its tip is in the right atrium. I do not see evidence of pneumothorax. The lungs appear clear. Pleural spaces are clear. The heart is not enl arged. IMPRESSION: I DO NOT SEE A POST CENTRAL LINE PLACEMENT COMPLICATION.
[2019-06-17] MEDS ORDERED: LACTULOSE 20 GM/30 ML CUP PO SCH ×2 (09:00→13:00)
--- NOTE | 2019-06-17 09:05 | P.PN ---
Subjective Patient is seen in follow-up for acute kidney injury. Creatinine was 4.84 on admission and is 4.23 today. Patient has received over 4 L of normal saline and is currently maintained on bicarb drip at 150 mL an hour. Patient remains hyperkalemic and oliguric. She is currently also on Levophed. Acidosis is improved. Patient is slightly confused but does respond to verbal commands. Denies chest pain. Vital signs are stable. Currently on vasopressor support. General: The patient appeared well nourished and normally developed. HEENT: Head exam is unremarkable. Neck is without jugular venous distension. LUNGS: Lungs are clear to auscultation and percussion. Breath sounds decreased. HEART: Rate and Rhythm are regular. First and second heart sounds normal. No murmurs, rubs or gallops. ABDOMEN: Bowel sounds present. Distention noted. EXTREMITITES: 2+ edema. Objective - Vital Signs Vital signs: Vital Signs Temp 97 F L 06/17/19 04:00 Pulse 108 H 06/17/19 07:00 Resp 20 06/17/19 07:00 BP 91/47 06/17/19 07:00 Pulse Ox 98 06/17/19 07:00 Intake & Output 06/16/19 06/17/19 06/17/19 18:59 06:59 18:59 Intake Total 3110.598 1961.131 150 Output Total 40 45 5 Balance 3070.598 1916.131 145 Weight 108.6 kg Intake: IV 2049 1700 150 Dextrose 5% in Water 1949 150 000 ml @ 150 mls/hr IV . Q7H40M [facility] with Sodium Bicarb (1 Meq/ml) 150 ml Rx#:[id number] Octreotide 100 mcg In 100 Sodium Chloride 0.9% 100 ml @ 200 mls/hr IVPB DAILY [facility] Rx#:[id number] cefTRIAXone 2 gm In 50 Sodium Chloride 0.9% 50 ml @ 100 mls/hr IVPB Q12HR [facility] Rx#:[id number] Intake, IV Titration 1060.598 261.131 Amount Albumin Human 25% 50 ml 100 In Empty Bag 1 bag @ 200 mls/hr IVPB Q15M [facility] Rx#: [id number] Albumin Human 25% 50 ml 50 In Empty Bag 1 bag @ 50 mls/hr IVPB ONCE ONE Rx#: [id number] Norepinephrine 4 mg In 310.598 261.131 Sodium Chloride 0.9% 250 ml @ 0.05 MCG/KG/MIN 18. 924 mls/hr IV .[id number] [facility] Rx#:[id number] Sodium Chloride 0.9% 500 500 ml 500 ml @ 999 mls/hr IV .Q31M ONE Rx#:[id number] cefTRIAXone 2 gm In 100 Sodium Chloride 0.9% 50 ml @ 100 mls/hr IVPB ONCE STA Rx#:[id number] Oral 0 Output: Urine 40 45 5 Other: Voiding Method Indwelling Catheter Indwelling Catheter - Labs CBC & Chem 7: 06/17/19 05:44 06/17/19 05:44 Labs: Abnormal Lab Results - Last 24 Hours (Table) 06/16/19 06/16/19 06/16/19 Range/Units 03:46 08:30 12:20 WBC (3.8-10.6) k/uL RBC (3.80-5.40) m/uL Hgb (11.4-16.0) gm/dL Hct (34.0-46.0) % RDW (11.5-15.5) % Plt Count (150-450) k/uL Neutrophils # (Manual) (1.3-7.7) k/uL Monocytes # (Manual) (0-1.0) k/uL PT 18.6 H (9.0-12.0) sec INR 1.9 H (<1.2) Sodium 129 L (137-145) mmol/L Potassium 5.5 H (3.5-5.1) mmol/L Chloride (98-107) mmol/L Carbon Dioxide 12 L (22-30) mmol/L BUN (7-17) mg/dL Creatinine (0.52-1.04) mg/dL Glucose (74-99) mg/dL POC Glucose (mg/dL) (75-99) mg/dL Plasma Lactic Acid Hitesh 11.4 H* (0.7-2.0) mmol/L Calcium (8.4-10.2) mg/dL Phosphorus (2.5-4.5) mg/dL Total Bilirubin (0.2-1.3) mg/dL AST (14-36) U/L Alkaline Phosphatase (38-126) U/L Total Protein (6.3-8.2) g/dL Albumin (3.5-5.0) g/dL 06/16/19 06/16/19 06/16/19 Range/Units 12:25 14:59 16:05 WBC (3.8-10.6) k/uL RBC (3.80-5.40) m/uL Hgb (11.4-16.0) gm/dL Hct (34.0-46.0) % RDW (11.5-15.5) % Plt Count (150-450) k/uL Neutrophils # (Manual) (1.3-7.7) k/uL Monocytes # (Manual) (0-1.0) k/uL PT (9.0-12.0) sec INR (<1.2) Sodium (137-145) mmol/L Potassium (3.5-5.1) mmol/L Chloride (98-107) mmol/L Carbon Dioxide (22-30) mmol/L BUN (7-17) mg/dL Creatinine (0.52-1.04) mg/dL Glucose (74-99) mg/dL POC Glucose (mg/dL) 117 H (75-99) mg/dL Plasma Lactic Acid Hitesh 11.4 H* 10.8 H* (0.7-2.0) mmol/L Calcium (8.4-10.2) mg/dL Phosphorus (2.5-4.5) mg/dL Total Bilirubin (0.2-1.3) mg/dL AST (14-36) U/L Alkaline Phosphatase (38-126) U/L Total Protein (6.3-8.2) g/dL Albumin (3.5-5.0) g/dL 06/16/19 06/16/19 06/16/19 Range/Units 20:12 20:12 23:30 WBC (3.8-10.6) k/uL RBC (3.80-5.40) m/uL Hgb (11.4-16.0) gm/dL Hct (34.0-46.0) % RDW (11.5-15.5) % Plt Count (150-450) k/uL Neutrophils # (Manual) (1.3-7.7) k/uL Monocytes # (Manual) (0-1.0) k/uL PT (9.0-12.0) sec INR (<1.2) Sodium 128 L (137-145) mmol/L Potassium 5.8 H 5.4 H (3.5-5.1) mmol/L Chloride 96 L (98-107) mmol/L Carbon Dioxide 13 L (22-30) mmol/L BUN (7-17) mg/dL Creatinine (0.52-1.04) mg/dL Glucose (74-99) mg/dL POC Glucose (mg/dL) (75-99) mg/dL Plasma Lactic Acid Hitesh 10.2 H* (0.7-2.0) mmol/L Calcium (8.4-10.2) mg/dL Phosphorus (2.5-4.5) mg/dL Total Bilirubin (0.2-1.3) mg/dL AST (14-36) U/L Alkaline Phosphatase (38-126) U/L Total Protein (6.3-8.2) g/dL Albumin (3.5-5.0) g/dL 06/16/19 06/17/19 06/17/19 Range/Units 23:55 05:44 05:44 WBC 40.2 H (3.8-10.6) k/uL RBC 2.84 L (3.80-5.40) m/uL Hgb 9.0 L (11.4-16.0) gm/dL Hct 28.2 L (34.0-46.0) % RDW 16.5 H (11.5-15.5) % Plt Count 69 L (150-450) k/uL Neutrophils # (Manual) 36.10 H (1.3-7.7) k/uL Monocytes # (Manual) 2.41 H (0-1.0) k/uL PT 22.8 H (9.0-12.0) sec INR 2.3 H (<1.2) Sodium (137-145) mmol/L Potassium (3.5-5.1) mmol/L Chloride (98-107) mmol/L Carbon Dioxide (22-30) mmol/L BUN (7-17) mg/dL Creatinine (0.52-1.04) mg/dL Glucose (74-99) mg/dL POC Glucose (mg/dL) (75-99) mg/dL Plasma Lactic Acid Hitesh 9.2 H* (0.7-2.0) mmol/L Calcium (8.4-10.2) mg/dL Phosphorus (2.5-4.5) mg/dL Total Bilirubin (0.2-1.3) mg/dL AST (14-36) U/L Alkaline Phosphatase (38-126) U/L Total Protein (6.3-8.2) g/dL Albumin (3.5-5.0) g/dL 06/17/19 Range/Units 05:44 WBC (3.8-10.6) k/uL RBC (3.80-5.40) m/uL Hgb (11.4-16.0) gm/dL Hct (34.0-46.0) % RDW (11.5-15.5) % Plt Count (150-450) k/uL Neutrophils # (Manual) (1.3-7.7) k/uL Monocytes # (Manual) (0-1.0) k/uL PT (9.0-12.0) sec INR (<1.2) Sodium 127 L (137-145) mmol/L Potassium 5.9 H (3.5-5.1) mmol/L Chloride 94 L (98-107) mmol/L Carbon Dioxide 19 L (22-30) mmol/L BUN 47 H (7-17) mg/dL Creatinine 4.23 H (0.52-1.04) mg/dL Glucose 114 H (74-99) mg/dL POC Glucose (mg/dL) (75-99) mg/dL Plasma Lactic Acid Hitesh (0.7-2.0) mmol/L Calcium 7.2 L (8.4-10.2) mg/dL Phosphorus 5.1 H (2.5-4.5) mg/dL Total Bilirubin 7.5 H (0.2-1.3) mg/dL AST 39 H (14-36) U/L Alkaline Phosphatase 197 H (38-126) U/L Total Protein 4.0 L (6.3-8.2) g/dL Albumin 2.3 L (3.5-5.0) g/dL Microbiology - Last 24 Hours (Table) 06/15/19 20:40 Urine Culture - Final Urine,Catheterized 06/15/19 19:45 Blood Culture Gram Stain - Preliminary Blood Blood Culture - Preliminary Gram Neg Bacilli 06/15/19 19:45 Blood Culture - Final Blood Assessment and Plan Plan: Assessment: 1. Acute kidney injury secondary to ATN secondary to sepsis and hypotension. Creatinine 4.23 today. Patient is oliguric. Patient did receive a dose of Lasix yesterday with no response in urine output. 2. Gram-negative bacteremia. Maintain on IV antibiotics. Concern for SBP. 3. Chronic liver failure. ? Alcohol versus medication induced. Patient follows at . GI following. 4. Septic shock maintained on Levophed. Also has chronic hypotension and is maintained on max dose of midodrine. 5. Hypervolemic hyponatremia. 6. Metabolic acidosis secondary to acute kidney injury maintain on bicarb drip. Improving. 7. Hyperkalemia secondary to acute kidney injury and metabolic acidosis. Plan: Maintain bicarb drip at 150 mL an hour. Hold diuretics. Wean vasopressors. Maintain midodrine. Follow-up cultures. Due to persistent hyperkalemia, or oliguria and volume overload, I will initiate renal replacement therapy. I will try short treatment today with low blood flows and minimal ultrafiltration due to hemodynamic instability. Patient is agreeable. Consult vascular surgery for dialysis catheter placement. 10 units of IV insulin with an amp of D50 now. Case discussed with the vacation sales advisor.
[2019-06-17] MEDS: OCTREOTIDE 100 MCG in SODIUM CHLORIDE 0.9% 100 ML IVPB SCH (09:23)
[2019-06-17] MEDS: LACTULOSE 20 GM/30 ML CUP PO SCH (09:24)
[2019-06-17] MEDS: PANTOPRAZOLE 40 MG/10 ML VIAL IV SCH (09:25)
[2019-06-17] MEDS: RIFAXIMIN 550 MG TABLET PO SCH (09:25)
[2019-06-17] MEDS ORDERED: NOREPINEPHRINE 32 MG in SODIUM CHLORIDE 0.9% 218 ML IV SCH (09:30)
[2019-06-17] MEDS ORDERED: PHYTONADIONE ORAL 5 MG/5 ML ORAL.SYRG PO STA (09:53)
[2019-06-17] MEDS ORDERED: PHYTONADIONE 5 MG in SODIUM CHLORIDE 0.9% 50 ML IVPB STA (11:11)
--- NOTE | 2019-06-17 11:24 | P.PN ---
Subjective Progress Note Date: 06/17/19 Principal diagnosis: Leg pain, decompensated cirrhosis of the liver with ascites and encephalopathy, acute kidney injury Patient seen lying in bed. No nausea vomiting reported. No bowel movements today. Denies any signs or symptoms of GI bleeding. Reports legs are extremely tender bilaterally and she is feeling weak. Objective - Vital Signs Vital signs: Vital Signs Temp 97 F L 06/17/19 04:00 Pulse 108 H 06/17/19 07:00 Resp 20 06/17/19 07:00 BP 91/47 06/17/19 07:00 Pulse Ox 98 06/17/19 07:00 Intake & Output 06/16/19 06/17/19 06/17/19 18:59 06:59 18:59 Intake Total 3110.598 1961.131 150 Output Total 40 45 5 Balance 3070.598 1916.131 145 Weight 108.6 kg Intake: IV 2049 1700 150 Dextrose 5% in Water 1949 165 150 000 ml @ 150 mls/hr IV . Q7H40M [facility]RA with Sodium Bicarb (1 Meq/ml) 150 ml Rx#:[id number] Octreotide 100 mcg In 100 Sodium Chloride 0.9% 100 ml @ 200 mls/hr IVPB DAILY [facility] Rx#:[id number] cefTRIAXone 2 gm In 50 Sodium Chloride 0.9% 50 ml @ 100 mls/hr IVPB Q12HR [facility] Rx#:[id number] Intake, IV Titration 1060.598 261.131 Amount Albumin Human 25% 50 ml 100 In Empty Bag 1 bag @ 200 mls/hr IVPB Q15M [facility] Rx#: [id number] Albumin Human 25% 50 ml 50 In Empty Bag 1 bag @ 50 mls/hr IVPB ONCE ONE Rx#: [id number] Norepinephrine 4 mg In 310.598 261.131 Sodium Chloride 0.9% 250 ml @ 0.05 MCG/KG/MIN 18. 924 mls/hr IV .[id number] [facility] Rx#:[id number] Sodium Chloride 0.9% 500 500 ml 500 ml @ 999 mls/hr IV .Q31M ONE Rx#:[id number] cefTRIAXone 2 gm In 100 Sodium Chloride 0.9% 50 ml @ 100 mls/hr IVPB ONCE STA Rx#:[id number] Oral 0 Output: Urine 40 45 5 Other: Voiding Method Indwelling Catheter Indwelling Catheter - Exam On physical examination, patient appears comfortable in no apparent distress. HEAD: Normocephalic, atraumatic. EYES: Scleral icterus. No conjunctival injection. MOUTH: No lesions, tongue midline. NECK: Trachea midline, no gross abnormalities. CHEST: Clear to auscultation with no wheezing or rhonchi appreciated. HEART: Regular rhythm, tachycardic. ABDOMEN: Soft, obese, moderately distended. Bowel sounds are positive. No organomegaly. No guarding or rigidity. EXTREMITIES: Bilateral 2+ pitting edema. SKIN: Bullous rash on left lower extremity, no jaundice. NEUROLOGIC: Alert and oriented x3, with asterixis noted. No focal deficits. - Labs CBC & Chem 7: 06/17/19 05:44 06/17/19 05:44 Labs: Abnormal Lab Results - Last 24 Hours (Table) 06/16/19 06/16/19 06/16/19 Range/Units 03:46 08:30 12:20 WBC (3.8-10.6) k/uL RBC (3.80-5.40) m/uL Hgb (11.4-16.0) gm/dL Hct (34.0-46.0) % RDW (11.5-15.5) % Plt Count (150-450) k/uL Neutrophils # (Manual) (1.3-7.7) k/uL Monocytes # (Manual) (0-1.0) k/uL PT 18.6 H (9.0-12.0) sec INR 1.9 H (<1.2) Sodium 129 L (137-145) mmol/L Potassium 5.5 H (3.5-5.1) mmol/L Chloride (98-107) mmol/L Carbon Dioxide 12 L (22-30) mmol/L BUN (7-17) mg/dL Creatinine (0.52-1.04) mg/dL Glucose (74-99) mg/dL POC Glucose (mg/dL) (75-99) mg/dL Plasma Lactic Acid Hitesh 11.4 H* (0.7-2.0) mmol/L Calcium (8.4-10.2) mg/dL Phosphorus (2.5-4.5) mg/dL Total Bilirubin (0.2-1.3) mg/dL AST (14-36) U/L Alkaline Phosphatase (38-126) U/L Total Protein (6.3-8.2) g/dL Albumin (3.5-5.0) g/dL 06/16/19 06/16/19 06/16/19 Range/Units 12:25 14:59 16:05 WBC (3.8-10.6) k/uL RBC (3.80-5.40) m/uL Hgb (11.4-16.0) gm/dL Hct (34.0-46.0) % RDW (11.5-15.5) % Plt Count (150-450) k/uL Neutrophils # (Manual) (1.3-7.7) k/uL Monocytes # (Manual) (0-1.0) k/uL PT (9.0-12.0) sec INR (<1.2) Sodium (137-145) mmol/L Potassium (3.5-5.1) mmol/L Chloride (98-107) mmol/L Carbon Dioxide (22-30) mmol/L BUN (7-17) mg/dL Creatinine (0.52-1.04) mg/dL Glucose (74-99) mg/dL POC Glucose (mg/dL) 117 H (75-99) mg/dL Plasma Lactic Acid Hitesh 11.4 H* 10.8 H* (0.7-2.0) mmol/L Calcium (8.4-10.2) mg/dL Phosphorus (2.5-4.5) mg/dL Total Bilirubin (0.2-1.3) mg/dL AST (14-36) U/L Alkaline Phosphatase (38-126) U/L Total Protein (6.3-8.2) g/dL Albumin (3.5-5.0) g/dL 06/16/19 06/16/19 06/16/19 Range/Units 20:12 20:12 23:30 WBC (3.8-10.6) k/uL RBC (3.80-5.40) m/uL Hgb (11.4-16.0) gm/dL Hct (34.0-46.0) % RDW (11.5-15.5) % Plt Count (150-450) k/uL Neutrophils # (Manual) (1.3-7.7) k/uL Monocytes # (Manual) (0-1.0) k/uL PT (9.0-12.0) sec INR (<1.2) Sodium 128 L (137-145) mmol/L Potassium 5.8 H 5.4 H (3.5-5.1) mmol/L Chloride 96 L (98-107) mmol/L Carbon Dioxide 13 L (22-30) mmol/L BUN (7-17) mg/dL Creatinine (0.52-1.04) mg/dL Glucose (74-99) mg/dL POC Glucose (mg/dL) (75-99) mg/dL Plasma Lactic Acid Hitesh 10.2 H* (0.7-2.0) mmol/L Calcium (8.4-10.2) mg/dL Phosphorus (2.5-4.5) mg/dL Total Bilirubin (0.2-1.3) mg/dL AST (14-36) U/L Alkaline Phosphatase (38-126) U/L Total Protein (6.3-8.2) g/dL Albumin (3.5-5.0) g/dL 06/16/19 06/17/19 06/17/19 Range/Units 23:55 05:44 05:44 WBC 40.2 H (3.8-10.6) k/uL RBC 2.84 L (3.80-5.40) m/uL Hgb 9.0 L (11.4-16.0) gm/dL Hct 28.2 L (34.0-46.0) % RDW 16.5 H (11.5-15.5) % Plt Count 69 L (150-450) k/uL Neutrophils # (Manual) 36.10 H (1.3-7.7) k/uL Monocytes # (Manual) 2.41 H (0-1.0) k/uL PT 22.8 H (9.0-12.0) sec INR 2.3 H (<1.2) Sodium (137-145) mmol/L Potassium (3.5-5.1) mmol/L Chloride (98-107) mmol/L Carbon Dioxide (22-30) mmol/L BUN (7-17) mg/dL Creatinine (0.52-1.04) mg/dL Glucose (74-99) mg/dL POC Glucose (mg/dL) (75-99) mg/dL Plasma Lactic Acid Hitesh 9.2 H* (0.7-2.0) mmol/L Calcium (8.4-10.2) mg/dL Phosphorus (2.5-4.5) mg/dL Total Bilirubin (0.2-1.3) mg/dL AST (14-36) U/L Alkaline Phosphatase (38-126) U/L Total Protein (6.3-8.2) g/dL Albumin (3.5-5.0) g/dL 06/17/19 Range/Units 05:44 WBC (3.8-10.6) k/uL RBC (3.80-5.40) m/uL Hgb (11.4-16.0) gm/dL Hct (34.0-46.0) % RDW (11.5-15.5) % Plt Count (150-450) k/uL Neutrophils # (Manual) (1.3-7.7) k/uL Monocytes # (Manual) (0-1.0) k/uL PT (9.0-12.0) sec INR (<1.2) Sodium 127 L (137-145) mmol/L Potassium 5.9 H (3.5-5.1) mmol/L Chloride 94 L (98-107) mmol/L Carbon Dioxide 19 L (22-30) mmol/L BUN 47 H (7-17) mg/dL Creatinine 4.23 H (0.52-1.04) mg/dL Glucose 114 H (74-99) mg/dL POC Glucose (mg/dL) (75-99) mg/dL Plasma Lactic Acid Hitesh (0.7-2.0) mmol/L Calcium 7.2 L (8.4-10.2) mg/dL Phosphorus 5.1 H (2.5-4.5) mg/dL Total Bilirubin 7.5 H (0.2-1.3) mg/dL AST 39 H (14-36) U/L Alkaline Phosphatase 197 H (38-126) U/L Total Protein 4.0 L (6.3-8.2) g/dL Albumin 2.3 L (3.5-5.0) g/dL Microbiology - Last 24 Hours (Table) 06/15/19 20:40 Urine Culture - Final Urine,Catheterized 06/15/19 19:45 Blood Culture Gram Stain - Preliminary Blood Blood Culture - Preliminary Gram Neg Bacilli 06/15/19 19:45 Blood Culture - Final Blood Assessment and Plan (1) Decompensated liver disease Narrative/Plan: 38-year-old female with a known history of decompensated cirrhosis of the liver, unclear if secondary to alcohol abuse as the patient has denied excessive use in the past, with a site is requiring paracentesis and hepatic encephalopathy who initially presented to the hospital with complaints of leg pain. Lower extremity Doppler limited with no obvious DVT noted. Patient found to have elevated lactic acid and hypotension with blood culture reporting gram-negative bacilli with suspicion for possible spontaneous bacterial peritonitis. Current Visit: No Status: Acute Code(s): K74.69 - OTHER CIRRHOSIS OF LIVER SNOMED Code(s): 30328994 (2) Coagulopathy Current Visit: Yes Status: Acute Code(s): D68.9 - COAGULATION DEFECT, UNSPECIFIED SNOMED Code(s): 98814214 (3) Elevated lactic acid level Current Visit: Yes Status: Acute Code(s): R79.89 - OTHER SPECIFIED ABNORMAL FINDINGS OF BLOOD CHEMISTRY SNOMED Code(s): 4833578 (4) Elevated liver enzymes Current Visit: Yes Status: Acute Code(s): R74.8 - ABNORMAL LEVELS OF OTHER SERUM ENZYMES SNOMED Code(s): 663784911 (5) Portal hypertension Current Visit: Yes Status: Acute Code(s): K76.6 - PORTAL HYPERTENSION SNOMED Code(s): 98238245 (6) Hepatic encephalopathy Current Visit: No Status: Acute Code(s): K72.90 - HEPATIC FAILURE, UNSPECIFIED WITHOUT COMA SNOMED Code(s): 33327016 (7) Jaundice Current Visit: No Status: Acute Code(s): R17 - UNSPECIFIED JAUNDICE SNOMED Code(s): 83170734 Plan: Supportive care Continue ICU management Continue Rocephin therapy, consideration for infectious disease consult given lower extremity rash for possible escalation of antibiotic therapy Nephrology following with acute elevation in creatinine, patient currently receiving albumin, midodrine and octreotide Lactulose increased to 4 times a day, continue Xifaxan Continue pressor support per community artist service Vitamin K given Continue to monitor clinically and labs Consideration for transferred to [facility] if patient does not improve clinically Paracentesis ordered Thank you for allowing us to participate in the care of the patient we will continue to follow
--- NOTE | 2019-06-17 11:36 | CT ---
EXAMINATION TYPE: CT lower extremity LT wo con DATE OF EXAM: 06/17/2019 COMPARISON: Plain films dated 06/15/2019. HISTORY: Swelling, wound just below knee posterior side CT DLP: 712.4 mGycm Automated exposure control for dose reduction was used. FINDINGS: There is extensive subcutaneous emphysema throughout the superficial soft tissues of the le ft lower extremity. Several fluid-filled skin blisters appear to be present. No fracture, dislocation or bony destructive lesion is seen. The tibia and fibula. Intact. IMPRESSION: 1. NO ACUTE OSSEOUS LESION. 2. EXTENSIVE EDEMA AND BLISTER FORMATION.
--- NOTE | 2019-06-17 12:05 | P.PN ---
Subjective Progress Note Date: 06/17/19 38-year-old here patient with liver failure/cirrhosis, previous history of morbid obesity post Harshad-en-Y gastric bypass surgery with more than 160 pounds weight loss, previous history of alcohol abuse and liver cirrhosis was coming in with left leg pain, hypotension, acute kidney failure. I was informed of this admission from the emergency department. The patient was suspected to be septic as the patient had some bandemia in addition to hypotension and tachycardia. No documented fever. The patient was started on IV Rocephin. Subsequent blood cultures came back positive for gram-negative bacillus and the final cultures and sensitivities are still pending for now. The patient was started on IV fluid resuscitation. She was given immediately liters in the emergency Department. Subsequent she got 2 units of fresh frozen plasma, triple-lumen catheter was inserted and the patient was transferred to the intensive care unit and placed on a bicarb infusion and she is also currently on pressors which is running at 7-8 g per minute. The patient is not producing much of urine output. She does have diffuse anasarca and ascites. She apparently she receives frequent paracentesis almost on a weekly basis related to her liver cirrhosis and fluid overload. For now, the patient's bands were 37%, the patient was coagulopathic with an INR of 1.9 with a PT of 19.1 and a PTT of 39.7, she was hyponatremic with a sodium levels of 127, serum bicarb of 9, potassium level of 5.3, anion gap of 16, creatinine of 4.7 which improved down to 4.5 and the lactic acid level of 11. The liver functions is also abnormal. Bilirubin is at 5.9. Essentially normal AST and ALT, ammonia level is at 55. She is lethargic is easily arousable and she is following commands and answering questions appropriately. No cough sputum production. No chest tightness. No worsening shortness of breath. No abdominal pain or direct tenderness or rebound tensile guarding. The Doppler of the lower extremity was negative for DVT. An x-ray of the lower extremity was done that showed subcutaneous edema without any acute fracture and this was done as the patient was complaining of left lower extremity pain. In terms of her liver failure, as mentioned, the patient requires weekly paracentesis and she was being investigated for liver chest mentation at [facility] although she has not been listed. She has been on Lasix 80 mg twice a day and Aldactone 50 mg by mouth daily and she takes Xifaxan for hepatic encephalopathy in addition to lactulose 20 g 4 times a day. On 06/17/2019 the patient is still doing poorly. She is still pressor dependent. Overnight she lost her triple-lumen cath peritonitis is another IJ triple lumen catheter in the left neck. The patient is to pressor dependent at 10 mics of norepinephrine infusion. Urine output is very minimal, essentially none, and the patient is developing progressive fluid overloaded with increased ascites and increased lower extremity edema. As mentioned earlier the patient developed a gram-negative septicemia. The ascitic fluid was sampled and it is negative for SBP. Urine analysis was also negative for any infection. The patient came in with some leg pain. There are some obvious changes in the skin of the left lower extremity. The patient has developed clusters of tiny blood spots that look like pinprick in the skin and these areas of coalescing and they're forming bigger blisters and bruises. There are also areas of purple skin discoloration. This is probably due to his manifestation of sepsis. It may occur with gram-negative bacteremia with endotoxin production. Consider ecthyma gangrenosum. A CAT scan of the left lower extremity was done and showed subcutaneous emphysema and is also revealed the blisters. No DVT in lower extremity. Pulses in the lower external his are present. The patient remains on IV Rocephin 2 g every 24 hours. The blood cultures still positive for gram- negative bacillus. She is lethargic and she has a degree of encephalopathy secondary to sepsis and hepatic encephalopathy. Upon further investigation, the cultures came back positive for E. coli. Atelectatic discussion with the operations research manager. Based on her septicemia, white cell count, hyperkalemia, fluid overload or encephalopathy in urine output, he thought is reasonable to proceed with hemodialysis. Lactic acid level from yesterday was 10.8. Serum bicarb is improving is up to 19. The patient on a bicarb infusion. Creatinine is down to 4.23 which could be essentially dilutional. Potassium level is at 5.5. Sodium level is at 127. Note that the patient was aggressively resuscitated IV fluids and crystalloids and colloids. Menstrual balance for yesterday was +5 L and 3.5 L today before. Her weight is up to 108 kg Objective - Vital Signs Vital signs: Vital Signs Temp 96.4 F L 06/17/19 08:00 Pulse 88 06/17/19 10:15 Resp 20 06/17/19 10:15 BP 106/44 06/17/19 10:15 Pulse Ox 98 06/17/19 10:15 Intake & Output 06/16/19 06/17/19 06/17/19 18:59 06:59 18:59 Intake Total 3110.598 3493.002 8478 Output Total 40 45 10 Balance 3070.598 7597.961 3374 Weight 108.6 kg Intake: IV 2049 170 1150 Dextrose 10 % in Water 250 250 ml @ 999 mls/hr IV ONCE ONE Rx#:[id number] Dextrose 5% in Water 1949 1650 750 000 ml @ 150 mls/hr IV . Q7H40M KYRA with Sodium Bicarb (1 Meq/ml) 150 ml Rx#:[id number] Octreotide 100 mcg In 100 100 Sodium Chloride 0.9% 100 ml @ 200 mls/hr IVPB DAILY [facility] Rx#:[id number] cefTRIAXone 2 gm In 50 50 Sodium Chloride 0.9% 50 ml @ 100 mls/hr IVPB Q12HR [facility] Rx#:[id number] Intake, IV Titration 1060.598 261.131 Amount Albumin Human 25% 50 ml 100 In Empty Bag 1 bag @ 200 mls/hr IVPB Q15M [facility] Rx#: [id number] Albumin Human 25% 50 ml 50 In Empty Bag 1 bag @ 50 mls/hr IVPB ONCE ONE Rx#: [id number] Norepinephrine 4 mg In 310.598 261.131 Sodium Chloride 0.9% 250 ml @ 0.05 MCG/KG/MIN 18. 924 mls/hr IV .[id number] [facility] Rx#:[id number] Sodium Chloride 0.9% 500 500 ml 500 ml @ 999 mls/hr IV .Q31M ONE Rx#:[id number] cefTRIAXone 2 gm In 100 Sodium Chloride 0.9% 50 ml @ 100 mls/hr IVPB ONCE STA Rx#:[id number] Oral 0 Output: Urine 40 45 10 Other: Voiding Method Indwelling Catheter Indwelling Catheter - Exam Gen. appearance, comfortable, lethargic, arousable, awake and alert and she is able to follow commands and answer questions appropriately. Somewhat sleepy. Head exam was generally normal. There was no scleral icterus or corneal arcus. Mucous membranes were moist. Neck was supple and without jugular venous distension, thyromegaly, or carotid bruits. Carotids were easily palpable bilaterally. There was no adenopathy. The patient is conjunctival pallor and icterus and some jaundice. Lungs sounds are diminished in lung bases bilaterally. Cardiac exam revealed the PMI to be normally situated and sized. The rhythm was regular and no extrasystoles were noted during several minutes of auscultation. The first and second heart sounds were normal and physiologic splitting of the second heart sound was noted. There were no murmurs, rubs, clicks, or gallops. Abdomen is soft and distended with a moderate-sized ascites. Bowel sounds are h ypoactive at the present. No peritoneal signs. No direct tenderness or rebound tensile guarding at this point in time. Extremities revealed +2-3 pitting edema and there is no cyanosis or clubbing. Motor functions diminished in lower to mid is bilaterally. No cyanosis. The left lower extremity is slightly more swollen compared to the right. Examination of the skin revealed hemorrhagic bloody vesicles developing in the posterior aspect of the left lower extremity and these are vesicles which could be potentially developing into pustules. No open wounds or ulcerations this point in time. No black necrotic areas for now. There was some areas of pinprick hemorrhagic area spreading in the posterior aspect of the left lower extremity. Neurologically awake and alert and there is no focal neurological deficit. Cranial nerves are intact. The patient is somewhat encephalopathic despite be ing awake. She tells that she cannot think right and she is having a cloudy sensorium. - Labs CBC & Chem 7: 06/17/19 05:44 06/17/19 05:44 Labs: Abnormal Lab Results - Last 24 Hours (Table) 06/16/19 06/16/19 06/16/19 Range/Units 12:20 12:25 14:59 WBC (3.8-10.6) k/uL RBC (3.80-5.40) m/uL Hgb (11.4-16.0) gm/dL Hct (34.0-46.0) % RDW (11.5-15.5) % Plt Count (150-450) k/uL Neutrophils # (Manual) (1.3-7.7) k/uL Monocytes # (Manual) (0-1.0) k/uL PT (9.0-12.0) sec INR (<1.2) Sodium 129 L (137-145) mmol/L Potassium 5.5 H (3.5-5.1) mmol/L Chloride (98-107) mmol/L Carbon Dioxide 12 L (22-30) mmol/L BUN (7-17) mg/dL Creatinine (0.52-1.04) mg/dL Glucose (74-99) mg/dL POC Glucose (mg/dL) 117 H (75-99) mg/dL Plasma Lactic Acid Hitesh 11.4 H* (0.7-2.0) mmol/L Calcium (8.4-10.2) mg/dL Phosphorus (2.5-4.5) mg/dL Total Bilirubin (0.2-1.3) mg/dL AST (14-36) U/L Alkaline Phosphatase (38-126) U/L Total Protein (6.3-8.2) g/dL Albumin (3.5-5.0) g/dL 06/16/19 06/16/19 06/16/19 Range/Units 16:05 20:12 20:12 WBC (3.8-10.6) k/uL RBC (3.80-5.40) m/uL Hgb (11.4-16.0) gm/dL Hct (34.0-46.0) % RDW (11.5-15.5) % Plt Count (150-450) k/uL Neutrophils # (Manual) (1.3-7.7) k/uL Monocytes # (Manual) (0-1.0) k/uL PT (9.0-12.0) sec INR (<1.2) Sodium 128 L (137-145) mmol/L Potassium 5.8 H (3.5-5.1) mmol/L Chloride 96 L (98-107) mmol/L Carbon Dioxide 13 L (22-30) mmol/L BUN (7-17) mg/dL Creatinine (0.52-1.04) mg/dL Glucose (74-99) mg/dL POC Glucose (mg/dL) (75-99) mg/dL Plasma Lactic Acid Hitesh 10.8 H* 10.2 H* (0.7-2.0) mmol/L Calcium (8.4-10.2) mg/dL Phosphorus (2.5-4.5) mg/dL Total Bilirubin (0.2-1.3) mg/dL AST (14-36) U/L Alkaline Phosphatase (38-126) U/L Total Protein (6.3-8.2) g/dL Albumin (3.5-5.0) g/dL 06/16/19 06/16/19 06/17/19 Range/Units 23:30 23:55 05:44 WBC 40.2 H (3.8-10.6) k/uL RBC 2.84 L (3.80-5.40) m/uL Hgb 9.0 L (11.4-16.0) gm/dL Hct 28.2 L (34.0-46.0) % RDW 16.5 H (11.5-15.5) % Plt Count 69 L (150-450) k/uL Neutrophils # (Manual) 36.10 H (1.3-7.7) k/uL Monocytes # (Manual) 2.41 H (0-1.0) k/uL PT (9.0-12.0) sec INR (<1.2) Sodium (137-145) mmol/L Potassium 5.4 H (3.5-5.1) mmol/L Chloride (98-107) mmol/L Carbon Dioxide (22-30) mmol/L BUN (7-17) mg/dL Creatinine (0.52-1.04) mg/dL Glucose (74-99) mg/dL POC Glucose (mg/dL) (75-99) mg/dL Plasma Lactic Acid Hitesh 9.2 H* (0.7-2.0) mmol/L Calcium (8.4-10.2) mg/dL Phosphorus (2.5-4.5) mg/dL Total Bilirubin (0.2-1.3) mg/dL AST (14-36) U/L Alkaline Phosphatase (38-126) U/L Total Protein (6.3-8.2) g/dL Albumin (3.5-5.0) g/dL 06/17/19 06/17/19 06/17/19 Range/Units 05:44 05:44 05:44 WBC (3.8-10.6) k/uL RBC (3.80-5.40) m/uL Hgb (11.4-16.0) gm/dL Hct (34.0-46.0) % RDW (11.5-15.5) % Plt Count (150-450) k/uL Neutrophils # (Manual) (1.3-7.7) k/uL Monocytes # (Manual) (0-1.0) k/uL PT 22.8 H (9.0-12.0) sec INR 2.3 H (<1.2) Sodium 127 L (137-145) mmol/L Potassium 5.9 H (3.5-5.1) mmol/L Chloride 94 L (98-107) mmol/L Carbon Dioxide 19 L (22-30) mmol/L BUN 47 H (7-17) mg/dL Creatinine 4.23 H (0.52-1.04) mg/dL Glucose 114 H (74-99) mg/dL POC Glucose (mg/dL) (75-99) mg/dL Plasma Lactic Acid Hitesh 8.1 H* (0.7-2.0) mmol/L Calcium 7.2 L (8.4-10.2) mg/dL Phosphorus 5.1 H (2.5-4.5) mg/dL Total Bilirubin 7.5 H (0.2-1.3) mg/dL AST 39 H (14-36) U/L Alkaline Phosphatase 197 H (38-126) U/L Total Protein 4.0 L (6.3-8.2) g/dL Albumin 2.3 L (3.5-5.0) g/dL Microbiology - Last 24 Hours (Table) 06/15/19 19:45 Blood Culture Gram Stain - Final Blood Blood Culture - Final Escherichia coli 06/15/19 20:40 Urine Culture - Final Urine,Catheterized Assessment and Plan Plan: 1 septic shock secondary to E. coli which was cultured in the blood. The ascitic fluid is being analyzed the cultures still pending for now. The preliminary blood counts is not indicating SBP. UA was negative and urine cultures still pending. Nevertheless the patient has oliguric/anuric and output has been minimal for the time being. The patient on Rocephin 2 g every 24 hours. 2 acute hypotension secondary to septic shock currently on pressors. The patie nt has been resuscitated IV fluids and the patient is currently on a bicarb infusion addition to pressors and IV Rocephin. The patient is not fluid balance more than 9 L positive. The patient is developing some third spacing of fluid overload. The patient received a combination of crystalloids and colloids. Still on pressors with levo fed and a bicarb infusion. 3 acute kidney injury on top of chronic kidney disease. Consider ATN secondary to hypotension/sepsis. Consider hepatorenal syndrome. The patient remains oliguric. Unfortunately the patient developing fluid overload. He remains slightly hypokalemic. The acidosis improving pH is encephalopathic. 4 liver cirrhosis with stigmata of chronic liver failure and portal hypertension and ascites in anasarca in addition to jaundice and coagulopathy and hypoproteinemia and hyperammonemia. The patient was requiring frequent paracen tesis and she is was being investigated for possible liver transplantation at [facility]. I don't think she is listed and I think she had been declined because of her poor compliance he. 5 chronic anemia 6 history of frequent urinary tract infections with gram-negative bacteria 7 hyperammonemia without any major hepatic encephalopathy symptoms on clinical grounds 8 acute lactic acidosis secondary to septic shock and liver failure 9 severe anion gap metabolic acidosis 10 hypochloremic hyponatremia secondary to liver cirrhosis 11 leg pain with a negative workup including a Doppler and x-rays and there is no evidence of any rhabdomyolysis. No evidence of any cellulitis. Never theless, on today's evaluation, the patient developing pinprick hemorrhagic spots and vesicles and there is concern for ecthyma gangrenosum in the setting of a gram-negative septicemia. 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 The CAT scan of the lower extremity was completed. Plan A triple-lumen catheter was inserted. We'll suggest insertion of a dialysis catheter. Does may be initiated today. The findings on the case. We'll monitor the potassium level and acidosis. Continue pressors. Continue an tibiotics. Consult with GI. Consult with ID. We'll continue to follow. Condition is critical. High mortality baseline above-mentioned comorbidities. We'll leave the treatment of hyperkalemia per nephrology. We will maintain the bicarb drip. We'll giving D50 with insulin and we'll monitor the potassium.
--- NOTE | 2019-06-17 14:27 | PCN ---
PROCEDURE NOTE TRIPLE LUMEN CATHETER PLACEMENT: Indication Hemodynamic monitoring/Intravenous access. A time-out was completed verifying correct patient, procedure, site, positioning, and implant(s) or special equipment if applicable. The patient was placed in a dependent position appropriate for triple lumen catheter placement based on the vein to be cannulated. The patient's left neck was prepped and draped in sterile fashion. 1% Lidocaine was used to anesthetize the surrounding skin area. A triple lumen 9F Cordis catheter was introduced into the internal jugular vein using Seldinger technique. The catheter was threaded smoothly over the guide wire and appropriate blood return was obtained. Each lumen of the catheter was evacuated of air and flushed with sterile saline. The catheter was then sutured in place to the skin and a sterile dressing applied. Perfusion to the extremity distal to the point of catheter insertion was checked and found to be adequate. No complications. No pneumothorax. MMODL / IJN: [id number] /
--- NOTE | 2019-06-17 15:22 | P.DS ---
Providers Date of admission: 06/15/19 18:17 Attending physician: Hosea Connolly MD Consults: 06/15/19 18:18 Consult Physician Urgent Consulting Provider: Lisbeth Krueger Consult Reason/Comments: Liver failure Do you want consulting provider notified?: Yes Consult Physician Urgent Consulting Provider: Amy Villalobos Consult Reason/Comments: Acute renal failure, hyperkalemia Do you want consulting provider notified?: Already Contacted 06/15/19 20:02 Consult Physician Urgent Consulting Provider: Rosendo Figueroa Consult Reason/Comments: critical care Do you want consulting provider notified?: Already Contacted 06/17/19 08:32 Consult Physician Stat Consulting Provider: Edwin Rojo Consult Reason/Comments: hemodialysis cath Do you want consulting provider notified?: Yes Primary care physician: Cammy Lobato [facility] Course: 38-year-old the female with known history of cirrhosis believed to have alcoholic cirrhosis although patient denies that used to be on the liver transplant list not in the transplant list anymore came in because of pain in the leg appeared to be a mechanical injury to the leg although there is no evidence of fracture patient is incidentally found to be in shock and found to be septic and with bacteremia from E. coli possible source being abdominal urine is not impressive. Patient has significant ascites acetic fluid showed only white blood cell count of per 23 but the this fluid was obtained after starting her on antibiotics. Patient is presently on pressor support with norepinephrine. Patient does have a productive renal syndrome with baseline c reatinine of 1.5 now around 5.25 oliguric will require continuous renal replacement therapy because of which I'll transfer this patient to [facility] discussed with [facility] director park who accepted the patient. Patient is presently on to try to, Midrin and albumin for hepatorenal syndrome. Patient is also on IV bicarbonate infusion. Patient is severely acidotic when she came in which is predominantly anion gap metabolic acidosis from highly elevated lactic acid her lactic acid was 13 when she came in now around 8. Patient's white blood cell count has gone up from 5.6-40 INR is 2.3 patient is hyponatremic hypokalemic. Patient received IV vitamin K. Patient is severely lethargic her ammonia level is 10 patient does have history of hepatic encephalopathy is presently on rifaximin and lactulose, patient has increased swelling in both legs with the bullae in the left calf area probably ecthema gangrenosum. Triple lumen IJ but patient will need a Jose line for CRRT at dialysis. Patient is on Rocephin 1 g daily because of poor renal function patient is on IV bicarbonate drip along with midodrine and octreotide rifaximin main PHYSICAL EXAMINATION: GENERAL: Patient is quite a bit lethargic drowsy HEENT: Pupils are round and equally reacting to light. EOMI. is have scleral icterus. No conjunctival pallor. Normocephalic, atraumatic. No pharyngeal erythema. No thyromegaly. CARDIOVASCULAR: S1 and S2 present. No murmurs, rubs, or gallops. PULMONARY: Chest is clear to auscultation, no wheezing or crackles. ABDOMEN: Is distended the fluid thrill no significant tenderness was appreciated patient does have asterixis does have peripheral signs of cirrhosis. MUSCULOSKELETAL: No joint swelling or deformity. EXTREMITIES: No cyanosis, clubbing, and does have a bilateral pedal edema with bullae in the left calf area probably gangrenosum related to infection which is ecthema gangrenosum NEUROLOGICAL: Gross neurological examination did not reveal any focal deficits. SKIN: No rashes. -Septic shock with gram-negative bacteremia, E. coli bacteremia: A pansensitive patient is on Rocephin as mentioned above possible source intra-abdominal -anion gap metabolic acidosis secondary to lactic acidosis and uremia -Lactic lactic acidosis secondary to sepsis and advance as cirrhosis -Cirrhosis -Acute renal failure: Secondary to sepsis acute tubular necrosis, hepatorenal syndrome -Anemia of liver disease chronic -Hepatic encephalopathy ammonia level is only now -Type 2 diabetes mellitus -Hypothyroidism Patient is being transferred to [facility] for possible CRRT. And further intensive care management Patient Condition at Discharge: Serious Plan - Discharge Summary New Discharge Prescriptions: New Lactulose [Cephulac] 30 gm PO QID ml Midodrine [ProAmatine] 10 mg PO AC-TID tab cefTRIAXone [Rocephin] 1 gm IVPB Q24HR vial Continue Omeprazole 40 mg PO DAILY PRN PRN Reason: Heartburn Potassium Chloride ER [K-Dur 20] 20 meq PO BID #60 tab.er.prt Rifaximin [Xifaxan] 550 mg PO BID #60 tablet Ondansetron HCl [Zofran] 4 mg PO Q6H PRN PRN Reason: Nausea Discontinued Levothyroxine Sodium [Synthroid] 25 mcg PO DAILY@0400 Lactulose [Cephulac] 20 gm PO QID #3600 ml Spironolactone [Aldactone] 50 mg PO BID@0400,1600 #100 tab Metolazone [Zaroxolyn] 5 mg PO DAILY #30 tab Furosemide [Lasix] 80 mg PO BID Midodrine [ProAmatine] 5 mg PO BID Magnesium 400 mg PO DAILY traMADol HCL [Ultram] 50 mg PO BID PRN PRN Reason: Pain Ferrous Sulfate [Iron (65 MG Elemental)] 325 mg PO AC-BID Discharge Medication List Omeprazole 40 mg PO DAILY PRN 12/23/18 [History] Potassium Chloride ER [K-Dur 20] 20 meq PO BID #60 tab.er.prt 02/21/19 [Rx] Rifaximin [Xifaxan] 550 mg PO BID #60 tablet 02/21/19 [Rx] Ondansetron HCl [Zofran] 4 mg PO Q6H PRN 06/15/19 [History] Lactulose [Cephulac] 30 gm PO QID ml 06/17/19 [Rx] Midodrine [ProAmatine] 10 mg PO AC-TID tab 06/17/19 [Rx] cefTRIAXone [Rocephin] 1 gm IVPB Q24HR vial 06/17/19 [Rx] Follow up Appointment(s)/Referral(s): [facility], [NON-STAFF] - 1 Week Cammy Lobato DO [Primary Care Provider] - 1-2 days Discharge Disposition: OTHER INSTITUTION NOT DEFINED
[2019-06-17 16:27] LABS: Glucose,Whole Blood 150 mg/dL (75-99)
[2019-06-17 17:02] VITALS: BP 95/63; PULSE 102; RESP 11; TEMP 97.6
== END 2019-06-17 16:45 | disposition short-term general hospital (02) | DRG 871 ==
LOC: EC 16:01 → 3SCARD 18:17 → 2SICU 19:33
PROVIDERS: ADMIT Internal Medicine; ATTEND Internal Medicine
PROC: 06HM33Z Insertion of Infusion Device into Right Femoral Vein, Percutaneous Approach (ICD-10-PCS; principal; 2019-06-15)
PROC: 30233K1 Transfusion of Nonautologous Frozen Plasma into Peripheral Vein, Percutaneous Approach (ICD-10-PCS; 2019-06-15)
PROC: 02H633Z Insertion of Infusion Device into Right Atrium, Percutaneous Approach (ICD-10-PCS; 2019-06-17)
DX: A41.51 Sepsis due to Escherichia coli [E. coli] (principal); R65.21 Severe sepsis with septic shock; N17.0 Acute kidney failure with tubular necrosis; K76.7 Hepatorenal syndrome; G93.41 Metabolic encephalopathy; K65.9 Peritonitis, unspecified; E87.2 Acidosis; K76.6 Portal hypertension; E87.1 Hypo-osmolality and hyponatremia; D68.4 Acquired coagulation factor deficiency; I95.89 Other hypotension; E11.22 Type 2 diabetes mellitus with diabetic chronic kidney disease; E66.01 Morbid (severe) obesity due to excess calories; E87.8 Other disorders of electrolyte and fluid balance, not elsewhere classified; E87.5 Hyperkalemia; E87.70 Fluid overload, unspecified; K72.10 Chronic hepatic failure without coma; K70.31 Alcoholic cirrhosis of liver with ascites; K70.40 Alcoholic hepatic failure without coma; E86.1 Hypovolemia; D63.8 Anemia in other chronic diseases classified elsewhere; N18.9 Chronic kidney disease, unspecified; L08.0 Pyoderma; M79.605 Pain in left leg; J45.909 Unspecified asthma, uncomplicated; G43.909 Migraine, unspecified, not intractable, without status migrainosus; E06.3 Autoimmune thyroiditis; L30.9 Dermatitis, unspecified; F10.11 Alcohol abuse, in remission; Z68.39 Body mass index [BMI] 39.0-39.9, adult; Z79.890 Hormone replacement therapy; Z79.899 Other long term (current) drug therapy; Z98.891 History of uterine scar from previous surgery; Z90.49 Acquired absence of other specified parts of digestive tract; Z87.891 Personal history of nicotine dependence; Z87.440 Personal history of urinary (tract) infections; Z98.51 Tubal ligation status; Z98.84 Bariatric surgery status; Z88.2 Allergy status to sulfonamides; Z88.7 Allergy status to serum and vaccine; Z91.018 Allergy to other foods; Z91.048 Other nonmedicinal substance allergy status; Z83.3 Family history of diabetes mellitus; Z82.49 Family history of ischemic heart disease and other diseases of the circulatory system; Z83.49 Family history of other endocrine, nutritional and metabolic diseases
CPT/HCPCS: 36415; 36556; 51702; 71045; 71046; 76770; 80048; 80051; 80053; 80329; 81001; 82140; 82550; 83605; 83735; 84100; 84132; 85025; 85610; 85730; 86704; 86706; 86850; 86900; 86901; 87040; 87070; 87075; 87077; 87086; 87186; 87205; 87340; 89050; 96361; 96365; 96367; 99291